=== PATIENT | male | born 1935 | race Caucasian/White ===

== ENCOUNTER 2020-05-13 12:36 | Emergency (ER) | payer MEDICARE ==
[~2020-05-13] VITALS: Ht 167.6 cm; Wt 90.7 kg
--- OUTSIDE RECORDS SUMMARY | ~2020-05-13 | XMS | Encounter Summary ---
Demographics + + + | Address | [address] | | | [place] [address] | + + + | Home Phone | | + + + | Preferred Language | Unknown | + + + | Marital Status | | + + + | Adventist Affiliation | Unknown | + + + | Race | White | + + + | Ethnic Group | Not or | + + + Author + + + | Author | [facility] | | | and [place] | + + + | Organization | [facility] | | | and [place] | + + + | Address | Unknown | + + + | Phone | Unavailable | + + + Support + + + + + | Name | Relationship | Address | Phone | + + + + + | Betsy Salcedo | ECON | [address] | | | | | [place], [place] | | | | | [address] | | + + + + + | Angelita Godoy | ECON | Unknown | | + + + + + Care Team Providers + +------+ + | Care Customer Data Technician Name | Role | Phone | + +------+ + | Catracho Puente | PCP | | | MD | | | + +------+ + Encounter Details +--------+---------+ + + + | Date | Type | Department | Care Team | Description | +--------+---------+ + + + | 10/19/ | Office | [facility] | Nicolas Roblero, | Coarctation of the | | 2020 | Visit | [facility] | MD [address] | aorta, complex; | | | | [address] | [place], | Persistent atrial | | | | [place], [place] | [place] [address] | fibrillation (HCC); | | | | [address] | [phone] | Biventricular | | | | [phone] | | implantable | | | | | | cardioverter-defibri | | | | | | llator in situ; | | | | | | Essential | | | | | | hypertension with | | | | | | goal blood pressure | | | | | | less than 130/80 | +--------+---------+ + + + Social History + +-------+ +--------+------+ | Tobacco Use | Types | Packs/Day | Years | Date | | | | | Used | | + +-------+ +--------+------+ | Former Smoker | | 1.5 | | | + +-------+ +--------+------+ + +---+---+---+ | Smokeless Tobacco: | | | | | Current User | | | | + +---+---+---+ + + +---------+ + | Alcohol Use | Drinks/Week | oz/Week | Comments | + + +---------+ + | Not Currently | | | | + + +---------+ + + + + | Sex Assigned at | Date Recorded | | | | + + + | Not on file | | + + + documented as of this encounter Last Filed Vital Signs + + + + + | Vital Sign | Reading | Time Taken | Comments | + + + + + | Blood Pressure | 136/78 | 10/19/2019 8:52 AM | | | | | PST | | + + + + + | Pulse | 74 | 10/19/2019 8:52 AM | | | | | PST | | + + + + + | Temperature | - | - | | + + + + + | Respiratory Rate | - | - | | + + + + + | Oxygen Saturation | 97% | 10/19/2019 8:52 AM | | | | | PST | | + + + + + | Inhaled Oxygen | - | - | | | Concentration | | | | + + + + + | Weight | 93 kg (205 lb) | 10/19/2019 8:52 AM | | | | | PST | | + + + + + | Height | 167.6 cm (5' 6") | 10/19/2019 8:52 AM | | | | | PST | | + + + + + | Body Mass Index | 33.09 | 10/19/2019 8:52 AM | | | | | PST | | + + + + + documented in this encounter Patient Instructions Patient Instructions Chip Leahy FNP - 10/19/2019 9:00 AM PSTStop the sweets Lose 1-2lbs per week for a total of 50lbs Get out and walk Stop alcohol Stop caffeine P ST documented in this encounter Progress Notes Nicolas Roblero MD - 10/19/2019 9:00 AM PSTFormatting of this note might be different fr om the original. ELECTROPHYSIOLOGY OUTPATIENT FOLLOW UP PATIENT NAME: Roberto Salcedo : 1935: AGE: 84 y.o. (home) : PRIMARY CARE: Catracho Puente MD Requesting Physician: Vero DOWD PROBLEMS ADDRESSED AT TODAY'S VISIT Problem List Biventricular implantable cardioverter-defibrillator in situ Overview A [employer] defibrillator was placed by Dr. Damon on July 27, 2011 for uncertain reasons, presumably cardiomyopathy. His LV systolic function has normalized. 02/28/2019: Normal device function was seen today. The underlying rhythm was atrial fibrill ation which is new since December 2018. The burden has increased to 30% since last evaluation the pacing threshold in the RV was 0.8 V at 0.5 ms and R waves were 22 mV. In the LV the threshold wa s 0.5 V at 0.5 ms and R waves were 1.5 mV. P waves were 2.5 mV. There have been episodes o f nonsustained VT lasting for up to 14 beats with a ventricular response of up to 180 bpm. H e has never received a defibrillator shocks since implant. Pacing has occurred 99% of the t hortensia in the LV and 97% of the time in the RV and 35% of the time in the RA. 10/19/2019: Normal device function was seen today. He has been in atrial fibrillation for the last 4 m [facility] so the mode was changed from DDDR to VVIR with a lower rate of 60 bpm. Pacing has occ urred in the left ventricle 99% of the time and in the right ventricle 76% of the time. The pacing threshold was 0.7 V at 0.5 ms in the right ventricle and 0.6 V at 0.5 ms in the left ventricle. There have been no arrhythmias other than A. fib. The rates have been controll ed. Outputs were adjusted appropriately, based upon pacing thresholds. The output in the r ight ventricle and left ventricle was changed to 1.5 V at 0.6 ms. Coarctation of the aorta, complex Overview Coarct repair in 1976. Had significant hypertension before then and has been much better since. Had a aortic valve replacement 8 years ago, presumably because of bicuspid aortic v alve Essential hypertension with goal blood pressure less than 130/80 Overview History of coarct repair. Chronic hypertension, controlled on medicines. Weight loss wa s strongly encouraged. Persistent atrial fibrillation Overview He has had frequent episodes of atrial fibrillation (41 days out of the past year) and he is anticoagulated with warfarin. Asymptomatic with the A. fib. The rate is controlled wit h carvedilol 25 mg twice daily and digoxin 0.125 mg/day. I recommended decreasing digoxin to 4 days a w [place] because of his renal dysfunction and age. Continue other therapy. A rate control strat egy is reasonable, given lack of symptoms. Chads 2 vascular score is 4. 10/19/2019: Continue current therapy. Pacing mode changed to VVIR. COMPREHENSIVE PROBLEM LIST Patient Active Problem List Diagnosis Date Noted Biventricular implantable cardioverter-defibrillator in situ 05/17/2014 Priority: High Note Last Updated: 10/19/2019 A [employer] defibrillator was placed by Dr. Damon on July 27, 2011 for uncertain reasons, presumably cardiomyopathy. His LV systolic function has normalized. 02/28/2019: Normal device function was seen today. The underlying rhythm was atrial fibrill ation which is new since December 2018. The burden has increased to 30% since last evaluation the pacing threshold in the RV was 0.8 V at 0.5 ms and R waves were 22 mV. In the LV the threshold wa s 0.5 V at 0.5 ms and R waves were 1.5 mV. P waves were 2.5 mV. There have been episodes o f nonsustained VT lasting for up to 14 beats with a ventricular response of up to 180 bpm. H e has never received a defibrillator shocks since implant. Pacing has occurred 99% of the t hortensia in the LV and 97% of the time in the RV and 35% of the time in the RA. 10/19/2019: Normal device function was seen today. He has been in atrial fibrillation for the last 4 m [facility] so the mode was changed from DDDR to VVIR with a lower rate of 60 bpm. Pacing has occ urred in the left ventricle 99% of the time and in the right ventricle 76% of the time. The pacing threshold was 0.7 V at 0.5 ms in the right ventricle and 0.6 V at 0.5 ms in the left ventricle. There have been no arrhythmias other than A. fib. The rates have been controll ed. Outputs were adjusted appropriately, based upon pacing thresholds. The output in the r ight ventricle and left ventricle was changed to 1.5 V at 0.6 ms. Stage 3 chronic kidney disease ([facility]) 09/19/2012 Priority: High Note Last Updated: 04/27/[address] Tatum . Bilateral carotid artery disease ([facility]) 06/17/2015 Priority: Medium Essential hypertension with goal blood pressure less than 130/80 09/19/2012 Priority: Medium Note Last Updated: 10/19/2019 History of coarct repair. Chronic hypertension, controlled on medicines. Weight loss wa s strongly encouraged. Persistent atrial fibrillation 09/19/2012 Priority: Medium Note Last Updated: 10/19/2019 He has had frequent episodes of atrial fibrillation (41 days out of the past year) and he is anticoagulated with warfarin. Asymptomatic with the A. fib. The rate is controlled wit h carvedilol 25 mg twice daily and digoxin 0.125 mg/day. I recommended decreasing digoxin to 4 days a w [place] because of his renal dysfunction and age. Continue other therapy. A rate control strat egy is reasonable, given lack of symptoms. Chads 2 vascular score is 4. 10/19/2019: Continue current therapy. Pacing mode changed to VVIR. Mixed dyslipidemia 09/19/2012 Priority: Medium Chronic combined systolic and diastolic heart failure ([facility]) 06/13/2019 Type 2 diabetes mellitus with diabetic nephropathy, without long-term current use of in sulin ([facility]) 03/05/2019 Note Last Updated: 10/02/2019 Mild pulmonary hypertension ([facility]) 03/05/2019 Note Last Updated: 04/27/2019 The estimated RV systolic pressure was 45 mmHg on a recent echo. There was normal LV sys tolic function and mild TR. Coarctation of the aorta, complex 02/28/2019 Note Last Updated: 10/19/2019 Coarct repair in 1976. Had significant hypertension before then and has been much better since. Had a aortic valve replacement 8 years ago, presumably because of bicuspid aortic v alve High serum parathyroid hormone (PTH) 02/09/2018 Urinary hesitancy 10/12/2016 Presence of automatic implantable cardioverter-defibrillator 01/22/2016 Note Last Updated: 04/27/2019 Bubbly - ICD. Model-S/N: N119 COGNIS [id number] Stroke 06/14/2015 Vitamin D deficiency 03/27/2013 S/P aortic valve replacement 09/19/2012 Note Last Updated: 04/27/2019 For severe aortic stenosis had an aortic valve replacement with a porcine prosthesis in 2010 (#25 magna ease). Idiopathic chronic gout of multiple sites without tophus 09/19/2012 Impotence 09/19/2012 Recommendations: Stop the sweets Lose 1-2lbs per week for a total of 50lbs Get out and walk Stop alcohol Stop caffeine HISTORY OF PRESENT ILLNESS This patient presents 10/19/2019, feeling well from a cardiac perspective. He has had no sym ptoms of angina, CHF, tachycardias, dizziness, or syncope. He has gained weight over the ho lidays. He remains inactive. Lasix was stopped and he takes that only if needed, for edema . Allergies Allergen Reactions Furosemide Photosensitivity Hydrochlorothiazide Photosensitivity Current Medications Current Outpatient Medications: allopurinol (ZYLOPRIM) 300 mg tablet, Take 300 mg by mouth daily. , Disp: , Rfl: aspirin 81 MG EC tablet, Take 81 mg by mouth daily with breakfast., Disp: , Rfl: atorvaSTATin (LIPITOR) 80 MG tablet, Take 80 mg by mouth nightly., Disp: , Rfl: calcitriol (ROCALTROL) 0.25 mcg capsule, TAKE 1 CAPSULE BY MOUTH DAILY, Disp: 90 caps ule, Rfl: 3 CARVEDILOL PO, Take 25 mg by mouth 2 (two) times daily. , Disp: , Rfl: digoxin (DIGOX) 125 mcg tablet, Take 125 mcg by mouth daily. , Disp: , Rfl: doxazosin (CARDURA) 1 mg tablet, Take 4 mg by mouth nightly., Disp: , Rfl: fenofibrate (TRICOR) 145 mg tablet, Take 1 tablet by mouth Daily., Disp: 90 tablet, Rf l: 2 finasteride (PROSCAR) 5 mg tablet, Take 5 mg by mouth daily. (Patient taking different ly: Take 2.5 mg by mouth Daily.), Disp: , Rfl: glipiZIDE (GLUCOTROL XL) 2.5 mg 24 hr tablet, Take 2.5 mg by mouth daily. (Patient mary ing differently: Take 5 mg by mouth Daily.), Disp: , Rfl: lisinopril (PRINIVIL,ZESTRIL) 40 MG tablet, Take 1 tablet by mouth every evening., Dis p: , Rfl: tamsulosin (FLOMAX) 0.4 mg CAPS, Take 2 capsules by mouth After dinner., Disp: 180 ca psule, Rfl: 3 warfarin (COUMADIN) 5 mg tablet, Take 3 mg by mouth daily. 4mg Wednesday, Wednesday, and Wednesday. 3 mg Wednesday, Wednesday and wednesday, Disp: , Rfl: The past history, social history, family history and problem list were reviewed and update d with changes of any significance. DATA Laboratory values which I reviewed 10/19/2019 are as follows: Lab Results Component Value Date WBC 7.4 01/13/2019 RBC 5.04 10/02/2019 RBC 4.42 01/13/2019 HGB 15.4 10/02/2019 HGB 13.2 (A) 01/13/2019 Lab Results Component Value Date NA 137 10/02/2019 K 4.2 10/02/2019 CL 102 10/02/2019 CO2 23 10/02/2019 ANIONGAP 16 10/02/2019 GLUF 164 (A) 01/13/2019 BUN 39 (A) 10/02/2019 EGFR 43.0 (A) 10/02/2019 Lab Results Component Value Date CHOL 118 06/15/2015 TRIG 84 06/15/2015 LDL 57 06/15/2015 GLUF 164 (A) 01/13/2019 Lab Results Component Value Date TSH 1.41 05/06/2017 TSH 1.40 07/04/2015 ROS I have personally reviewed and agree with ROS listed by ISHA attached. All other systems are reviewed and negative. PHYSICAL EXAM BP 136/78 | Pulse 74 | Ht 1.676 m (5' 6") | Wt 93 kg (205 lb) | SpO2 97% | BMI 33.09 k g/m Physical Exam Constitutional: He is oriented to person, place, and time. He appears well-developed and we ll-nourished. No distress. Pleasant overweight gentleman in no distress. Irregular rhythm controlled heart rate. HENT: Head: Normocephalic and atraumatic. Eyes: Pupils are equal, round, and reactive to light. Neck: No JVD present. No thyromegaly present. Cardiovascular: Normal rate, regular rhythm, normal heart sounds and intact distal pulses. Exam reveals no gallop and no friction rub. No murmur heard. Pulmonary/Chest: Effort normal and breath sounds normal. No respiratory distress. He has no wheezes. He has no rales. Abdominal: Soft. Bowel sounds are normal. There is no abdominal tenderness. There is no gua rding. Musculoskeletal: General: No tenderness or edema. Neurological: He is alert and oriented to person, place, and time. Skin: Skin is warm and dry. He is not diaphoretic. Psychiatric: He has a normal mood and affect. His behavior is normal. Judgment and thought content normal. Vitals reviewed. Nicolas Roblero MD 10/19/2019 9:38 AM *This report has been prepared using a voice recognition system. The report was reviewed f or accuracy, however, sound-alike word errors, addition and/or deletions may occur. If there is any question about this report please contact me. Patient Instructions Stop the sweets Lose 1-2lbs per week for a total of 50lbs Get out and walk Stop alcohol Stop caffeine Virginia Saucedo [facility] [employer] Billing Associate - 10/19/2019 9:00 AM Maddison VIEIRA Note- Electrophysiology Patient ID: Roberto Salcedo is a 84 y.o. male. Review of Systems Constitutional: Negative for chills, fever, malaise/fatigue and weight loss. HENT: Negative for congestion and sore throat. Respiratory: Negative for cough and shortness of breath. Cardiovascular: Negative for chest pain, palpitations and leg swelling. Gastrointestinal: Negative for abdominal pain and blood in stool. Genitourinary: Negative for hematuria. Musculoskeletal: Negative for myalgias. Neurological: Positive for dizziness. Negative for sensory change and loss of consciousness . Have you ever had a sleep study? NO Do you use oxygen? NO Do you use CPAP? NO Do you snore? YES Do you fall asleep for no reason during the day? NO Do you stop breathing at night? NO Do you feel excessively tired during the day? NO Lisa london in this encounter Plan of Treatment +--------+ + + + + | Date | Type | Specialty | Care Team | Description | +--------+ + + + + | 05/29/ | Office | Cardiology | Pavan Pham, | | 2019 | Visit | | MD [address] | | | | | | [place], [place] | | | | | | [address] | | | | | | | | +--------+ + + + + | 08/05/ | Procedure | Cardiology | | | 2019 | visit | | | | +--------+ + + + + | 11/07/ | Office | Cardiology | Nicolas Roblero, | | | 2020 | Visit | | [address] | | | | | | [place], | | | | | | [place] [address] | | | | | | [phone] | | | | | | | | +--------+ + + + + documented as of this encounter Visit Diagnoses + + | Diagnosis | + + | Coarctation of the aorta, complex Coarctation of aorta (preductal) (postductal) | + + | Persistent atrial fibrillation (HCC) Atrial fibrillation | + + | Biventricular implantable cardioverter-defibrillator in situ | + + | Essential hypertension with goal blood pressure less than 130/80 | + + documented in this encounter
--- OUTSIDE RECORDS SUMMARY | ~2020-05-13 | XMS | Encounter Summary ---
Demographics + + + | Address | [address] | | | [place] [address] | + + + | Home Phone | | + + + | Preferred Language | Unknown | + + + | Marital Status | | + + + | Lutheran Affiliation | Unknown | + + + | Race | White | + + + | Ethnic Group | Not or | + + + Author + + + | Author | [facility] | | | and [place] | + + + | Organization | [facility] | | | and [...] [place], [place] | | | | | [address] | | + + + + + | Angelita Godoy | ECON | Unknown | | + + + + + Care Team Providers + +------+ + | Care Rn Lactation Consultant Name | Role | Phone | + +------+ + | Catracho Puente | PCP | | | MD | | | + +------+ + Encounter Details +--------+ + + + + | Date | Type | Department | Care Team | Description | +--------+ + + + + | 03/20/ | Orders Only | [facility] | Conversion | | | 2012 | | [address] | Transaction, | | | | | [place] | Provider Unknown | | | | | [address] | [phone] | | | | | [phone] | | | +--------+ + + + + Social History + +-------+ +--------+------+ | Tobacco Use | Types | Packs/Day | Years | Date | | | | | Used | | + +-------+ +--------+------+ | Never Assessed | | | | | + +-------+ +--------+------+ + + + | Sex Assigned at | Date Recorded | | | | + + + | Not on file | | + + + documented as of this encounter Plan of Treatment +--------+ + + + + | Date | Type | Specialty | Care Team | Description | +--------+ + + + + | 05/29/ | Office | Cardiology | Pavan Pham, | | | 2019 | Visit | | MD [address] | | | | | | [place] | | | | | | [address] | | | | | | | | +--------+ + + + + | 08/05/ | Procedure | Cardiology | | | | 2019 | visit | | | | +--------+ + + + + | 11/07/ | Office | Cardiology | Nicolas Roblero, | | | 2020 | Visit | | MD [address] | | | | | | [place], | | | | | | [place] [address] | | | | | | [phone] | | | | | | | | +--------+ + + + + documented as of this encounter Procedures + +--------+ + + + | Procedure Name | Priori | Date/Time | Associated Diagnosis | Comments | | | ty | | | | + +--------+ + + + | CULTURE, URINE | Routin | 03/20/2013 | | Results for this | | | e | 9:00 AM | | procedure are in the | | | | PDT | | results section. | + +--------+ + + + documented in this encounter Results Culture, Urine (03/20/2013 9:00 AM PDT) + + | Specimen | + + | | + + + + + | Narrative | Performed At | + + + | Specimen Description URINE, COLLECTION NOT | EXTERNAL LAB | | GIVEN Testing | | | performed at [facility] [address] [facility];[place] [address] CULTURE | | | NO GROWTH | | | Testing performed at [facility];[address] | | | [facility];[place] [address] REPORT STATUS | | | 03/21/2013 FINAL | | | | | + + + + +---------+ + + | Performing | Address | City/State/Zipcode | Phone Number | | Organization | | | | + +---------+ + + | EXTERNAL LAB | | | | + +---------+ + + documented in this encounter Visit Diagnoses Not on filedocumented in this encounter"
--- OUTSIDE RECORDS SUMMARY | ~2020-05-13 | XMS | Encounter Summary ---
Demographics + + + | Address | [address] | | | [place] [address] | + + + | Home Phone | | + + + | Preferred Language | Unknown | + + + | Marital Status | | + + + | Jehovah'S Witness Affiliation | Unknown | + + + | Race | White | + + + | Ethnic Group | Not or | + + + Author + + + | Author | [facility] | | | and [place] | + + + | Organization | [facility] | | | and [...] [place], [place] | | | | | [address] | | + + + + + | Angelita Godoy | ECON | Unknown | | + + + + + Care Team Providers + +------+ + | Care Catering Administrative Assistant Name | Role | Phone | + +------+ + | Catracho Puente | PCP | | | MD | | | + +------+ + Reason for Visit + + + | Reason | Comments | + + + | Medication Refill | Fenofibrate | + + + Encounter Details +--------+--------+ + + + | Date | Type | Department | Care Team | Description | +--------+--------+ + + + | 02/21/ | Refill | [facility] | Pavan Pham, | Medication Refill | | 2020 | | CARDIOLOGY [place] | MD [address] | (Fenofibrate) | | | | [address] [facility] | [place], [place] | | | | | [place] [address] | [id number] | | | | | [place] | | | | | | [address] | | | | | | [phone] | | | +--------+--------+ + + + Social History + +-------+ [...] [address] | | | | | | [place] | | | | | | [address] | | | | | | | [...] [place], | | | | | | [place] [address] | | | | | | [phone] | | | | | | | | +--------+ + + + + documented as of this encounter Visit Diagnoses Not on filedocumented in this encounter"
--- OUTSIDE RECORDS SUMMARY | ~2020-05-13 | XMS | Encounter Summary ---
Demographics + + + | Address | [address] | | | [place] [address] | + + + | Home Phone | | + + + | Preferred Language | Unknown | + + + | Marital Status | | + + + | Latter Day Affiliation | Unknown | + + + | Race | White | + + + | Ethnic Group | Not or | + + + Author + + + | Author | [facility] | | | and [place] | + + + | Organization | [facility] | | | and [...] [place], [place] | | | | | [address] | | + + + + + | Angelita Godoy | ECON | Unknown | | + + + + + Care Team Providers + +------+ + | Care Doughnut Maker Name | Role | Phone | + +------+ + | Catracho Puente | PCP | | | MD | | | + +------+ + Encounter Details +--------+ + + + + | Date | Type | Department | Care Team | Description | +--------+ + + + + | 06/18/ | Orders Only | [facility] | Wing Roxane Vargas MD | | | 2014 | | CONVERSION [address] | [address] | | | | | [address] | [place], [place] | | | | | [place], [place] | [address] | | | | | [address] | [phone] | | | | | [phone] | | | +--------+ + + + [...] [place] | | | | | | [address] | | | | | | | [...] | | | | | | [place] [address] | | | | | | [phone] | | | | | | | | +--------+ + + + + documented as of this encounter Visit Diagnoses Not on filedocumented in this encounter"
--- OUTSIDE RECORDS SUMMARY | ~2020-05-13 | XMS | Encounter Summary ---
Demographics + + + | Address | [address] | | | [place] [address] | + + + | Home Phone | | + + + | Preferred Language | Unknown | + + + | Marital Status | | + + + | Sabianism Affiliation | Unknown | + + + | Race | White | + + + | Ethnic Group | Not or | + + + Author + + + | Author | [facility] | | | and [place] | + + + | Organization | [facility] | | | [...] [place], [place] | | | | | [address] | | + + + + + | Angelita Godoy | ECON | Unknown | | + + + + + Care Team Providers + +------+ + | Care Chemistry Quality Control Analyst Name | Role | Phone | + +------+ + | Catracho Puente | PCP | | | MD | | | + +------+ + Encounter Details +--------+ + + + + | Date | Type | Department | Care Team | Description | +--------+ + + + + | 09/19/ | Orders Only | [facility] | Conversion | | | 2012 | | CONVERSION DEP [address] | Transaction, | | | | | [address] | Provider Unknown | | | | | [place] | [phone] | | | | | [address] | | | | | | [phone] | | | +--------+ + + + [...] | | | | | [address] [address] [place] | | | | | | [address] | | | | | | | [...] | | | | | | [place] [address] | | | | | | [phone] | | | | | | | | +--------+ + + + + documented as of this encounter Visit Diagnoses Not on filedocumented in this encounter"
--- OUTSIDE RECORDS SUMMARY | ~2020-05-13 | XMS | Encounter Summary ---
Demographics + + + | Address | [address] | | | [place] [address] | + + + | Home Phone | | + + + | Preferred Language | Unknown | + + + | Marital Status | | + + + | Zoroastrianism Affiliation | Unknown | + + + | Race | White | + + + | Ethnic Group | Not or | + + + Author + + + | Author | [facility] | | | and [place] | + + + | Organization | [facility] | | [...] [place], [place] | | | | | [address] | | + + + + + | Angelita Godoy | ECON | Unknown | | + + + + + Care Team Providers + +------+ + | Care Cribber Name | Role | Phone | + +------+ + | Catracho Puente | PCP | | | MD | | | + +------+ + Encounter Details +--------+ + + + + | Date | Type | Department | Care Team | Description | +--------+ + + + + | 01/20/ | Orders Only | [facility] | Conversion | | | 2019 | | CONVERSION DEP [address] | Transaction, | | | | | [address] | Provider Unknown | | | | | [place] | [phone] | | | | | [address] | | | | | | [phone] | | | +--------+ + + + [...] | | | | | [address] [address] [place] | | | | | | [address] | | | | | | | [...] | | | | | | [place] [address] | | | | | | [phone] | | | | | | | | +--------+ + + + + documented as of this encounter Visit Diagnoses Not on filedocumented in this encounter"
--- OUTSIDE RECORDS SUMMARY | ~2020-05-13 | XMS | Encounter Summary ---
Demographics + + + | Address | [address] | | | [place] [address] | + + + | Home Phone | | + + + | Preferred Language | Unknown | + + + | Marital Status | | + + + | Jain Affiliation | Unknown | + + + | Race | White | + + + | Ethnic Group | Not or | + + + Author + + + | Author | [facility] | | | and [place] | + + + | Organization | [facility] | | | and [...] [place], [place] | | | | | [address] | | + + + + + | Angelita Godoy | ECON | Unknown | | + + + + + Care Team Providers + +------+ + | Care Cloth Wire Weaver Name | Role | Phone | + +------+ + | Catracho Puente | PCP | | | MD | | | + +------+ + Encounter Details +--------+ + + + + | Date | Type | Department | Care Team | Description | +--------+ + + + + | 02/28/ | Orders Only | [facility] | Nicolas Roblero, | | | 2018 | | [place] | MD [address] | | | | | [address] | [facility] [place] [place] | | | | | [place], [place] | [place] [address] | | | | | [address] | [phone] | | | | | [phone] | | | +--------+ + + + [...] | | | | | [address] [address] [place] | | | | | | [address] | | | | | | | [...] | | | | | | [place] [address] | | | | | | [phone] | | | | | | | | +--------+ + + + + documented as of this encounter Visit Diagnoses Not on filedocumented in this encounter"
--- OUTSIDE RECORDS SUMMARY | ~2020-05-13 | XMS | Encounter Summary ---
Demographics + + + | Address | [address] | | | [place] [address] | + + + | Home Phone | | + + + | Preferred Language | Unknown | + + + | Marital Status | | + + + | Muslim Affiliation | Unknown | + + + | Race | White | + + + | Ethnic Group | Not or | + + + Author + + + | Author | [facility] | | | and [place] | + + + | Organization | [facility] | | | and [place] | + + + | Address | Unknown | + + + | Phone | Unavailable | + + + Support + + + + + | Name | Relationship | Address | Phone | + + + + + | Betsy Muniz | ECON | [address] | | | | | [place], [place] | | | | | [address] | | + + + + + | Angelita Godoy | ECON | Unknown | | + + + + + Care Team Providers + +------+ + | Care Tool Profiling Machine Set Up Operator Name | Role | Phone | + +------+ + PCP | Unavailable | + +------+ + Encounter Details +--------+ + + + + | Date | Type | Department | Care Team | Description | +--------+ + + + + | 07/27/ | Hospital | [facility] | Ayanna Damon, | | | 2010 - | Encounter | [facility] | [address] | | | | | CARDIAC TELEMETRY | [address] | | | 07/28/ | | [address] | [place] [address] | | | 2010 | | [place] | [phone] | | | | | [address] | | | | | | [phone] | | | +--------+ + + + [...] + + documented as of this encounter Procedure Notes Ayanna Damon MD - 07/18/2013 10:51 PM PST PATIENT NAME: AYANNA MUNIZ Sex/Age: M / 75Y : 1935 FLAMER SEALER: Aaynna Damon MD DATE: 07/27/2011 PROCEDURE: 1. CRTD placement. 2. Coronary sinus venography. 3. Atrial lead placement. 4. VF induction by programmed electrical stimulation. 5. Defibrillatory threshold testing. INDICATION FOR PROCEDURE: The patient presents to undergo CRTD. He has a left bundle branch block and ejection fract ion of 25% and congestive heart failure. DESCRIPTION OF PROCEDURE: The left subclavian area was prepped and draped in usual sterile fashion. Local anesthesia was accomplished with 1% lidocaine with continuous heart rate, blood pressure and saturati on monitoring performed throughout the procedure. Brief general anesthesia administered dur ing ICD testing. An infraclavicular incision was made with careful dissection down to the pectoralis fascia where a pocket was formed. Using a needle and guidewire technique, the rodriguez bclavian vein was introduced under two separate sticks. The RV lead is a Guidant Model No. 0185, Serial No. [id number]. This was positioned in the right ventricular apex and screwed in p lace. The R wave was 25 mV, pacing threshold 1 V at 0.5 ms with an impedance of 575 ohms. There was no diaphragmatic stimulation at 10 V. The lead was sutured to the pectoralis fasc ia using 0 silk x2. Using the Rapido delivery system the coronary sinus was cannulated. Cor onary sinus venography was performed in multiple views including the use of an occlusion ba lloon. The first left ventricular target vessel was a superior vessel and it was successful ly cannulated. The lead was placed but could not be advanced to a distal enough position. We then picked a mid left ventricular branch and again this was successfully cannulated and the wire was advanced but the lead could not be advanced including the use of a 4-Eritrean u nipolar lead. At the junction of the CS os there are two vessels, the most inferior vessel does not accommodate the lead and the middle of these two vessels is slightly cannulated w ith difficulty. The lead first attempted as an Easytrak II and if and the lead was then pos itioned with excellent numbers and sheaths removed, but under fluoroscopic observation we w atched the lead slowly migrate out. We then recannulated this same vessel and placed a Guid ant Easytrak III, Model No. 4549, Serial No. [id number]. This lead was advanced well out and w edged. The R wave was 25 mV, pacing threshold 2 V at 0.5 ms with an impedance of 1159 ohms . The delivery system was carefully removed, and the lead observed over a long period of ti me and remained in satisfactory position but it is with some apprehension that this lead ma y Roxana MUNIZ ADM:07/27/11 [id number] 07/28/11 DIS Rubén CARDIAC PROCEDURE REPORT [id number] [facility] Ayanna Damon MD E-Sign: [facility] THIS REPORT IS CONFIDENTIAL AND NOT TO BE RELEASED WITHOUT PROPER AUTHORIZATION. [facility] not be in a stable position. The atrial lead was then placed and is a Guidant Model No. 40 87, Serial No. [id number]. A-wave after conversion to a sinus rhythm is 4.6 mV, pacing threshol d 0.9 V at 0.5 ms with an impedance of 611 ohms. The leads were then connected to a [employer] Model No. N119, Serial No. [id number]. The device was seen to sense and pace ap propriately. Programmed electrical stimulation was used to induce ventricular fibrillation. The device sensed the arrhythmia, shocking at 21 joules, converting him back to his atrial flutter. We then gave a synchronized shock at 40 joules, converting him to a sinus rhythm. The wound was irrigated with Ancef and closed using 2-0 Vicryl in a running layer, follow ed by a second 2-0 Vicryl layer and a 4-0 subcuticular layer. The patient tolerated the pro cedure well and left the seed laboratory technician in a stable hemodynamic state to obtain a chest x-ray. Ayanna Damon MD P P DAC/dlb #[id number] cc: Ayanna Damon MD Electronically Signed 08/17/11 0944 Ayanna Damon MD CRISTY,ERNIE NELSON Jessie ADM:07/27/11 [id number] 07/28/11 DIS Rubén CARDIAC PROCEDURE REPORT [id number] [facility] Ayanna Damon MD E-Sign: [facility] THIS REPORT IS CONFIDENTIAL AND NOT TO BE RELEASED WITHOUT PROPER AUTHORIZATION.Electronica lly signed by Ayanna Damon MD at 07/19/2013 7:17 AM PSTdocumented in this encounter Plan of Treatment +--------+ + + + + | Date | Type | Specialty | Care Team | Description | +--------+ + + + + | 05/29/ | Office | Cardiology | Brittney Phamcristina, | | | 2019 | Visit | | MD [address] | | | | | | [place] | | | | | | [address] | | | | | | | | +--------+ + + + + | 08/05/ | Procedure | Cardiology | | | | 2019 | visit | | | | +--------+ + + + + | 11/07/ | Office | Cardiology | Nicolas Roblero, | | | 2020 | Visit | | MD [address] | | | | | | [place] | | | | | | [place] [address] | | | | | | [phone] | | | | | | | | +--------+ + + + + documented as of this encounter Procedures + +--------+ + + + | Procedure Name | Priori | Date/Time | Associated Diagnosis | Comments | | | ty | | | | + +--------+ + + + | XR CHEST 2 VIEWS | | 07/27/2011 | | Results for this | | | | 3:29 PM | | procedure are in the | | | | PST | | results section. | + +--------+ + + + documented in this encounter Results XR Chest 2 VW (07/27/2011 3:29 PM PST) + + | Specimen | + + | | + + + + + | Narrative | Performed At | + + + | Exam Performed Location: [facility] [place] CHEST | MISC[facility] | | TWO VIEWS CLINICAL INFORMATION: Post biv icd @ 1330. | LAB | | COMPARISON: None. FINDINGS: Three lead ICD placement. Leads | | | are contiguous in project over the right and left ventricle as well | | | as the right atrium. Moderate cardiomegaly. Normal pulmonary | | | vasculature. Lungs are clear. No pleural effusion or | | | pneumothorax. Mild atherosclerotic disease noted. Bones are | | | normal for age. IMPRESSION: Biventricular ICD. Moderate | | | cardiomegaly. No acute findings. S: SQ ([id number]) Signed by: | | | CALIXTO BACK MD | | + + + + + | Procedure Note | + + | Cesar, Gus Conversion - 07/06/2013 3:24 PM PDT Exam Performed Location: [facility] | | at [facility] TWO VIEWSCLINICAL INFORMATION:Post biv icd @ | | 1330.COMPARISON:None.FINDINGS:Three lead ICD placement. Leads are contiguous in project | | over theright and left ventricle as well as the right atrium. Moderatecardiomegaly. | | Normal pulmonary vasculature. Lungs are clear. Nopleural effusion or pneumothorax. | | Mild atherosclerotic diseasenoted. Bones are normal for age.IMPRESSION:Biventricular | | ICD. Moderate cardiomegaly. No acute findings.S: SQ ([id number]) Signed by: CALIXTO Almaraz | | MD WONG | |None. | | | |FINDINGS: | |Three lead ICD placement. Leads are contiguous in project over the | |right and left ventricle as well as the right atrium. Moderate | |cardiomegaly. Normal pulmonary vasculature. Lungs are clear. No | |pleural effusion or pneumothorax. Mild atherosclerotic disease | |noted. Bones are normal for age. | | | |IMPRESSION: | |Biventricular ICD. Moderate cardiomegaly. No acute findings. | | | | | |S: SQ [id number]) Signed by: CALIXTO BACK MD | + + + +---------+ + + | Performing | Address | City/State/Zipcode | Phone Number | | Organization | | | | + +---------+ + + | [facility] | | | [phone] | + +---------+ + + | [facility] | | | [phone] | + +---------+ + + documented in this encounter Visit Diagnoses Not on filedocumented in this encounter"
--- OUTSIDE RECORDS SUMMARY | ~2020-05-13 | XMS | Encounter Summary ---
Demographics + + + | Address | [address] | | | [place] [address] | + + + | Home Phone | | + + + | Preferred Language | Unknown | + + + | Marital Status | | + + + | Congregation Affiliation | Unknown | + + + | Race | White | + + + | Ethnic Group | Not or | + + + Author + + + | Author | [facility] | | | and [place] | + + + | Organization | [facility] | | | [...] [place], [place] | | | | | [address] | | + + + + + | Angelita Godoy | ECON | Unknown | | + + + + + Care Team Providers + +------+ + | Care Snowboard Instructor Name | Role | Phone | + +------+ + | Catracho Puente | PCP | | | MD | | | + +------+ + Encounter Details +--------+ + + + + | Date | Type | Department | Care Team | Description | +--------+ + + + + | 10/31/ | Orders Only | [facility] | Mane Meza, | | | 2010 | | MEDICAL CENTER | MD [facility] | | | | | CLINICAL LABORATORY | [facility] [address] | | | | | [address] | [place] [address] | | | | | [place], [place] | [phone] | | | | | [address] | | | | | | [phone] | | | +--------+ + + + [...] [place] | | | | | | [address] | | | | | | | | +--------+ + + + + | 08/05/ | Procedure | Cardiology | | | | 2019 | visit | | | | +--------+ + + + + | 11/07/ Office | Cardiology | RobleroNicolas jackson Carlo, | | | 2020 | Visit | | [address] | | | | | | [place], | | | | | | [place] [address] | | | | | | [phone] | | | | | | | | +--------+ + + + + documented as of this encounter Procedures + +--------+ + + + | Procedure Name | Priori | Date/Time | Associated Diagnosis | Comments | | | ty | | | | + +--------+ + + + | CULTURE, MRSA | Routin | 10/31/2010 | | Results for this | | | e | 9:45 AM | | procedure are in the | | | | PST | | results section. | + +--------+ + + + documented in this encounter Results Culture, MRSA (10/31/2010 9:45 AM PST) + + | Specimen | + + | | + + + + + | Narrative | Performed At | + + + | Specimen Description NARES(NOSE) | EXTERNAL LAB | | Testing performed at [facility];[address] | | [facility];[place] [address] CULTURE | | | NO METHICILLIN RESISTANT STAPH AUREUS ISOLATED. | | | Testing performed at [facility], [address] | | [place] [address] REPORT STATUS | | | 11/01/2010 FINAL | | + + + + +---------+ + + | Performing | Address | City/State/Zipcode | Phone Number | | Organization | | | | + +---------+ + + | EXTERNAL LAB | | | | + +---------+ + + documented in this encounter Visit Diagnoses Not on filedocumented in this encounter"
--- OUTSIDE RECORDS SUMMARY | ~2020-05-13 | XMS | Encounter Summary ---
Demographics + + + | Address | [address] | | | [place] [address] | + + + | Home Phone | | + + + | Preferred Language | Unknown | + + + | Marital Status | | + + + | Pentecostal Affiliation | Unknown | + + + | Race | White | + + + | Ethnic Group | Not or | + + + Author + + + | Author | [facility] | | | and [place] | + + + | Organization | [facility] | | | [...] [place], [place] | | | | | [address] | | + + + + + | Angelita Godoy | ECON | Unknown | | + + + + + Care Team Providers + +------+ + | Care Federal Judge Name | Role | Phone | + +------+ + PCP | Unavailable | + +------+ + Encounter Details +--------+ + + + + | Date | Type | Department | Care Team | Description | +--------+ + + + + | 06/14/ | Hospital | [facility] | Rufina Cifuentes MD 101 | | | 2015 - | Encounter | [facility] | [address] | | | | | CARE FLO[address] | [place] [address] | | | 06/17/ | | [address] | [phone] | | | 2014 | | [place], [place] | | | | | | [address] | | | | | | [phone] | | | +--------+ + + + [...] + + documented as of this encounter Discharge Summaries Cornelio Boyer MD - 06/17/2015 8:42 AM PDTFormatting of this note might be different f rom the original. Discharge Summaries by Cornelio Boyer MD at 06/17/15841 Author: Cornelio Boyer MD Service: (none) Author Type: Physician Filed: 06/17/15 1126 Date of Service: 06/17/15841 Status: Signed [employer]: Cornelio Boyer MD (Physician) [facility] Service: Hospitalist Discharge Summary Date of Admission: 06/14/2015 Date of Discharge: 06/17/2015 Discharge Provider: CORNELIO BOYER MD Consulting Provider: Dr Vidal - Neurology , Dr Cr - Rehab Medicine Discharge Diagnoses: Principal Problem: Stroke (HCC) R cerebellar acute Active Problems: CKD (chronic kidney disease), stage III Essential hypertension, benign Chronic heart failure (HCC) S/P aortic valve replacement Atrial fibrillation (HCC) Dyslipidemia Biventricular implantable cardioverter-defibrillator in situ BRIEF HISTORY OF PRESENTATION: Ayanna Salcedo is a 79 y.o. male with significant past medical history of recent righ t carotid endarterectomy, aortic stenosis status post replacement, coronary artery disease s tatus post CABG, chronic kidney disease, status post AICD, atrial fibrillation on anticoagul ation, who was a transfer from [facility] for stroke. He was recently discharged from [facility] in [place] after the carotid endarterectomy. CT scan showed a large acute cer ebellar stroke. Dr Vidal saw him from Neurology. He had a repeat CT head yesterday to follow u p and this showed unchanged large R cerebellar infarction with mild mass effect on fourth ve ntricle with no evidence of hemorrhagic transformation. Discussed with Dr Vidal, ok to restar t warfarin at 10 days of symptom onset , and per family discussion with Dr harris yesterday, warfarin to start tomorrow, ASA to bridge until warfarin therapeutic. His vascular surgeon did advise him he needs ot be on low dose ASA even while on warfarin so after the bridging w ith 325 mg he can then shift to 81 mg barring any contraindications. Family at bedside. Judy galicia has been having R sided headache behind the R eye which is unchanged. No nausea, vomit ing, chest pain, syncope. K is low, replete and f/u at [facility]. He had been accepted there today . Blood glucose has been controlled, his oral med has been stopped as below. No evidence of heart failure. All quesitons answered. Medically stable to transfer to ICU DISCHARGE EXAM Vital Signs: BP 151/71 mmHg | Pulse 62 | Temp(Src) 98.1 F (36.7 C) (Oral) | Resp 16 | Ht 1.626 m (5' 4") | Wt 92.6 kg (204 lb 2.3 oz) | BMI 35.02 kg/m2 | SpO2 93% Constitutional: Alert and oriented to person, place, and time. Appears well-developed and w ell-nourished. HEENT: Neck supple, no JVD, non icteric sclera. Cardiovascular: Normal rate , + murmur Pulmonary/Chest: Effort normal and breath sounds normal. No stridor. No respiratory distres s. no wheezes. no rales Abdominal: Soft. Bowel sounds are normal. exhibits no distension and no mass. There is no t enderness. There is no rebound and no guarding. Extremeties/Musculoskeletal: Normal range of motion.exhibits no tenderness. exhibits no steffen ma. Neurological: Alert and oriented to person, place, and time. Has normal reflexes. No crania l nerve deficit. Exhibits normal muscle tone. Coordination normal. Skin: Skin is warm and dry. Psychiatric: Has a normal mood and affect. Behavior is normal. Judgment normal. Disposition: [facility] Condition: stable and improved Code Status: DNR/DNI Follow up: Dontae Chance MD [address] [facility] [id number] Art Vidal MD [address] [facility] [id number] Medication List START taking these medications aspirin 325 MG tablet QTY: 30 tablet Refills: 0 Doctor's comments: Stop 325 mg dose when INR is 2-3 and resume at 81 mg per Vascular surge on Take 1 tablet by mouth daily with breakfast. CHANGE how you take these medications atorvastatin 80 MG tablet Refills: 0 Commonly known as: LIPITOR Take 1 tablet by mouth nightly. What changed: - medication strength - how much to take CONTINUE taking these medications allopurinol 300 MG tablet Refills: 0 Commonly known as: ZYLOPRIM amiodarone 200 MG tablet Refills: 0 Commonly known as: PACERONE CARVEDILOL PO Refills: 0 digoxin 0.125 MG tablet Refills: 0 Commonly known as: LANOXIN tamsulosin 0.4 MG capsule QTY: 180 capsule Refills: 3 Commonly known as: FLOMAX Take 2 capsules by mouth After dinner. VITAMIN D (ERGOCALCIFEROL) PO Refills: 0 STOP taking these medications amLODIPine 5 MG tablet Commonly known as: NORVASC enoxaparin 120 MG/0.8ML Soln Commonly known as: LOVENOX glipiZIDE 2.5 MG 24 hr tablet Commonly known as: GLUCOTROL hydrochlorothiazide 12.5 MG tablet Commonly known as: HYDRODIURIL lisinopril 40 MG tablet Commonly known as: ZESTRIL warfarin 4 MG tablet Commonly known as: COUMADIN Where to Get Your Medications You need to roll picker these prescriptions. We sent them to a specific pharmacy, so go there to get them. [id number] - [place], [place] - [address] - aspirin 325 MG tablet [address] [place] [address] Information on where to get these meds is not yet available. Ask your nurse or doctor. - atorvastatin 80 MG tablet Discharge took >30 minutes, to include final examination, discussion of admission, and prep aration of prescriptions, instructions for on-going care, follow-up and documentation of dis charge summary. CORNELIO BOYER MD 06/17/2015 documented in this encounter Medications at Time of Discharge + + + +---------+ + + | Medication | Sig | Dispensed | Refills | Start | End Date | | | | | | Date | | + + + +---------+ + + | allopurinol | Take 300 mg by mouth | | 0 | 09/19/19 | | | (ZYLOPRIM) 300 mg | daily. | | | 13 | | | tablet | | | | | | + + + +---------+ + + | CARVEDILOL PO | Take 25 mg by mouth | | 0 | 09/19/19 | | | | 2 (two) times daily. | | | 13 | 0 | | | | | | | | + + + +---------+ + + | digoxin (DIGOX) | Take 125 mcg by | | 0 | 09/19/19 | | | 125 mcg tablet | mouth daily. | | | 13 | 0 | + + + +---------+ + + documented as of this encounter Progress Notes Conversion Transaction, Provider Unknown - 06/17/2015 10:56 AM PDTFormatting of this note m ight be different from the original. Nurse Progress Note by Mariya Lieberman RN at 06/17/151055 Author: Mariya Lieberman RN Service: (none) Author Type: Registered Nurse Filed: 06/17/15 1118 Date of Service: 06/17/151055 Status: Signed [employer]: Mariya Lieberman RN (Registered Nurse) Report called and given to Deysi on IPR. onver paulina Transaction, Provider Unknown - 06/17/2015 5:27 AM PDT Nurse Progress Note by Nakita Weeks RN at 06/17/15526 Author: Nakita Weeks RN Service: (none) Author Type: Registered Nurse Filed: 06/17/15605 Date of Service: 06/17/15526 Status: Signed [employer]: Nakita Weeks RN (Registered Nurse) Patient resting quietly this shift. Patient c/o headache, See mar for details. No further complaints. VSS. Wing Roxane Kirkland MD - 06/16/2015 4:34 PM PDTFormatting of this note might be different from the origi nal. Progress Notes by Wing Roxane Cr MD at 06/16/151633 Author: Wing Roxane Cr MD Service: Physical Medicine and Rehab Author Type: Physician Filed: 06/16/15 2961 Date of Service: 06/16/151633 Status: Signed [employer]: Wing Roxane Cr MD (Physician) Patient seen face-face for followup He still has some dizziness and ataxia Patient is for repeat head CT scan today. He is speaking adequately BP 149/70 mmHg | Pulse 60 | Temp(Src) 98 F (36.7 C) (Oral) | Resp 18 | Ht 1.626 m (5' 4 ") | Wt 92.2 kg (203 lb 4.2 oz) | BMI 34.87 kg/m2 | SpO2 94% Lung: Clear Cardiac: Regular Abdo: Soft Ext: Moving all limbs A/P cerebellar CVA Cont tx plan WING Roxane CR MD 06/16/2015 4:34 PM Admission on 06/14/2015 Component Date Value Ref Range Status GLUCOSE,POC SCREEN 06/14/2015 124* 65 - 99 mg/dL Final GLUCOSE,POC SCREEN 06/14/2015 100* 65 - 99 mg/dL Final WBC 06/15/2015 10.13 3.80 - 11.00 K/uL Final RBC 06/15/2015 4.16* 4.20 - 5.70 M/uL Final HGB 06/15/2015 13.5 13.2 - 17.0 g/dL Final HCT 06/15/2015 40.3 39.0 - 50.0 % Final MCV 06/15/2015 96.9 80.0 - 100.0 fl Final MCH 06/15/2015 32.4 27.0 - 34.0 pg Final MCHC 06/15/2015 33.4 32.0 - 35.5 g/dL Final RDW SD 06/15/2015 46.8 37 - 53 fl Final PLT 06/15/2015 230 150 - 400 K/uL Final MPV 06/15/2015 9.6 Final DIFF TYPE 06/15/2015 AUTOMATED Final NEUTROPHILS 06/15/2015 67.93 Final LYMPHOCYTES 06/15/2015 19.32 Final MONOCYTES 06/15/2015 10.19 Final EOSINOPHILS 06/15/2015 2.23 Final BASOPHILS 06/15/2015 0.33 Final NEUTROPHILS ABS 06/15/2015 6.88 1.90 - 7.40 K/uL Final LYMPHOCYTES ABS 06/15/2015 1.96 1.00 - 3.90 K/uL Final MONOCYTES ABS 06/15/2015 1.03* 0.00 - 0.80 K/uL Final EOSINOPHILS ABS 06/15/2015 0.23 0.00 - 0.50 K/uL Final BASOPHILS ABS 06/15/2015 0.03 0.00 - 0.10 K/uL Final SODIUM 06/15/2015 136 135 - 143 mmol/L Final POTASSIUM 06/15/2015 3.5 3.5 - 4.9 mmol/L Final CHLORIDE 06/15/2015 99 99 - 109 mmol/L Final CO2 06/15/2015 29 23 - 32 mmol/L Final ANION GAP AGAP 06/15/2015 12 5 - 20 mmol/L Final GLUCOSE 06/15/2015 105* 65 - 99 mg/dL Final BUN 06/15/2015 13 8 - 25 mg/dL Final CREATININE 06/15/2015 1.10 0.70 - 1.30 mg/dL Final BUN/CREAT 06/15/2015 12 Final CALCIUM 06/15/2015 9.6 8.5 - 10.5 mg/dL Final TOTAL PROTEIN 06/15/2015 6.5 6.3 - 8.2 g/dL Final Albumin 06/15/2015 3.6 3.3 - 4.8 g/dL Final GLOBULIN 06/15/2015 2.9 1.3 - 4.9 g/dL Final A/G 06/15/2015 1.2 1.0 - 2.4 Final TBIL 06/15/2015 1.1 0.1 - 1.5 mg/dL Final ALK PHOS 06/15/2015 89 35 - 115 U/L Final AST 06/15/2015 32 10 - 45 U/L Final ALT 06/15/2015 40 10 - 65 U/L Final EGFR 06/15/2015 >60 >60 mL/min/1.73m2 Final HEMOGLOBIN A1C 06/15/2015 5.2 4.0 - 6.0 % Final ESTIMATED AVG GLUCOSE 06/15/2015 103 Final CHOLESTEROL 06/15/2015 118 <200 mg/dL Final Triglycerides 06/15/2015 84 <150 mg/dL Final HDL CHOL 06/15/2015 44 >40 mg/dL Final LDL CALC 06/15/2015 57 <100 mg/dL Final INR 06/15/2015 1.1 Final GLUCOSE,POC SCREEN 06/15/2015 100* 65 - 99 mg/dL Final GLUCOSE,POC SCREEN 06/15/2015 108* 65 - 99 mg/dL Final GLUCOSE,POC SCREEN 06/15/2015 84 65 - 99 mg/dL Final INR 06/16/2015 1.1 Final WBC 06/16/2015 9.13 3.80 - 11.00 K/uL Final RBC 06/16/2015 4.37 4.20 - 5.70 M/uL Final HGB 06/16/2015 13.8 13.2 - 17.0 g/dL Final HCT 06/16/2015 42.0 39.0 - 50.0 % Final MCV 06/16/2015 96.2 80.0 - 100.0 fl Final MCH 06/16/2015 31.5 27.0 - 34.0 pg Final MCHC 06/16/2015 32.8 32.0 - 35.5 g/dL Final RDW SD 06/16/2015 43.8 37 - 53 fl Final PLT 06/16/2015 271 150 - 400 K/uL Final MPV 06/16/2015 9.5 Final DIFF TYPE 06/16/2015 AUTOMATED Final NEUTROPHILS 06/16/2015 65.03 Final LYMPHOCYTES 06/16/2015 21.01 Final MONOCYTES 06/16/2015 11.82 Final EOSINOPHILS 06/16/2015 1.76 Final BASOPHILS 06/16/2015 0.38 Final NEUTROPHILS ABS 06/16/2015 5.93 1.90 - 7.40 K/uL Final LYMPHOCYTES ABS 06/16/2015 1.92 1.00 - 3.90 K/uL Final MONOCYTES ABS 06/16/2015 1.08* 0.00 - 0.80 K/uL Final EOSINOPHILS ABS 06/16/2015 0.16 0.00 - 0.50 K/uL Final BASOPHILS ABS 06/16/2015 0.03 0.00 - 0.10 K/uL Final SODIUM 06/16/2015 134* 135 - 143 mmol/L Final POTASSIUM 06/16/2015 3.3* 3.5 - 4.9 mmol/L Final CHLORIDE 06/16/2015 98* 99 - 109 mmol/L Final CO2 06/16/2015 31 23 - 32 mmol/L Final ANION GAP AGAP 06/16/2015 8 5 - 20 mmol/L Final GLUCOSE 06/16/2015 102* 65 - 99 mg/dL Final BUN 06/16/2015 14 8 - 25 mg/dL Final CREATININE 06/16/2015 1.16 0.70 - 1.30 mg/dL Final BUN/CREAT 06/16/2015 12 Final CALCIUM 06/16/2015 9.6 8.5 - 10.5 mg/dL Final TOTAL PROTEIN 06/16/2015 6.6 6.3 - 8.2 g/dL Final Albumin 06/16/2015 3.6 3.3 - 4.8 g/dL Final GLOBULIN 06/16/2015 3.0 1.3 - 4.9 g/dL Final A/G 06/16/2015 1.2 1.0 - 2.4 Final TBIL 06/16/2015 1.2 0.1 - 1.5 mg/dL Final ALK PHOS 06/16/2015 91 35 - 115 U/L Final AST 06/16/2015 30 10 - 45 U/L Final ALT 06/16/2015 39 10 - 65 U/L Final EGFR 06/16/2015 >60 >60 mL/min/1.73m2 Final MAGNESIUM 06/16/2015 1.8 1.7 - 2.4 mg/dL Final GLUCOSE,POC SCREEN 06/15/2015 99 65 - 99 mg/dL Final GLUCOSE,POC SCREEN 06/16/2015 83 65 - 99 mg/dL Final GLUCOSE,POC SCREEN 06/16/2015 116* 65 - 99 mg/dL Final anArt MD - 5 2:42 PM PDT Progress Notes by Art Vidal MD at 06/16/15 7814 Author: Art Vidal MD Service: Neurology Author Type: Physician Filed: 06/16/15 7840 Date of Service: 06/16/15 144 Status: Addendum [employer]: Art Vidal MD (Physician) Related Notes: Original Note by Art Vidal MD (Physician) filed at 06/16/15 2028 [facility] Service: Neurology Progress Note Hospital Day: LOS: 2 days SUBJECTIVE Events Overnight: 79 year old male with history of Afib, HTN, aortic stenosis s/p AV replacement, CAD s/p CABG, AICD, right CEA this week who is seen for right cerebellar infarc t. Patient remains to be stable. Occasional right sided headache behind the eye. CT head yes terday showed stable evolving right cerebellar infarct, stable mild mass effect, no hydrocep halus. Scheduled Medications allopurinol 300 mg Oral Daily amiodarone 200 mg Oral Daily aspirin 325 mg Oral Daily with breakfast atorvastatin 80 mg Oral Nightly carvedilol 12.5 mg Oral BID cholecalciferol 5,000 Units Oral Daily digoxin 125 mcg Oral Daily enoxaparin 40 mg Subcutaneous Q24H sodium chloride 10 mL Intravenous Q8H tamsulosin 0.8 mg Oral after dinner Continuous Infusions dextrose PRN Medications acetaminophen OR acetaminophen, dextrose, dextrose, glucagon, ondansetron OR ondans etron, polyethylene glycol OBJECTIVE Vital Signs: BP 149/70 mmHg | Pulse 60 | Temp(Src) 98 F (36.7 C) (Oral) | Resp 18 | Ht 1.626 m (5' 4 ") | Wt 92.2 kg (203 lb 4.2 oz) | BMI 34.87 kg/m2 | SpO2 94% Temp (24hrs), Av.2 F (36.8 C), Min:98 F (36.7 C), Max:98.3 F (36.8 C) Systolic (24hrs), Av mmHg, Min:138 mmHg, Max:160 mmHg Diastolic (24hrs), Av mmHg, Min:64 mmHg, Max:75 mmHg AAOx3, speeche is clear PERRLA, EOMI, face is symmetric Muscle strength is full FNF no apparent dysmetria DATA Results for orders placed or performed during the hospital encounter of 06/14/15 (from the past 24 hour(s)) POCT glucose Collection Time: 06/15/15 5:12 PM Result Value Ref Range GLUCOSE,POC SCREEN 84 65 - 99 mg/dL POCT glucose Collection Time: 06/15/15 10:34 PM Result Value Ref Range GLUCOSE,POC SCREEN 99 65 - 99 mg/dL Protime-INR Collection Time: 06/16/15 4:55 AM Result Value Ref Range INR 1.1 CBC W/Auto Diff (Reflex to Manual) Collection Time: 06/16/15 4:55 AM Result Value Ref Range WBC 9.13 3.80 - 11.00 K/uL RBC 4.37 4.20 - 5.70 M/uL HGB 13.8 13.2 - 17.0 g/dL HCT 42.0 39.0 - 50.0 % MCV 96.2 80.0 - 100.0 fl MCH 31.5 27.0 - 34.0 pg MCHC 32.8 32.0 - 35.5 g/dL RDW SD 43.8 37 - 53 fl PLT 271 150 - 400 K/uL MPV 9.5 fl DIFF TYPE AUTOMATED NEUTROPHILS 65.03 % LYMPHOCYTES 21.01 % MONOCYTES 11.82 % EOSINOPHILS 1.76 % BASOPHILS 0.38 % NEUTROPHILS ABS 5.93 1.90 - 7.40 K/uL LYMPHOCYTES ABS 1.92 1.00 - 3.90 K/uL MONOCYTES ABS 1.08 (H) 0.00 - 0.80 K/uL EOSINOPHILS ABS 0.16 0.00 - 0.50 K/uL BASOPHILS ABS 0.03 0.00 - 0.10 K/uL Comprehensive metabolic panel Collection Time: 06/16/15 4:55 AM Result Value Ref Range SODIUM 134 (L) 135 - 143 mmol/L POTASSIUM 3.3 (L) 3.5 - 4.9 mmol/L CHLORIDE 98 (L) 99 - 109 mmol/L CO2 31 23 - 32 mmol/L ANION GAP AGAP 8 5 - 20 mmol/L GLUCOSE 102 (H) 65 - 99 mg/dL BUN 14 8 - 25 mg/dL CREATININE 1.16 0.70 - 1.30 mg/dL BUN/CREAT 12 CALCIUM 9.6 8.5 - 10.5 mg/dL TOTAL PROTEIN 6.6 6.3 - 8.2 g/dL Albumin 3.6 3.3 - 4.8 g/dL GLOBULIN 3.0 1.3 - 4.9 g/dL A/G 1.2 1.0 - 2.4 TBIL 1.2 0.1 - 1.5 mg/dL ALK PHOS 91 35 - 115 U/L AST 30 10 - 45 U/L ALT 39 10 - 65 U/L EGFR >60 >60 mL/min/1.73m2 Magnesium Collection Time: 06/16/15 4:55 AM Result Value Ref Range MAGNESIUM 1.8 1.7 - 2.4 mg/dL POCT glucose Collection Time: 06/16/15 5:15 AM Result Value Ref Range GLUCOSE,POC SCREEN 83 65 - 99 mg/dL PROBLEM LIST Principal Problem: Stroke (HCC) Active Problems: CKD (chronic kidney disease), stage III Essential hypertension, benign Chronic heart failure (HCC) S/P aortic valve replacement Atrial fibrillation (HCC) Dyslipidemia Biventricular implantable cardioverter-defibrillator in situ PLAN - Continue aspirin and statin - Plan to start warfarin on day 6. Patient likely will be discharged to [facility] at that time. O K to start warfarin with aspirin bridge and discontinue aspirin when INR therapeutic. - Will repeat a head CT today to make sure there is no increasing mass effect - If stable clinically and on CT head, may consider discharge to [facility] tomorrow. - Other recommendations as before. Art Vidal MD 06/16/2015 2:[address] head, appear stable. onversion Transaction, Pro vider Unknown - 06/16/2015 1:08 PM PDTFormatting of this note might be different from the o riginal. Therapy Progress Note by TIFF Carrillo/Josh at 06/16/15 1308 Author: ZULMA Carrillo Service: (none) Author Type: Occupational Therapist Filed: 06/16/15 3650 Date of Service: 06/16/15 1308 Status: Signed [employer]: ZULMA Carrillo (Occupational Therapist) 06/16/15 1148 OT Last Visit OT Received On 06/16/15 Reason for Treatment Stroke Requires OT Follow Up Awaiting tx order OT Eval/Reassessment Date 06/16/15 Assistance Required 1 person Stencil Cutter Needed No Family/Caregiver Present Yes Precautions Other Precautions falls; c/o frequent dizziness Other Comments Comments pt supine in bed, visiting with family, agreeable to OT eval. Pt presents close to baseline, still has balance deficts and c/o dizziness/ lightheadedness when up. OT discuss ed with pt sitting at EOB for a few minutes before coming into stand, pt in agreement. pt s tated he has been taking himself to/from the restroom, OT encouraged pt to have someone with him for SBA when going to the bathroom due to the frequent dizziness. Family stated that the plan is for pt to go to [facility] tomorrow and asked what all that entails. OT explained the therapy he would recieve while on IPR, pt and family had no further questions. Functional Standing Tolerance Time ~3-5 minutes Activity dynamic standing activity Comments (c/o dizziness/ light headedness) Activity Tolerance Activity Tolerance Patient tolerated treatment well Safety Devices Safety Devices in Place Yes Type of Devices Call lite in place Plan Treatment Interventions ADL retraining;IADL retraining;Functional transfer training;Functio nal dynamic activities;UE strengthening;PROM;Therapeutic exercises;Endurance training;Patien t/Family training;Equipment eval/education Progress Improving as expected OT Frequency QD;5x/wk Requires OT Follow Up Awaiting tx order Precautions Other Precautions falls; c/o frequent dizziness Home Environment Type of Home Home one story Home Exterior Layout 1-3 steps Home Interior Layout Lives on main level with bedroom/bathroom Bathroom Shower/Tub Walk-in shower;Tub/shower unit Bathroom Toilet Standard Bathroom Equipment Grab bars in shower/bath Home Equipment None Prior Function Level of [place] Independent with ADLs;Independent with IADLs;Independent with functi onal mobility;Driving in community Lives With Spouse Receives Help From Family ADL Assistance Independent Home ADL's Independent Employment Retired for age Cognition Overall Cognitive Status WFL Orientation Level Oriented Sensation Light Touch No apparent deficits Proprioception Proprioception No apparent deficit Perception Inattention/Neglect Appears intact RUE Assessment RUE Assessment WFL LUE Assessment LUE Assessment WFL Hand Function Gross Grasp Functional Assessment Assessment Decreased high-level ADLs;Decreased self-care trans;Decreased endurance;Decrease d Safe judgement during ADL;Decreased ADL status Prognosis Good Goal Formulation Patient;Family ADL Goals Pt Will Perform Grooming Standing at sink;With safety/supervision Pt Will Perform Toileting Mod independently;With safety/supervision Functional Transfer Goals Pt Will Perform All Functional Transfers Mod independently;With good judgment/safety Arm Goals Pt Will Complete Theraband Exer B UE;3 sets;10 reps;Level 2 Theraband;With activity toleran ce Plan Treatment Interventions ADL retraining;IADL retraining;Functional transfer training;Functio nal dynamic activities;UE strengthening;PROM;Therapeutic exercises;Endurance training;Patien t/Family training;Equipment eval/education Progress Improving as expected OT Frequency QD;5x/wk Requires OT Follow Up Awaiting tx order Transfers: Bed, Chair, Wheelchair 5 - Patient completes 100% of task and requires helper FOR? supervision Bed/chair/wheelchair transfers impacted by Endurance (decreased balance) Where transfers completed Standing at bedside;Supine/sitting up in bed Transfers: Bed, Chair, Wheelchair Final Score 5 Education Completed: Education Topic: OT role/evaluation Completed with: Patient, Spouse / Significant Other, Family Completed by: Verbal Education Response to Education: Stated Understanding Occupational Therapy Plan: Continue OT treatment per POC Barriers to d/c at this time include: Physical deficits impacting functional independence Self-care deficits impacting functional independence Kleber Kate MD - 06/16/2015 11:28 AM PDT Progress Notes by Kleber Harris MD at 06/16/15 1128 Author: Kleber Harris MD Service: Hospitalist Author Type: Physician Filed: 06/16/15 1139 Date of Service: 06/16/151127 Status: Signed [employer]: Kleber Harris MD (Physician) [facility] Service: Hospitalist Progress Note Pt: Ayanna Salcedo AGE/SEX: 79 y.o. male ROOM: Critical access hospital[address] : 1935 PCP: DONTAE CHANCE ADMIT DATE: 06/14/2015 TODAY'S DATE: 06/16/2015 Hospital Day/Hospital Course: LOS: 2 days 79 years old female with significant past medical history of recent right carotid endartere ctomy, aortic stenosis status post replacement, coronary artery disease status post CABG, ch ronic kidney disease, status post AICD, atrial fibrillation on anticoagulation, transfer fro [facility] for stroke. He was recently discharged from [facility] in [place] af ter the carotid endarterectomy. CT scan showed a large acute cerebellar stroke He felt dizziness before coming to the hospital. SUBJECTIVE: Patient seen and examine. Mild headache no blurring of vision. No chest pain, SOB. No co ugh on recumbency. Had no orthopnea or PND. No Abdominal pain, N/V or fever. Still feeling t ired and fatigued. Scheduled Medications: allopurinol 300 mg Oral Daily amiodarone 200 mg Oral Daily aspirin 325 mg Oral Daily with breakfast atorvastatin 80 mg Oral Nightly carvedilol 12.5 mg Oral BID cholecalciferol 5,000 Units Oral Daily digoxin 125 mcg Oral Daily enoxaparin 40 mg Subcutaneous Q24H glipiZIDE 2.5 mg Oral Daily insulin aspart 0-3 Units Subcutaneous Nightly insulin aspart 0-6 Units Subcutaneous TID AC sodium chloride 10 mL Intravenous Q8H tamsulosin 0.8 mg Oral after dinner Continuous Infusions dextrose PRN Medications acetaminophen OR acetaminophen, dextrose, dextrose, glucagon, ondansetron OR ondans etron, polyethylene glycol Allergy: No Known Allergies OBJECTIVE: Vitals: Patient Vitals for the past 24 hrs: BP Temp Temp src Pulse Resp SpO2 Weight 06/16/15 0759 147/69 mmHg 98.1 F (36.7 C) Oral 60 18 92 % - 06/16/15 0352 160/75 mmHg 98.2 F (36.8 C) Oral 61 18 92 % 92.2 kg (203 lb 4.2 oz) 06/15/15 2325 143/67 mmHg 98.1 F (36.7 C) Oral 60 18 91 % - 06/15/152004 148/66 mmHg 98.2 F (36.8 C) Oral 60 18 92 % - 06/15/15 1619 138/64 mmHg 98.3 F (36.8 C) Oral 62 18 93 % - I&O Detailed Table: Intake/Output Summary (Last 24 hours) at 06/16/15 1128 Last data filed at 06/16/15 0351 Gross per 24 hour Intake 1400 ml Output 0 ml Net 1400 ml Patient Vitals for the past 96 hrs: Weight 06/16/15 0352 92.2 kg (203 lb 4.2 oz) 06/15/15 0424 92.6 kg (204 lb 2.3 oz) 06/14/15 1402 93.4 kg (205 lb 14.6 oz) Hemodynamics Last 24hrs: Physical Examination: Physical exam remain unchanged from yesterday as I did examine him today on 06/16/2015 Constitutional: Alert and oriented to person, place, and time. Appears well-developed and w ell-nourished. HEENT: Neck supple, no JVD, non icteric sclera. Bruising in the right neck area Cardiovascular: Normal rate, regular rhythm, normal heart sounds with S1 and S2, and intact distal pulses. Exam reveals no gallop and no friction rub. 3/6HSM Pulmonary/Chest: Effort normal and breath sounds normal. No stridor. No respiratory distres s. no wheezes. no rales. exhibits no tenderness. Abdominal: Soft. Bowel sounds are normal. exhibits no distension and no mass. There is no t enderness. There is no rebound and no guarding. Extremeties/Musculoskeletal: Normal range of motion.exhibits no tenderness. exhibits no ed prakash. Neurological: Alert and oriented to person, place, and time. Has normal reflexes. No cran ial nerve deficit. Exhibits normal muscle tone. Coordination normal. Skin: Skin is warm and dry. No rash noted. No erythema. No pallor. Psychiatric: Has a normal mood and affect. Behavior is normal. Judgment normal. LABS: Recent Labs Lab 06/16/1545406/15/15456 WBC 9.13 10.13 HGB 13.8 13.5 HCT 42.0 40.3 PLT 271 230 NEUTOPHILPCT 65.03 67.93 MONOPCT 11.82 10.19 Recent Labs Lab 06/16/1545406/15/15456 NA 134* 136 K 3.3* 3.5 CL 98* 99 CO2 31 29 BUN 14 13 CREATININE 1.16 1.10 PROT 6.6 6.5 BILITOT 1.2 1.1 ALT 39 40 AST 30 32 Phosphorus: Lab Results Component Value Date PHOS 2.6 10/29/2014 Recent Labs Lab 06/16/1545406/15/15456 INR 1.1 1.1 PROBLEM LIST Principal Problem: Stroke (HCC) Active Problems: CKD (chronic kidney disease), stage III Essential hypertension, benign Chronic heart failure (HCC) S/P aortic valve replacement Atrial fibrillation (HCC) Dyslipidemia Biventricular implantable cardioverter-defibrillator in situ ASSESSMENT & PLAN 79 years old female with significant past medical history of recent right carotid endartere ctomy, aortic stenosis status post replacement, coronary artery disease status post CABG, ch ron kidney disease, status post AICD, atrial fibrillation on anticoagulation, transfer [facility] for stroke. Principal Problem: Acute cerebellar Stroke (HCC): Mild headache behind the right eye. No blurring. I will do the repeat CT scan today as I discussed with Dr. Vidal . We cannot do the MRI of the brain due to his defibrillator. Darline mooree to hold warfarin at this time. He is status post surgery for right endarterectomy. Con tinue aspirin and Lipitor at this time. We will restart warfarin at day #[address] Vidal would like to monitor 1 more day in the hospital Active Problems: CKD (chronic kidney disease), stage III: Kidney functions improved. Essential hypertension, benign: Blood pressure is appropriately control and I will continue amiodarone and Coreg Chronic systolic heart failure (HCC) with AICD: He is well compensated. Currently he is on amiodarone and Lipitor. Continue with digoxin as well. S/P aortic valve replacement: At baseline Atrial fibrillation (HCC): Rate control. We will hold warfarin at this time. We will start warfarin day #6 Dyslipidemia: On Lipitor I discussed with the patient and the family. I told him Rehab has accepted him and he is m ore inclined towards inpatient rehabilitation. KLEBER HARRIS MD, FACP 06/16/2015 11:28 AM Dictation software, Baeta, used which may contain error for similar sounding words even af ter review. Personal communication requested for any clarification. onversion Transac tion, Provider Unknown - 06/15/2015 2:14 PM PDTFormatting of this note might be different f rom the original. Therapy Progress Note by TIFF Carrillo/Josh at 06/15/15 1414 Author: TIFF Carrillo/Josh Service: (none) Author Type: Occupational Therapist Filed: 06/15/15 1414 Date of Service: 06/15/15 141 Status: Signed Channel Partners: ZULMA Carrillo (Occupational Therapist) 06/15/15 1413 OT Last Visit OT Received On 06/15/15 Requires OT Follow Up Unavailable Other Comments Comments pt currently leaving unit to go to CAT scan, will continue to follow up for OT maricel luation as census permits. . Plan Requires OT Follow Up Unavailable onver paulina Transaction, Provider Unknown - 06/15/2015 12:50 PM PDT Therapy Progress Note by Yvonne Eubanks PT at 06/15/15 1250 Author: Yvonne Eubanks PT Service: Physical Medicine and Rehab Author Type: Physical Therapist Filed: 06/15/15 1323 Date of Service: 06/15/15 1250 Status: Signed Channel Partners: Yvonne Eubanks PT (Physical Therapist) 06/15/15 1200 PT Last Visit PT Received On 06/15/15 Reason for Treatment Stroke Requires PT Follow Up Yes Follow up PT Only? No PT Eval/Reassessment Date 06/15/15 Assistance Required 1 person Home Environment Type of Home Home one story Home Exterior Layout 1-3 steps;Rail none Bathroom Shower/Tub Walk-in shower;Tub/shower unit Bathroom Toilet Standard Bathroom Equipment Grab bars in shower/bath;Grab bars outside of shower/bath Home Equipment None Prior Function Level of [place] Independent with IADLs;Independent with ADLs;Independent with functi onal mobility Lives With Spouse Employment Retired for age RUE Assessment RUE Assessment WFL LUE Assessment LUE Assessment WFL RLE Assessment RLE Assessment WFL LLE Assessment LLE Assessment WFL Cognition Overall Cognitive Status WFL Orientation Level Oriented Sensation Light Touch No apparent deficits Safety Devices Safety Devices in Place Yes Type of Devices (pt in bed with call light in reach at end of session) Precautions Other Precautions High fall risk due to dizziness Activity Tolerance Endurance Fair Plan Treatment/Interventions Gait training;Stair training;Therapeutic exercise;Transfer training ;Balance training PT Frequency 5-7x/wk Care Duration (# of days) 7 # of days Recommendation Recommendations SNF;IRF;Prior Setting Equipment Recommended Walker front wheeled Barriers to Discharge Physical Deficits Impacting Functional [place];Home Design (see comment) (1 step to enter with no handrail) PT Ready for Discharge Not Applicable Recommendation Comments Limited to d/c home by dizziness/high fall risk 06/15/15 1200 PT Last Visit PT Received On 06/15/15 Reason for Treatment Stroke Requires PT Follow Up Yes Follow up PT Only? No PT Eval/Reassessment Date 06/15/15 Assistance Required 1 person Precautions Other Precautions High fall risk due to dizziness Cognition Overall Cognitive Status WFL Orientation Level Oriented Bed Mobility Supine to Sit Min assist (1 LE OOB) Sit to Supine Min assist (1 LE into bed) Transfers Sit to/from Stand Minimal assist (steadying/contact guard) Stand Pivot Transfers Minimal assist (steadying/contact guard) Mobility Ambulation Assistance Moderate assist;Minimal assist Maximal Ambulation Distance (feet) 100 Total Ambulation Distance (feet) 150 Distance limited by? Therapist/staff discretion Pattern Ataxic Assistive Device Walker front wheeled (Hand hold assist by PT x 50 feet) Supine Supine-Exercise Type Quad sets;Glut sets;Ankle pumps;Short arc quads;ABD/ADD Modalities Modalities Other therapy Other Therapy pt educated on the importance of moblity and ther ex to prevent further decli ne of strength. Also educated on the importance of making sure someone is with him during m obility as he is a high fall risk due to dizziness Activity Tolerance Activity Tolerance Patient limited by fatigue Safety Devices Safety Devices in Place Yes Type of Devices (pt in bed with call light in reach at end of session) Plan Treatment/Interventions Gait training;Stair training;Therapeutic exercise;Transfer training ;Balance training PT Frequency 5-7x/wk Care Duration (# of days) 7 # of days Recommendation Recommendations SNF;IRF;Prior Setting Equipment Recommended Walker front wheeled Barriers to Discharge Physical Deficits Impacting Functional [place];Home Design (see comment) (1 step to enter with no handrail) PT Ready for Discharge Not Applicable Recommendation Comments Limited to d/c home by dizziness/high fall risk Kleber Kate MD - 06/15/2015 11:29 AM PDT Progress Notes by Kleber Harris MD at 06/15/151128 Author: Kleber Harris MD Service: Hospitalist Author Type: Physician Filed: 06/15/15 1142 Date of Service: 06/15/151128 Status: Signed Channel Partners: Kleber Harris MD (Physician) [facility] Service: Hospitalist Progress Note Pt: Ayanna Salcedo AGE/SEX: 79 y.o. male ROOM: 6624/6624-1 : 1935 PCP: DONTAE CHANCE ADMIT DATE: 06/14/2015 TODAY'S DATE: 06/15/2015 Hospital Day/Hospital Course: LOS: 1 day 79 years old female with significant past medical history of recent right carotid endartere ctomy, aortic stenosis status post replacement, coronary artery disease status post CABG, ch ronic kidney disease, status post AICD, atrial fibrillation on anticoagulation, transfer [facility] for stroke. He was recently discharged from [facility] in [place] af ter the carotid endarterectomy. CT scan showed a large acute cerebellar stroke He felt dizziness before coming to the hospital. SUBJECTIVE: Patient seen and examine. Complaint of dizziness has improved but still there. No chest pa in, SOB, WYNN. No cough on recumbency. Had no orthopnea or PND. No Abdominal pain, N/V or feve r. Still feeling tired and fatigued. Scheduled Medications: allopurinol 300 mg Oral Daily amiodarone 200 mg Oral Daily aspirin 325 mg Oral Daily with breakfast atorvastatin 80 mg Oral Nightly carvedilol 12.5 mg Oral BID cholecalciferol 5,000 Units Oral Daily digoxin 125 mcg Oral Daily enoxaparin 40 mg Subcutaneous Q24H glipiZIDE 2.5 mg Oral Daily insulin aspart 0-3 Units Subcutaneous Nightly insulin aspart 0-6 Units Subcutaneous TID AC sodium chloride 10 mL Intravenous Q8H tamsulosin 0.8 mg Oral after dinner Continuous Infusions dextrose PRN Medications acetaminophen OR acetaminophen, dextrose, dextrose, glucagon, ondansetron OR ondans etron, polyethylene glycol Allergy: No Known Allergies OBJECTIVE: Vitals: Patient Vitals for the past 24 hrs: BP Temp Temp src Pulse Resp SpO2 Height Weight 06/15/15 1118 150/73 mmHg 98 F (36.7 C) Oral 61 18 93 % - - 06/15/15 0800 149/70 mmHg 98.4 F (36.9 C) Oral 60 18 91 % - - 06/15/15 0424 148/72 mmHg 98.1 F (36.7 C) Oral 60 18 95 % - 92.6 kg (204 lb 2.3 oz) 06/14/15 2338 150/68 mmHg 98.2 F (36.8 C) Oral 61 18 92 % - - 06/14/15 1953 148/63 mmHg 98.3 F (36.8 C) Oral 62 18 92 % - - 06/14/15 1402 162/74 mmHg 98.5 F (36.9 C) Oral 60 18 96 % 1.626 m (5' 4") 93.4 kg (205 lb 14.6 oz) I&O Detailed Table: Intake/Output Summary (Last 24 hours) at 10/03/15 1129 Last data filed at 06/15/15 0428 Gross per 24 hour Intake 500 ml Output 500 ml Net 0 ml Patient Vitals for the past 96 hrs: Weight 06/15/15 0424 92.6 kg (204 lb 2.3 oz) 06/14/15 1402 93.4 kg (205 lb 14.6 oz) Hemodynamics Last 24hrs: Physical Examination: Constitutional: Alert and oriented to person, place, and time. Appears well-developed and w ell-nourished. HEENT: Neck supple, no JVD, non icteric sclera. Bruising in the right neck area Cardiovascular: Normal rate, regular rhythm, normal heart sounds with S1 and S2, and intact distal pulses. Exam reveals no gallop and no friction rub. 3/6HSM Pulmonary/Chest: Effort normal and breath sounds normal. No stridor. No respiratory distres s. no wheezes. no rales. exhibits no tenderness. Abdominal: Soft. Bowel sounds are normal. exhibits no distension and no mass. There is no t enderness. There is no rebound and no guarding. Extremeties/Musculoskeletal: Normal range of motion.exhibits no tenderness. exhibits no ed prakash. Neurological: Alert and oriented to person, place, and time. Has normal reflexes. No cran ial nerve deficit. Exhibits normal muscle tone. Coordination normal. Skin: Skin is warm and dry. No rash noted. No erythema. No pallor. Psychiatric: Has a normal mood and affect. Behavior is normal. Judgment normal. LABS: Recent Labs Lab 06/15/15456 WBC 10.13 HGB 13.5 HCT 40.3 PLT 230 NEUTOPHILPCT 67.93 MONOPCT 10.19 Recent Labs Lab 06/15/15456 NA 136 K 3.5 CL 99 CO2 29 BUN 13 CREATININE 1.10 PROT 6.5 BILITOT 1.1 ALT 40 AST 32 Phosphorus: Lab Results Component Value Date PHOS 2.6 10/29/2014 Recent Labs Lab 06/15/15456 INR 1.1 PROBLEM LIST Principal Problem: Stroke (HCC) Active Problems: CKD (chronic kidney disease), stage III Essential hypertension, benign Chronic heart failure (HCC) S/P aortic valve replacement Atrial fibrillation (HCC) Dyslipidemia Biventricular implantable cardioverter-defibrillator in situ ASSESSMENT & PLAN 79 years old female with significant past medical history of recent right carotid endartere ctomy, aortic stenosis status post replacement, coronary artery disease status post CABG, ch ronic kidney disease, status post AICD, atrial fibrillation on anticoagulation, transfer [facility] for stroke. Principal Problem: Acute cerebellar Stroke (HCC): We cannot do the MRI of the brain due to his defibrillator. Continue to monitor. Continu e to hold warfarin at this time. He is status post surgery for right endarterectomy. Darline nue aspirin and Lipitor at this time. We will restart warfarin at day #6 Active Problems: CKD (chronic kidney disease), stage III: Kidney functions improved. Essential hypertension, benign: Blood pressure is appropriately control and I will continue amiodarone and Coreg Chronic systolic heart failure (HCC) with AICD: He is well compensated. Currently he is on amiodarone and Lipitor. Continue with digoxin as well. S/P aortic valve replacement: At baseline Atrial fibrillation (HCC): Rate control. We will hold warfarin at this time. We will start warfarin day #6 Dyslipidemia: On Lipitor KLEBER HARRIS MD, FACP 06/15/2015 11:29 AM Dictation software, Baeta, used which may contain error for similar sounding words even af ter review. Personal communication requested for any clarification. onversion Transac tion, Provider Unknown - 06/15/2015 6:17 AM PDTFormatting of this note might be different f rom the original. Nurse Progress Note by Nakita Weeks RN at 06/15/15616 Author: Nakita Weeks RN Service: (none) Author Type: Registered Nurse Filed: 06/15/15617 Date of Service: 06/15/15616 Status: Signed Channel [employer]: Nakita Weeks RN (Registered Nurse) Patient resting quietly this shift. Patient c/o WYNN, relieved by tylenol. VSS. onver paulina Transaction, Provider Unknown - 06/14/2015 5:23 PM PDT Progress Notes by Ariadna Chavarria [facility] at 06/14/151722 Author: Ariadna Chavarria RPH Service: (none) Author Type: Pharmacist Filed: 06/14/151722 Date of Service: 06/14/151722 Status: Signed Channel Partners: Ariadna Chavarria RPH (Pharmacist) Clinical Pharmacy Note: Renal Monitoring Ayanna Salcedo 79 y.o. male Ht Readings from Last 1 Encounters: 06/14/15 1.626 m (5' 4") Wt Readings from Last 1 Encounters: 06/14/15 93.4 kg (205 lb 14.6 oz) Creatinine clearance cannot be calculated (Patient's most recent sCr result is older than t he maximum 3 days allowed.) Pharmacy dosing for renal function per Dr. Cifuentes. Currently, there are no labs. Pharmacy will adjust medications, if necessary, in AM when la bs are reported. Ariadna Chavarria RPh 06/14/2015 5:22 PM onver paulina Transaction, Provider Unknown - 06/14/2015 3:10 PM PDT Therapy Progress Note by Sally Harley MS CCC-FIRE FIGHTERS DISPATCHER at 06/14/151509 Author: Sally Harley MS CCC-FIRE FIGHTERS DISPATCHER Service: (none) Author Type: Speech and Language Patho logist Filed: 06/14/151509 Date of Service: 06/14/151509 Status: Signed Channel Partners: Sally Harley MS CCC-FIRE FIGHTERS DISPATCHER (Speech and Language Pathologist) 06/14/15 1500 Swallowing Assessment Eval Swallowing Evaluation Yes Initial Swallow Assessment History of Intubation Yes Length of Intubations (days) (during sx two days ago ) Dentition Dentures upper;Dentures lower (in mouth) Vision Functional for self-feeding ( has them in her purse) Patient Positioning Upright in bed Baseline Vocal Quality Normal Oral Motor Exam Labial ROM WFL Labial Symmetry WFL Labial Strength WFL Lingual ROM WFL Lingual Symmetry WFL Lingual Strength WFL Facial Symmetry WFL Vocal Quality WFL Consistencies Consistencies Assessed Yes Ice Chips Presentation Self Fed Oral Phase WFL Pharyngeal Phase No overt signs or symptoms of aspirations Thin Presentation Straw Oral Phase Thin WFL Pharyngeal Phase No overt signs or symptoms of aspiration Puree Presentation Self Fed Oral Phase WFL Pharyngeal No overt signs or symptoms of aspiration Dysphagia Mechanically Altered Presentation Self Fed Oral Phase WFL Pharyngeal Phase No overt signs or symptoms of aspiration Regular Presentation Self Fed Oral Phase WFL Pharyngeal Phase No overt signs or symptoms of aspiration Recommendations Liquids Consistency Recommendations Thin Diet Consistency Recommendation Regular Risk for Aspiration None Compensatory Swallowing Strategies Upright as possible for all oral intake Recommended Form of Meds Meds with recommended liquid Summary No s/s of aspiration or c/o difficulty with meal Staff Notified RN Plan of Care Treatment Plan Eval consult only AVS Documentation Yes Diet Regular: no restrictions Liquids Thin liquids: regular consistency FIRE FIGHTERS DISPATCHER Ready for Discharge Yes Dysphagia Goals Shelter Goals Safe/efficient oral intake Pt will have safe/efficient oral intake Thin liquids;Regular diet;Goal met;New/revised goa l Short Term Goals Follow swallow precautions Pt will follow swallow precautions Goal met;New/revised goal docume nted in this encounter H&P Notes Rufina Cifuentes MD - 06/14/2015 4:44 PM PDT H&P by Rufina Cifuentes MD at 06/14/151643 Author: Rufina Cifuentes MD Service: (none) Author Type: Physician Filed: 06/14/151815 Date of Service: 06/14/151643 Status: Addendum Channel Partners: Rufina Cifuentes MD (Physician) Related Notes: Original Note by Rufina Cifuentes MD (Physician) filed at 06/14/151812 [facility] Service: Hospitalist Admission History & Physical Pt: Ayanna Salcedo AGE/SEX: 79 y.o. male ROOM: 6624/6624-1 PCP: DONTAE CHANCE : 1935 TODAY'S DATE: 06/14/2015 Date of Admission: 06/14/2015 Chief Complaint: stroke History of Present Illness: The patient is a 79 y.o. male with PMH significant for recent R carotid endarterectomy, s/p AV replacement, CAD s/p CABG, CKD, sp AICD, afib on anticoagulation transferred from [facility] for stroke. Patient was just discharged from [facility] in [place] yesterday after the carotid endarterectomy which was done the day prior. He had initially presented to the OSH for recurrent symptoms of TIA including dizziness, a fall, weakness, numbness of left u pper extremity for 3 days. During the work up, he was found to have a 60% right internal ca rotid stenosis with dense calcified irregular atherosclerosis with a stenosis, thought to be a complex lesion. It was felt to be symptomatic right carotid stenosis and he underwent se mi-urgent carotid endarterectomy as mentioned above. His symptoms resolved so he was discha rged home. During that hospital course, his coumadin level was reversed and his INR at [facility] was 1.5. He was discharged with lovenox bridge which he only took once but because he was not feeling well, he did not take the lovenox shot this morning and did not take coumad in last night. This morning he felt similar dizziness as before although not as bad and he couldn't stand, so he was taken to [facility]. Family reports that his legs were just shaking. Otherwis e no fever, no n/v. Head CT was repeated and he was found to have a subacute infarct per ve rbal report - I do not have the formal report so the details of his stroke not certain at th is time. Brain MRI could not be done due to AICD. Dr. Vidal at [facility] and patient was transfer red for further evaluation and management. He currently denies any weakness, numbness, spee ch or swallowing problems. PMHx: Past Medical History Diagnosis Date Hypertension Gout CHF (congestive heart failure) ([facility]) Hyperlipidemia Cardiomyopathy (HCC) Atrial fibrillation (HCC) hx. of S/P AVR (aortic valve replacement) Aortic stenosis hx. of Chronic kidney disease Diabetes mellitus, type 2 (HCC) Stroke ([facility]) PSHx: Past Surgical History Procedure Laterality Date Cardiac valve replacement 2010 Cardiac defibrillator placement 2010 Coronary artery bypass graft Cataract extraction bilateral Pacemaker insertion [employer] Prior To admission Meds: Prior to Admission medications Medication Sig Start Date End Date Taking? Authorizing Provider enoxaparin (LOVENOX) 120 MG/0.8ML SOLN Inject 120 mg into the skin daily. Indications: Rece nt carotid endardectomy on 06/11/15. To receive x 7 days 06/13/15 06/19/15 Yes Historical Prov ider allopurinol (ZYLOPRIM) 300 MG tablet Take 300 mg by mouth daily. Historical Provider amiodarone (PACERONE) 200 MG tablet Take 200 mg by mouth daily. Historical Provider amLODIPine (NORVASC) 5 MG tablet Take 5 mg by mouth daily. Historical Provider atorvastatin (LIPITOR) 40 MG tablet Take 40 mg by mouth nightly. 09/18/14 Historical Provid er CARVEDILOL PO Take 25 mg by mouth 2 (two) times daily. Historical Provider digoxin (LANOXIN) 0.125 MG tablet Take 125 mcg by mouth daily. Historical Provider glipiZIDE (GLUCOTROL) 2.5 MG 24 hr tablet Take 2.5 mg by mouth daily. Historical Provide r hydrochlorothiazide (HYDRODIURIL) 12.5 MG tablet Take 12.5 mg by mouth daily. Historic al Provider lisinopril (ZESTRIL) 40 MG tablet Take 2 tablets by mouth daily. Patient taking differently: Take 40 mg by mouth daily. 05/04/14 DIEUDONNE Iverson tamsulosin (FLOMAX) 0.4 MG capsule Take 2 capsules by mouth After dinner. 05/18/14 DIEUDONNE Iverson VITAMIN D, ERGOCALCIFEROL, PO Take 5,000 Int'l Units by mouth daily. Historical Provider warfarin (COUMADIN) 4 MG tablet Take 4 mg by mouth daily. [facility] regulates PT 's Historical Provider Medications scheduled: allopurinol 300 mg Oral Daily amiodarone 200 mg Oral Daily amLODIPine 5 mg Oral Daily [START ON 06/15/2015] aspirin 81 mg Oral Daily with breakfast Or [START ON 06/15/2015] aspirin 300 mg Rectal Daily with breakfast atorvastatin 40 mg Oral Nightly carvedilol 25 mg Oral BID cholecalciferol 5,000 Units Oral Daily digoxin 125 mcg Oral Daily enoxaparin 40 mg Subcutaneous Q24H glipiZIDE 2.5 mg Oral Daily hydrochlorothiazide 12.5 mg Oral Daily insulin aspart 0-3 Units Subcutaneous Nightly insulin aspart 0-6 Units Subcutaneous TID AC sodium chloride 10 mL Intravenous Q8H tamsulosin 0.8 mg Oral after dinner warfarin 4 mg Oral Daily Allergies: No Known Allergies Family Hx: Family History Problem Relation Age of Onset Cancer Mother Heart disease Father Social Hx: History Social History Marital Status: Spouse Name: N/A Number of Children: N/A Years of Education: N/A Occupational History Not on file. Social History Main Topics Smoking status: Former Smoker -- 1.50 packs/day for 30 years Types: Cigarettes Smokeless tobacco: Former User Alcohol Use: 3.0 oz/week 5 Cans of beer per week Drug Use: Not on file Sexual Activity: Not Currently Other Topics Concern Not on file Social History Narrative Review of Symptoms: Complete 10 point ROS were conducted and are negative except for recurrent dizziness, fall and leg instability, otherwise all negative. 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 Objective: Vital Signs: BP 162/74 mmHg | Pulse 60 | Temp(Src) 98.5 F (36.9 C) (Oral) | Resp 18 | Ht 1.626 m (5' 4") | Wt 93.4 kg (205 lb 14.6 oz) | BMI 35.33 kg/m2 | SpO2 96% Physical Exam: Constitutional: Oriented to person, place, and time. appears well-developed and well-nouris hed. HEENT: Head: Normocephalic and atraumatic. Nose: Nose normal. Mouth/Throat: Oropharynx is clear and moist. Eyes: Conjunctivae and EOM are normal. Pupils are equal, round, and reactive to light. Righ t eye exhibits no discharge. Left eye exhibits no discharge. No scleral icterus. Neck: Normal range of motion. Neck supple. Surgical scar on the right neck, bruise noted bu t no obvious hematoma and no drainge, incision is d/c/i Cardiovascular: Normal rate, regular rhythm, normal heart sounds with S1 and S2, and intact distal pulses. Exam reveals no gallop and no friction rub. Positive soft murmur heard. Pulmonary/Chest: Effort normal and breath sounds normal. No stridor. No respiratory distres s. no wheezes. no rales. exhibits no tenderness. Abdominal: Soft. Bowel sounds are normal. exhibits no distension and no mass. There is no t enderness. There is no rebound and no guarding. Extremities/Musculoskeletal: Normal range of motion.exhibits no tenderness. exhibits no ed prakash. Neurological: Alert and oriented to person, place, and time. Displays normal reflexes. No cranial nerve deficit. Exhibits normal muscle tone. Coordination normal. Chronic slight ri ght facial droop. Skin: Skin is warm and dry. No rash noted. No erythema. No pallor. Psychiatric: Has a normal mood and affect. Behavior is normal. Judgment normal. Data: Outside labs from today WBC 10.7, hg 13.3, plt 229, UA negative, Na 138, K 3.4, Cl 104, Bicarb 27, Cr 1.31, glucose 123, LFT within normal limits INR/PT 1 Trop <0.01 Dig 0.74 Imaging and report of Head CT from [facility] today pending at this time Recent diagnostic studies at Outside hospital US carotid 06/12/15 75-99% stenosis in R ICA 3cm distal to the carotid bifurcation, low end 50-74% stenosis in left mid ICA CT head without contrast 06/11/15 No acute intracranial abnormality CT c-spine without contrast 06/11/15 DJD without fractures or dislocations, no evidence of central canal stenosis, relatively se laura left C5-6 neuroforaminal narrowing 2/2 uncovertebral and facet joint hypertrophy CTA head and neck 06/08/15 Approximately 60% stenosis of the proximal right ICA and proximal right vertebral artery Heavy plaque burden involving bilateral intercranial segments of the vertebral arteries, po ssibly hemodynamically significant No significant stenosis involving left ICA. 1.7cm old left parieto-occipital lacunar infarct, smaller lacunar infarct involving bilater al subinsular white matter 2D echo 06/11/15 Normal LV size and function EF 60-65% Cardiac PCM, grossly normal bioprosthetic aortic valve function, mild mitral regurgitation, mild aortic root dilation. Problem List: Principal Problem: Stroke (HCC) Active Problems: CKD (chronic kidney disease), stage III Essential hypertension, benign Chronic heart failure (HCC) S/P aortic valve replacement Atrial fibrillation (HCC) Dyslipidemia Biventricular implantable cardioverter-defibrillator in situ Assessment and Plan: 1. Subacute/acute infarct: details of the infarct not clear at this time, will await for th e final records from [facility]. Dr. Vidal already aware of the consult, neuro checks. PT /OT/ST. Patient s/p recent Right carotid endarterectomy. Lipid panel, HgA1c. Okay for sub optimal BP for now until the details of his infarct better known. Addendum: discussed with Dr. Vidal, and reviewed the head CT image that has now pushed throug h the system. He does have a quite large size of cerebellar stroke. Hard to exactly say whe ther it is acute or subacute. The initial head CT at the OSH on initial evaluation was nega tive but no MRI was done at the time due to AICD. Given the size of the stroke, Dr. Vidal rec ommends treating this as an acute stroke, okay for permissible hypertension, hold lovenox br idge and coumadin until day 6, and until then do full 325mg dose ASA. Also recommends to re peat head CT tomorrow afternoon to progression. Continue statin. Will also decrease dose o f coreg, hold hctz and amlodipine for now to prevent hypotension. 2. S/p recent right carotid endarterectomy at outside hospital POD #2. 3. CKD III: monitor 4. DM: continue oral home meds, HgA1c in AM. 5. A. Fib: continue coumadin, INR 1 today, will await further evaluation and recommendation by Dr. Vidal regarding bridging therapy. 6. CAD s/p CABG, AVR: continue home meds 7. Nonischemic CMP/CHF: s/p AICD, euvolemic at this time, EF normal on most recent echo. 8. DVT prophylaxis: lovenox prophylaxis dose, no lovenox bridge and coumadin until day 6 fo r concern of hemorrhagic conversion given the size of the stroke. Patient's old records and labs were reviewed in detail and summarized. Code Status: DNR/DNI Primary Care Physician: DONTAE CHANCE Patient expected to stay more than 2 midnights due to his comorbidities and complexity of h is problem lists. Rufina Cifuentes MD, FACP 06/14/2015 5:00 PM documented in this encount er Consult Notes Wing Roxane Cr MD - 06/15/2015 11:51 AM PDTFormatting of this note might be different from th e original. Consult* by Wing Roxane Cr MD at 06/15/15 4682 Author: Wing Roxane Cr MD Service: Physical Medicine and Rehab Author Type: Physician Filed: 06/15/15 4245 Date of Service: 06/15/15 5289 Status: Signed [employer]: Wing Roxane Cr MD (Physician) [facility] Service: Physical Medicine & Rehab Initial Consult Note Date of Admission: 06/14/2015 Reason for Consultation: Consideration for IPR Requesting Physician: Hospitalist History Obtained From: patient, chart review CHIEF COMPLAINT: CVA HISTORY OF PRESENT ILLNESS The patient is a 79 y.o. male with PMH significant for recent R carotid endarterectomy, s/p AV replacement, CAD s/p CABG, CKD, sp AICD, afib on anticoagulation transferred from [facility] for stroke. Patient was just discharged from [facility] in [place] yesterday after the carotid endarterectomy which was done the day prior. He had initially presented to the [facility] for recurrent symptoms of TIA including dizziness, a fall, weakness, numbness of left upp er extremity for 3 days. During the work up, he was found to have a 60% right internal carot id stenosis with dense calcified irregular atherosclerosis with a stenosis, thought to be a complex lesion. It was felt to be symptomatic right carotid stenosis and he underwent semi-u rgent carotid endarterectomy as mentioned above. His symptoms resolved so he was discharged home. During that hospital course, his coumadin level was reversed and his INR at discharge was 1.5. He was discharged with lovenox bridge which he only took once but because he was no t feeling well, he did not take the lovenox shot this morning and did not take coumadin last night. This morning he felt similar dizziness as before although not as bad and he couldn't stand, so he was taken to [facility]. Family reports that his legs were just shaking. Otherwise no fever, no n/v. Head CT was repeated and he was found to have a subacute infarct per verb al report - I do not have the formal report so the details of his stroke not certain at this time. Brain MRI could not be done due to AICD. Dr. Vidal at [facility] and patient was transferred for further evaluation and management. He currently denies any weakness, numbness, speech or swallowing problems. The patient has been evaluated by Dr. Vidal, neurologist and her impression is for cerebellar CVA. He is to have ASA X5 days, then switch over to Coumadin. Consultation is being requested to determine his IPR needs and potential. REVIEW OF SYSTEMS Review of Systems He denied pain Patient denied SOB He is continent of bowel and bladder Past Medical History Diagnosis Date Hypertension Gout CHF (congestive heart failure) (HCC) Hyperlipidemia Cardiomyopathy (HCC) Atrial fibrillation (HCC) hx. of S/P AVR (aortic valve replacement) Aortic stenosis hx. of Chronic kidney disease Diabetes mellitus, type 2 (HCC) Stroke (HCC) Past Surgical History Procedure Laterality Date Cardiac valve replacement 2010 Cardiac defibrillator placement 2010 Coronary artery bypass graft Cataract extraction bilateral Pacemaker insertion [employer] No Known Allergies Prescriptions prior to admission Medication Sig Dispense Refill Last Dose enoxaparin (LOVENOX) 120 MG/0.8ML SOLN Inject 120 mg into the skin daily. Indications: Recent carotid endardectomy on 06/11/15. To receive x 7 days allopurinol (ZYLOPRIM) 300 MG tablet Take 300 mg by mouth daily. Taking amiodarone (PACERONE) 200 MG tablet Take 200 mg by mouth daily. Taking amLODIPine (NORVASC) 5 MG tablet Take 5 mg by mouth daily. Taking atorvastatin (LIPITOR) 40 MG tablet Take 40 mg by mouth nightly. Taking CARVEDILOL PO Take 25 mg by mouth 2 (two) times daily. Taking digoxin (LANOXIN) 0.125 MG tablet Take 125 mcg by mouth daily. Taking glipiZIDE (GLUCOTROL) 2.5 MG 24 hr tablet Take 2.5 mg by mouth daily. Taking hydrochlorothiazide (HYDRODIURIL) 12.5 MG tablet Take 12.5 mg by mouth daily. Takin g lisinopril (ZESTRIL) 40 MG tablet Take 2 tablets by mouth daily. (Patient taking differ ently: Take 40 mg by mouth daily.) 180 tablet 3 Taking tamsulosin (FLOMAX) 0.4 MG capsule Take 2 capsules by mouth After dinner. 180 capsule 3 Taking VITAMIN D, ERGOCALCIFEROL, PO Take 5,000 Int'l Units by mouth daily. Taking warfarin (COUMADIN) 4 MG tablet Take 4 mg by mouth daily. [facility] regulate s PT's Taking Scheduled Medications allopurinol 300 mg Oral Daily amiodarone 200 mg Oral Daily aspirin 325 mg Oral Daily with breakfast atorvastatin 80 mg Oral Nightly carvedilol 12.5 mg Oral BID cholecalciferol 5,000 Units Oral Daily digoxin 125 mcg Oral Daily enoxaparin 40 mg Subcutaneous Q24H glipiZIDE 2.5 mg Oral Daily insulin aspart 0-3 Units Subcutaneous Nightly insulin aspart 0-6 Units Subcutaneous TID AC sodium chloride 10 mL Intravenous Q8H tamsulosin 0.8 mg Oral after dinner Continuous Infusions dextrose PRN Medications acetaminophen OR acetaminophen, dextrose, dextrose, glucagon, ondansetron OR ondans etron, polyethylene glycol Family History Problem Relation Age of Onset Cancer Mother Heart disease Father SOCIAL HISTORY He lives at home with spouse, and has 2 steps in. PHYSICAL EXAM Vital Signs: BP 150/73 mmHg | Pulse 61 | Temp(Src) 98 F (36.7 C) (Oral) | Resp 18 | Ht 1.626 m (5' 4 ") | Wt 92.6 kg (204 lb 2.3 oz) | BMI 35.02 kg/m2 | SpO2 93% Physical Exam HEENT: NC/AT; EOMI: face is symmetrical Neck: right CEA incision healing, he is with some ecchymosis Lung: clear Cardiac; irregular irregular Abdo: soft : male Rectal: deferred MS; Moving all extremities Neuro: alert and oriented. Speaking well. CN II-XII grossly intact. Strength is at least 4 /5 throughout. He was without dysmetria. DATA PROBLEM LIST Principal Problem: Stroke (HCC) Active Problems: CKD (chronic kidney disease), stage III Essential hypertension, benign Chronic heart failure (HCC) S/P aortic valve replacement Atrial fibrillation (HCC) Dyslipidemia Biventricular implantable cardioverter-defibrillator in situ ASSESSMENT & PLAN the patient is a 79 year-old left-handed white male with several recent episodes of possibl e TIA symptoms. He has carotid artery disease, and was recently s/p right CEA. He is again with another episode. Dr. Vidal feels that he is with cerebellar CVA. The patient will sta rt acute therapy with PT and OT. We'll reassess him tomorrow and Wednesday if needed. Code Status: DNR/DNI Primary Care Physician: DONTAE CHANCE Thank you for allowing me to participate in the care of this patient. WING Roxane CR MD 06/15/2015 Art Coronel MD - 6:09 PM PDT Consults by Art Vidal MD at 06/14/15 4333 Author: Art Vidal MD Service: Neurology Author Type: Physician Filed: 06/14/15 8187 Date of Service: 06/14/151808 Status: Signed [employer]: Art Vidal MD (Physician) Consult Orders: 1. Consult to Neurology [[id number]] ordered by Rufina Cifuentes MD at 06/14/15 1605 [facility] Service: Neurology Initial Consult Note Date of Admission: 06/14/2015 Reason for Consultation: stroke Requesting Physician: Rufina Cifuentes MD, Hospitalist History Obtained From: patient, daughter, chart review CHIEF COMPLAINT: stroke HISTORY OF PRESENT ILLNESS The patient is a 79 y.o. male with significant past medical history of HTN, aortic stenosis s/p AV replacement, CAD s/p CABG, Afib, AICD, CKD who presents with stroke. The patient was on a road trip back home on Wednesday when he suddenly felt weak and had troub le walking, he fell. He reports being able to stand up and walk again, appears to be back to baseline. Then Wednesday morning, he had a similar episode and he presented to local ED at [facility]. He had evaluation with CTA (showed 60% right ICA stenosis, 60% right vertebral stenosis) and then discharged as symptoms resolved. He then had another epi sode Wednesday morning, a more severe one with leg weakness and difficulty walking. He was adm itted at [facility] [place] ID. CT head 06/11 did not show acute changes. Carot id doppler showed 75-99% stenosis of the right ICA, 50-74% of the left ICA. TTE showed no ca rdiac source of stroke, EF 60-65%. The patient had left CEA procedure on 06/12. He had vitami n K to reverse INR prior to the surgery and has not restart anticoagulation yet. He was disc harged yesterday and drove back to [place]. He appears to be asymptomatic during the hospi radha stay. This morning when patient got up at 5:30 am, he had weakness and fell again. Sympt oms are milder than Wednesday. He presented to [facility] ED and CT showed subacute right cer ebellar infarct with slight mass effect, no hydrocephalus. He is transferred here for community health care. Again he noted near resolution of symptoms at this time. He denies focal weakness, n umbness, dysarthria, dizziness, or headache. Today's INR was 1.0. PAST MEDICAL HISTORY Past Medical History Diagnosis Date Hypertension Gout CHF (congestive heart failure) (HCC) Hyperlipidemia Cardiomyopathy (HCC) Atrial fibrillation (HCC) hx. of S/P AVR (aortic valve replacement) Aortic stenosis hx. of Chronic kidney disease Diabetes mellitus, type 2 (HCC) Stroke (HCC) PAST SURGICAL HISTORY Past Surgical History Procedure Laterality Date Cardiac valve replacement 2010 Cardiac defibrillator placement 2010 Coronary artery bypass graft Cataract extraction bilateral Pacemaker insertion [employer] ALLERGIES No Known Allergies HOME MEDICATIONS Prescriptions prior to admission Medication Sig Dispense Refill Last Dose enoxaparin (LOVENOX) 120 MG/0.8ML SOLN Inject 120 mg into the skin daily. Indications: Recent carotid endardectomy on 06/11/15. To receive x 7 days allopurinol (ZYLOPRIM) 300 MG tablet Take 300 mg by mouth daily. Taking amiodarone (PACERONE) 200 MG tablet Take 200 mg by mouth daily. Taking amLODIPine (NORVASC) 5 MG tablet Take 5 mg by mouth daily. Taking atorvastatin (LIPITOR) 40 MG tablet Take 40 mg by mouth nightly. Taking CARVEDILOL PO Take 25 mg by mouth 2 (two) times daily. Taking digoxin (LANOXIN) 0.125 MG tablet Take 125 mcg by mouth daily. Taking glipiZIDE (GLUCOTROL) 2.5 MG 24 hr tablet Take 2.5 mg by mouth daily. Taking hydrochlorothiazide (HYDRODIURIL) 12.5 MG tablet Take 12.5 mg by mouth daily. Takin g lisinopril (ZESTRIL) 40 MG tablet Take 2 tablets by mouth daily. (Patient taking differ ently: Take 40 mg by mouth daily.) 180 tablet 3 Taking tamsulosin (FLOMAX) 0.4 MG capsule Take 2 capsules by mouth After dinner. 180 capsule 3 Taking VITAMIN D, ERGOCALCIFEROL, PO Take 5,000 Int'l Units by mouth daily. Taking warfarin (COUMADIN) 4 MG tablet Take 4 mg by mouth daily. [facility] regulate s PT's Taking Scheduled Medications allopurinol 300 mg Oral Daily amiodarone 200 mg Oral Daily amLODIPine 5 mg Oral Daily [START ON 06/15/2015] aspirin 81 mg Oral Daily with breakfast Or [START ON 06/15/2015] aspirin 300 mg Rectal Daily with breakfast atorvastatin 40 mg Oral Nightly carvedilol 25 mg Oral BID cholecalciferol 5,000 Units Oral Daily digoxin 125 mcg Oral Daily enoxaparin 40 mg Subcutaneous Q24H glipiZIDE 2.5 mg Oral Daily hydrochlorothiazide 12.5 mg Oral Daily insulin aspart 0-3 Units Subcutaneous Nightly insulin aspart 0-6 Units Subcutaneous TID AC sodium chloride 10 mL Intravenous Q8H tamsulosin 0.8 mg Oral after dinner warfarin 4 mg Oral Daily Continuous Infusions dextrose PRN Medications acetaminophen OR acetaminophen, dextrose, dextrose, glucagon, ondansetron OR ondans etron, polyethylene glycol FAMILY HISTORY Family History Problem Relation Age of Onset Cancer Mother Heart disease Father SOCIAL HISTORY History Smoking status Former Smoker -- 1.50 packs/day for 30 years Types: Cigarettes Smokeless tobacco Former User History Alcohol Use 3.0 oz/week 5 Cans of beer per week History Drug Use Not on file History Sexual Activity Sexual Activity: Not Currently REVIEW OF SYSTEMS Negative except noted in HPI PHYSICAL EXAM Vital Signs: BP 162/74 mmHg | Pulse 60 | Temp(Src) 98.5 F (36.9 C) (Oral) | Resp 18 | Ht 1.626 m (5' 4") | Wt 93.4 kg (205 lb 14.6 oz) | BMI 35.33 kg/m2 | SpO2 96% Temp (24hrs), Av.5 F (36.9 C), Min:98.5 F (36.9 C), Max:98.5 F (36.9 C) Systolic (24hrs), Av mmHg, Min:162 mmHg, Max:162 mmHg Diastolic (24hrs), Av mmHg, Min:74 mmHg, Max:74 mmHg General: WDWN, NAD. Head is ataumatic, normocephalic. Conjunctiva without injection. Neck is supple. Lungs are clear to auscultation bilaterally. Heart is regular. No pedal edema. Abdomen is s oft and non-tender. Skin no rash. MS: Awake, alert, oriented x3. Cooperative and appropirate during the encounter. Speech is mayelin r, fluent and coherent. CN: VFF to confrontation. EOMI. PERRLA. Facial sensation is intact. Face is symmtric. Palate el evation is symmetric. Tongue protrusion is midline. Motor: Bulk: normal Tone: normal Muscle strength: full in all extremities DTR 1+ in the upper and lower extremities. Plantar reflexes: flexor Sensory: Grossly intact to light touch. Coordination: FNF intact Gait: Cautious DATA Results for orders placed or performed during the hospital encounter of 06/14/15 (from the past 24 hour(s)) POCT glucose Collection Time: 06/14/15 6:04 PM Result Value Ref Range GLUCOSE,POC SCREEN 124 (H) 65 - 99 mg/dL PROBLEM LIST Principal Problem: Stroke (HCC) Active Problems: CKD (chronic kidney disease), stage III Essential hypertension, benign Chronic heart failure (HCC) S/P aortic valve replacement Atrial fibrillation (HCC) Dyslipidemia Biventricular implantable cardioverter-defibrillator in situ ASSESSMENT & PLAN 79 year old male who presents with episodes of weakness in the legs, falls and difficulty w alking, acute onset since Wednesday. CT head on 06/11 after his third episode did not show acute intracranial pathology. His CTA 06/10 showed right ICA and vert stenosis about 60%, carotid doppler 06/11 showed 75-99% right ICA stenosis, 50-74% stenosis of the left ICA. TTE did not show cardiac source of stroke. He had right CEA. This morning he had another episode. CT hea d at [facility] ED showed subacute right cerebellar infarct. - Time of onset is not completely clear. Per serial CT findings, stroke should have occured anytime between Wed and today, given subacute appearance, most likely more than 1-2 days ol d. - Good size stroke about 2/3 of right cerebellum, there is mild mass effect without hydrcep halus. Recommend to repeat CT head tomorrow make sure there is no increasing mass effect. - Due to acute stroke, recommend to hold anticoagulation until later. Start aspirin 325 mg for 5 days, then restart coumadin on day 6 with lovenox bridge, discontinue aspirin on day 6 . 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 - Allow permissive HTN during acute phase of stroke. Gradually lower BP and target normal p ressure once anticoagulation is started. - Monitor neurological condition closely, may repeat CT if patient has significant clinical change. - Need periodic monitoring of the left ICA stenosis with carotid doppler every 6 months to one year - PT/ST/OT evaluation. - DVT prophylaxis. Code Status: DNR/DNI Primary Care Physician: DONTAE CHANCE Thank you for allowing me to participate in the care of this patient. Please call if there are any questions. Art Vidal MD 06/14/2015 6:09 PM documented in this encounte r Miscellaneous Notes Initial Assessments - Wing Roxane Cr MD - 06/17/2015 9:18 AM PDTFormatting of this note migh t be different from the original. IPR Pre-Admission Screening by Wing Roxane Cr MD at 06/17/15917 Author: Wing Roxane Cr MD Service: Physical Medicine and Rehab Author Type: Physician Filed: 06/17/15919 Date of Service: 06/17/15917 Status: Signed [employer]: Wing Roxane Cr MD (Physician) IPR Pre-admission Screening Etiology of Impairment: Stroke: 01.4 No paresis Date of onset: 06/14/2015 Type/Date of surgery: ; * No surgery found * Prior level of function Level of [place]: Independent with ADLs, Independent with IADLs, Independent with fun ctional mobility, Driving in community Prior living situation Type of Home: Home one story Lives With: Spouse Home Equipment: None Bathroom Equipment: Grab bars in shower/bath Current conditions requiring inpatient rehabilitation History leading to admission: S/p cerebellar CVA, ataxia, carotid artery disease Problem List: Patient Active Problem List Diagnosis CKD (chronic kidney disease), stage III Essential hypertension, benign Chronic heart failure (HCC) ICD (implantable cardiac defibrillator) in place S/P aortic valve replacement Atrial fibrillation (HCC) Dyslipidemia Gout Impotence Vitamin d deficiency Biventricular implantable cardioverter-defibrillator in situ Stroke (HCC) Risk for medical/clinical complications: Neurologic decline, Extension of CVA and Seizures Additional reasoning and justification for inpatient rehab admission: Medication management of chronic conditions, Incision care, Pain management, Bowel/bladder management and Anticoa gulation management Required interventions: Physical therapy: Frequency/Duration: 1-2 hours per day, 5-7 days per week for 7-10 days, with abbreviated s essions or rest breaks on other days PRN Intervention gait training, neuromuscular reeducation, therapeutic exercise, transfer tan lauren, patient education, family training and stair training Occupational therapy: Frequency/Duration: 1-2 hours per day, 5-7 days per week for 7-10 days, with abbreviated s essions or rest breaks on other days PRN Intervention ADL training, patient education, family training, AE instruction, IADL retrai lauren, therapeutic exercise and neuromuscular re-education Rehab nursing: Frequency/Duration: 24 hours per day, 7 days per week for duration of stay Intervention bowel/bladder management, medication management, patient education and family training Case management Interventions: assist with discharge planning, patient education, family ed ucation and stroke counseling Prosthetics/Orthotics: As needed Recreation Therapy: PRN Estimated length of stay: 7-10 days Expected level of improvement: supervised Anticipated discharge destination: Home with spouse/significant other Post discharge services: Outpatient services: PT and OT MD indicates that information has been reviewed, concurs with information, and approv es the admission to [facility]'s Inpatient Rehabilition Unit. WING Roxane CR MD 06/17/2015 9:20 AM documented in this encou nter Plan of Treatment +--------+ + + + + | Date | Type | Specialty | Care Team | Description | +--------+ + + + + | 05/29/ | Office | Cardiology | Pavan Pham, | | | 2019 | Visit | | MD Taylor PAREDES | | | | | | [place], [place] | | | | | | [address] | | | | | | | [...] | | | | | | [place] [address] | | | | | | [phone] | | | | | | | | +--------+ + + + + documented as of this encounter Procedures + +--------+ + + + | Procedure Name | Priori | Date/Time | Associated Diagnosis | Comments | | | ty | | | | + +--------+ + + + | POTASSIUM | Routin | 06/17/2015 | | Results for this | | | e | 9:16 AM | | procedure are in the | | | | PDT | | results section. | + +--------+ + + + | MAGNESIUM | Routin | 06/17/2015 | | Results for this | | | e | 9:16 AM | | procedure are in the | | | | PDT | | results section. | + +--------+ + + + | PROTIME INR | Routin | 06/17/2015 | | Results for this | | | e | 4:42 AM | | procedure are in the | | | | PDT | | results section. | + +--------+ + + + | CT HEAD WO CONTRAST | Routin | 06/16/2015 | | Results for this | | | e | 3:15 PM | | procedure are in the | | | | PDT | | results section. | + +--------+ + + + | POC GLUCOSE | Routin | 06/16/2015 | | Results for this | | | e | 11:15 AM | | procedure are in the | | | | PDT | | results section. | + +--------+ + + + | POC GLUCOSE | Routin | 06/16/2015 | | Results for this | | | e | 5:15 AM | | procedure are in the | | | | PDT | | results section. | + +--------+ + + + | EXTERNAL LAB: CBC | Routin | 06/16/2015 | | Results for this | | | e | 4:55 AM | | procedure are in the | | | | PDT | | results section. | + +--------+ + + + | PROTIME INR | Routin | 06/16/2015 | | Results for this | | | e | 4:55 AM | | procedure are in the | | | | PDT | | results section. | + +--------+ + + + | MAGNESIUM | Routin | 06/16/2015 | | Results for this | | | e | 4:55 AM | | procedure are in the | | | | PDT | | results section. | + +--------+ + + + | COMPREHENSIVE | Routin | 06/16/2015 | | Results for this | | METABOLIC PANEL | e | 4:55 AM | | procedure are in the | | | | PDT | | results section. | + +--------+ + + + | POC GLUCOSE | Routin | 06/15/2015 | | Results for this | | | e | 10:34 PM | | procedure are in the | | | | PDT | | results section. | + +--------+ + + + | POC GLUCOSE | Routin | 06/15/2015 | | Results for this | | | e | 5:12 PM | | procedure are in the | | | | PDT | | results section. | + +--------+ + + + | CT HEAD WO CONTRAST | Routin | 06/15/2015 | | Results for this | | | e | 2:18 PM | | procedure are in the | | | | PDT | | results section. | + +--------+ + + + | POC GLUCOSE | Routin | 06/15/2015 | | Results for this | | | e | 11:17 AM | | procedure are in the | | | | PDT | | results section. | + +--------+ + + + | POC GLUCOSE | Routin | 06/15/2015 | | Results for this | | | e | 5:17 AM | | procedure are in the | | | | PDT | | results section. | + +--------+ + + + | EXTERNAL LAB: CBC | Routin | 06/15/2015 | | Results for this | | | e | 4:57 AM | | procedure are in the | | | | PDT | | results section. | + +--------+ + + + | LIPID PANEL | Routin | 06/15/2015 | | Results for this | | | e | 4:57 AM | | procedure are in the | | | | PDT | | results section. | + +--------+ + + + | PROTIME INR | Routin | 06/15/2015 | | Results for this | | | e | 4:57 AM | | procedure are in the | | | | PDT | | results section. | + +--------+ + + + | HEMOGLOBIN A1C | Routin | 06/15/2015 | | Results for this | | | e | 4:57 AM | | procedure are in the | | | | PDT | | results section. | + +--------+ + + + | COMPREHENSIVE | Routin | 06/15/2015 | | Results for this | | METABOLIC PANEL | e | 4:57 AM | | procedure are in the | | | | PDT | | results section. | + +--------+ + + + | POC GLUCOSE | Routin | 06/14/2015 | | Results for this | | | e | 10:03 PM | | procedure are in the | | | | PDT | | results section. | + +--------+ + + + | POC GLUCOSE | Routin | 06/14/2015 | | Results for this | | | e | 6:04 PM | | procedure are in the | | | | PDT | | results section. | + +--------+ + + + | XR CHEST 1 VIEW | Routin | 06/14/2015 | | Results for this | | | e | 5:22 PM | | procedure are in the | | | | PDT | | results section. | + +--------+ + + + | CT HEAD WO CONTRAST | Routin | 06/14/2015 | | Results for this | | | e | 5:22 PM | | procedure are in the | | | | PDT | | results section. | + +--------+ + + + documented in this encounter Results Potassium (06/17/2015 9:16 AM PDT) + + + + + + | Component | Value | Ref Range | Performed | Pathologist | | | | | At | Signature | + + + + + + | K | 3.5Comment: Testing | 3.5 - 4.9 | EXTERNAL | | | | performed at [facility], [address] | mmol/L | LAB | | | | [address], | | | | | | [place] [address] | | | | + + + + + + + + | Specimen | + + | Blood specimen | | (specimen) | + + + +---------+ + + | Performing | Address | City/State/Zipcode | Phone Number | | Organization | | | | + +---------+ + + | EXTERNAL LAB | | | | + +---------+ + + Magnesium (06/17/2015 9:16 AM PDT) + + + + + + | Component | Value | Ref Range | Performed | Pathologist | | | | | At | Signature | + + + + + + | Magnesium | 2.1Comment: Testing | 1.7 - 2.4 mg/dL | EXTERNAL | | | | performed at [facility], [address] | | LAB | | | | [address], | | | | | | [place] [address] | | | | + + + + + + + + | Specimen | + + | Blood specimen | | (specimen) | + + + +---------+ + + | Performing | Address | City/State/Zipcode | Phone Number | | Organization | | | | + +---------+ + + | EXTERNAL LAB | | | | + +---------+ + + Protime INR (06/17/2015 4:42 AM PDT) + + + + + + | Component | Value | Ref Range | Performed | Pathologist | | | | | At | Signature | + + + + + + | INR | 1.0Comment: REFERENCE | | EXTERNAL | | | | RANGE:0.9 - 1.2 | | LAB | | | | NON-ANTICOAGULATED2.0 | | | | | | - 3.0 ALL OTHER | | | | | | THERAPEUTIC | | | | | | INDICATIONS2.5 - 3.5 | | | | | | MECHANICAL HEART VALVES, | | | | | | RECURRENT OR SYSTEMIC | | | | | | EMBOLISMTesting | | | | | | performed at [facility];[address] | | | | | | [address];[place], [place] | | | | | | [address] | | | | + + + + + + + + | Specimen | + + | Blood specimen | | (specimen) | + + + +---------+ + + | Performing | Address | City/State/Zipcode | Phone Number | | Organization | | | | + +---------+ + + | EXTERNAL LAB | | | | + +---------+ + + CT Head wo Contrast (06/16/2015 3:15 PM PDT) + + | Specimen | + + | | + + + + + | Impressions | Performed At | + + + | 1. Unchanged large right cerebellar infarction with mild mass | | | effect on the fourth ventricle. No evidence of hemorrhagic | | | transformation. 2. Unchanged mild diffuse atrophy and chronic | | | microvascular disease. | | + + + + + + | Narrative | Performed At | + + + | AYANNA Roman CRISTY CT HEAD WO CONTRAST 06/16/2015 3:15 PM HISTORY: | | | Stroke. TECHNIQUE: 5 mm axial sections were obtained through | | | the head without IV contrast. FINDINGS: Compared with 06/15/2015. | | | Ventricular sizes are unchanged with mild compression of the | | | fourth ventricle. Again demonstrated is a large acute or subacute | | | infarction in the right inferior cerebellar hemisphere that measures | | | approximately 3.9 x 5.1 cm, unchanged in size and mass effect. There | | | is no evidence of hemorrhagic transformation. Again noted are a few | | | foci of decreased density suggesting mild chronic microvascular | | | disease most prominent in the left parietal lobe and mild diffuse | | | atrophy. | | + + + + + | Procedure Note | + + | Cesar, Rad Conversion - 04/28/2019 1:45 PM PDT AYANNA Roman PETTITCT HEAD WO | | RIMDNHPH62/4/2015 3:15 PM HISTORY:Stroke. TECHNIQUE:5 mm axial sections were obtained | | through the head without IV contrast. FINDINGS:Compared with 06/15/2015. Ventricular | | sizes are unchanged with mild compression of the fourth ventricle. Again demonstrated is | | a large acute or subacute infarction in the right inferior cerebellar hemisphere that | | measures approximately 3.9 x 5.1 cm, unchanged in size and mass effect. There is no | | evidence of hemorrhagic transformation. Again noted are a few foci of decreased density | | suggesting mild chronic microvascular disease most prominent in the left parietal lobe | | and mild diffuse atrophy. IMPRESSION: 1. Unchanged large right cerebellar infarction | | with mild mass effect on the fourth ventricle. No evidence of hemorrhagic | | transformation.2. Unchanged mild diffuse atrophy and chronic microvascular disease. | | | | | |Ventricular sizes are unchanged with mild compression of the fourth ventricle. Again demons trated is a large acute or subacute infarction in the right inferior cerebellar hemisphere t hat measures approximately 3.9 x 5.1 cm, unchanged in size and mass | |effect. There is no evidence of hemorrhagic transformation. Again noted are a few foci of d ecreased density suggesting mild chronic microvascular disease most prominent in the left pa rietal lobe and mild diffuse atrophy. | | | |IMPRESSION: | |1. Unchanged large right cerebellar infarction with mild mass effect on the fourth ventric le. No evidence of hemorrhagic transformation. | |2. Unchanged mild diffuse atrophy and chronic microvascular disease. | | | | | + + POC Glucose (06/16/2015 11:15 AM PDT) + + + + + + | Component | Value | Ref Range | Performed | Pathologist | | | | | At | Signature | + + + + + + | Glucose, | 116 (H)Comment: Testing | 65 - 99 mg/dL | EXTERNAL | | | Fingerstick | performed at [facility];[address] | | LAB | | | | [address];[place], [place] | | | | | | [address] | | | | + + + + + + + + | Specimen | + + | | + + + +---------+ + + | Performing | Address | City/State/Zipcode | Phone Number | | Organization | | | | + +---------+ + + | EXTERNAL LAB | | | | + +---------+ + + POC Glucose (06/16/2015 5:15 AM PDT) + + + + + + | Component | Value | Ref Range | Performed | Pathologist | | | | | At | Signature | + + + + + + | Glucose, | 83Comment: Testing | 65 - 99 mg/dL | EXTERNAL | | | Fingerstick | performed at [facility];[address] | | LAB | | | | [address];[place], [place] | | | | | | [address] | | | | + + + + + + + + | Specimen | + + | | + + + +---------+ + + | Performing | Address | City/State/Zipcode | Phone Number | | Organization | | | | + +---------+ + + | EXTERNAL LAB | | | | + +---------+ + + Jovanna GUTIÉRREZ (06/16/2015 4:55 AM PDT) + + + + + + | Component | Value | Ref Range | Performed | Pathologist | | | | | At | Signature | + + + + + + | INR | 1.1Comment: REFERENCE | | EXTERNAL | | | | RANGE:0.9 - 1.2 | | LAB | | | | NON-ANTICOAGULATED2.0 | | | | | | - 3.0 ALL OTHER | | | | | | THERAPEUTIC | | | | | | INDICATIONS2.5 - 3.5 | | | | | | MECHANICAL HEART VALVES, | | | | | | RECURRENT OR SYSTEMIC | | | | | | EMBOLISMTesting | | | | | | performed at [facility] | | | | | | [address];[place], [place] | | | | | | [address] | | | | + + + + + + + + | Specimen | + + | Blood specimen | | (specimen) | + + + +---------+ + + | Performing | Address | City/State/Zipcode | Phone Number | | Organization | | | | + +---------+ + + | EXTERNAL LAB | | | | + +---------+ + + External Lab: CBC (06/16/2015 4:55 AM PDT) + + + + + + | Component | Value | Ref Range | Performed | Pathologist | | | | | At | Signature | + + + + + + | WBC | 9.13Comment: Testing | 3.80 - 11.00 | EXTERNAL | | | | performed at [facility], [address] | K/uL | LAB | | | | [address], | | | | | | [place] [address] | | | | + + + + + + | Non- | 4.37Comment: Testing | 4.20 - 5.70 | EXTERNAL | | | Red Blood | performed at [facility], [address] | M/uL | LAB | | | Cells | [address], | | | | | Counted | [place] [address] | | | | + + + + + + | Hemoglobin | 13.8Comment: Testing | 13.2 - 17.0 | EXTERNAL | | | | performed at [facility], [address] | g/dL | LAB | | | | [address], | | | | | | [place] [address] | | | | + + + + + + | Hematocrit, | 42.0Comment: Testing | 39.0 - 50.0 % | EXTERNAL | | | POC | performed at [facility], [address] | | LAB | | | | [address], | | | | | | [place] [address] | | | | + + + + + + | MCV | 96.2Comment: Testing | 80.0 - 100.0 fl | EXTERNAL | | | | performed at [facility], [address] | | LAB | | | | [address], | | | | | | [place] [address] | | | | + + + + + + | MCH | 31.5Comment: Testing | 27.0 - 34.0 pg | EXTERNAL | | | | performed at [facility], [address] | | LAB | | | | [address], | | | | | | [place] [address] | | | | + + + + + + | MCHC | 32.8Comment: Testing | 32.0 - 35.5 | EXTERNAL | | | | performed at [facility], [address] | g/dL | LAB | | | | [address], | | | | | | [place] [address] | | | | + + + + + + | RDW-CV | 43.8Comment: Testing | 37 - 53 fl | EXTERNAL | | | | performed at [facility], [address] | | LAB | | | | [address], | | | | | | [place] [address] | | | | + + + + + + | Platelet | 271Comment: Testing | 150 - 400 K/uL | EXTERNAL | | | Count | performed at [facility], [address] | | LAB | | | Plasma | [address], | | | | | | [place] [address] | | | | + + + + + + | MPV | 9.5Comment: Testing | fl | EXTERNAL | | | | performed at [facility], [address] | | LAB | | | | [address], | | | | | | [place] [address] | | | | + + + + + + | Differentia | AUTOMATEDComment: | | EXTERNAL | | | l Type | Testing performed at | | LAB | | | | [facility], [address] | | | | | | [place] | | | | | | [address] | | | | + + + + + + | % Segmented | 65.03Comment: Testing | % | EXTERNAL | | | | performed at [facility], [address] | | LAB | | | Neutrophils | [address], | | | | | | [place] [address] | | | | + + + + + + | % | 21.01Comment: Testing | % | EXTERNAL | | | Lymphocytes | performed at [facility], [address] | | LAB | | | | [address], | | | | | | [place] [address] | | | | + + + + + + | % Monocytes | 11.82Comment: Testing | % | EXTERNAL | | | | performed at [facility], [address] | | LAB | | | | [address], | | | | | | [place] [address] | | | | + + + + + + | % | 1.76Comment: Testing | % | EXTERNAL | | | Eosinophils | performed at [facility], [address] | | LAB | | | | [address], | | | | | | [place] [address] | | | | + + + + + + | % Basophils | 0.38Comment: Testing | % | EXTERNAL | | | | performed at [facility], [address] | | LAB | | | | [address], | | | | | | [place] [address] | | | | + + + + + + | Absolute | 5.93Comment: Testing | 1.90 - 7.40 | EXTERNAL | | | Segmented | performed at [facility], [address] | K/uL | LAB | | | Neutrophils | [address], | | | | | | [place] [address] | | | | + + + + + + | Absolute | 1.92Comment: Testing | 1.00 - 3.90 | EXTERNAL | | | Lymphocytes | performed at [facility], [address] | K/uL | LAB | | | | [address], | | | | | | [place] [address] | | | | + + + + + + | Absolute | 1.08 (H)Comment: Testing | 0.00 - 0.80 | EXTERNAL | | | Monocytes | performed at [facility], [address] | K/uL | LAB | | | | [address], | | | | | | [place] [address] | | | | + + + + + + | Absolute | 0.16Comment: Testing | 0.00 - 0.50 | EXTERNAL | | | Eosinophils | performed at [facility], [address] | K/uL | LAB | | | | [address], | | | | | | [place] [address] | | | | + + + + + + | Absolute | 0.03Comment: Testing | 0.00 - 0.10 | EXTERNAL | | | Basophils | performed at [facility], [address] | K/uL | LAB | | | | [address], | | | | | | [place] [address] | | | | + + + + + + + + | Specimen | + + | Blood specimen | | (specimen) | + + + +---------+ + + | Performing | Address | City/State/Zipcode | Phone Number | | Organization | | | | + +---------+ + + | EXTERNAL LAB | | | | + +---------+ + + Magnesium (06/16/2015 4:55 AM PDT) + + + + + + | Component | Value | Ref Range | Performed | Pathologist | | | | | At | Signature | + + + + + + | Magnesium | 1.8Comment: Testing | 1.7 - 2.4 mg/dL | EXTERNAL | | | | performed at [facility], [address] | | LAB | | | | [address], | | | | | | [place] [address] | | | | + + + + + + + + | Specimen | + + | Blood specimen | | (specimen) | + + + +---------+ + + | Performing | Address | City/State/Zipcode | Phone Number | | Organization | | | | + +---------+ + + | EXTERNAL LAB | | | | + +---------+ + + Comprehensive Metabolic Panel (06/16/2015 4:55 AM PDT) + + + + + + | Component | Value | Ref Range | Performed | Pathologist | | | | | At | Signature | + + + + + + | Na | 134 (L)Comment: Testing | 135 - 143 | EXTERNAL | | | | performed at [facility], [address] | mmol/L | LAB | | | | [address], | | | | | | [place] [address] | | | | + + + + + + | K | 3.3 (L)Comment: Testing | 3.5 - 4.9 | EXTERNAL | | | | performed at [facility], [address] | mmol/L | LAB | | | | [address], | | | | | | [place] [address] | | | | + + + + + + | Cl | 98 (L)Comment: Testing | 99 - 109 mmol/L | EXTERNAL | | | | performed at [facility], [address] | | LAB | | | | [address], | | | | | | [place] [address] | | | | + + + + + + | CO2 | 31Comment: Testing | 23 - 32 mmol/L | EXTERNAL | | | | performed at [facility], [address] | | LAB | | | [address], | | | | | | [place] [address] | | | | + + + + + + | Anion Gap | 8Comment: Testing | 5 - 20 mmol/L | EXTERNAL | | | | performed at [facility], [address] | | LAB | | | | [address], | | | | | | [place] [address] | | | | + + + + + + | Glucose, | 102 (H)Comment: Testing | 65 - 99 mg/dL | EXTERNAL | | | Fasting | performed at [facility], [address] | | LAB | | | | [address], | | | | | | [place] [address] | | | | + + + + + + | BUN | 14Comment: Testing | 8 - 25 mg/dL | EXTERNAL | | | | performed at [facility], [address] | | LAB | | | | [address], | | | | | | [place] [address] | | | | + + + + + + | Creatinine | 1.16Comment: Testing | 0.70 - 1.30 | EXTERNAL | | | | performed at [facility], [address] | mg/dL | LAB | | | | [address], | | | | | | [place] [address] | | | | + + + + + + | BUN/Creatin | 12Comment: Testing | | EXTERNAL | | | ine Ratio | performed at [facility], [address] | | LAB | | | | [address], | | | | | | [place] [address] | | | | + + + + + + | Calcium | 9.6Comment: Testing | 8.5 - 10.5 | EXTERNAL | | | | performed at [facility], [address] | mg/dL | LAB | | | | [address], | | | | | | [place] [address] | | | | + + + + + + | Protein, | 6.6Comment: Testing | 6.3 - 8.2 g/dL | EXTERNAL | | | Total | performed at [facility], [address] | | LAB | | | | [address], | | | | | | [place] [address] | | | | + + + + + + | Albumin | 3.6Comment: Testing | 3.3 - 4.8 g/dL | EXTERNAL | | | | performed at [facility], [address] | | LAB | | | | [address], | | | | | | [place] [address] | | | | + + + + + + | Globulin | 3.0Comment: Testing | 1.3 - 4.9 g/dL | EXTERNAL | | | | performed at [facility], [address] | | LAB | | | | [address], | | | | | | [place] [address] | | | | + + + + + + | A/G Ratio | 1.2Comment: Testing | 1.0 - 2.4 | EXTERNAL | | | | performed at [facility], [address] | | LAB | | | | [address], | | | | | | [place] [address] | | | | + + + + + + | Bilirubin | 1.2Comment: Testing | 0.1 - 1.5 mg/dL | EXTERNAL | | | Total | performed at [facility], [address] | | LAB | | | | [address], | | | | | | [place] [address] | | | | + + + + + + | ALP, | 91Comment: Testing | 35 - 115 U/L | EXTERNAL | | | External | performed at [facility], [address] | | LAB | | | | [address], | | | | | | [place] [address] | | | | + + + + + + | AST | 30Comment: Testing | 10 - 45 U/L | EXTERNAL | | | | performed at [facility], [address] | | LAB | | | | [address], | | | | | | [place] [address] | | | | + + + + + + | ALT | 39Comment: Testing | 10 - 65 U/L | EXTERNAL | | | | performed at [facility], [address] | | LAB | | | | [address], | | | | | | [place] [address] | | | | + + + + + + | Estimated | >60Comment: GFR <60: | mL/min/1.73m2 | EXTERNAL | | | GFR | CHRONIC KIDNEY DISEASE, | | LAB | | | | IF FOUND OVER A 3 MONTH | | | | | | PERIOD.GFR <15: KIDNEY | | | | | | FAILURE.FOR | | | | | | AMERICANS, MULTIPLY THE | | | | | | CALCULATED GFR BY | | | | | | 1.210.Testing performed | | | | | | at [facility], [address] | | | | | | [facility], | | | | | | [place] [address] | | | | + + + + + + + + | Specimen | + + | Blood specimen | | (specimen) | + + + +---------+ + + | Performing | Address | City/State/Zipcode | Phone Number | | Organization | | | | + +---------+ + + | EXTERNAL LAB | | | | + +---------+ + + POC Glucose (06/15/2015 10:34 PM PDT) + + + + + + | Component | Value | Ref Range | Performed | Pathologist | | | | | At | Signature | + + + + + + | Glucose, | 99Comment: Testing | 65 - 99 mg/dL | EXTERNAL | | | Fingerstick | performed at [facility];[address] | | LAB | | | | [address];[place] | | | | | | [address] | | | | + + + + + + + + | Specimen | + + | | + + + +---------+ + + | Performing | Address | City/State/Zipcode | Phone Number | | Organization | | | | + +---------+ + + | EXTERNAL LAB | | | | + +---------+ + + POC Glucose (06/15/2015 5:12 PM PDT) + + + + + + | Component | Value | Ref Range | Performed | Pathologist | | | | | At | Signature | + + + + + + | Glucose, | 84Comment: Testing | 65 - 99 mg/dL | EXTERNAL | | | Fingerstick | performed at [facility];[address] | | LAB | | | | [address];[place] | | | | | | [address] | | | | + + + + + + + + | Specimen | + + | | + + + +---------+ + + | Performing | Address | City/State/Zipcode | Phone Number | | Organization | | | | + +---------+ + + | EXTERNAL LAB | | | | + +---------+ + + CT Head wo Contrast (06/15/2015 2:18 PM PDT) + + | Specimen | + + | | + + + + + | Impressions | Performed At | + + + | 1. Large but stable involving infarct throughout much of the | | | right cerebellar hemisphere, without hemorrhagic transformation. | | | There is some modest stable local mass effect upon the fourth | | | ventricle and cerebellar tonsils, but no rukhsana herniation 2. | | | Elsewhere there is extensive calcified vasculopathy and some | | | supratentorial white matter disease, but no new lesion | | | | | + + + + + + | Narrative | Performed At | + + + | HISTORY: 79 year-old male, stroke. TECHNIQUE: Axial noncontrast | | | head CT. Prior examination: 14 June, 17:23. Outside study | | | without report. FINDINGS: Marketing Officer notable for absence of the | | | dentition The falx is midline. There is dense calcification about | | | the vertebral basilar system and both vertebral arteries. This is | | | likely associated with the large infarct in the right cerebellar | | | hemisphere, occupying much of that structure. No positive mass | | | effect or intrinsic hemorrhage. There is white matter disease and | | | some volume loss about the tentorium, but no evident supratentorial | | | stroke although there certainly vasculopathy the carotid siphons. | | | Atrophy of the lenses of both eyes. Some white matter disease, typical | | | distributions above the tentorium for age. Probable artifact, fairly | | | symmetric and in typical basilar/peripheral distributions. | | + + + + + | Procedure Note | + + | Gus Guerrero Conversion - 04/28/2019 1:45 PM PDT HISTORY: 79 year-old male, stroke. | | TECHNIQUE: Axial noncontrast head CT. Prior examination: 14 June, 17:23. Outside study | | without report. FINDINGS: Marketing Officer notable for absence of the dentition The falx is | | midline. There is dense calcification about the vertebral basilar system and both | | vertebral arteries. This is likely associated with the large infarct in the right | | cerebellar hemisphere, occupying much of that structure. No positive mass effect or | | intrinsic hemorrhage. There is white matter disease and some volume loss about the | | tentorium, but no evident supratentorial stroke although there certainly vasculopathy | | the carotid siphons. Atrophy of the lenses of both eyes. Some white matter disease, | | typical distributions above the tentorium for age. Probable artifact, fairly symmetric | | and in typical basilar/peripheral distributions. IMPRESSION: 1. Large but stable | | involving infarct throughout much of the right cerebellar hemisphere, without | | hemorrhagic transformation. There is some modest stable local mass effect upon the | | fourth ventricle and cerebellar tonsils, but no rukhsana herniation 2. Elsewhere there is | | extensive calcified vasculopathy and some supratentorial white matter disease, but no | | new lesion | |Atrophy of the lenses of both eyes. Some white matter disease, typical distributions above the tentorium for age. Probable artifact, fairly symmetric and in typical basilar/peripheral distributions. | | | |IMPRESSION: | | | |1. Large but stable involving infarct throughout much of the right cerebellar hemisphere, w ithout hemorrhagic transformation. | | | |There is some modest stable local mass effect upon the fourth ventricle and cerebellar tons ils, but no rukhsana herniation | | | |2. Elsewhere there is extensive calcified vasculopathy and some supratentorial white matter disease, but no new lesion | | | | | | | | | + + POC Glucose (06/15/2015 11:17 AM PDT) + + + + + + | Component | Value | Ref Range | Performed | Pathologist | | | | | At | Signature | + + + + + + | Glucose, | 108 (H)Comment: Testing | 65 - 99 mg/dL | EXTERNAL | | | Fingerstick | performed at [facility];[address] | | LAB | | | | [address];[place] | | | | | | [address] | | | | + + + + + + + + | Specimen | + + | | + + + +---------+ + + | Performing | Address | City/State/Zipcode | Phone Number | | Organization | | | | + +---------+ + + | EXTERNAL LAB | | | | + +---------+ + + POC Glucose (06/15/2015 5:17 AM PDT) + + + + + + | Component | Value | Ref Range | Performed | Pathologist | | | | | At | Signature | + + + + + + | Glucose, | 100 (H)Comment: Testing | 65 - 99 mg/dL | EXTERNAL | | | Fingerstick | performed at [facility];[address] | | LAB | | | | [address];[place] | | | | | | [address] | | | | + + + + + + + + | Specimen | + + | | + + + +---------+ + + | Performing | Address | City/State/Zipcode | Phone Number | | Organization | | | | + +---------+ + + | EXTERNAL LAB | | | | + +---------+ + + Protime INR (06/15/2015 4:57 AM PDT) + + + + + + | Component | Value | Ref Range | Performed | Pathologist | | | | | At | Signature | + + + + + + | INR | 1.1Comment: REFERENCE | | EXTERNAL | | | | RANGE:0.9 - 1.2 | | LAB | | | | NON-ANTICOAGULATED2.0 | | | | | | - 3.0 ALL OTHER | | | | | | THERAPEUTIC | | | | | | INDICATIONS2.5 - 3.5 | | | | | | MECHANICAL HEART VALVES, | | | | | | RECURRENT OR SYSTEMIC | | | | | | EMBOLISMTesting | | | | | | performed at [facility];[address] | | | | | | [address];[place] | | | | | | [address] | | | | + + + + + + + + | Specimen | + + | Blood specimen | | (specimen) | + + + +---------+ + + | Performing | Address | City/State/Zipcode | Phone Number | | Organization | | | | + +---------+ + + | EXTERNAL LAB | | | | + +---------+ + + External Lab: CBC (06/15/2015 4:57 AM PDT) + + + + + + | Component | Value | Ref Range | Performed | Pathologist | | | | | At | Signature | + + + + + + | WBC | 10.13Comment: Testing | 3.80 - 11.00 | EXTERNAL | | | | performed at [facility], [address] | K/uL | LAB | | | | [address], | | | | | | [place] [address] | | | | + + + + + + | Non- | 4.16 (L)Comment: Testing | 4.20 - 5.70 | EXTERNAL | | | Red Blood | performed at [facility], [address] | M/uL | LAB | | | Cells | [address], | | | | | Counted | [place] [address] | | | | + + + + + + | Hemoglobin | 13.5Comment: Testing | 13.2 - 17.0 | EXTERNAL | | | | performed at [facility], [address] | g/dL | LAB | | | | [address], | | | | | | [place] [address] | | | | + + + + + + | Hematocrit, | 40.3Comment: Testing | 39.0 - 50.0 % | EXTERNAL | | | POC | performed at [facility], [address] | | LAB | | | | [facility] [address], | | | | | | [place] [address] | | | | + + + + + + | MCV | 96.9Comment: Testing | 80.0 - 100.0 fl | EXTERNAL | | | | performed at [facility], [address] | | LAB | | | | [address], | | | | | | [place] [address] | | | | + + + + + + | MCH | 32.4Comment: Testing | 27.0 - 34.0 pg | EXTERNAL | | | | performed at [facility], [address] | | LAB | | | | [address], | | | | | | [place] [address] | | | | + + + + + + | MCHC | 33.4Comment: Testing | 32.0 - 35.5 | EXTERNAL | | | | performed at [facility], [address] | g/dL | LAB | | | | [address], | | | | | | [place] [address] | | | | + + + + + + | RDW-CV | 46.8Comment: Testing | 37 - 53 fl | EXTERNAL | | | | performed at [facility], [address] | | LAB | | | | [address], | | | | | | [place] [address] | | | | + + + + + + | Platelet | 230Comment: Testing | 150 - 400 K/uL | EXTERNAL | | | Count | performed at [facility], [address] | | LAB | | | Plasma | [address], | | | | | | [place] [address] | | | | + + + + + + | MPV | 9.6Comment: Testing | fl | EXTERNAL | | | | performed at [facility], [address] | | LAB | | | | [address], | | | | | | [place] [address] | | | | + + + + + + | Differentia | AUTOMATEDComment: | | EXTERNAL | | | l Type | Testing performed at | | LAB | | | | [facility], [address] | | | | | | [place] | | | | | | [address] | | | | + + + + + + | % Segmented | 67.93Comment: Testing | % | EXTERNAL | | | | performed at [facility], [address] | | LAB | | | Neutrophils | [address], | | | | | | [place] [address] | | | | + + + + + + | % | 19.32Comment: Testing | % | EXTERNAL | | | Lymphocytes | performed at [facility], [address] | | LAB | | | | [address], | | | | | | [place] [address] | | | | + + + + + + | % Monocytes | 10.19Comment: Testing | % | EXTERNAL | | | | performed at [facility], [address] | | LAB | | | | [address], | | | | | | [place] [address] | | | | + + + + + + | % | 2.23Comment: Testing | % | EXTERNAL | | | Eosinophils | performed at [facility], [address] | | LAB | | | | [address], | | | | | | [place] [address] | | | | + + + + + + | % Basophils | 0.33Comment: Testing | % | EXTERNAL | | | | performed at [facility], [address] | | LAB | | | | [address], | | | | | | [place] [address] | | | | + + + + + + | Absolute | 6.88Comment: Testing | 1.90 - 7.40 | EXTERNAL | | | Segmented | performed at [facility], [address] | K/uL | LAB | | | Neutrophils | [address], | | | | | | [place] [address] | | | | + + + + + + | Absolute | 1.96Comment: Testing | 1.00 - 3.90 | EXTERNAL | | | Lymphocytes | performed at [facility], [address] | K/uL | LAB | | | | [address], | | | | | | [place] [address] | | | | + + + + + + | Absolute | 1.03 (H)Comment: Testing | 0.00 - 0.80 | EXTERNAL | | | Monocytes | performed at [facility], [address] | K/uL | LAB | | | | [address], | | | | | | [place] [address] | | | | + + + + + + | Absolute | 0.23Comment: Testing | 0.00 - 0.50 | EXTERNAL | | | Eosinophils | performed at [facility], [address] | K/uL | LAB | | | | [address], | | | | | | [place] [address] | | | | + + + + + + | Absolute | 0.03Comment: Testing | 0.00 - 0.10 | EXTERNAL | | | Basophils | performed at [facility], [address] | K/uL | LAB | | | | [address], | | | | | | [place] [address] | | | | + + + + + + + + | Specimen | + + | Blood specimen | | (specimen) | + + + +---------+ + + | Performing | Address | City/State/Zipcode | Phone Number | | Organization | | | | + +---------+ + + | EXTERNAL LAB | | | | + +---------+ + + Hemoglobin A1C (06/15/2015 4:57 AM PDT) + + + + + + | Component | Value | Ref Range | Performed | Pathologist | | | | | At | Signature | + + + + + + | Hemoglobin | 5.2Comment: [place] | 4.0 - 6.0 % | EXTERNAL | | | A1c | Diabetes Association | | LAB | | | | considers a hemoglobin | | | | | | A1c result of <7.0% to | | | | | | be the goal of diabetic | | | | | | therapy. When results | | | | | | are consistently >8.0%, | | | | | | the ADA suggests | | | | | | reevaluation of the | | | | | | treatment regimen. The | | | | | | testing method used is | | | | | | certified traceable to | | | | | | the Diabetes Control and | | | | | | Complications Trial | | | | | | reference method.Testing | | | | | | performed at [facility], [address] | | | | | [address], | | | | | | [place] [address] | | | | + + + + + + | Glycohemogl | 103Comment: The ADA | mg/dL | EXTERNAL | | | obin | considers an eAG result | | LAB | | | (GHb),Total | of LT 154 mg/dL to be | | | | | | the goal of diabetic | | | | | | therapy. Estimated | | | | | | Average Glucose | | | | | | calculated from | | | | | | hemoglobin A1c by use of | | | | | | the ADA recommended | | | | | | formula.Testing | | | | | | performed at [facility], [address] | | | | | | [address], | | | | | | [place] [address] | | | | + + + + + + + + | Specimen | + + | Blood specimen | | (specimen) | + + + +---------+ + + | Performing | Address | City/State/Zipcode | Phone Number | | Organization | | | | + +---------+ + + | EXTERNAL LAB | | | | + +---------+ + + Lipid Panel (06/15/2015 4:57 AM PDT) + + + + + + | Component | Value | Ref Range | Performed | Pathologist | | | | | At | Signature | + + + + + + | Cholesterol | 118Comment: Testing | mg/dL | EXTERNAL | | | | performed at [facility], [address] | | LAB | | | | [address], | | | | | | [place] [address] | | | | + + + + + + | Triglycerid | 84Comment: Testing | mg/dL | EXTERNAL | | | es | performed at [facility], [address] | | LAB | | | | [address], | | | | | | [place] [address] | | | | + + + + + + | HDL | 44Comment: Testing | mg/dL | EXTERNAL | | | | performed at [facility], [address] | | LAB | | | | [address], | | | | | | [place] [address] | | | | + + + + + + | LDL, | 57Comment: Testing | mg/dL | EXTERNAL | | | Calculated | performed at [facility], [address] | | LAB | | | | [address], | | | | | | [place] [address] | | | | + + + + + + + + | Specimen | + + | Blood specimen | | (specimen) | + + + +---------+ + + | Performing | Address | City/State/Zipcode | Phone Number | | Organization | | | | + +---------+ + + | EXTERNAL LAB | | | | + +---------+ + + Comprehensive Metabolic Panel (06/15/2015 4:57 AM PDT) + + + + + + | Component | Value | Ref Range | Performed | Pathologist | | | | | At | Signature | + + + + + + | Na | 136Comment: Testing | 135 - 143 | EXTERNAL | | | | performed at [facility], [address] | mmol/L | LAB | | | | [address], | | | | | | [place] [address] | | | | + + + + + + | K | 3.5Comment: Testing | 3.5 - 4.9 | EXTERNAL | | | | performed at [facility], [address] | mmol/L | LAB | | | | [address], | | | | | | [place] [address] | | | | + + + + + + | Cl | 99Comment: Testing | 99 - 109 mmol/L | EXTERNAL | | | | performed at [facility], [address] | | LAB | | | | [address], | | | | | | [place] [address] | | | | + + + + + + | CO2 | 29Comment: Testing | 23 - 32 mmol/L | EXTERNAL | | | | performed at [facility], [address] | | LAB | | | | [address], | | | | | | [place] [address] | | | | + + + + + + | Anion Gap | 12Comment: Testing | 5 - 20 mmol/L | EXTERNAL | | | | performed at [facility], [address] | | LAB | | | | [address], | | | | | | [place] [address] | | | | + + + + + + | Glucose, | 105 (H)Comment: Testing | 65 - 99 mg/dL | EXTERNAL | | | Fasting | performed at [facility], [address] | | LAB | | | | [address], | | | | | | [place] [address] | | | | + + + + + + | BUN | 13Comment: Testing | 8 - 25 mg/dL | EXTERNAL | | | | performed at [facility], [address] | | LAB | | | | [address], | | | | | | [place] [address] | | | | + + + + + + | Creatinine | 1.10Comment: Testing | 0.70 - 1.30 | EXTERNAL | | | | performed at [facility], [address] | mg/dL | LAB | | | | [address], | | | | | | [place] [address] | | | | + + + + + + | BUN/Creatin | 12Comment: Testing | | EXTERNAL | | | ine Ratio | performed at [facility], [address] | | LAB | | | | [address], | | | | | | [place] [address] | | | | + + + + + + | Calcium | 9.6Comment: Testing | 8.5 - 10.5 | EXTERNAL | | | | performed at [facility], [address] | mg/dL | LAB | | | | [address], | | | | | | [place] [address] | | | | + + + + + + | Protein, | 6.5Comment: Testing | 6.3 - 8.2 g/dL | EXTERNAL | | | Total | performed at [facility], [address] | | LAB | | | | [address], | | | | | | [place] [address] | | | | + + + + + + | Albumin | 3.6Comment: Testing | 3.3 - 4.8 g/dL | EXTERNAL | | | | performed at [facility], [address] | | LAB | | | | [address], | | | | | | [place] [address] | | | | + + + + + + | Globulin | 2.9Comment: Testing | 1.3 - 4.9 g/dL | EXTERNAL | | | | performed at [facility], [address] | | LAB | | | | [address], | | | | | | [place] [address] | | | | + + + + + + | A/G Ratio | 1.2Comment: Testing | 1.0 - 2.4 | EXTERNAL | | | | performed at [facility], [address] | | LAB | | | | [address], | | | | | | [place] [address] | | | | + + + + + + | Bilirubin | 1.1Comment: Testing | 0.1 - 1.5 mg/dL | EXTERNAL | | | Total | performed at [facility], [address] | | LAB | | | | [address], | | | | | | [place] [address] | | | | + + + + + + | ALP, | 89Comment: Testing | 35 - 115 U/L | EXTERNAL | | | External | performed at [facility], [address] | | LAB | | | | [address], | | | | | | [place] [address] | | | | + + + + + + | AST | 32Comment: Testing | 10 - 45 U/L | EXTERNAL | | | | performed at [facility], [address] | | LAB | | | | [address], | | | | | | [place] [address] | | | | + + + + + + | ALT | 40Comment: Testing | 10 - 65 U/L | EXTERNAL | | | | performed at [facility], [address] | | LAB | | | | [address], | | | | | | [place] [address] | | | | + + + + + + | Estimated | >60Comment: GFR <60: | mL/min/1.73m2 | EXTERNAL | | | GFR | CHRONIC KIDNEY DISEASE, | | LAB | | | | IF FOUND OVER A 3 MONTH | | | | | | PERIOD.GFR <15: KIDNEY | | | | | | FAILURE.FOR | | | | | | AMERICANS, MULTIPLY THE | | | | | | CALCULATED GFR BY | | | | | | 1.210.Testing performed | | | | | | at [facility], [address] | | | | | | [address], | | | | | | [place] [address] | | | | + + + + + + + + | Specimen | + + | Blood specimen | | (specimen) | + + + +---------+ + + | Performing | Address | City/State/Zipcode | Phone Number | | Organization | | | | + +---------+ + + | EXTERNAL LAB | | | | + +---------+ + + POC Glucose (06/14/2015 10:03 PM PDT) + + + + + + | Component | Value | Ref Range | Performed | Pathologist | | | | | At | Signature | + + + + + + | Glucose, | 100 (H)Comment: Testing | 65 - 99 mg/dL | EXTERNAL | | | Fingerstick | performed at [facility] | | LAB | | | | [address];[place] | | | | | | [address] | | | | + + + + + + + + | Specimen | + + | | + + + +---------+ + + | Performing | Address | City/State/Zipcode | Phone Number | | Organization | | | | + +---------+ + + | EXTERNAL LAB | | | | + +---------+ + + POC Glucose (06/14/2015 6:04 PM PDT) + + + + + + | Component | Value | Ref Range | Performed | Pathologist | | | | | At | Signature | + + + + + + | Glucose, | 124 (H)Comment: Testing | 65 - 99 mg/dL | EXTERNAL | | | Fingerstick | performed at [facility];[address] | | LAB | | | | [address];[place], [place] | | | | | | [address] | | | | + + + + + + + + | Specimen | + + | | + + + +---------+ + + | Performing | Address | City/State/Zipcode | Phone Number | | Organization | | | | + +---------+ + + | EXTERNAL LAB | | | | + +---------+ + + XR Chest 1 Vw (06/14/2015 5:22 PM PDT) + + | Specimen | + + | | + + + + + | Narrative | Performed At | + + + | This is a non-reportable procedure without a radiologist report and | | | is used for image storage only | | + + + + + | Procedure Note | + + | Gus Guerrero Conversion - 04/28/2019 1:45 PM PDT This is a non-reportable procedure | | without a radiologist report and isused for image storage only | + + CT Head wo Contrast (06/14/2015 5:22 PM PDT) + + | Specimen | + + | | + + + + + | Narrative | Performed At | + + + | This is a non-reportable procedure without a radiologist report and | | | is used for image storage only | | + + + + + | Procedure Note | + + | Gus Guerrero - 04/28/2019 1:45 PM PDT This is a non-reportable procedure | | without a radiologist report and isused for image storage only | + + documented in this encounter Visit Diagnoses Not on filedocumented in this encounter
--- OUTSIDE RECORDS SUMMARY | ~2020-05-13 | XMS | Encounter Summary ---
Demographics + + + | Address | [address] | | | [place] [address] | + + + | Home Phone | | + + + | Preferred Language | Unknown | + + + | Marital Status | | + + + | Sikhism Affiliation | Unknown | + + + | Race | White | + + + | Ethnic Group | Not or | + + + Author + + + | Author | [facility] | | | and [place] | + + + | Organization | [facility] | | | and [...] [place], [place] | | | | | [address] | | + + + + + | Angelita Godoy | ECON | Unknown | | + + + + + Care Team Providers + +------+ + | Care Bereavement Coordinator Name | Role | Phone | + +------+ + | Catracho Puente | PCP | | | MD | | | + +------+ + Encounter Details +--------+ + + + + | Date | Type | Department | Care Team | Description | +--------+ + + + + | 03/15/ | Orders Only | [facility] | Conversion | | | 2017 | | NEPHROLOGY RINA | Transaction, | | | | | [address] | Provider Unknown | | | | | [address] [facility] | | | | | | [address] | (Fax) | | | | | [phone] | | | +--------+ + + + [...] | | | | | [address] [place] | | | | | | [address] | | | | | | | [...] [place], | | | | | | [place] [address] | | | | | | [phone] | | | | | | | | +--------+ + + + + documented as of this encounter Procedures + +--------+ + + + | Procedure Name | Priori | Date/Time | Associated Diagnosis | Comments | | | ty | | | | + +--------+ + + + | EXTERNAL LAB: CBC | Routin | 03/15/2017 | | Results for this | | | e | 12:00 PM | | procedure are in the | | | | PDT | | results section. | + +--------+ + + + | PARATHYROID HORMONE, | Routin | 03/15/2017 | | Results for this | | INTACT | e | 12:00 PM | | procedure are in the | | | | PDT | | results section. | + +--------+ + + + | COMPREHENSIVE | Routin | 03/15/2017 | | Results for this | | METABOLIC PANEL | e | 12:00 PM | | procedure are in the | | | | PDT | | results section. | + +--------+ + + + documented in this encounter Results External Lab: CBC (03/15/2017 12:00 PM PDT) + +-------+ + + + | Component | Value | Ref Range | Performed | Pathologist | | | | | At | Signature | + +-------+ + + + | WBC | 8.9 | 4.5 - 11.0 10 | EXTERNAL | | | | | | LAB | | + +-------+ + + + | Non- | 4.52 | 4.3 - 5.7 10 | EXTERNAL | | | Red Blood | | | LAB | | | Cells | | | | | | Counted | | | | | + +-------+ + + + | Hemoglobin | 14.3 | 13.5 - 18.0 | EXTERNAL | | | | | g/dL | LAB | | + +-------+ + + + | Hematocrit, | 42.8 | 41 - 50 % | EXTERNAL | | | POC | | | LAB | | + +-------+ + + + | MCV | 94.7 | 81 - 99 fL | EXTERNAL | | | | | | LAB | | + +-------+ + + + | MCH | 32 | 27 - 33 pg | EXTERNAL | | | | | | LAB | | + +-------+ + + + | MCHC | 33 | 30 - 36 g/dL | EXTERNAL | | | | | | LAB | | + +-------+ + + + | Platelet | 236 | 140 - 440 K/ L | EXTERNAL | | | Count | | | LAB | | | Plasma | | | | | + +-------+ + + + | RDW-CV | 14.2 | 10.5 - 15.0 % | EXTERNAL | | | | | | LAB | | + +-------+ + + + | MPV | | fL | EXTERNAL | | | | | | LAB | | + +-------+ + + + | Differentia | | | EXTERNAL | | | l Type | | | LAB | | + +-------+ + + + | % Segmented | | % | EXTERNAL | | | | | | LAB | | | Neutrophils | | | | | + +-------+ + + + | % | | % | EXTERNAL | | | Lymphocytes | | | LAB | | + +-------+ + + + | % Monocytes | | % | EXTERNAL | | | | | | LAB | | + +-------+ + + + | % | | % | EXTERNAL | | | Eosinophils | | | LAB | | + +-------+ + + + | % Basophils | | % | EXTERNAL | | | | | | LAB | | + +-------+ + + + | Absolute | | / L | EXTERNAL | | | Segmented | | | LAB | | | Neutrophils | | | | | + +-------+ + + + | Absolute | | / L | EXTERNAL | | | Lymphocytes | | | LAB | | + +-------+ + + + | Absolute | | / L | EXTERNAL | | | Monocytes | | | LAB | | + +-------+ + + + | Absolute | | / L | EXTERNAL | | | Eosinophils | | | LAB | | + +-------+ + + + | Absolute | | / L | EXTERNAL | | | Basophils | | | LAB | | + +-------+ + + + + + | Specimen | + + | Blood specimen | | (specimen) | + + + +---------+ + + | Performing | Address | City/State/Zipcode | Phone Number | | Organization | | | | + +---------+ + + | EXTERNAL LAB | | | | + +---------+ + + Parathyroid Hormone, Intact (03/15/2017 12:00 PM PDT) + + + + + + | Component | Value | Ref Range | Performed | Pathologist | | | | | At | Signature | + + + + + + | PTH INTACT | 86.21 (A) | 15 - 65 pg/mL | EXTERNAL | | | | | | LAB | | + + + + + + + + | Specimen | + + | Blood specimen | | (specimen) | + + + +---------+ + + | Performing | Address | City/State/Zipcode | Phone Number | | Organization | | | | + +---------+ + + | EXTERNAL LAB | | | | + +---------+ + + Comprehensive Metabolic Panel (03/15/2017 12:00 PM PDT) + +--------+ + + + | Component | Value | Ref Range | Performed | Pathologist | | | | | At | Signature | + +--------+ + + + | Glucose, | 99 | 70 - 100 mg/dL | EXTERNAL | | | Fasting | | | LAB | | + +--------+ + + + | BUN | 18 | 6 - 23 mg/dL | EXTERNAL | | | | | | LAB | | + +--------+ + + + | Creatinine | 1.11 | 0.70 - 1.18 | EXTERNAL | | | | | mg/dL | LAB | | + +--------+ + + + | BUN/Creatin | 16.2 | 6.0 - 28.6 | EXTERNAL | | | ine Ratio | | | LAB | | + +--------+ + + + | Calcium | 9.5 | 8.4 - 10.2 | EXTERNAL | | | | | mg/dL | LAB | | + +--------+ + + + | Protein, | 6.8 | 6.0 - 8.0 g/dL | EXTERNAL | | | Total | | | LAB | | + +--------+ + + + | Albumin | 3.9 | 3.5 - 5.0 | EXTERNAL | | | | | | LAB | | + +--------+ + + + | Globulin | 2.9 | 1.8 - 3.5 | EXTERNAL | | | | | | LAB | | + +--------+ + + + | A/G Ratio | 1.3 | 1.1 - 2.4 | EXTERNAL | | | | | | LAB | | + +--------+ + + + | Bilirubin | 1.1 | 0.0 - 1.2 mg/dL | EXTERNAL | | | Total | | | LAB | | + +--------+ + + + | ALP, | 92 | 31 - 120 | EXTERNAL | | | External | | | LAB | | + +--------+ + + + | ALT | 58 (A) | 7 - 52 U/L | EXTERNAL | | | | | | LAB | | + +--------+ + + + | AST | 41 (A) | 13 - 39 U/L | EXTERNAL | | | | | | LAB | | + +--------+ + + + | Na | 139 | 132 - 143 | EXTERNAL | | | | | mmol/L | LAB | | + +--------+ + + + | K | 4.0 | 3.6 - 5.1 | EXTERNAL | | | | | mmol/L | LAB | | + +--------+ + + + | Cl | 104 | 95 - 112 mmol/L | EXTERNAL | | | | | | LAB | | + +--------+ + + + | CO2 | 24 | 19 - 31 mmol/L | EXTERNAL | | | | | | LAB | | + +--------+ + + + | Anion Gap | 15.0 | 7 - 21 mmol/L | EXTERNAL | | | | | | LAB | | + +--------+ + + + | Estimated | 64 | mg/dL | EXTERNAL | | | GFR | | | LAB | | + +--------+ + + + + + | Specimen [...]
--- OUTSIDE RECORDS SUMMARY | ~2020-05-13 | XMS | Encounter Summary ---
Demographics + + + | Address | [address] | | | [place] [address] | + + + | Home Phone | | + + + | Preferred Language | Unknown | + + + | Marital Status | | + + + | Mormon Affiliation | Unknown | + + + | Race | White | + + + | Ethnic Group | Not or | + + + Author + + + | Author | [facility] | | | and [place] | + + + | Organization | [facility] | | | and [...] [place], [place] | | | | | [address] | | + + + + + | Angelita Godoy | ECON | Unknown | | + + + + + Care Team Providers + +------+ + | Care Senior Wind Turbine Technician Name | Role | Phone | + +------+ + | Catracho Puente | PCP | | | MD | | | + +------+ + Reason for Visit +---------+ + | Reason | Comments | +---------+ + | Results | 10/02/19 | +---------+ + Encounter Details +--------+ + + + + | Date | Type | Department | Care Team | Description | +--------+ + + + + | 10/02/ | Documentati | [facility] | [place], | Results (10/02/19) | | 2020 | on | NEPHROLOGY [place] | [facility] | | | | | [address] | [place] | | | | | [address] [facility] [place] | | | | | | [address] | | | | | | [phone] | | | +--------+ + + + + Social History + +-------+ +--------+------+ | Tobacco Use | Types | Packs/Day | Years | Date | | | | | Used | | + +-------+ +--------+------+ | Former Smoker | | 1.5 | | | + +-------+ +--------+------+ + +---+---+---+ | Smokeless Tobacco: | | | | | Never Used | | | | + +---+---+---+ + [...] [place] | | | | | | [address] | | | | | | | [...] | | | | | | [place] [address] | | | | | | [phone] | | | | | | | | +--------+ + + + + documented as of this encounter Procedures + +--------+ + + + | Procedure Name | Priori | Date/Time | Associated Diagnosis | Comments | | | ty | | | | + +--------+ + + + | CBC NO DIFFERENTIAL | Routin | 10/02/2019 | | Results for this | | | e | | | procedure are in the | | | | | | results section. | + +--------+ + + + | PROTEIN/CREATININE | Routin | 10/02/2019 | | Results for this | | RATIO, URINE | e | | | procedure are in the | | | | | | results section. | + +--------+ + + + | URIC ACID | Routin | 10/02/2019 | | Results for this | | | e | | | procedure are in the | | | | | | results section. | + +--------+ + + + | MAGNESIUM | Routin | 10/02/2019 | | Results for this | | | e | | | procedure are in the | | | | | | results section. | + +--------+ + + + | RENAL FUNCTION PANEL | Routin | 10/02/2019 | | Results for this | | | e | | | procedure are in the | | | | | | results section. | + +--------+ + + + documented in this encounter Results CBC with Manual Differential (10/02/2019) + + + + + + | Component | Value | Ref Range | Performed | Pathologist | | | | | At | Signature | + + + + + + | WBC | 8.9 | 4.5 - 11.0 | | | + + + + + + | Red Blood | 5.04 | 4.30 - 5.70 | | | | Cells | | M/uL | | | + + + + + + | Hemoglobin | 15.4 | 13.5 - 18.0 | | | + + + + + + | Hematocrit, | 46.7 | 41.0 - 50.0 % | | | | POC | | | | | + + + + + + | MCV | 92.5 | 81.0 - 99.0 fL | | | + + + + + + | MCH | 31.0 | 27.0 - 33.0 pg | | | + + + + + + | MCHC | 33.0 | 30.0 - 36.0 | | | | | | g/dL | | | + + + + + + | Platelet | 277 | 140 - 440 | | | | Count | | | | | | Plasma | | | | | + + + + + + | RDW | 14.3 | 10.5 - 15.0 | | | + + + + + + | Neutrophils | 69.9 | 39 - 80 | | | | , Absolute | | | | | + + + + + + | Absolute | 21.0 (A) | 24 - 44 | | | | Lymphocytes | | | | | + + + + + + | Absolute | 4.5 | 0 - 12 | | | | Monocytes | | | | | + + + + + + | Eosinophils | 3.0 | 0 - 6 | | | | , Absolute | | | | | + + + + + + | Basophils, | 1.6 | 0 - 2 | | | | Absolute | | | | | + + + + + + + + | Specimen | + + | Blood | + + Magnesium (10/02/2019) + +-------+ + + + | Component | Value | Ref Range | Performed | Pathologist | | | | | At | Signature | + +-------+ + + + | Magnesium | 2.0 | 1.7 - 2.5 mg/dL | | | + +-------+ + + + + + | Specimen | + + | Blood | + + Renal Function Panel (10/02/2019) + + + + + + | Component | Value | Ref Range | Performed | Pathologist | | | | | At | Signature | + + + + + + | Na | 137 | 132 - 143 | | | | | | mmol/L | | | + + + + + + | K | 4.2 | 3.6 - 5.1 | | | | | | mmol/L | | | + + + + + + | Cl | 102 | 95 - 112 mmol/L | | | + + + + + + | CO2 | 23 | 19 - 31 mmol/L | | | + + + + + + | Anion Gap | 16 | 7 - 21 mmol/L | | | + + + + + + | Glucose | 163 (A) | 70 - 100 mg/dL | | | + + + + + + | BUN | 39 (A) | 6 - 23 mg/dL | | | + + + + + + | Creatinine | 1.54 (A) | 0.70 - 1.11 | | | | | | mg/dL | | | + + + + + + | Estimated | 43.0 (A) | 60.0 - 140.0 | | | | GFR | | mL/min/1.73m2 | | | + + + + + + | BUN/Creatin | 25.3 | 6.0 - 28.6 | | | | ine Ratio | | | | | + + + + + + | Albumin | 4.3 | 3.5 - 5.0 g/dL | | | + + + + + + | Calcium | 9.9 | 8.5 - 10.3 | | | + + + + + + | PHOSPHORUS | 3.1 | 2.5 - 5.0 | | | + + + + + + + + | Specimen | + + | Blood | + + Protein/Creatinine Ratio, Urine (10/02/2019) + +-------+ + + + | Component | Value | Ref Range | Performed | Pathologist | | | | | At | Signature | + +-------+ + + + | Protein/Cre | 72.3 | 0 - 150 | | | | at Ratio | | | | | + +-------+ + + + + + | Specimen | + + | Urine | + + Uric Acid (10/02/2019) + +-------+ + + + | Component | Value | Ref Range | Performed | Pathologist | | | | | At | Signature | + +-------+ + + + | Uric Acid | 6.8 | 4.4 - 7.6 | | | + +-------+ + + + + + | Specimen | + + | Blood | + + documented in this encounter Visit Diagnoses Not on filedocumented in this encounter"
--- OUTSIDE RECORDS SUMMARY | ~2020-05-13 | XMS | Encounter Summary ---
Demographics + + + | Address | [address] | | | [place] [address] | + + + | Home Phone | | + + + | Preferred Language | Unknown | + + + | Marital Status | | + + + | Pentecostalism Affiliation | Unknown | + + + | Race | White | + + + | Ethnic Group | Not or | + + + Author + + + | Author | [facility] | | | and [place] | + + + | Organization | [facility] | | [...] [place], [place] | | | | | [address] | | + + + + + | Angelita Godoy | ECON | Unknown | | + + + + + Care Team Providers + +------+ + | Care Under Baster Name | Role | Phone | + +------+ + | Catracho Puente | PCP | | | MD | | | + +------+ + Reason for Visit + + + | Reason | Comments | + + + | Device Check | [employer] remote device check | | (Remote) | | + + + Encounter Details +--------+ + + + + | Date | Type | Department | Care Team | Description | +--------+ + + + + | 06/13/ | Procedure | [facility] | | Chronic combined | | 2019 | visit | [facility]ARDIOLOGY [place] | | systolic and | | | | [address] | | diastolic heart | | | | [place], [place] | | failure (HCC) | | | | [address] | | (Primary Dx); | | | | [phone] | | Paroxysmal atrial | | | | | | fibrillation (HCC); | | | | | | Presence of | | | | | | automatic | | | | | | implantable | | | | | | cardioverter-defibri | | | | | | llator | +--------+ + + + + Social [...] documented as of this encounter Procedure Notes Cherie Mace RN - 06/12/2019 8:00 AM PDTAssociated Order(s): DEVICE INTERROGATION- RICARDO TEProcedure(s): DEVICE INTERROGATION- REMOTEPre-Procedure Diagnose(s): 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 ICD REMOTE INTERROGATION REPORT Name: Roberto Salcedo PCP: Catracho Puente MD : 1935 Primary cardiology provider: Pavan [place] Primary electrophysiology provider: Nicolas Roblero Device informatica architect: [employer] Device type: Biventricular Battery Longevity: 1.5 years RA Pacin% RV Pacin% BiV Pacin% INTERROGATION RESULTS: Please see the full interrogation report attached Known history of atrial flutter or atrial fibrillation: Yes Current antithrombotic therapy including: warfarin Mode switches: 1 ATR on 06/10/19 - still in progress. Afib. Avg A rate 296; Avg V rate 120. VT/VF Detections: 1 NSVT event (labeled VT) on 06/10/19. 3 beats & 8 beats NSVT. Afib w/RVR , V rate 460-650ms. . Lead function: Lead impedance and threshold value trends have been reviewed and are accepta ble based on most recent evaluation. CHF: Congestive heart failure parameters and trends have been reviewed and STEWART - insufficie nt data Follow up: The next scheduled interrogation will be in 3 months in the cardiac device clini c. Additional comments: None. IMPRESSION: 1. Normal ICD function. 2. Atrial Arrhythmia Danforth of at least 24.0 hours in a 24 hour period. 3. No VT/VF therapies have been given since the last interrogation. Testing reviewed by: Cherie Mace RN Associated attestation - Nicolas Roblero MD - 07/10/2019 6:19 PM PDTI agree with the abo ve interpretation. Appropriate device function seen. Persistent atrial fibrillation with o ccasional rapid rate. Osbaldo MDdocumented in this encounter Plan of Treatment +--------+ + + + + | Date | Type | Specialty | Care Team | Description | +--------+ + + + + | 05/29/ | Office | Cardiology | Pavan Pham, | | | 2019 | Visit | | MD [address] | | | | | | [address] [place], [place] | | | | | | [address] | | | | | | | [...] [place], | | | | | | [place] [address] | | | | | | [phone] | | | | | | | | +--------+ + + + + documented as of this encounter Procedures + +--------+ + + + | Procedure Name | Priori | Date/Time | Associated Diagnosis | Comments | | | ty | | | | + +--------+ + + + | DEVICE | Routin | 06/12/2019 | Chronic combined | Results for this | | INTERROGATION- | e | 8:00 AM | systolic and | procedure are in the | | REMOTE | | PDT | diastolic heart | results section. | | | | | failure (HCC) | | | | | | Paroxysmal atrial | | | | | | fibrillation (HCC) | | | | | | Presence of | | | | | | automatic | | | | | | implantable | | | | | | cardioverter-defibri | | | | | | llator | | + +--------+ + + + documented in this encounter Results Device Interrogation - Remote (06/12/2019 8:00 AM PDT) + + + | Narrative | Performed At | + + + | Cherie Mace, | [facility] | | RN 06/21/2019 16:16ICD REMOTE INTERROGATION REPORT Name: Roberto | | | Jessie Salcedo PCP: Catracho Puente MD : 1935MRN: [id number] | | | [facility] | | electrophysiology provider: Nicolas Roblero Device informatica architect: | | | [employer] Device type: Biventricular Battery Longevity: 1.5 | | | years RA Pacin% RV Pacin%BiV Pacin% INTERROGATION | | | RESULTS:Please see the full interrogation report attached Known | | | history of atrial flutter or atrial fibrillation: YesCurrent | | | antithrombotic therapy including: warfarin Mode switches: 1 ATR on | | | 06/10/19 - still in progress. Afib. Avg A rate 296; Avg V rate 120. | | | VT/VF Detections: 1 NSVT event (labeled VT) on 06/10/19. 3 beats & 8 | | | beats NSVT. Afib w/RVR, V rate 460-650ms. . Lead function: Lead | | | impedance and threshold value trends have been reviewed and are | | | acceptable based on most recent evaluation. CHF: Congestive heart | | | failure parameters and trends have been reviewed and STEWART - | | | insufficient data Follow up: The next scheduled interrogation will be | | | in 3 months in the cardiac device clinic. Additional comments: None. | | | IMPRESSION:1. Normal ICD function.2. Atrial Arrhythmia Danforth of at | | | least 24.0 hours in a 24 hour period.3. No VT/VF therapies have been | | | given since the last interrogation. Testing reviewed by: Cherie Mace, | | | RN | | |attached | | | | | |Known history of atrial flutter or atrial fibrillation: Yes | | |Current antithrombotic therapy including: warfarin | | | | | |Mode switches: 1 ATR on 06/10/19 - still in progress. Afib. Avg A | | |rate 296; Avg V rate 120. | | | | | |VT/VF Detections: 1 NSVT event (labeled VT) on 06/10/19. 3 beats | | |& 8 beats NSVT. Afib w/RVR, V rate 460-650ms. . | | | | | |Lead function: Lead impedance and threshold value trends have | | |been reviewed and are acceptable based on most recent evaluation. | | | | | |CHF: Congestive heart failure parameters and trends have been | | |reviewed and STEWART - insufficient data | | | | | |Follow up: The next scheduled interrogation will be in 3 months | | |in the cardiac device clinic. | | | | | |Additional comments: None. | | | | | |IMPRESSION: | | |1. Normal ICD function. | | |2. Atrial Arrhythmia Danforth of at least 24.0 hours in a 24 hour | | |period. | | |3. No VT/VF therapies have been given since the last | | |interrogation. | | | | | |Testing reviewed by: Cherie Mace, RN | | | | | | | | | | | + + + + +---------+ + + | Performing | Address | City/State/Zipcode | Phone Number | | Organization | | | | + +---------+ + + | [facility] | | | | + +---------+ + + documented in this encounter Visit Diagnoses + + | Diagnosis | + + | Chronic combined systolic and diastolic heart failure (HCC) - Primary Chronic | | combined systolic and diastolic heart failure | + + | Paroxysmal atrial fibrillation (HCC) Atrial fibrillation | + + | Presence of automatic implantable cardioverter-defibrillator | + + documented in this encounter"
--- OUTSIDE RECORDS SUMMARY | ~2020-05-13 | XMS | Encounter Summary ---
Demographics + + + | Address | [address] | | | [place] [address] | + + + | Home Phone | | + + + | Preferred Language | Unknown | + + + | Marital Status | | + + + | Confucianism Affiliation | Unknown | + + + | Race | White | + + + | Ethnic Group | Not or | + + + Author + + + | Author | [facility] | | | and [place] | + + + | Organization | [facility] | | | [...] [place], [place] | | | | | [address] | | + + + + + | Angelita Godoy | ECON | Unknown | | + + + + + Care Team Providers + +------+ + | Care Shop Supervisor Name | Role | Phone | + +------+ + | Catracho Punete | PCP | | | MD | | | + +------+ + Reason for Visit + + + | Reason | Comments | + + + | Device Check | | | (In-office) | | + + + Encounter Details +--------+ + + + + | Date | Type | Department | Care Team | Description | +--------+ + + + + | 10/19/ | Procedure | [facility] | | Biventricular | | 2020 | visit | [facility]IOLOGY [place] | | implantable | | | | [address] | | cardioverter-defibri | | | | [place], [place] | | llator in situ | | | | [address] | | (Primary Dx) | | | | [phone] | | | +--------+ + + + [...] + documented as of this encounter Procedure Gamal Tang RN - 10/19/2019 9:00 AM PSTAssociated Order(s): DEVICE INTERROGATIONProce dure(s): DEVICE INTERROGATIONPre-Procedure Diagnose(s): Biventricular implantable cardiovert er-defibrillator in situDevice interrogation done by Nicolas Roblero Any events or changes listed in office note. See device data attached to scheduled encounter for additional details. supervisor soakers: Gamal Gonzalez RN Associated attestation - Nicolas Roblero MD - 11/26/2019 11:16 AM PDTNormal device functi on was seen today. He has been in atrial fibrillation for the last 4 months so the mode was changed from DDDR to VVIR with a lower rate of 60 bpm. Pacing has occurred in the left janet tricle 99% of the time and in the right ventricle 76% of the time. The pacing threshold was 0.7 V at 0.5 ms in the right ventricle and 0.6 V at 0.5 ms in the left ventricle. There evangelista ve been no arrhythmias other than A. fib. The rates have been controlled. Outputs were adj usted appropriately, based upon pacing thresholds. The output in the right ventricle and le ft ventricle was changed to 1.5 V at 0.6 ms. currydocumented in this encounter Plan of Treatment +--------+ + + + + | Date | Type | Specialty | Care Team | Description | +--------+ + + + + | 05/29/ | Office | Cardiology | Pavan Pham, | | 2019 | Visit | | MD [address] | | | | | | [place] | | | | | | [address] | | | | | | | [...] | | | | | | [place] [address] | | | | | | [phone] | | | | | | | | +--------+ + + + + documented as of this encounter Procedures + +--------+ + + + | Procedure Name | Priori | Date/Time | Associated Diagnosis | Comments | | | ty | | | | + +--------+ + + + | DEVICE INTERROGATION | Routin | 10/19/2019 | Biventricular | Results for this | | | e | 9:00 AM | implantable | procedure are in the | | | | PST | cardioverter-defibri | results section. | | | | | llator in situ | | + +--------+ + + + documented in this encounter Results Device Interrogation (10/19/2019 9:00 AM PST) + + + | Narrative | Performed At | + + + | Gamal Almaraz | [facility] | | VERONIKA Gonzalez 10/19/2019 9:24 AMDevice interrogation done by Nicolas | | | Osbaldo Any events or changes listed in office note. See device data | | | attached to scheduled encounter for additional details. supervisor soakers: Gamal | | | VERONIKA Gonzalez | | |See device data attached to scheduled encounter for additional | | |details. | | | | | |NOEMÍ Coleman: Gamal Gonzalez RN | | + + + + +---------+ + + | Performing | Address | City/State/Zipcode | Phone Number | | Organization | | | | + +---------+ + + | [facility] | | | | + +---------+ + + documented in this encounter Visit Diagnoses + + | Diagnosis | + + | Biventricular implantable cardioverter-defibrillator in situ - Primary | + + documented in this encounter"
--- OUTSIDE RECORDS SUMMARY | ~2020-05-13 | XMS | Encounter Summary ---
Demographics + + + | Address | [address] | | | [place] [address] | + + + | Home Phone [...] + + | Author | [facility] | | | and [place] | + + + | Organization | [facility] | | | and [...] [place], [place] | | | | | [address] | | + + + + + | Angelita Godoy | ECON | Unknown | | + + + + + Care Team Providers + +------+ + | Care Horse Show Judge Name | Role | Phone | + +------+ + PCP | Unavailable | + +------+ + Encounter Details +--------+ + + + + | Date | Type | Department | Care Team | Description | +--------+ + + + + | 10/21/ | Hospital | [facility] | Billy Lanier MD | Aortic valve | | 2010 | [facility] | | disorder | | | | CLINICAL DECISION | | | | | | [address] | | | | | | [place], [place] | | | | | | [address] | | | | | | [phone] | | | +--------+ + + + [...] [place] | | | | | | [address] | | | | | | | [...] | | | | | | [place] [address] | | | | | | [phone] | | | | | | | | +--------+ + + + + documented as of this encounter Procedures + +--------+ + + + | Procedure Name | Priori | Date/Time | Associated Diagnosis | Comments | | | ty | | | | + +--------+ + + + | VAS CAROTID DUPLEX | Routin | 10/21/2010 | | Results for this | | BILATERAL | e | 12:01 PM | | procedure are in the | | | | PST | | results section. | + +--------+ + + + | ECHO TRANSESOPHAGEAL | Routin | 10/21/2010 | | Results for this | | (LINDSEY) | e | 11:10 AM | | procedure are in the | | | | PST | | results section. | + +--------+ + + + documented in this encounter Results VAS Carotid Duplex Bilateral (10/21/2010 12:01 PM PST) + + | Specimen | + + | | + + + + + | Narrative | Performed At | + + + | [facility] [address] Ph: | | | Patient Name: AYANNA MUNIZ Date of : | | | 1935 Medical Record: [id number] Account: [id number] | | | Exam Date/Time: 10/21/2010 12:45 Ordering | | | Physician: WIN LAI Order Detail: [id number] Exam Description: | | | US CAROTID DOPPLER | | | | | | AYANNA Roman CRISTY US CAROTID DOPPLER 10/21/2010 12:45 PM HISTORY: | | | 75 years. Male. Preop evaluation prior to aortic valve replacement | | | surgery. TECHNIQUE: Imaging was performed with a linear array | | | transducer. Sheldon scale, color flow and power Doppler and duplex | | | sonography techniques are utilized. COMPARISON: None. | | | FINDINGS: Right side: Moderate atherosclerotic plaque within the | | | bifurcation and proximal and mid ICA there continues be antegrade | | | flow within the vertebral artery. CCA-PROX PSV: 80 (cm/s) | | | EDV: 23 (cm/s) Grade: 1 CCA-DIST PSV: 38 (cm/s) EDV: 10 | | | (cm/s) Grade: 1 ICA-PROX PSV: 36 (cm/s) EDV: 10 (cm/s) | | | Grade: 1 ICA-MID PSV: 189 (cm/s) EDV: 64 (cm/s) Grade: 3 | | | ICA-DIST PSV: 74 (cm/s) EDV: 19 (cm/s) Grade: 1 ECA-PROX | | | PSV: 85 (cm/s) EDV: 23 (cm/s) Grade: 1 VERTEBRAL PSV: 58 | | | (cm/s) EDV: 17 (cm/s) Grade: 1 Vertebral flow direction: | | | Antegrade Left side: Atherosclerotic plaque within the | | | bifurcation and left ICA with some increase flow velocity but appears | | | to be less than 50% diameter reduction. CCA-PROX PSV: 50 | | | (cm/s) EDV: 15 (cm/s) Grade: 1 CCA-DIST PSV: 46 (cm/s) EDV: | | | 13 (cm/s) Grade: 1 ICA-PROX PSV: 103 (cm/s) EDV: 46 (cm/s) | | | Grade: 2 ICA-MID PSV: 92 (cm/s) EDV: 44 (cm/s) Grade: 2 | | | ICA-DIST PSV: 114 (cm/s) EDV: 45 (cm/s) Grade: 2 ECA-PROX | | | PSV: 79 (cm/s) EDV: 16 (cm/s) Grade: 1 VERTEBRAL PSV: | | | 37 (cm/s) EDV: 12 (cm/s) Grade: 1 Vertebral flow direction: | | | Antegrade Grades: 1 = 01-50% PSV <125 cm/s EDV (cm/s)<40 | | | cm/s (mild plaque) 2 = 01-50% PSV <125 cm/s EDV (cm/s)<40 | | | cm/s (moderate plaque) 3 = 50-69% PSV >125 cm/s EDV | | | (cm/s)>40 cm/s 4 = 70-95% PSV >230 cm/s EDV (cm/s)>100 cm/s | | | 5 = 90-95% 6 = Occluded IMPRESSION: 1. 50 to 69% diameter | | | reduction in the midportion of the right ICA. 2. Atherosclerotic | | | plaque within the left internal carotid arteries appears be less than | | | 50% diameter reduction. | | + + + + + | Procedure Note | + + | Gus Guerrero Conversion - 05/06/2019 3:58 PM PDT | | [facility] | | [facility] [address] | | | | | | Patient Name: AYANNA MUNIZ | | Date of : 1935 | | Medical Record: [id number] | | Account: [id number] | | | | | | Exam Date/Time: 10/21/2010 12:45 | | Ordering Physician: WIN LAI | | Order Detail: [id number] | | Exam Description: US CAROTID DOPPLER | | | | AYANNA MUNIZ | | US CAROTID DOPPLER | | 10/21/2010 12:45 PM | | | | HISTORY: | | 75 years. Male. Preop evaluation prior to aortic valve replacement | | surgery. | | | | TECHNIQUE: | | Imaging was performed with a linear array transducer. Sheldon scale, color | | flow and power Doppler and duplex sonography techniques are utilized. | | | | COMPARISON: | | None. | | | | FINDINGS: | | Right side: | | Moderate atherosclerotic plaque within the bifurcation and proximal and mid | | ICA there continues be antegrade flow within the vertebral artery. | | | | CCA-PROX PSV: 80 (cm/s) EDV: 23 (cm/s) Grade: 1 | | CCA-DIST PSV: 38 (cm/s) EDV: 10 (cm/s) Grade: 1 | | ICA-PROX PSV: 36 (cm/s) EDV: 10 (cm/s) Grade: 1 | | ICA-MID PSV: 189 (cm/s) EDV: 64 (cm/s) Grade: 3 | | ICA-DIST PSV: 74 (cm/s) EDV: 19 (cm/s) Grade: 1 | | ECA-PROX PSV: 85 (cm/s) EDV: 23 (cm/s) Grade: 1 | | VERTEBRAL PSV: 58 (cm/s) EDV: 17 (cm/s) Grade: 1 | | Vertebral flow direction: Antegrade | | | | Left side: | | Atherosclerotic plaque within the bifurcation and left ICA with some | | increase flow velocity but appears to be less than 50% diameter reduction. | | | | CCA-PROX PSV: 50 (cm/s) EDV: 15 (cm/s) Grade: 1 | | CCA-DIST PSV: 46 (cm/s) EDV: 13 (cm/s) Grade: 1 | | ICA-PROX PSV: 103 (cm/s) EDV: 46 (cm/s) Grade: 2 | | ICA-MID PSV: 92 (cm/s) EDV: 44 (cm/s) Grade: 2 | | ICA-DIST PSV: 114 (cm/s) EDV: 45 (cm/s) Grade: 2 | | ECA-PROX PSV: 79 (cm/s) EDV: 16 (cm/s) Grade: 1 | | VERTEBRAL PSV: 37 (cm/s) EDV: 12 (cm/s) Grade: 1 | | Vertebral flow direction: Antegrade | | | | Grades: | | 1 = 01-50% PSV <125 cm/s EDV (cm/s)<40 cm/s (mild plaque) | | 2 = 01-50% PSV <125 cm/s EDV (cm/s)<40 cm/s (moderate plaque) | | 3 = 50-69% PSV >125 cm/s EDV (cm/s)>40 cm/s | | 4 = 70-95% PSV >230 cm/s EDV (cm/s)>100 cm/s | | 5 = 90-95% | | 6 = Occluded | | | | IMPRESSION: | | 1. 50 to 69% diameter reduction in the midportion of the right ICA. | | 2. Atherosclerotic plaque within the left internal carotid arteries | | appears be less than 50% diameter reduction. 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 CONCLUSIONS 1. Overall left | | | ventricular systolic function is moderate-severely impaired with, an | | | EF between 30 - 35 %. 2. Mild spontaneous echo contrast present in | | | the left atrium. 3. No shunt seen with color Doppler. 4. No shunt | | | seen with bubble study. 5. Aortic valve is trileaflet and is severely | | | thickened. 6. There is severe aortic stenosis present, valve area of | | | 0.78cm2 by planimetry. 7. The aortic root is dilated measuring 4.06 | | | cm FINDINGS -------- Procedure: The patient was brought to the | | | catheterization laboratory holding area in the fasting state. | | | Informed consent was obtained after benefits and risks of the | | | procedure were discussed with the patient including but not limited to | | | the potential for esophageal puncture and . The oropharynx | | | was anesthetized with 1% Hurricane spray. After conscious sedation, | | | the transesophageal probe was advanced and placed in the esophagus and | | | multiple projections of the cardiovascular structures were acquired | | | and recorded. This was followed by advancement of the probe into | | | the stomach for transgastric imaging. Finally, interrogation of the | | | descending aorta and arch was performed. The probe was removed. | | | The patient tolerated the procedure well. There were no | | | immediate complications. 2 D, pulsed and continuous wave form and | | | color images were interpreted in real time. Medications: 1mg of | | | Versed and Medications: 25 mcg of Fentanyl was given intraveonously | | | for conscious sedation. Study quality: This was a technically good | | | study. Left Ventricle: Systolic function is moderately decreased. | | | Left Ventricle: Overall left ventricular systolic function is | | | moderate-severely impaired with, an EF between 30 - 35 %. Left | | | Atrium: Mild spontaneous echo contrast present in the left atrium. | | | Right Ventricle: The right ventricle is normal in size and function. | | | Right Atrium: The right atrium is normal in size and function. | | | Interatrial Septum: No shunt seen with color Doppler. Interatrial | | | Septum: No shunt seen with bubble study. Aortic Valve: Aortic valve | | | is trileaflet and is severely thickened. Aortic Valve: Trace amount | | | of aortic regurgitation. Aortic Valve: There is severe aortic | | | stenosis present, valve area of 0.78cm2 by planimetry. Mitral Valve: | | | The mitral valve is normal. Mitral Valve: Mild mitral regurgitation | | | is present. Tricuspid Valve: The tricuspid valve appears structurally | | | normal. Trace/Mild (physiologic) regurgitation. Tricuspid Valve: | | | Trace tricuspid regurgitation present. Pulmonic Valve: The pulmonic | | | valve is normal. Pulmonic Valve: Trace/mild (physiologic) pulmonic | | | regurgitation. Aorta: The aortic root is dilated measuring 4.06 cm | | | Aorta: Non complex (< 4mm), atherosclerotic plaque(s) located in the | | | descending aorta. Mass: No mass visualized. Thrombus: No clot | | | visualized. MEASUREMENTS Regional Branch Manager: FELIX | | | Authenticated by: Billy Lanier Report Date/Time: 10-21-2010 19:07:59 | | + + + + + | Procedure Note | + + | Gus Guerrero Conversion - 05/06/2019 3:58 PM [facility] | | [place], [place] [address]Af: Patient Name: AYANNA MUNIZ of : | | 1935Medical Record: [id number]: [id number] | | Date/Time: 10/21/2010 09:31Performing Physician: Billy Ortega Detail: [id number] | | Description: ECHO TRANSESOPHAGEAL | | ECHOCARDIOGRAM INDICATIONS | | A-Fib; AV Stenosis ( Hx of aotric coarctation ). CONCLUSIONS 1. | | Overall left ventricular systolic function is moderate-severely impaired with, an EF | | between 30 - 35 %.2. Mild spontaneous echo contrast present in the left atrium.3. No | | shunt seen with color Doppler.4. No shunt seen with bubble study.5. Aortic valve is | | trileaflet and is severely thickened.6. There is severe aortic stenosis present, valve | | area of 0.78cm2 by planimetry.7. The aortic root is dilated measuring 4.06 cm | | FINDINGS--------Procedure: The patient was brought to the catheterization laboratory | | holding area in the fasting state. Informed consent was obtained after benefits and | | risks of the procedure were discussed with the patient including but not limited to the | | potentialfor esophageal puncture and . The oropharynx was anesthetized with 1% | | Hurricane spray. After conscious sedation, the transesophageal probe was advanced and | | placed in the esophagus and multiple projections of the cardiovascular structures | | wereacquired and recorded. This was followed by advancement of the probe into the | | stomach for transgastric imaging. Finally, interrogation of the descending aorta and | | arch was performed. The probe was removed. The patient tolerated the procedure well. | | There were no immediate complications. 2 D, pulsed and continuous wave form and color | | images were interpreted in real time.Medications: 1mg of Versed andMedications: 25 mcg | | of Fentanyl was given intraveonously for conscious sedation.Study quality: This was a | | technically good study.Left Ventricle: Systolic function is moderately decreased.Left | | Ventricle: Overall left ventricular systolic function is moderate-severely impaired | | with, an EF between 30 - 35 %.Left Atrium: Mild spontaneous echo contrast present in the | | left atrium.Right Ventricle: The right ventricle is normal in size and function.Right | | Atrium: The right atrium is normal in size and function.Interatrial Septum: No shunt | | seen with color Doppler.Interatrial Septum: No shunt seen with bubble study.Aortic | | Valve: Aortic valve is trileaflet and is severely thickened.Aortic Valve: Trace amount | | of aortic regurgitation.Aortic Valve: There is severe aortic stenosis present, valve | | area of 0.78cm2 by planimetry.Mitral Valve: The mitral valve is normal.Mitral Valve: | | Mild mitral regurgitation is present.Tricuspid Valve: The tricuspid valve appears | | structurally normal. Trace/Mild (physiologic) regurgitation.Tricuspid Valve: Trace | | tricuspid regurgitation present.Pulmonic Valve: The pulmonic valve is normal.Pulmonic | | Valve: Trace/mild (physiologic) pulmonic regurgitation.Aorta: The aortic root is | | dilated measuring 4.06 cmAorta: Non complex (< 4mm), atherosclerotic plaque(s) located | | in the descending aorta.Mass: No mass visualized.Thrombus: No clot visualized. | | MEASUREMENTS Regional Branch Manager: Derekticated by: Billy Marley | | Date/Time: 10-21-2010 19:07:59 | |Left Ventricle: Overall left ventricular systolic function is moderate-severely impaired wi th, an EF between 30 - 35 %. | |Left Atrium: Mild spontaneous echo contrast present in the left atrium. | |Right Ventricle: The right ventricle is normal in size and function. | |Right Atrium: The right atrium is normal in size and function. | |Interatrial Septum: No shunt seen with color Doppler. | |Interatrial Septum: No shunt seen with bubble study. | |Aortic Valve: Aortic valve is trileaflet and is severely thickened. | |Aortic Valve: Trace amount of aortic regurgitation. | |Aortic Valve: There is severe aortic stenosis present, valve area of 0.78cm2 by planimetry. | |Mitral Valve: The mitral valve is normal. | |Mitral Valve: Mild mitral regurgitation is present. | |Tricuspid Valve: The tricuspid valve appears structurally normal. Trace/Mild (physiologic) regurgitation. | |Tricuspid Valve: Trace tricuspid regurgitation present. | |Pulmonic Valve: The pulmonic valve is normal. | |Pulmonic Valve: Trace/mild (physiologic) pulmonic regurgitation. | |Aorta: The aortic root is dilated measuring 4.06 cm | |Aorta: Non complex (< 4mm), atherosclerotic plaque(s) located in the descending aorta. | |Mass: No mass visualized. | |Thrombus: No clot visualized. | | | |MEASUREMENTS | | | | | |Regional Branch Manager: FELIX | |Authenticated by: Billy Lanier | |Report Date/Time: 10-21-2010 19:07:59 | + + documented in this encounter Visit Diagnoses + + | Diagnosis | + + | Aortic valve disorder Aortic valve disorders | + + documented in this encounter"
--- OUTSIDE RECORDS SUMMARY | ~2020-05-13 | XMS | Encounter Summary ---
Demographics + + + | Address | [address] | | | [place] [address] | + + + | Home Phone | | + + + | Preferred Language | Unknown | + + + | Marital Status | | + + + | Rastafarian Affiliation | Unknown | + + + | Race | White | + + + | Ethnic Group | Not or | + + + Author + + + | Author | [facility] | | | and [place] | + + + | Organization | [facility] | | | and [...] [place], [place] | | | | | [address] | | + + + + + | Angelita Godoy | ECON | Unknown | | + + + + + Care Team Providers + +------+ + | Care Bullet Swaging Machine Adjuster Name | Role | Phone | + +------+ + | Catracho Puente | PCP | | | MD | | | + +------+ + Encounter Details +--------+ + + + + | Date | Type | Department | Care Team | Description | +--------+ + + + + | 10/02/ | Orders Only | [facility] | Ej Tatum MD | Essential | | 2020 | | NEPHROLOGY [place] | [address] [place] | hypertension with | | | | [address] [place] | [address] [place], [place] | goal blood pressure | | | | [address] [place], [place] | [address] | less than 130/80 | | | | [address] | | (Primary Dx); Stage | | | | [phone] | | 3 chronic kidney | | | | | | disease (HCC); High | | | | | | serum parathyroid | | | | | | hormone (PTH) | +--------+ + + + + Social [...] [place] | | | | | | [address] | | | | | | | | +--------+ + + + + | 08/05/ | Procedure | Cardiology | | | | 2019 | visit | | | | +--------+ + + + + | 11/07/ | Office | Cardiology | Nicolas Roblero, | | | 2020 | Visit | | MD [address] | | | | | | [place] | | | | | [place] [address] | | | | | | [phone] | | | | | | | | +--------+ + + + + + +------+--------+ + + | Name | Type | Priori | Associated Diagnoses | Order Schedule | | | | ty | | | + +------+--------+ + + | Renal Function Panel | Lab | Routin | Essential | Expected: | | | | e | hypertension with | 10/02/2020, Expires: | | | | | goal blood pressure | 10/02/2021 | | | | | less than 130/80 | | | | | | Stage 3 chronic | | | | | | kidney disease (HCC) | | + +------+--------+ + + | CBC with | Lab | Routin | Essential | Expected: | | Differential | | e | hypertension with | 10/02/2020, Expires: | | | | | goal blood pressure | 10/02/2021 | | | | | less than 130/80 | | | | | | Stage 3 chronic | | | | | | kidney disease (HCC) | | + +------+--------+ + + | Uric Acid | Lab | Routin | Essential | Expected: | | | | e | hypertension with | 10/02/2020, Expires: | | | | | goal blood pressure | 10/02/2021 | | | | | less than 130/80 | | | | | | Stage 3 chronic | | | | | | kidney disease (HCC) | | + +------+--------+ + + | Parathyroid Hormone, | Lab | Routin | Essential | Expected: | | Intact | | e | hypertension with | 10/02/2020, Expires: | | | | | goal blood pressure | 10/02/2021 | | | | | less than 130/80 | | | | | | Stage 3 chronic | | | | | | kidney disease ([facility]) | | | | | | High serum | | | | | | parathyroid hormone | | | | | | (PTH) | | + +------+--------+ + + | Protein/Creatinine | Lab | Routin | Essential | Expected: | | Ratio, Urine | | e | hypertension with | 10/02/2020, Expires: | | | | | goal blood pressure | 10/02/2021 | | | | | less than 130/80 | | | | | | Stage 3 chronic | | | | | | kidney disease (HCC) | | + +------+--------+ + + documented as of this encounter Visit Diagnoses + + | Diagnosis | + + | Essential hypertension with goal blood pressure less than 130/80 - Primary | + + | Stage 3 chronic kidney disease (HCC) | + + | High serum parathyroid hormone (PTH) | + + documented in this encounter"
--- OUTSIDE RECORDS SUMMARY | ~2020-05-13 | XMS | Encounter Summary ---
Demographics + + + | Address | [address] | | | [place] [address] | + + + | Home Phone | | + + + | Preferred Language | Unknown | + + + | Marital Status | | + + + | Scientologist Affiliation | Unknown | + + + | Race | White | + + + | Ethnic Group | Not or | + + + Author + + + | Author | [facility] | | | and [place] | + + + | Organization | [facility] | | | [...] [place], [place] | | | | | [address] | | + + + + + | Angelita Godoy | ECON | Unknown | | + + + + + Care Team Providers + +------+ + | Care Milker Machine Name | Role | Phone | + +------+ + | Catracho Puente | PCP | | | MD | | | + +------+ + Encounter Details +--------+ + + + + | Date | Type | Department | Care Team | Description | +--------+ + + + + | 09/29/ | Orders Only | [facility] | Conversion | | | 2017 | | NEPHROLOGY [place] | Transaction, | | | | | [address] | Provider Unknown | | | | | [address] [facility] | | | | | | [address] | (Fax) | | | | | [phone] | | | +--------+ + + + [...] | | | | | [address] [place] | | | | | | [address] | | | | | | | [...] [place], | | | | | | [place] [address] | | | | | | [phone] | | | | | | | | +--------+ + + + + documented as of this encounter Procedures + +--------+ + + + | Procedure Name | Priori | Date/Time | Associated Diagnosis | Comments | | | ty | | | | + +--------+ + + + | EXTERNAL LAB: CBC | Routin | 09/29/2016 | | Results for this | | | e | 11:58 AM | | procedure are in the | | | | PST | | results section. | + +--------+ + + + | VITAMIN D, | Routin | 09/29/2016 | | Results for this | | DEFICIENCY SCREEN | e | 11:58 AM | | procedure are in the | | (25-HYDROXY) | | PST | | results section. | + +--------+ + + + | URINALYSIS, | Routin | 09/29/2016 | | Results for this | | MICROSCOPIC ONLY | e | 11:58 AM | | procedure are in the | | | | PST | | results section. | + +--------+ + + + | PROTEIN/CREATININE | Routin | 09/29/2016 | | Results for this | | RATIO, URINE | e | 11:58 AM | | procedure are in the | | | | PST | | results section. | + +--------+ + + + | MICROALBUMIN/CREATIN | Routin | 09/29/2016 | | Results for this | | INE RATIO, URINE | e | 11:58 AM | | procedure are in the | | TEST | | PST | | results section. | + +--------+ + + + | URIC ACID | Routin | 09/29/2016 | | Results for this | | | e | 11:58 AM | | procedure are in the | | | | PST | | results section. | + +--------+ + + + | PARATHYROID HORMONE, | Routin | 09/29/2016 | | Results for this | | INTACT | e | 11:58 AM | | procedure are in the | | | | PST | | results section. | + +--------+ + + + | RENAL FUNCTION PANEL | Routin | 09/29/2016 | | Results for this | | | e | 11:58 AM | | procedure are in the | | | | PST | | results section. | + +--------+ + + + documented in this encounter Results Protein/Creatinine Ratio, Urine (09/29/2016 11:58 AM PST) + +-------+ + + + | Component | Value | Ref Range | Performed | Pathologist | | | | | At | Signature | + +-------+ + + + | Protein/Cre | 76.4 | 0 - 150 | EXTERNAL | | | at Ratio | | | LAB | | + +-------+ + + + + + | Specimen | + + | Urine specimen | | (specimen) | + + + +---------+ + + | Performing | Address | City/State/Zipcode | Phone Number | | Organization | | | | + +---------+ + + | EXTERNAL LAB | | | | + +---------+ + + Microalbumin/Creatinine Ratio, Urine (09/29/2016 11:58 AM PST) + +-------+ + + + | Component | Value | Ref Range | Performed | Pathologist | | | | | At | Signature | + +-------+ + + + | ALBUMIN/CRE | 9.0 | 0 - 30 | EXTERNAL | | | ATININE | | | LAB | | | RATIO.URINE | | | | | | .ORD.MG/G | | | | | | (YASMIN) | | | | | | | | | | | | | | | | | + +-------+ + + + + + | Specimen | + + | Urine specimen | | (specimen) | + + + +---------+ + + | Performing | Address | City/State/Zipcode | Phone Number | | Organization | | | | + +---------+ + + | EXTERNAL LAB | | | | + +---------+ + + Vitamin D, Deficiency Screen (25-Hydroxy) (09/29/2016 11:58 AM PST) + +-------+ + + + | Component | Value | Ref Range | Performed | Pathologist | | | | | At | Signature | + +-------+ + + + | Vit D, | 40 | 30 - 100 | EXTERNAL | | | 25-Hydroxy | | | LAB | | + +-------+ + + + + + | Specimen | + + | Blood specimen | | (specimen) | + + + +---------+ + + | Performing | Address | City/State/Zipcode | Phone Number | | Organization | | | | + +---------+ + + | EXTERNAL LAB | | | | + +---------+ + + Urinalysis, Microscopic Only (09/29/2016 11:58 AM PST) + + + + + + | Component | Value | Ref Range | Performed | Pathologist | | | | | At | Signature | + + + + + + | Color | Yellow | | EXTERNAL | | | | | | LAB | | + + + + + + | Clarity, | Clear | | EXTERNAL | | | Urine | | | LAB | | + + + + + + | Specific | 1.013 | 1.005 - 1.030 | EXTERNAL | | | [place], | | | LAB | | | Urine | | | | | + + + + + + | Leukocyte | Negative | | EXTERNAL | | | Esterase, | | | LAB | | | Urine | | | | | + + + + + + | Nitrite, | Negative | | EXTERNAL | | | Urine | | | LAB | | + + + + + + | Urobilinoge | Normal | | EXTERNAL | | | n, Urine | | | LAB | | + + + + + + | Protein, | Negative | | EXTERNAL | | | Urine | | | LAB | | + + + + + + | pH, Urine | 7 | 5 - 9 | EXTERNAL | | | | | | LAB | | + + + + + + | Blood, | Negative | | EXTERNAL | | | Urine | | | LAB | | + + + + + + | Ketones | Negative | | EXTERNAL | | | | | | LAB | | + + + + + + | Bilirubin, | Negative | | EXTERNAL | | | Urine | | | LAB | | + + + + + + | Glucose, | Negative | | EXTERNAL | | | Urine | | | LAB | | + + + + + + + + | Specimen | + + | Urine specimen | | (specimen) | + + + +---------+ + + | Performing | Address | City/State/Zipcode | Phone Number | | Organization | | | | + +---------+ + + | EXTERNAL LAB | | | | + +---------+ + + External Lab: CBC (09/29/2016 11:58 AM PST) + +-------+ + + + | Component | Value | Ref Range | Performed | Pathologist | | | | | At | Signature | + +-------+ + + + | WBC | 8.8 | 4.8 - 11.0 10 | EXTERNAL | | | | | | LAB | | + +-------+ + + + | Non- | 5.03 | 4.3 - 5.7 10 | EXTERNAL | | | Red Blood | | | LAB | | | Cells | | | | | | Counted | | | | | + +-------+ + + + | Hemoglobin | 15.8 | 13.5 - 18.0 | EXTERNAL | | | | | g/dL | LAB | | + +-------+ + + + | Hematocrit, | 46.7 | 41 - 50 % | EXTERNAL | | | POC | | | LAB | | + +-------+ + + + | MCV | 92.8 | 81 - 99 fL | EXTERNAL | | | | | | LAB | | + +-------+ + + + | MCH | 31 | 27 - 33 pg | EXTERNAL | | | | | | LAB | | + +-------+ + + + | MCHC | 34 | 30 - 36 g/dL | EXTERNAL | | | | | | LAB | | + +-------+ + + + | Platelet | 274 | 140 - 440 K/ L | EXTERNAL | | | Count | | | LAB | | | Plasma | | | | | + +-------+ + + + | RDW-CV | 14.1 | 10.5 - 15.0 % | EXTERNAL [...] | | | + +---------+ + + Uric Acid (09/29/2016 11:58 AM PST) + +-------+ + + + | Component | Value | Ref Range | Performed | Pathologist | | | | | At | Signature | + +-------+ + + + | Uric Acid | 4.6 | 4.4 - 7.6 | EXTERNAL | | | | | [...] + +---------+ + + Parathyroid Hormone, Intact (09/29/2016 11:58 AM PST) + + + + + + | Component | Value | Ref Range | Performed | Pathologist | | | | | At | Signature | + + + + + + | PTH INTACT | 72.95 (A) | 15 - 65 pg/mL | [...] | | | + +---------+ + + Renal Function Panel (09/29/2016 11:58 AM PST) + + + + + + | Component | Value | Ref Range | Performed | Pathologist | | | | | At | Signature | + + + + + + | Glucose, | 111 (A) | 70 - 100 mg/dL | EXTERNAL | | | Fasting | | | LAB | | + + + + + + | BUN | 22 | 6 - 23 mg/dL | EXTERNAL | | | | | | LAB | | + + + + + + | Creatinine | 1.33 (A) | 0.70 - 1.18 | EXTERNAL | | | | | mg/dL | LAB | | + + + + + + | PHOSPHORUS | | mg/dL | EXTERNAL | | | | | | LAB | | + + + + + + | Albumin | 4.2 | 3.5 - 5.0 | EXTERNAL | | | | | | LAB | | + + + + + + | Na | 139 | 132 - 143 | EXTERNAL | | | | | mmol/L | LAB | | + + + + + + | K | 4.4 | 3.6 - 5.1 | EXTERNAL | | | | | mmol/L | LAB | | + + + + + + | Cl | 101 | 95 - 112 mmol/L | EXTERNAL | | | | | | LAB | | + + + + + + | CO2 | 26 | 19 - 31 mmol/L | EXTERNAL | | | | | | LAB | | + + + + + + | Anion Gap | 16.4 | 7 - 21 mmol/L | EXTERNAL | | | | | | LAB | | + + + + + + | eGFR, | | | EXTERNAL | | | non- | | | LAB | | | [place] | | | | | + + + + + + | Phosphorus, | 2.6 | 2.5 - 5.0 | EXTERNAL | | | Inorganic | | | LAB | | + + + + + + | BUN/Creatin | 16.5 | 6.0 - 28.6 | EXTERNAL | | | ine Ratio | | | LAB | | + + + + + + | Calcium | 9.9 | 8.4 - 10.2 | EXTERNAL | | | | | mg/dL | LAB | | + + + + + + | Estimated | 52 | mg/dL | EXTERNAL | | | [...]
--- OUTSIDE RECORDS SUMMARY | ~2020-05-13 | XMS | Encounter Summary ---
Demographics + + + | Address | [address] | | | [place] [address] | + + + | Home Phone | | + + + | Preferred Language | Unknown | + + + | Marital Status | | + + + | Scientology Affiliation | Unknown | + + + | Race | White | + + + | Ethnic Group | Not or | + + + Author + + + | Author | [facility] | | | and [place] | + + + | Organization | [facility] | | | [...] [place], [place] | | | | | [address] | | + + + + + | Angelita Godoy | ECON | Unknown | | + + + + + Care Team Providers + +------+ + | Care Supervisor Beater Room Name | Role | Phone | + +------+ + PCP | Unavailable | + +------+ + Encounter Details +--------+ + + + + | Date | Type | Department | Care Team | Description | +--------+ + + + + | 06/05/ | Hospital | [facility] | Conversion | Diagnosis unknown | | 2018 | Encounter | CONVERSION [address] | Transaction, | | | | | [address] | Provider Unknown | | | | | [place], [place] | [phone] | | | | | [address] | | | | | | [phone] | | | +--------+ + + + [...] + + documented as of this encounter Medications at Time of Discharge [...] + + + +---------+ + + | aspirin 81 MG EC | Take 81 mg by mouth | | 0 | 07/04/20 | | | tablet | daily with | | | 15 | | | | breakfast. | | | | | + + + +---------+ + + | finasteride | Take 5 mg by mouth | | 0 | 06/14/20 | | | (PROSCAR) 5 mg | daily. | | | 17 | | | tablet | | | | | | + + + +---------+ + + | warfarin | Take 3 mg by mouth | | 0 | 07/04/20 | | | (COUMADIN) 5 mg | daily. 4mg Wednesday, | | | 15 | | | tablet | Wednesday, | | | | | | | and Wednesday. 3 mg | | | | | | | Wednesday, Wednesday | | | | | | | and wednesday | | | | | + + + +---------+ + + | atorvaSTATin | Take 1 tablet by | 30 | 0 | 06/18/20 | | | (LIPITOR) 80 MG | mouth nightly. | tablet | | 15 | 9 | | tablet | | | | [...] + + + +---------+ + + | torsemide | Take 1 tablet by | 30 | 3 | 02/10/20 | | | (DEMADEX) 20 mg | mouth daily as | tablet | | 18 | 9 | | tablet | needed (LE edema). | | | | | + + [...] [place] | | | | | | [address] | | | | | | | [...] | | | | | | [place] [address] | | | | | | [phone] | | | | | | | | +--------+ + + + + documented as of this encounter Procedures + +--------+ + + + | Procedure Name | Priori | Date/Time | Associated Diagnosis | Comments | | | ty | | | | + +--------+ + + + | XR SHOULDER LEFT 2 + | Routin | 12/18/2015 | | Results for this | | VW | e | 6:23 PM | | procedure are in the | | | | PDT | | results section. | + +--------+ + + + documented in this encounter Results XR Shoulder Left 2 + Vw (12/18/2015 6:23 PM PDT) + + | Specimen | + + | | + + + + + | Narrative | Performed At | + + + | This is a non-reportable procedure without a radiologist report and | | | is used for image storage only | | + + + + + | Procedure Note | + + | Gus Guerrero - 04/26/2019 3:09 PM PDT This is a non-reportable procedure | | without a radiologist report and isused for image storage only | + + documented in this encounter Visit Diagnoses + + | Diagnosis | + + | Diagnosis unknown Other unknown and unspecified cause of morbidity or mortality | + + documented in this encounter"
--- OUTSIDE RECORDS SUMMARY | ~2020-05-13 | XMS | Encounter Summary ---
Demographics + + + | Address | [address] | | | [place] [address] | + + + | Home Phone | | + + + | Preferred Language | Unknown | + + + | Marital Status | | + + + | Lutheran Affiliation | Unknown | + + + | Race | White | + + + | Ethnic Group | Not or | + + + Author + + + | Author | [facility] | | | and [place] | + + + | Organization | [facility] | | | [...] [place], [place] | | | | | [address] | | + + + + + | Angelita Godoy | ECON | Unknown | | + + + + + Care Team Providers + +------+ + | Care Tin Pot Operator Name | Role | Phone | + +------+ + PCP | Unavailable | + +------+ + Encounter Details +--------+ + + + + | Date | Type | Department | Care Team | Description | +--------+ + + + + | // | Orders Only | [facility] | Conversion | | | 2018 | | [facility] | Transaction, | | | | | [address] | Provider Unknown | | | | | [address] [place], [place] | | | | | | [address] | (Fax) | | | | | [phone] | | | +--------+ + + + [...] [place] | | | | | | [address] | | | | | | | [...] [place], | | | | | | [place] [address] | | | | | | [phone] | | | | | | | | +--------+ + + + + documented as of this encounter Procedures + +--------+ + + + | Procedure Name | Priori | Date/Time | Associated Diagnosis | Comments | | | ty | | | | + +--------+ + + + | EXTERNAL LAB: CBC | Routin | 01/13/2019 | | Results for this | | | e | 10:06 AM | | procedure are in the | | | | PDT | | results section. | + +--------+ + + + | PROTEIN/CREATININE | Routin | 01/13/2019 | | Results for this | | RATIO, URINE | e | 10:06 AM | | procedure are in the | | | | PDT | | results section. | + +--------+ + + + | URIC ACID | Routin | 01/13/2019 | | Results for this | | | e | 10:06 AM | | procedure are in the | | | | PDT | | results section. | + +--------+ + + + | MAGNESIUM | Routin | 01/13/2019 | | Results for this | | | e | 10:06 AM | | procedure are in the | | | | PDT | | results section. | + +--------+ + + + | RENAL FUNCTION PANEL | Routin | 01/13/2019 | | Results for this | | | e | 10:06 AM | | procedure are in the | | | | PDT | | results section. | + +--------+ + + + documented in this encounter Results Protein/Creatinine Ratio, Urine (01/13/2019 10:06 AM PDT) + +-------+ + + + | Component | Value | Ref Range | Performed | Pathologist | | | | | At | Signature | + +-------+ + + + | Protein/Cre | 74.9 | 0 - 150 | EXTERNAL | [...] + +---------+ + + External Lab: CBC (01/13/2019 10:06 AM PDT) + + + + + + | Component | Value | Ref Range | Performed | Pathologist | | | | | At | Signature | + + + + + + | WBC | 7.4 | 4.5 - 11.0 10 | EXTERNAL | | | | | | LAB | | + + + + + + | Non- | 4.42 | 4.3 - 5.7 10 | EXTERNAL | | | Red Blood | | | LAB | | | Cells | | | | | | Counted | | | | | + + + + + + | Hemoglobin | 13.2 (A) | 13.5 - 18.0 | EXTERNAL | | | | | g/dL | LAB | | + + + + + + | Hematocrit, | 39.8 (A) | 41 - 50 % | EXTERNAL | | | POC | | | LAB | | + + + + + + | MCV | 90.0 | 81 - 99 fL | EXTERNAL | | | | | | LAB | | + + + + + + | MCH | 14.2 | 10.5 - 15.0 pg | EXTERNAL | | | | | | LAB | | + + + + + + | MCHC | 33 | 30 - 36 g/dL | EXTERNAL | | | | | | LAB | | + + + + + + | Platelet | 351 | 140 - 440 K/ L | EXTERNAL | | | Count | | | LAB | | | Plasma | | | | | + + + + + + | RDW-CV | 14.2 | 10.5 - 15.0 % | EXTERNAL | | | | | | LAB | | + + + + + + | MPV | | fL | EXTERNAL | | | | | | LAB | | + + + + + + | Differentia | | | EXTERNAL | | | l Type | | | LAB | | + + + + + + | % Segmented | 62.0 | 39 - 80 % | EXTERNAL | | | | | | LAB | | | Neutrophils | | | | | + + + + + + | % | 26.2 | 24 - 44 % | EXTERNAL | | | Lymphocytes | | | LAB | | + + + + + + | % Monocytes | 8.5 | 0 - 12 % | EXTERNAL | | | | | | LAB | | + + + + + + | % | 3.1 | 0 - 6 % | EXTERNAL | | | Eosinophils | | | LAB | | + + + + + + | % Basophils | 0.2 | 0 - 2 % | EXTERNAL | | | | | | LAB | | + + + + + + | Absolute | | / L | EXTERNAL | | | Segmented | | | LAB | | | Neutrophils | | | | | + + + + + + | Absolute | | / L | EXTERNAL | | | Lymphocytes | | | LAB | | + + + + + + | Absolute | | / L | EXTERNAL | | | Monocytes | | | LAB | | + + + + + + | Absolute | | / L | EXTERNAL | | | Eosinophils | | | LAB | | + + + + + + | Absolute | | [...] | + +---------+ + + Uric Acid (01/13/2019 10:06 AM PDT) + +-------+ + + + | Component | Value | Ref Range | Performed | Pathologist | | | | | At | Signature | + +-------+ + + + | Uric Acid | 6.4 | 4.4 - 7.6 | EXTERNAL | [...] | | + +---------+ + + Magnesium (01/13/2019 10:06 AM PDT) + +---------+ + + + | Component | Value | Ref Range | Performed | Pathologist | | | | | At | Signature | + +---------+ + + + | Magnesium | 1.6 (A) | 1.7 - 2.5 mg/dL | EXTERNAL | | | | | | LAB | | + +---------+ + + + + + | Specimen | + + | Blood specimen | | (specimen) | + + + +---------+ + + | Performing | Address | City/State/Zipcode | Phone Number | | Organization | | | | + +---------+ + + | EXTERNAL LAB | | | | + +---------+ + + Renal Function Panel (01/13/2019 10:06 AM PDT) + + + + + + | Component | Value | Ref Range | Performed | Pathologist | | | | | At | Signature | + + + + + + | Glucose, | 164 (A) | 70 - 100 mg/dL | EXTERNAL | | | Fasting | | | LAB | | + + + + + + | BUN | 28 (A) | 6 - 23 mg/dL | EXTERNAL | | | | | | LAB | | + + + + + + | Creatinine | 1.60 (A) | 0.70 - 1.11 | EXTERNAL | | | | | mg/dL | LAB | | + + + + + + | PHOSPHORUS | 2.7 | 2.5 - 5.0 mg/dL | EXTERNAL | | | | | | LAB | | + + + + + + | Albumin | 4.0 | 3.5 - 5.0 | EXTERNAL | | | | | | LAB | | + + + + + + | Na | 140 | 132 - 143 | EXTERNAL | | | | | mmol/L | LAB | | + + + + + + | K | 3.6 | 3.6 - 5.1 | EXTERNAL | | | | | mmol/L | LAB | | + + + + + + | Cl | 101 | 95 - 112 mmol/L | EXTERNAL | | | | | | LAB | | + + + + + + | CO2 | 24 | 19 - 31 mmol/L | EXTERNAL | | | | | | LAB | | + + + + + + | Anion Gap | 18.6 | 7 - 21 mmol/L | EXTERNAL | | | | | | LAB | | + + + + + + | eGFR, | | | EXTERNAL | | | non- | | | LAB | | | [place] | | | | | + + + + + + | Phosphorus, | | | EXTERNAL | | | Inorganic | | | LAB | | + + + + + + | BUN/Creatin | 17.5 | 6.0 - 28.6 | EXTERNAL | | | ine Ratio | | | LAB | | + + + + + + | Calcium | 9.3 | 8.5 - 10.3 | EXTERNAL | | | | | mg/dL | LAB | | + + + + + + | Estimated | 42 (A) | 60 - 140 mg/dL | EXTERNAL | | | GFR [...]
--- OUTSIDE RECORDS SUMMARY | ~2020-05-13 | XMS | Encounter Summary ---
Demographics + + + | Address | [address] | | | [place] [address] | + + + | Home Phone | | + + + | Preferred Language | Unknown | + + + | Marital Status | | + + + | Anabaptism Affiliation | Unknown | + + + | Race | White | + + + | Ethnic Group | Not or | + + + Author + + + | Author | [facility] | | | and [place] | + + + | Organization | [facility] | | | [...] [place], [place] | | | | | [address] | | + + + + + | Angelita Godoy | ECON | Unknown | | + + + + + Care Team Providers + +------+ + | Care Philosophy Faculty Name | Role | Phone | + +------+ + | Catracho Puente | PCP | | | MD | | | + +------+ + Encounter Details +--------+ + + + + | Date | Type | Department | Care Team | Description | +--------+ + + + + | 02/09/ | Orders Only | [facility] | Johnnie Jones, | | | 2017 | | NEPHROLOGY [place] | [address] | | | | | [address] [facility] | [place] | | | | | [place] | [place] | | | | | [address] | [address] | | | | | [phone] | [phone] | | | | | | | [...] | | | | | [address] [place], [place] | | | | | | [address] | | | | | | | [...] | | | | | | [place] [address] | | | | | | [phone] | | | | | | | | +--------+ + + + + documented as of this encounter Visit Diagnoses Not on filedocumented in this encounter"
--- OUTSIDE RECORDS SUMMARY | ~2020-05-13 | XMS | Encounter Summary ---
Demographics + + + | Address | [address] | | | [place] [address] | + + + | Home Phone | | + + + | Preferred Language | Unknown | + + + | Marital Status | | + + + | Druze Affiliation | Unknown | + + + | Race | White | + + + | Ethnic Group | Not or | + + + Author + + + | Author | [facility] | | | and [place] | + + + | Organization | [facility] | | | [...] [place], [place] | | | | | [address] | | + + + + + | Angelita Godoy | ECON | Unknown | | + + + + + Care Team Providers + +------+ + | Care Inside Contractor Sales Name | Role | Phone | + +------+ + | Catracho Puente | PCP | | | MD | | | + +------+ + Reason for Visit + + + | Reason | Comments | + + + | Follow-up | | + + + Encounter Details +--------+---------+ + + + | Date | Type | Department | Care Team | Description | +--------+---------+ + + + | 04/29/ | Office | [facility] | Nicolas Roblero, | Biventricular | | 2020 | Visit | CARDIOLOGY GET | [address] | implantable | | | | [address] | [place], | cardioverter-defibri | | | | [place], [place] | [place] [address] | llator in situ; | | | | [address] | [phone] | Essential | | | | [phone] | | hypertension with | | | | | | goal blood pressure | | | | | | less than 130/80; | | | | | | Persistent atrial | | | | | | fibrillation | +--------+---------+ + + + Social History [...] | | | + +---+---+---+ + + | Tobacco Cessation: Ready to Quit: No; Counseling Given: No | + + + + +---------+ + | Alcohol Use [...] + + + | Blood Pressure | 142/68 | 04/29/2020 10:16 AM | | | | | PDT | | + + + + + | Pulse | 86 | 04/29/2020 10:16 AM | | | | | PDT | | + + + + + | Temperature | 36.6 C (97.9 F) | 04/29/2020 10:16 AM | | | | | PDT | | + + + + + | Respiratory Rate | - | - | | + + + + + | Oxygen Saturation | 96% | 04/29/2020 10:16 AM | | | | | PDT | | + + + + + | Inhaled Oxygen | - | - | | | Concentration | | | | + + + + + | Weight | 91.6 kg (202 lb) | 04/29/2020 10:16 AM | | | | | PDT | | + + + + + | Height | 167.6 cm (5' 6") | 04/29/2020 10:16 AM | | | | | PDT | | + + + + + | Body Mass Index | 32.6 | 04/29/2020 10:16 AM | | | | | PDT | | + + + + + documented in this encounter Patient Instructions Patient Instructions Nicolas Roblero MD - 04/29/2020 10:00 AM PDTContinued weight loss 1 to 2 pounds per week for at least another 20 pounds Increase carvedilol to 50 mg twice per day Stop Imdur If additional blood pressure control needed, consider adding hydralazine documented in this encounter Progress Notes Nicolas Roblero MD - 04/29/2020 10:00 AM PDTFormatting of this note might be different fr om the original. ELECTROPHYSIOLOGY OUTPATIENT FOLLOW UP PATIENT NAME: Roberto Salcedo : 1935: AGE: 84 y.o. (home) : PRIMARY CARE: Catracho Puente MD Requesting Physician: Dr Vero Puente Plan EP PROBLEMS ADDRESSED AT TODAY'S VISIT Problem List Biventricular implantable cardioverter-defibrillator in situ Overview A [employer] defibrillator was placed by Dr. Damon on [...] were 22 mV. In the LV the th reshold was 0.5 V at 0.5 ms and R waves were 1.5 mV. P waves were 2.5 mV. There have been episodes of nonsustained VT lasting for up to 14 beats with a ventricular response of up to 180 bpm. He has never received a defibrillator shocks since implant. Pacing has occurred 9 9% of the time in the LV and 97% of the time in the RV and 35% of the time in the RA. 10/19/2019: Normal device function was seen today. He has been in atrial fibrillation for the last 4 m [facility] so the mode was changed from [...] changed to 1.5 V at 0.6 ms. 04/29/2020: Normal device function was seen today. The underlying rhythm is atrial fibrillation and ve ntricular pacing is only occurred 46% of the time with a lower rate of 60 bpm. The lower ra te limit was increased to 70 bpm. The pacing threshold was 0.7 V at 0.6 ms in the ventricle and R waves are greater than 25 mV. The threshold for pacing in the left ventricle was 0.5 V at 0.6 ms and R waves were 13.6 mV. Appropriate device function was seen. There were 2 episodes of nonsustained VT which may have been rapid A. fib, lasting for only 5 beats. Essential hypertension with goal blood pressure less than 130/80 Overview History of coarct repair. Chronic hypertension, borderline controlled on medicines. Sung ght loss was strongly encouraged. Imdur was started recently by his primary care physician because of elevated blood pressure. I discussed the case with Dr. Pham. Will go ahead and stop Imdur and increase carvedilol to 50 mg twice daily for now. Continue to follow up the blood pressure closely. Consider hydralazine if additional treatment needed. Persistent atrial fibrillation Overview He has had frequent episodes of atrial fibrillation (41 days out of the past year) and he is anticoagulated with warfarin. Asymptomatic with the A. fib. The rate is controlled wit h carvedilol 25 mg twice daily and digoxin 0.125 mg/day. I recommended decreasing digoxin to 4 days a w sun'aq because of his renal dysfunction and age. Continue other therapy. A rate control strat egy is reasonable, given lack of symptoms. Chads 2 vascular score is 4. 10/19/2019: Continue current therapy. Pacing mode changed to VVIR. 04/29/2020: He remains in A. fib which is now longstanding persistent A. fib. The rate control is prob ably suboptimal. Carvedilol will be increased to 50 mg twice per day and digoxin will be co ntinued 0.125 mg 4 days/week. Consider and AV node ablation in the future needed. He is an ticoagulated with warfarin. Have recommended checking protimes at least every month. He is doing it every couple of months. COMPREHENSIVE PROBLEM LIST Patient Active Problem List Diagnosis Date Noted Biventricular implantable cardioverter-defibrillator in situ 05/17/2014 Priority: High Note Last Updated: 04/29/2020 A [employer] defibrillator was placed by Dr. Damon on [...] were 22 mV. In the LV the th reshold was 0.5 V at 0.5 ms and R waves were 1.5 mV. P waves were 2.5 mV. There have been episodes of nonsustained VT lasting for up to 14 beats with a ventricular response of up to 180 bpm. He has never received a defibrillator shocks since implant. Pacing has occurred 9 9% of the time in the LV and 97% of the time in the RV and 35% of the time in the RA. 10/19/2019: Normal device function was seen today. He has been in atrial fibrillation for the last 4 m [facility] so the mode was changed from [...] changed to 1.5 V at 0.6 ms. 04/29/2020: Normal device function was seen today. The underlying rhythm is atrial fibrillation and ve ntricular pacing is only occurred 46% of the time with a lower rate of 60 bpm. The lower ra te limit was increased to 70 bpm. The pacing threshold was 0.7 V at 0.6 ms in the ventricle and R waves are greater than 25 mV. The threshold for pacing in the left ventricle was 0.5 V at 0.6 ms and R waves were 13.6 mV. Appropriate device function was seen. There were 2 episodes of nonsustained VT which may have been rapid A. fib, lasting for only 5 beats. Stage 3 chronic kidney disease ([facility]) 09/19/2012 Priority: High Note Last Updated: 04/27/[address] Tatum . Bilateral carotid artery disease ([facility]) 06/17/2015 Priority: Medium Essential hypertension with goal blood pressure less than 130/80 09/19/2012 Priority: Medium Note Last Updated: 04/29/2020 History of coarct repair. Chronic hypertension, borderline controlled on medicines. Sung ght loss was strongly encouraged. Imdur was started recently by his primary care physician because of elevated blood pressure. I discussed the case with Dr. Pham. Will go ahead and stop Imdur and increase carvedilol to 50 mg twice daily for now. Continue to follow up the blood pressure closely. Consider hydralazine if additional treatment needed. Persistent atrial fibrillation 09/19/2012 Priority: Medium Note Last Updated: 04/29/2020 He has had frequent episodes of atrial fibrillation (41 days out of the past year) and he is anticoagulated with warfarin. Asymptomatic with the A. fib. The rate is controlled wit h carvedilol 25 mg twice daily and digoxin 0.125 mg/day. I recommended decreasing digoxin to 4 days a w sun'aq because of his renal dysfunction and age. Continue other therapy. A rate control strat egy is reasonable, given lack of symptoms. Chads 2 vascular score is 4. 10/19/2019: Continue current therapy. Pacing mode changed to VVIR. 04/29/2020: He remains in A. fib which is now longstanding persistent A. fib. The rate control is prob ably suboptimal. Carvedilol will be increased to 50 mg twice per day and digoxin will be co ntinued 0.125 mg 4 days/week. Consider and AV node ablation in the future needed. He is an ticoagulated with warfarin. Have recommended checking protimes at least every month. He is doing it every couple of months. Mixed dyslipidemia 09/19/2012 Priority: Medium Chronic combined systolic and diastolic heart failure (HCC) 06/13/2019 Type 2 diabetes mellitus with diabetic nephropathy, without long-term current use of in sulin (HCC) 03/05/2019 Note Last Updated: 10/02/2019 Mild pulmonary hypertension (HCC) 03/05/2019 Note Last Updated: 04/27/2019 The estimated RV systolic pressure was 45 mmHg on a recent echo. There was normal LV sys tolic function and mild TR. Coarctation of the aorta, complex 02/28/2019 Note Last Updated: 10/19/2019 Coarct repair in 1977. Had significant hypertension before then and has been much better since. Had a aortic valve replacement 8 years ago, presumably because of bicuspid aortic v alve High serum parathyroid hormone (PTH) 02/09/2018 Urinary hesitancy 10/12/2016 Presence of automatic implantable cardioverter-defibrillator 01/22/2016 Note Last Updated: 04/27/2019 [employer] - ICD. Model-S/N: N119 COGNIS 100-D/995375 Stroke 06/14/2015 Vitamin D deficiency 03/27/2013 S/P aortic valve replacement 09/19/2012 Note Last Updated: 04/27/2019 For severe aortic stenosis had an aortic valve replacement with a porcine prosthesis in 2010 (#25 magna ease). Idiopathic chronic gout of multiple sites without tophus 09/19/2012 Impotence 09/19/2012 Recommendations: Continued weight loss 1 to 2 pounds per week for at least another 20 pounds Increase carvedilol to 50 mg twice per day Stop Imdur If additional blood pressure control needed, consider adding hydralazine HISTORY OF PRESENT ILLNESS This patient presents 04/29/2020, feeling well from a cardiac perspective. He has had no ta chycardias dizzy spells or syncope. No symptoms of angina or CHF reported. He has lost 4 p ounds of weight since last visit, and is watching what he eats. Is trying to lose more. Guevara s been somewhat less active with the COVID virus situation. Allergies Allergen Reactions Furosemide Photosensitivity Hydrochlorothiazide Photosensitivity [...] DAILY, Disp: 90 caps ule, Rfl: 3 carvedilol (COREG) 25 mg tablet, Take 2 tablets by mouth 2 times daily., Disp: 360 tab let, Rfl: 3 [START ON 04/30/2020] digoxin (DIGOX) 125 mcg tablet, Take 1 tablet by mouth Four times a week., Disp: 75 tablet, Rfl: 11 doxazosin (CARDURA) 1 mg tablet, Take 4 mg by mouth nightly., Disp: , Rfl: fenofibrate (TRICOR) 145 mg tablet, Take 1 tablet by mouth Daily., Disp: 90 tablet, Rf l: 3 finasteride (PROSCAR) 5 mg tablet, Take 5 mg by mouth daily., Disp: , Rfl: glipiZIDE (GLUCOTROL XL) 2.5 mg 24 hr tablet, Take 2.5 mg by mouth daily. (Patient mary ing differently: Take 5 mg by mouth Daily.), Disp: , Rfl: ketoconazole (NIZORAL) 2% shampoo, , Disp: , Rfl: lisinopril (PRINIVIL,ZESTRIL) 40 MG [...] significance. DATA Laboratory values which I reviewed 04/29/2020 are as follows: Lab Results Component Value Date WBC 7.4 01/13/2019 RBC 5.04 10/02/2019 HGB 15.4 10/02/2019 HGB 13.2 (A) 01/13/2019 [...] Date TSH 1.41 05/06/2017 TSH 1.40 07/04/2015 No images are attached to the encounter or orders placed in the encounter. ROS I have personally reviewed and agree with ROS listed by ISHA carroll. All other systems are reviewed and negative. PHYSICAL EXAM BP 142/68 | Pulse 86 | Temp 36.6 C (97.9 F) | Ht 1.676 m (5' 6") | Wt 91.6 kg (202 lb) | SpO2 96% | BMI 32.60 kg/m Physical Exam Constitutional: He is oriented to person, place, and time. He appears well-developed and we ll-nourished. No distress. Pleasant mildly overweight gentleman in no distress. HENT: Head: Normocephalic and atraumatic. Eyes: Pupils [...] content normal. Vitals reviewed. Nicolas Roblero MD 04/29/2020 10:36 AM PDT *This report has been prepared using a voice recognition system. The report was reviewed f or accuracy, however, sound-alike word errors, addition and/or deletions may occur. If there is any question about this report please contact me. Patient Instructions No notes on file shley Carrillo, [facility] - 04/29/2020 10:00 AM PDTPetrona VIEIRA Note- Electrophysiology Patient ID: Roberto Salcedo [...] for hematuria. Musculoskeletal: Negative for myalgias. Neurological: Negative for dizziness, sensory change and loss of consciousness. Have you ever had a sleep study? no Do you use oxygen? (NO) Do you use CPAP? (NO) Do you snore? (YES) Do you fall asleep for no reason during the day? (NO) Do you stop breathing at night? (NO) Do you feel excessively tired during the day? (NO) documented in this en counter Plan of Treatment +--------+ + + + + | Date | Type | Specialty | Care Team | Description | +--------+ + + + + | 05/29/ | Office | Cardiology | Pavan Pham, | | | 2019 | Visit | | MD Taylor PAREDES | | | | | | [place] | | | | | | [id number] | | | | | | | [...] | | | | | | [place] [address] | | | | | | [phone] | | | | | | | | +--------+ + + + + documented as of this encounter Visit Diagnoses + + | Diagnosis | + + | Biventricular implantable cardioverter-defibrillator in situ | + + | Essential hypertension with goal blood pressure less than 130/80 | + + | Persistent atrial fibrillation Atrial fibrillation | + + documented in this encounter
--- OUTSIDE RECORDS SUMMARY | ~2020-05-13 | XMS | Encounter Summary ---
Demographics + + + | Address | [address] | | | [place] [address] | + + + | Home Phone | | + + + | Preferred Language | Unknown | + + + | Marital Status | | + + + | Shinto Affiliation | Unknown | + + + | Race | White | + + + | Ethnic Group | Not or | + + + Author + + + | Author | [facility] | | | and [place] | + + + | Organization | [facility] | | | [...] [place], [place] | | | | | [address] | | + + + + + | Angelita Godoy | ECON | Unknown | | + + + + + Care Team Providers + +------+ + | Care Packer Denture Name | Role | Phone | + +------+ + | Catracho Puenet | PCP | | | MD | | | + +------+ + Encounter Details +--------+ + + + + | Date | Type | Department | Care Team | Description | +--------+ + + + + | 10/17/ | Orders Only | [facility] | Ej Tatum MD | | | 2013 | | NEPHROLOGY [place] | [address] [place] | | | | | [address] [place] | [address] [facility], [place] | | | | | [address] [place], [place] | [id number] | | | | | [address] | | | | | | [phone] | | | +--------+ + + + [...] [place] | | | | | | [address] | | | | | | | | +--------+ + + + + | 08/05/ | Procedure | Cardiology | | | | 2019 | visit | | | | +--------+ + + + + | 11/07/ | Office | Cardiology | Nicolas Roblero Carlo, | | | 2020 | Visit | | [address] | | | | | | [place], | | | | | | [place] [address] | | | | | | [phone] | | | | | | | | +--------+ + + + + documented as of this encounter Procedures + +--------+ + + + | Procedure Name | Priori | Date/Time | Associated Diagnosis | Comments | | | ty | | | | + +--------+ + + + | EXTERNAL LAB: [facility] | Routin | 10/17/2013 | | Results for this | | | e | 12:00 AM | | procedure are in the | | | | PST | | results section. | + +--------+ + + + | URINALYSIS WITH | Routin | 10/17/2013 | | Results for this | | MICROSCOPIC WITH | e | 12:00 AM | | procedure are in the | | CULTURE IF INDICATED | | PST | | results section. | + +--------+ + + + | VITAMIN D, | Routin | 10/17/2013 | | Results for this | | DEFICIENCY SCREEN | e | 12:00 AM | | procedure are in the | | (25-HYDROXY) | | PST | | results section. | + +--------+ + + + | PARATHYROID HORMONE, | Routin | 10/17/2013 | | Results for this | | INTACT AND CALCIUM | e | 12:00 AM | | procedure are in the | | | | PST | | results section. | + +--------+ + + + | PROTEIN/CREATININE | Routin | 10/17/2013 | | Results for this | | RATIO, URINE | e | 12:00 AM | | procedure are in the | | | | PST | | results section. | + +--------+ + + + | PROTEIN, URINE, | Routin | 10/17/2013 | | Results for this | | RANDOM | e | 12:00 AM | | procedure are in the | | | | PST | | results section. | + +--------+ + + + | CREATININE, URINE, | Routin | 10/17/2013 | | Results for this | | RANDOM | e | 12:00 AM | | procedure are in the | | | | PST | | results section. | + +--------+ + + + | URIC ACID | Routin | 10/17/2013 | | Results for this | | | e | 12:00 AM | | procedure are in the | | | | PST | | results section. | + +--------+ + + + | MAGNESIUM | Routin | 10/17/2013 | | Results for this | | | e | 12:00 AM | | procedure are in the | | | | PST | | results section. | + +--------+ + + + | RENAL FUNCTION PANEL | Routin | 10/17/2013 | | Results for this | | | e | 12:00 AM | | procedure are in the | | | | PST | | results section. | + +--------+ + + + documented in this encounter Results Urinalysis with Microscopic with Culture if Indicated (10/17/2013 12:00 AM PST) + + + + + [...] + + + + + + | Spec Grav, | 1.020 | | EXTERNAL | | | Fluid | | | LAB | | + [...] + + + + + + | Total | Negative | | EXTERNAL | | | Protein | | | LAB | | + + + + + + | pH, Urine | 5 | | EXTERNAL | | | | [...] + + + + + + | WBC, UA | | | EXTERNAL | | | | | | LAB | | + + + + + + | RBC, UA | | | EXTERNAL | | | | | | LAB | | + + + + + + | Epithelial | | | EXTERNAL | | | Cells | | | LAB | | + + + + + + | Bacteria, | | | EXTERNAL | | | UA | | | LAB | | + + + + + + | HYALINE | | | EXTERNAL | | | CASTS UA | | | LAB | | + + + + + + + + | Specimen | + + | | + + + +---------+ + + | Performing | Address | City/State/Zipcode | Phone Number | | Organization | | | | + +---------+ + + | EXTERNAL LAB | | | | + +---------+ + + Parathyroid Hormone, Intact and Calcium (10/17/2013 12:00 AM PST) + +-------+ + + + | Component | Value | Ref Range | Performed | Pathologist | | | | | At | Signature | + +-------+ + + + | PTH Intact | 63.66 | | EXTERNAL | | | | | | LAB | | + +-------+ + + + | Calcium | 9.7 | | EXTERNAL | | | | [...] | | | + +---------+ + + Protein/Creatinine Ratio, Urine (10/17/2013 12:00 AM PST) + +-------+ + + + | Component | Value | Ref Range | Performed | Pathologist | | | | | At | Signature | + +-------+ + + + | Protein/Cre | 60.9 | | EXTERNAL | | | at Ratio [...] | | | + +---------+ + + Protein, Urine, Random (10/17/2013 12:00 AM PST) + +-------+ + + + | Component | Value | Ref Range | Performed | Pathologist | | | | | At | Signature | + +-------+ + + + | Protein, | 14 | | EXTERNAL | | | Urine [...] | | | + +---------+ + + Creatinine, Urine, Random (10/17/2013 12:00 AM PST) + +-------+ + + + | Component | Value | Ref Range | Performed | Pathologist | | | | | At | Signature | + +-------+ + + + | Creatinine, | 230 | | EXTERNAL | | | 24H Ur | | | LAB | | + [...] + + Vitamin D, Deficiency Screen (25-Hydroxy) (10/17/2013 12:00 AM PST) + +-------+ + + + | Component | Value | Ref Range | Performed | Pathologist | | | | | At | Signature | + +-------+ + + + | Vit D, | 29 | | EXTERNAL | | | 25-Hydroxy | [...] + +---------+ + + External Lab: CBC (10/17/2013 12:00 AM PST) + +-------+ + + + | Component | Value | Ref Range | Performed | Pathologist | | | | | At | Signature | + +-------+ + + + | WBC | 9.3 | 10 | EXTERNAL | | | | | | LAB | | + +-------+ + + + | Non- | 5.13 | 10 | EXTERNAL | | | Red Blood | | | LAB | | | Cells | | | | | | Counted | | | | | + +-------+ + + + | Hemoglobin | 16.4 | g/dL | EXTERNAL | | | | | | LAB | | + +-------+ + + + | Hematocrit, | 48.5 | % | EXTERNAL | | | POC | | | LAB | | + +-------+ + + + | MCV | 94.6 | fL | EXTERNAL | | | | | | LAB | | + +-------+ + + + | MCH | 32 | pg | EXTERNAL | | | | | | LAB | | + +-------+ + + + | MCHC | 34 | g/dL | EXTERNAL | | | | | | LAB | | + +-------+ + + + | Platelet | 251 | K/ L | EXTERNAL | | | Count | | | LAB | | | Plasma | | | | | + +-------+ + + + | RDW-CV | 13.9 | % | EXTERNAL | | | | | | LAB | | + +-------+ + + + | MPV | | fL | EXTERNAL | | | | | | LAB | | + +-------+ + + + | Differentia | Auto | | EXTERNAL | | | l Type | | | LAB | | + +-------+ + + + | % Segmented | 67.9 | % | EXTERNAL | | | | | | LAB | | | Neutrophils | | | | | + +-------+ + + + | % | 22.4 | % | EXTERNAL | | | Lymphocytes | | | LAB | | + +-------+ + + + | % Monocytes | 7.2 | % | EXTERNAL | | | | | | LAB | | + +-------+ + + + | % | 1.9 | % | EXTERNAL | | | Eosinophils | | | LAB | | + +-------+ + + + | % Basophils | 0.6 | % | EXTERNAL | | | [...] | + +---------+ + + Uric Acid (10/17/2013 12:00 AM PST) + +-------+ + + + | Component | Value | Ref Range | Performed | Pathologist | | | | | At | Signature | + +-------+ + + + | Uric Acid | 6.3 | | EXTERNAL | | | | [...] | | + +---------+ + + Magnesium (10/17/2013 12:00 AM PST) + +-------+ + + + | Component | Value | Ref Range | Performed | Pathologist | | | | | At | Signature | + +-------+ + + + | Magnesium | 2.0 | mg/dL | EXTERNAL | | | [...] + +---------+ + + Renal Function Panel (10/17/2013 12:00 AM PST) + +-------+ + + + | Component | Value | Ref Range | Performed | Pathologist | | | | | At | Signature | + +-------+ + + + | Glucose, | 108 | mg/dL | EXTERNAL | | | Fasting | | | LAB | | + +-------+ + + + | BUN | 26 | mg/dL | EXTERNAL | | | | | | LAB | | + +-------+ + + + | Creatinine | 1.61 | mg/dL | EXTERNAL | | | | | | LAB | | + +-------+ + + + | PHOSPHORUS | | mg/dL | EXTERNAL | | | | | | LAB | | + +-------+ + + + | Albumin | 4.5 | | EXTERNAL | | | | | | LAB | | + +-------+ + + + | Na | 140 | mmol/L | EXTERNAL | | | | | | LAB | | + +-------+ + + + | K | 4.1 | mmol/L | EXTERNAL | | | | | | LAB | | + +-------+ + + + | Cl | 101 | mmol/L | EXTERNAL | | | | | | LAB | | + +-------+ + + + | CO2 | 25 | mmol/L | EXTERNAL | | | | | | LAB | | + +-------+ + + + | Anion Gap | 18.1 | mmol/L | EXTERNAL | | | | | | LAB | | + +-------+ + + + | eGFR, | | | EXTERNAL | | | non- | | | LAB | | | [place] | | | | | + +-------+ + + + | Phosphorus, | 2.6 | | EXTERNAL | | | Inorganic | | | LAB | | + +-------+ + + + | BUN/Creatin | 16.1 | | EXTERNAL | | | ine Ratio | | | LAB | | + +-------+ + + + | Calcium | 9.7 | mg/dL | EXTERNAL | | | | | | LAB | | + +-------+ + + + | Estimated | 42 | mg/dL | EXTERNAL | | | [...]
--- OUTSIDE RECORDS SUMMARY | ~2020-05-13 | XMS | Encounter Summary ---
Demographics + + + | Address | [address] | | | [place] [address] | + + + | Home Phone | | + + + | Preferred Language | Unknown | + + + | Marital Status | | + + + | Adventist Affiliation | Unknown | + + + | Race | White | + + + | Ethnic Group | Not or | + + + Author + + + | Author | [facility] | | | and [place] | + + + | Organization | [facility] | | | [...] [place], [place] | | | | | [address] | | + + + + + | Angelita Godoy | ECON | Unknown | | + + + + + Care Team Providers + +------+ + | Care Film Sorter Name | Role | Phone | + +------+ + PCP | Unavailable | + +------+ + Encounter Details +--------+ + + + + | Date | Type | Department | Care Team | Description | +--------+ + + + + | 07/28/ | Hospital | [facility] | Elizabeth Lai | Coarctation of aorta | | 2009 | Encounter | CONVERSION [address]P [address] | [address] | | | | | [address] | [facility] [address] [place] | | | | | [place], [place] | [address], | | | | | [address] | [place] [address] | | | | | [phone] | [phone] | | | | | | | [...] [place] | | | | | | [address] | | | | | | | | +--------+ + + + + | 08/05/ | Procedure | Cardiology | | | | 2019 | visit | | | | +--------+ + + + + | 11/07/ | Office | Cardiology | RobleroNicolas jackson [place], | | | 2020 | Visit | | [address] | | | | | | [place], | | | | | | [place] [address] | | | | | | [phone] | | | | | | | | +--------+ + + + + documented as of this encounter Procedures + +--------+ + + + | Procedure Name | Priori | Date/Time | Associated Diagnosis | Comments | | | ty | | | | + +--------+ + + + | MRI ANGIOGRAM CHEST | Routin | 07/28/2010 | | Results for this | | W WO CONTRAST | e | 3:10 PM | | procedure are in the | | | | PST | | results section. | + +--------+ + + + documented in this encounter Results MRI Angiogram Chest w wo Contrast (07/28/2010 3:10 PM PST) + + | Specimen | + + | | + + + + + | Narrative | Performed At | + + + | Addendum Begins ADDENDUM #1 Additional | | | technique: The data set was reconstructed on a dedicated 3-D | | | workstation with MIP. Sequences for the magnetic resonance angiogram | | | portion of the study were obtained in time of flight mode | | | | | | Addendum Ends [facility] [id number] | | | Patient Name: AYANNA MUNIZ Date of : | | | 1935 Medical Record: [id number] Account: [id number] | | | Exam Date/Time: 07/28/2010 14:30 Ordering | | | Physician: ELIZABETH LAI Order Detail: [id number] Exam Description: | | | MRI ANGIO CHEST UN/EN | | | | | | HISTORY: Repair of coarctation 1977 TECHNIQUE: Imaging was | | | performed on a 3.0 Chantelle MRI system. Multiplanar T1 and T2 weighted | | | sequences were acquired. Contrast: None Dose: 19 mL. | | | COMPARISON: None. FINDINGS: While not directly related to the | | | purpose of the study, there is about 50% narrowing at the origin of | | | the right common carotid artery relative to the cervical portion | | | could this is best seen on image . It is at this point not | | | hemodynamically significant. The left common carotid artery has | | | normal origin at the arch. The left subclavian artery is large. | | | Regarding the descending thoracic aortic appearance, there is some | | | interference with the contrast-filled left pulmonary artery. There is | | | no large discrepancy in dimension between the descending thoracic | | | aorta below the origin of the left subclavian artery and the | | | descending thoracic aorta below the heart. It does not appear that | | | there is persistent coarctation. A slight concavity of or notch is | | | identified where the coarctation repair was performed. See image | | | . IMPRESSION: 1. Non-hemodynamically significant concavity | | | at the coarctation report, just below the left subclavian artery. It | | | no large bronchial vessels noted in the descending thoracic aorta. | | | 2. noted 50% narrowing origin right common carotid artery from | | | the subclavian vessel. No flow-limiting stenoses are observed at this | | | time. Other features of study are unremarkable Electronically | | | signed by Dwight Valencia MD on 07/28/2010 6:35 PM | | + + + + + | Procedure Note | + + | Gus Guerrero Conversion - 05/07/2019 8:41 PM PDT | | Addendum Begins | | | | ADDENDUM #1 | | Additional technique: The data set was reconstructed on a dedicated 3-D | | workstation with MIP. Sequences for the magnetic resonance angiogram | | portion of the study were obtained in time of flight mode | | | | | | | | Addendum Ends | | | | [facility] | | [facility] [address] | | | | | | Patient Name: AYANNA MUNIZ | | Date of : 1935 | | Medical Record: [id number] | | Account: [id number] | | | | | | Exam Date/Time: 07/28/2010 14:30 | | Ordering Physician: ELIZABETH LAI | | Order Detail: [id number] | | Exam Description: MRI ANGIO CHEST UN/EN | | | | HISTORY: | | Repair of coarctation 1977 | | | | TECHNIQUE: | | Imaging was performed on a 3.0 Chantelle MRI system. Multiplanar T1 and T2 | | weighted sequences were acquired. | | Contrast: None Dose: 19 mL. | | | | COMPARISON: | | None. | | | | FINDINGS: | | While not directly related to the purpose of the study, there is about 50% | | narrowing at the origin of the right common carotid artery relative to the | | cervical portion could this is best seen on image 2/102. It is at this | | point not hemodynamically significant. The left common carotid artery has | | normal origin at the arch. The left subclavian artery is large. Regarding | | the descending thoracic aortic appearance, there is some interference with | | the contrast-filled left pulmonary artery. There is no large discrepancy in | | dimension between the descending thoracic aorta below the origin of the | | left subclavian artery and the descending thoracic aorta below the heart. | | It does not appear that there is persistent coarctation. A slight concavity | | of or notch is identified where the coarctation repair was performed. See | | image 2/103. | | | | IMPRESSION: | | 1. Non-hemodynamically significant concavity at the coarctation report, | | just below the left subclavian artery. It no large bronchial vessels noted | | in the descending thoracic aorta. | | | | 2. noted 50% narrowing origin right common carotid artery from the | | subclavian vessel. No flow-limiting stenoses are observed at this time. | | Other features of study are unremarkable | | | | | + + documented in this encounter Visit Diagnoses + + | Diagnosis | + + | Coarctation of aorta Coarctation of aorta (preductal) (postductal) | + + documented in this encounter"
--- OUTSIDE RECORDS SUMMARY | ~2020-05-13 | XMS | Encounter Summary ---
Demographics + + + | Address | [address] | | | [place] [address] | + + + | Home Phone | | + + + | Preferred Language | Unknown | + + + | Marital Status | | + + + | Hindu Affiliation | Unknown | + + + | Race | White | + + + | Ethnic Group | Not or | + + + Author + + + | Author | [facility] | | | and [place] | + + + | Organization | [facility] | | [...] [place], [place] | | | | | [address] | | + + + + + | Angelita Godoy | ECON | Unknown | | + + + + + Care Team Providers + +------+ + | Care Painting And Coating Worker Name | Role | Phone | + +------+ + | Catracho Puente | PCP | | | MD | | | + +------+ + Encounter Details +--------+ + + + + | Date | Type | Department | Care Team | Description | +--------+ + + + + | 02/02/ | Orders Only | [facility] | Conversion | | | 2018 | | NEPHROLOGY RINA | Transaction, | | | | | [address] | Provider Unknown | | | | | [address] [facility] | | | | | | [address] | (Fax) | | | | | [phone] | | | +--------+ + + + [...] | | | | | [place] | | | | | | [address] | | | | | | | [...] [place], | | | | | | [place] [address] | | | | | | [phone] | | | | | | | | +--------+ + + + + documented as of this encounter Procedures + +--------+ + + + | Procedure Name | Priori | Date/Time | Associated Diagnosis | Comments | | | ty | | | | + +--------+ + + + | URIC ACID | Routin | 02/02/2018 | | Results for this | | | e | 1:25 PM | | procedure are in the | | | | PDT | | results section. | + +--------+ + + + documented in this encounter Results Uric Acid (02/02/2018 1:25 PM PDT) + +-------+ + + + [...]
--- OUTSIDE RECORDS SUMMARY | ~2020-05-13 | XMS | Encounter Summary ---
Demographics + + + | Address | [address] | | | [place] [address] | + + + | Home Phone [...] [place], [place] | | | | | [address] | | + + + + + | Angelita Godoy | ECON | Unknown | | + + + + + Care Team Providers + +------+ + | Care Pastor Name | Role | Phone | + +------+ + | Catracho Puente | PCP | | | MD | | | + +------+ + Encounter Details +--------+ + + + + | Date | Type | Department | Care Team | Description | +--------+ + + + + | 01/25/ | Orders Only | [facility] | Conversion | | | 2017 | | NEPRHOLOGY GET | Transaction, | | | | | [address] | Provider Unknown | | | | | [address] [place], [place] | [phone] | | | | | [address] | | | | | | [phone] | | | +--------+ + + + [...] | | | | | [place] | | | | | | [address] | | | | | | | [...] [place], | | | | | | [place] [address] | | | | | | [phone] | | | | | | | | +--------+ + + + + documented as of this encounter Procedures + +--------+ + + + | Procedure Name | Priori | Date/Time | Associated Diagnosis | Comments | | | ty | | | | + +--------+ + + + | EXTERNAL LAB: [facility] | Routin | 01/25/2017 | | Results for this | | | e | 12:00 AM | | procedure are in the | | | | PDT | | results section. | + +--------+ + + + | URINALYSIS WITH | Routin | 01/25/2017 | | Results for this | | MICROSCOPIC IF | e | 12:00 AM | | procedure are in the | | INDICATED | | PDT | | results section. | + +--------+ + + + | PARATHYROID HORMONE, | Routin | 01/25/2017 | | Results for this | | INTACT AND CALCIUM | e | 12:00 AM | | procedure are in the | | | | PDT | | results section. | + +--------+ + + + | PROTEIN/CREATININE | Routin | 01/25/2017 | | Results for this | | RATIO, URINE | e | 12:00 AM | | procedure are in the | | | | PDT | | results section. | + +--------+ + + + | URIC ACID | Routin | 01/25/2017 | | Results for this | | | e | 12:00 AM | | procedure are in the | | | | PDT | | results section. | + +--------+ + + + | RENAL FUNCTION PANEL | Routin | 01/25/2017 | | Results for this | | | e | 12:00 AM | | procedure are in the | | | | PDT | | results section. | + +--------+ + + + documented in this encounter Results Parathyroid Hormone, Intact and Calcium (01/25/2017 12:00 AM PDT) + + + + + + | Component | Value | Ref Range | Performed | Pathologist | | | | | At | Signature | + + + + + + | PTH Intact | 105.1 (A) | 15 - 65 | EXTERNAL | | | | | | LAB | | + + + + + + | Calcium | 9.6 | 8.4 - 10.2 | EXTERNAL | [...] + +---------+ + + Protein/Creatinine Ratio, Urine (01/25/2017 12:00 AM PDT) + +-------+ + + + | Component | Value | Ref Range | Performed | Pathologist | | | | | At | Signature | + +-------+ + + + | Protein/Cre | 75.5 | 0 - 150 | EXTERNAL | | | at Ratio | | | LAB | | + +-------+ + + + + + | Specimen | + + | Urine specimen | | (specimen) | + + + + + | Impressions | Performed At | + + + | PROTEIN, URINE 16 CREATININE, URINE 75.5 | EXTERNAL LAB | + + + + +---------+ + + | Performing | Address | City/State/Zipcode | Phone Number | | Organization | | | | + +---------+ + + | EXTERNAL LAB | | | | + +---------+ + + Urinalysis with Microscopic if Indicated (01/25/2017 12:00 AM PDT) + + + + + + | Component | Value | Ref Range | Performed | Pathologist | | | | | At | Signature | + + + + + + | Color | Light Yellow | | EXTERNAL | | | | | | LAB | | + + + + + + | Clarity, | Clear | | EXTERNAL | | | Urine | | | LAB | | + + + + + + | Spec Grav, | 1.021 | 1.005 - 1.030 | EXTERNAL | | | Fluid | [...] + | pH, Urine | 5 | 5 - 9 | EXTERNAL | | | | | | LAB | | + + + + + + | Blood, | Negative | | EXTERNAL | | | Urine | | | LAB | | + + + + + + | Ketones | Comment: 5 | | EXTERNAL | | | [...] + +---------+ + + External Lab: CBC (01/25/2017 12:00 AM PDT) + + + + + + | Component | Value | Ref Range | Performed | Pathologist | | | | | At | Signature | + + + + + + | WBC | 8.8 | 4.5 - 11.0 10 | EXTERNAL | | | | | | LAB | | + + + + + + | Non- | 4.85 | 4.3 - 5.7 10 | EXTERNAL | | | Red Blood | | | LAB | | | Cells | | | | | | Counted | | | | | + + + + + + | Hemoglobin | 15.2 | 13.5 - 18.0 | EXTERNAL | | | | | g/dL | LAB | | + + + + + + | Hematocrit, | 45.9 | 41 - 50 % | EXTERNAL | | | POC | | | LAB | | + + + + + + | MCV | 94.5 | 81 - 99 fL | EXTERNAL | | | | | | LAB | | + + + + + + | MCH | 31 | 27 - 33 pg | EXTERNAL | | | | | | LAB | | + + + + + + | MCHC | 33 | 30 - 36 g/dL | EXTERNAL | | | | | | LAB | | + + + + + + | Platelet | 259 | 140 - 440 K/ L | EXTERNAL | | | Count | | | LAB | | | Plasma | | | | | + + + + + + | RDW-CV | 14.6 | 10.5 - 15.0 % | EXTERNAL | | | | | | LAB | | + + + + + + | MPV | | fL | EXTERNAL | | | | | | LAB | | + + + + + + | Differentia | Auto | | EXTERNAL | | | l Type | | | LAB | | + + + + + + | % Segmented | 69.1 | 39 - 80 % | EXTERNAL | | | | | | LAB | | | Neutrophils | | | | | + + + + + + | % | 21.3 (A) | 24 - 44 % | EXTERNAL | | | Lymphocytes | | | LAB | | + + + + + + | % Monocytes | 7.3 | 0 - 12 % | EXTERNAL | | | | | | LAB | | + + + + + + | % | 1.8 | 0 - 6 % | EXTERNAL | | | Eosinophils | | | LAB | | + + + + + + | % Basophils | 0.5 | 0 - 2 % | EXTERNAL [...] | + +---------+ + + Uric Acid (01/25/2017 12:00 AM PDT) + +-------+ + + + | Component | Value | Ref Range | Performed | Pathologist | | | | | At | Signature | + +-------+ + + + | Uric Acid | 5.3 | 4.4 - 7.6 | EXTERNAL | [...] + +---------+ + + Renal Function Panel (01/25/2017 12:00 AM PDT) + + + + + + | Component | Value | Ref Range | Performed | Pathologist | | | | | At | Signature | + + + + + + | Glucose, | 134 (A) | 70 - 100 mg/dL | EXTERNAL | | | Fasting | | | LAB | | + + + + + + | BUN | 30 (A) | 6 - 23 mg/dL | EXTERNAL | | | | | | LAB | | + + + + + + | Creatinine | 1.37 (A) | 0.70 - 1.18 | EXTERNAL | | | | | mg/dL | LAB | | + + + + + + | PHOSPHORUS | | mg/dL | EXTERNAL | | | | | | LAB | | + + + + + + | Albumin | 3.9 | 3.5 - 5.0 | EXTERNAL | | | | | | LAB | | + + + + + + | Na | 139 | 132 - 143 | EXTERNAL | | | | | mmol/L | LAB | | + + + + + + | K | 4.3 | 3.6 - 5.1 | EXTERNAL | | | | | mmol/L | LAB | | + + + + + + | Cl | 103 | 95 - 112 mmol/L | EXTERNAL | | | | | | LAB | | + + + + + + | CO2 | 23 | 19 - 31 mmol/L | EXTERNAL | | | | | | LAB | | + + + + + + | Anion Gap | 17.3 | 7 - 21 mmol/L | EXTERNAL | | | | | | LAB | | + + + + + + | eGFR, | | | EXTERNAL | | | non- | | | LAB | | | [place] | | | | | + + + + + + | Phosphorus, | 2.6 | 2.5 - 5.0 | EXTERNAL | | | Inorganic | | | LAB | | + + + + + + | BUN/Creatin | 21.9 | 6.0 - 28.6 | EXTERNAL | | | ine Ratio | | | LAB | | + + + + + + | Calcium | 9.6 | 8.4 - 10.2 | EXTERNAL | | | | | mg/dL | LAB | | + + + + + + | Estimated | 50 (A) | 60 mg/dL | EXTERNAL | | | GFR [...]
--- OUTSIDE RECORDS SUMMARY | ~2020-05-13 | XMS | Encounter Summary ---
Demographics + + + | Address | [address] | | | [place] [address] | + + + | Home Phone | | + + + | Preferred Language | Unknown | + + + | Marital Status | | + + + | Congregational Affiliation | Unknown | + + + | Race | White | + + + | Ethnic Group | Not or | + + + Author + + + | Author | [facility] | | | and [place] | + + + | Organization | [facility] | | | [...] [place], [place] | | | | | [address] | | + + + + + | Angelita Godoy | ECON | Unknown | | + + + + + Care Team Providers + +------+ + | Care Digital Marketing Associate Name | Role | Phone | + +------+ + | Catracho Puente | PCP | | | MD | | | + +------+ + Reason for Visit + + + | Reason | Comments | + + + | Follow-up | 6 mo | + + + Encounter Details +--------+---------+ + + + | Date | Type | Department | Care Team | Description | +--------+---------+ + + + | 05/24/ | Office | [facility] | Pavan Prather, | Coarctation of the | | 2019 | Visit | CARDIOLOGY [facility] | [address] | aorta, complex | | | | [address] | [place] | (Primary Dx); | | | | [address] | [id number] | Bilateral carotid | | | | [place] | | artery stenosis; | | | | [id number] | | Essential | | | | [phone] | | hypertension with | | | | | | goal blood pressure | | | | | | less than 130/80; | | | | | | Persistent atrial | | | | | | fibrillation (HCC); | | | | | | S/P aortic valve | | | | | | replacement; Cardiac | | | | | | defibrillator in | | | | | | place | +--------+---------+ + + + Social History [...] + + + | Blood Pressure | 122/74 | 05/24/2019 1:44 PM | | | | | PDT | | + + + + + | Pulse | 71 | 05/24/2019 1:44 PM | | | | | PDT | | + + + + + | Temperature | - | - | | + + + + + | Respiratory Rate | - | - | | + + + + + | Oxygen Saturation | 97% | 05/24/2019 1:44 PM | | | | | PDT | | + + + + + | Inhaled Oxygen | - | - | | | Concentration | | | | + + + + + | Weight | 87.5 kg (193 lb) | 05/24/2019 1:44 PM | | | | | PDT | | + + + + + | Height | 167.6 cm (5' 6") | 05/24/2019 1:44 PM | | | | | PDT | | + + + + + | Body Mass Index | 31.15 | 05/24/2019 1:44 PM | | | | | PDT | | + + + + + documented in this encounter Progress Notes Pavan Prather MD - 05/24/2019 1:30 PM PDTFormatting of this note might be different f rom the original. Date of visit: 05/24/2019 Primary Care Physician: Catracho Puente MD CHIEF COMPLAINT: Chief Complaint Patient presents with Follow-up 6 mo HISTORY OF PRESENT ILLNESS: Roberto is 83 y.o. here for follow-up visit. Complex past medical history. Fair historian. Since prior evaluation dizziness improved, no recurrent falls. Has been off amlodipine. Has been losing weight since prior evaluation. No chest pain. Shortness of breath on modest exertion. Overall limited activity level. Using torsemide as needed. Been monitoring blood pressure at home has been controlled. Denies any palpitation, no dizziness and no syncopal episodes. No shocks from his ICD devic e. Patient has remote history of coarctation repair in 1976, aortic valve replacement in 2010, CROSS TIE CUTTER-D therapy implant in 2010. Previously was evaluated for weight gain after stopping furosemide caused photosensitivity. Past medical history, SH, FH, and medications were reviewed in the chart. Medications: Outpatient Encounter Medications as of 05/24/2019 Medication Sig Dispense Refill allopurinol (ZYLOPRIM) 300 mg tablet Take 300 mg by mouth daily. aspirin 81 MG EC tablet Take 81 mg by mouth daily with breakfast. atorvaSTATin (LIPITOR) 80 MG tablet Take 80 mg by mouth nightly. calcitriol (ROCALTROL) 0.25 mcg capsule TAKE 1 CAPSULE BY MOUTH DAILY 90 capsule 3 CARVEDILOL PO Take 25 mg by mouth 2 (two) times daily. digoxin (DIGOX) 125 mcg tablet Take 125 mcg by mouth daily. doxazosin (CARDURA) 1 mg tablet Take 1 mg by mouth nightly. fenofibrate (TRICOR) 145 mg tablet Take 1 tablet by mouth daily. 90 tablet 2 finasteride (PROSCAR) 5 mg tablet Take 5 mg by mouth daily. glipiZIDE (GLUCOTROL XL) 2.5 mg 24 hr tablet Take 2.5 mg by mouth daily. lisinopril (PRINIVIL,ZESTRIL) 40 MG tablet Take 1 tablet by mouth every evening. [DISCONTINUED] potassium chloride (KLOR-CON) 10 MEQ ER tablet Take 1 tablet by mouth carol dent. (Patient not taking: Reported on 05/24/2019) 90 tablet 3 tamsulosin (FLOMAX) 0.4 mg CAPS Take 2 capsules by mouth After dinner. 180 capsule 3 warfarin (COUMADIN) 5 mg tablet Take 3 mg by mouth daily. 4mg Wednesday, Wednesday, and Wednesday. 3 mg Wednesday, Wednesday and wednesday No facility-administered encounter medications on file as of 05/24/2019. Allergies Allergies Allergen Reactions Furosemide Photosensitivity Hydrochlorothiazide Photosensitivity REVIEW OF SYSTEMS: Constitutional: positive mild fatigue. No fever, chills, and rigors. No report of weight c hange. HEENT: Negative for nosebleeds, ear discharge, nasal congestion or soar throat. Eyes: Negative for visual disturbance, redness, or secretion. Respiratory: Negative for cough, sputum production, hemoptysis, wheezing. Cardiovascular: as HPI. Gastrointestinal: Negative for nausea, vomiting, diarrhea, abdominal pain and blood in stoo l. Genitourinary: Negative for dysuria or hematuria. Musculoskeletal: Chronic arthritic pain. Skin: Negative for rash. Neurological: Negative for dizziness. No numbness. No recent falls. No slurred speech. Hematological: No significant bruising. Psychiatric/Behavioral: No depression or anxiety. PHYSICAL EXAM Vital Signs: BP 122/74 | Pulse 71 | Ht 1.676 m (5' 6") | Wt 87.5 kg (193 lb) | SpO2 97% | BMI 31.15 kg/m GENERAL APPEARANCE: Alert, oriented, cooperative, no distress, appears stated age. HEENT: Extraocular movements were intact. No jaundice. Pupiles round and reactive. NECK: No JVD, lymphadenopathy. Carotid upstrokes normal. No carotid bruit heard. CARDIAC: Regular rhythm and rate. There is normal S1 and S2. No galop. No murmur. CHEST: Normal bilateral symmetrical chest excursion.ackles or wheezing. No evidence of dull ness. ABDOMEN: Soft.No tenderness or guarding. No palpable organs. Active bowel sounds. EXTREMITIES: No lower extremities edema, cyanosis or clubbing. NEURO: Alert and oriented times three with no focal deficit. Cranial nerves are grossly no rmal. SKIN: Warm and dry. No rash. Psych: Normal affect and mood. DATA 05/17/2019 BC 10.2, hemoglobin 15.0, platelets 248, sodium 138, potassium 4.3, chloride 105, bicarb 19 , BUN 27, creatinine 1.37, GFR 51. AST 22, ALT 20 alk phos 73, total cholesterol 104, triglycerides 72, HDL 49, LDL 40. Lab Results Component Value Date/Time NA 140 01/13/2019 10:06 NA 133 07/27/2018 00:00 NA 132 07/19/2018 00:00 K 3.6 01/13/2019 10:06 K 4.7 07/27/2018 00:00 K 5.5 (A) 07/19/2018 00:00 CO2 24 01/13/2019 10:06 CO2 21 07/27/2018 00:00 CO2 21 07/19/2018 00:00 BUN 28 (A) 01/13/2019 10:06 BUN 38 (A) 07/27/2018 00:00 BUN 37 (A) 07/19/2018 00:00 LABCREA 1.60 (A) 01/13/2019 10:06 LABCREA 1.49 (A) 07/27/2018 00:00 LABCREA 1.69 (A) 07/19/2018 00:00 CALCIUM 9.3 01/13/2019 10:06 CALCIUM 10.1 07/27/2018 00:00 CALCIUM 9.9 07/19/2018 00:00 MG 1.6 (A) 01/13/2019 10:06 MG 1.7 07/19/2018 00:00 MG 1.6 (A) 02/02/2018 13:25 Lab Results Component Value Date/Time WBC 7.4 01/13/2019 10:06 WBC 11.9 (A) 07/19/2018 00:00 WBC 8.9 02/02/2018 13:25 HGB 13.2 (A) 01/13/2019 10:06 HGB 13.8 07/19/2018 00:00 HGB 13.2 (A) 02/02/2018 13:25 MCV 90.0 01/13/2019 10:06 MCV 95.5 07/19/2018 00:00 MCV 94.3 02/02/2018 13:25 Lab Results Component Value Date CHOL 118 06/15/2015 TRIG 84 06/15/2015 HDL 44 06/15/2015 LDLEX 57 06/15/2015 GLUF 164 (A) 01/13/2019 GLUF 245 (A) 07/27/2018 TSH 1.40 07/04/2015 ECG: Last Echo 05/28/2018 Normal LV size and function EF 60-65%. Normal RV size and function. Normal functioning bioprosthetic aortic valve magna ease 25 mm. Mild TR with mild pulmonary hypertension. ([facility] [place]), 06/11/2015: Normal LV size and Function, Borderline LVH, EF 60-65%., mild LAE, bio-AVR stable, no AI, p eak/mean gradients 36/17 mmHg, mild MR, mild TR, mild PI, Aortic root 42 mm, (-) bubble stud y. Last Stress test: Last Cath, 09/17/2010: Coronaries NML. Carotid US, 01/03/2016: Mild disease bilaterally, antegrade flow in both vertebral arteries. (16-49%). Hx CABG: no, CABG, but AVR 11/05/2010. (#25 Magna-Ease) with LA isolation, Hx coarctation, repaired 1976 Hx Pacemaker/ICD: CROSS TIE CUTTER-D implanted 07/27/2011, BS N119, SN: [id number]. ASSESSMENT: Patient is 83 y.o. with: 1. Chronic diastolic HFpEF heart failure, patient is euvolemic at this time. No signs of co ngestive heart failure. 2. History of alcohol abuse. 3. Paroxysmal atrial fibrillation. On warfarin that is monitored through Coumadin clinic. 4. Hypertension blood pressure fairly controlled. 5. Valvular heart disease states post aortic valve replacement. 6. Obesity. Weight has been stable. 7. Chronic kidney disease stage III. 8. History of nonischemic cardiomyopathy states post CROSS TIE CUTTER therapy with improved EF. 9. CROSS TIE CUTTER therapy. 10. Hypertriglyceridemia. Improved with fenofibrate. Plan: Complex history. Weight has been stable. Controlled with torsemide 20 mg p.o. daily as needed. Amlodipine was stopped due to orthostatic hypotension. Continues to be on lisinopril 40 mg and carvedilol 25 mg twice daily. Continues to be on warfarin without complication.. We will continue to monitor patient weight. Discussed with the patient to continue refraining from salt, and hopefully adhere to alcoho l cessation. Continue to follow-up with electrophysiology. We will follow-up in 6 months sooner if any change in symptoms. *This report has been prepared using a voice recognition system. The report was reviewed fo r accuracy, however, sound-alike word errors, addition and/or deletions may occur. If there is any question about this report please contact me. Pavan Prather MD, MPH documented in this encounter Plan of Treatment +--------+ + + + + | Date | Type | Specialty | Care Team | Description | +--------+ + + + + | 05/29/ | Office | Cardiology | Pavan Prather, | | | 2019 | Visit | | MD Taylor PAREDES | | | | | | [place] | | | | | | [phone] | | | | | | | [...] | | | | | | [place] [id number] | | | | | | [phone] | | | | | | | | +--------+ + + + + documented as of this encounter Visit Diagnoses + + | Diagnosis | + + | Coarctation of the aorta, complex - Primary Coarctation of aorta (preductal) | | (postductal) | + + | Bilateral carotid artery stenosis Occlusion and stenosis of multiple and bilateral | | precerebral arteries without mention of cerebral infarction | + + | Essential hypertension with goal blood pressure less than 130/80 | + + | Persistent atrial fibrillation (HCC) Atrial fibrillation | + + | S/P aortic valve replacement Heart valve replaced by other means | + + | Cardiac defibrillator in place Automatic implantable cardiac defibrillator in situ | + + documented in this encounter
--- OUTSIDE RECORDS SUMMARY | ~2020-05-13 | XMS | Encounter Summary ---
Demographics + + + | Address | [address] | | | [place] [address] | + + + | Home Phone | | + + + | Preferred Language | Unknown | + + + | Marital Status | | + + + | Jainism Affiliation | Unknown | + + + [...] [place], [place] | | | | | [address] | | + + + + + | Angelita Godoy | ECON | Unknown | | + + + + + Care Team Providers + +------+ + | Care Deputy Chief Sheriff Name | Role | Phone | + +------+ + | Catracho Puente | PCP | | | MD | | | + +------+ + Encounter Details +--------+ + + + + | Date | Type | Department | Care Team | Description | +--------+ + + + + | 05/28/ | Orders Only | [facility] | Kaushal Barrera Alber | | | 2013 | | N[place]Y [place] | MD [address] | | | | | ECHO [address] | [address] | | | | | [address] [place], [place] | [place] [address] | | | | | [address] | [phone] | | | | | [phone] | | | +--------+ + + + [...] [place] | | | | | | [address] | | | | | | | [...] | | | | | | [place] [address] | | | | | | [phone] | | | | | | | | +--------+ + + + + documented as of this encounter Procedures + +--------+ + + + | Procedure Name | Priori | Date/Time | Associated Diagnosis | Comments | | | ty | | | | + +--------+ + + + | ECHO COMPLETE | Routin | 05/28/2014 | | Results for this | | | e | 1:59 PM | | procedure are in the | | | | PDT | | results section. | + +--------+ + + + documented in this encounter Results ECHO Complete (05/28/2014 1:59 PM PDT) + + | Specimen | + + | | + + + + + | Impressions | Performed At | + + + | 1. Overall left ventricular systolic function is normal with, an EF | | | between 60 - 65 %. 2. There is mild concentric left ventricular | | | hypertrophy. 3. The diastolic filling pattern indicates impaired | | | relaxation consistent with mild dysfunction (Grade I). 4. The left | | | atrium is mildly enlarged. 5. The right atrium is mildly enlarged. | | | 6. Normally functioning bioprosthetic aortic valve. 7. Mild tricuspid | | | regurgitation present. 8. There is mild pulmonary hypertension. 9. | | | Mild pulmonic regurgitation. 10. The ascending aorta is dilated | | | measuring up to 4.0cm. | | + + + + + + | Narrative | Performed At | + + + | Patient Name: AYANNA MUNIZ Date of : 1935 | | | Performing Physician: Efrain Ruth MD | | | | | | INDICATIONS Hx of aortic valve replacement, | | | Cardiomyopathy CONCLUSIONS 1. Overall left | | | ventricular systolic function is normal with, an EF between 60 - 65 %. | | | 2. There is mild concentric left ventricular hypertrophy. 3. The | | | diastolic filling pattern indicates impaired relaxation consistent | | | with mild dysfunction (Grade I). 4. The left atrium is mildly | | | enlarged. 5. The right atrium is mildly enlarged. 6. Normally | | | functioning bioprosthetic aortic valve. 7. Mild tricuspid | | | regurgitation present. 8. There is mild pulmonary hypertension. 9. | | | Mild pulmonic regurgitation. 10. The ascending aorta is dilated | | | measuring up to 4.0cm. FINDINGS -------- ECG rhythm: Paced | | | rhythm. Study: A 2-dimensional transthoracic echocardiogram with | | | m-mode, spectral and color flow Doppler was perfomed. Study: This was | | | a technically good study. Left Ventricle: Overall left ventricular | | | systolic function is normal with, an EF between 60 - 65 %. Left | | | Ventricle: The left ventricle cavity size is normal. Left Ventricle: | | | There is mild concentric left ventricular hypertrophy. Left | | | Ventricle: No regional wall motion abnormalities. Left Ventricle: The | | | diastolic filling pattern indicates impaired relaxation consistent | | | with mild dysfunction (Grade I). Right Ventricle: The right ventricle | | | is normal in size. Right Ventricle: Pacer/ICD wire seen. Left | | | Atrium: The left atrium is mildly enlarged. Right Atrium: The right | | | atrium is mildly enlarged. Right Atrium: Pacemaker wire seen in the | | | right atrial cavity. Aortic Valve: There is no evidence of aortic | | | regurgitation. Aortic Valve: There is no evidence of aortic stenosis. | | | Aortic Valve: Normally functioning bioprosthetic aortic valve. | | | Mitral Valve: Mitral valve is thickened with myxomatous degeneration. | | | Mitral Valve: There is trace mitral regurgitation. Mitral Valve: | | | Mild mitral annular calcification present. Tricuspid Valve: The | | | tricuspid valve was not well visualized. Tricuspid Valve: Mild | | | tricuspid regurgitation present. Tricuspid Valve: There is mild | | | pulmonary hypertension. Tricuspid Valve: The right ventricular | | | systolic pressure (pulmonary artery systolic pressure), as measured by | | | Doppler, is 41.37mmHg. Pulmonic Valve: The pulmonic valve is normal. | | | Pulmonic Valve: Mild pulmonic regurgitation. Pericardium: There is | | | no pericardial effusion. IVC/Hepatic Veins: The IVC is normal size | | | (1.5-2.5cm) and collapses >50% with sniff, consistent with central | | | venous pressures of 5-10mmHg. Aorta: The ascending aorta is dilated | | | measuring up to 4.0cm. Mass: No mass visualized Thrombus: No clot | | | visualized Thrombus: No vegetation visualized. Septum: No ASD | | | observed. Septum: No VSD observed. MEASUREMENTS | | | Ao asc: 3.99 cm IVC: 1.93 cm LA Major: 5.36 cm EDV(Teich): | | | 145.47 ml IVSd: 1.11 cm LVIDd: 5.46 cm LVPWd: 1.15 cm | | | LVOT Area: 3.84 cm2 LVOT Diam: 2.21 cm %FS: 38.52 % | | | EF(Teich): 68.26 % ESV(Teich): 46.16 ml LVIDs: 3.36 cm | | | SV(Teich): 99.31 ml RA Major: 5.13 cm RVIDd: 3.15 cm | | | LAESV(A-L): 65.96 ml LAESV Index (A-L): 32.49 ml/m2 LAAs A2C: | | | 20.87 cm2 LAESV A-L A2C: 70.76 ml LALs A2C: 5.22 cm LAAs | | | A4C: 19.43 cm2 LAESV A-L A4C: 61.42 ml LALs A4C: 5.21 cm | | | Ao Diam: 3.51 cm LA Diam: 4.90 cm LA/Ao: 1.39 AV maxPG: | | | 21.92 mmHg AV meanP.09 mmHg AV Vmax: 2.34 m/s AV Vmean: | | | 1.52 m/s AV VTI: 49.72 cm RON Vmax: 2.43 cm2 RON (VTI): | | | 2.48 cm2 LVOT maxP.75 mmHg LVOT meanP.75 mmHg LVSI | | | Dopp: 60.80 ml/m2 LVSV Dopp: 123.42 ml LVOT Vmax: 1.47 m/s | | | LVOT Vmean: 1.02 m/s LVOT VTI: 32.06 cm IVRT: 89.96 ms | | | MV A Sabino: 1.28 m/s MV Dec Irwin: 6.81 m/s2 MV DecT: 161.43 | | | ms MV E Sabino: 1.08 m/s MV E/A Ratio: 0.84 MV PHT: 46.81 ms | | | MVA By PHT: 4.69 cm2 Septal e': 0.06 m/s Septal E/e': | | | 16.64 Lateral e': 0.10 m/s Lateral E/e': 10.20 RAP: 5 mmHg | | | RVSP: 41.37 mmHg TR maxP.37 mmHg TR Vmax: 3.01 m/s | | | Global Marketing Specialist: RODRÍGUEZ Authenticated by: Efrain Ruth MD Report | | | Date/Time: -- [id number] | | + + + + + | Procedure Note | + + | Gus Guerrero Conversion - 05/04/2019 10:23 PM PDT Patient Name: AYANNA MUNIZ of | | : 1935 Performing Physician: Efrain Ruth | | INDICATIONS H | | x of aortic valve replacement, Cardiomyopathy CONCLUSIONS 1. Overall left | | ventricular systolic function is normal with, an EF between 60 - 65 %.2. There is mild | | concentric left ventricular hypertrophy.3. The diastolic filling pattern indicates | | impaired relaxation consistent with mild dysfunction (Grade I).4. The left atrium is | | mildly enlarged.5. The right atrium is mildly enlarged.6. Normally functioning | | bioprosthetic aortic valve.7. Mild tricuspid regurgitation present.8. There is mild | | pulmonary hypertension.9. Mild pulmonic regurgitation.10. The ascending aorta is dilated | | measuring up to 4.0cm. FINDINGS--------ECG rhythm: Paced rhythm.Study: A 2-dimensional | | transthoracic echocardiogram with m-mode, spectral and color flow Doppler was | | perfomed.Study: This was a technically good study.Left Ventricle: Overall left | | ventricular systolic function is normal with, an EF between 60 - 65 %.Left Ventricle: | | The left ventricle cavity size is normal.Left Ventricle: There is mild concentric left | | ventricular hypertrophy.Left Ventricle: No regional wall motion abnormalities.Left | | Ventricle: The diastolic filling pattern indicates impaired relaxation consistent with | | mild dysfunction (Grade I).Right Ventricle: The right ventricle is normal in size.Right | | Ventricle: Pacer/ICD wire seen.Left Atrium: The left atrium is mildly enlarged.Right | | Atrium: The right atrium is mildly enlarged.Right Atrium: Pacemaker wire seen in the | | right atrial cavity.Aortic Valve: There is no evidence of aortic regurgitation.Aortic | | Valve: There is no evidence of aortic stenosis.Aortic Valve: Normally functioning | | bioprosthetic aortic valve.Mitral Valve: Mitral valve is thickened with myxomatous | | degeneration.Mitral Valve: There is trace mitral regurgitation.Mitral Valve: Mild mitral | | annular calcification present.Tricuspid Valve: The tricuspid valve was not well | | visualized.Tricuspid Valve: Mild tricuspid regurgitation present.Tricuspid Valve: There | | is mild pulmonary hypertension.Tricuspid Valve: The right ventricular systolic pressure | | (pulmonary artery systolic pressure), as measured by Doppler, is 41.37mmHg.Pulmonic | | Valve: The pulmonic valve is normal.Pulmonic Valve: Mild pulmonic | | regurgitation.Pericardium: There is no pericardial effusion.IVC/Hepatic Veins: The IVC | | is normal size (1.5-2.5cm) and collapses >50% with sniff, consistent with central venous | | pressures of 5-10mmHg.Aorta: The ascending aorta is dilated measuring up to 4.0cm.Mass: | | No mass visualizedThrombus: No clot visualizedThrombus: No vegetation | | visualized.Septum: No ASD observed.Septum: No VSD observed. MEASUREMENTS Ao | | asc: 3.99 cmIVC: 1.93 cmLA Major: 5.36 cmEDV(Teich): 145.47 mlIVSd: 1.11 | | cmLVIDd: 5.46 cmLVPWd: 1.15 cmLVOT Area: 3.84 [id number] Diam: 2.21 cm%FS: 38.52 | | %EF(Teich): 68.26 %ESV(Teich): 46.16 mlLVIDs: 3.36 cmSV(Teich): 99.31 mlRA | | Major: 5.13 cmRVIDd: 3.15 cmLAESV(A-L): 65.96 mlLAESV Index (A-L): 32.49 | | ml/m2LAAs A2C: 20.87 [id number] A-L A2C: 70.76 mlLALs A2C: 5.22 cmLAAs A4C: 19.43 | | [id number] A-L A4C: 61.42 mlLALs A4C: 5.21 cmAo Diam: 3.51 cmLA Diam: 4.90 | | cmLA/Ao: 1.39AV maxP.92 mmHgAV meanP.09 mmHgAV Vmax: 2.34 m/Pauline Vmean: | | 1.52 m/Pauline VTI: 49.72 cmAVA Vmax: 2.43 cm2AVA (VTI): 2.48 [id number] maxP.75 | | mmHgLVOT meanP.75 mmHgLVSI Dopp: 60.80 ml/m2LVSV Dopp: 123.42 mlLVOT Vmax: | | 1.47 m/sLVOT Vmean: 1.02 m/sLVOT VTI: 32.06 cmIVRT: 89.96 msMV A Sabino: 1.28 m/sMV | | Dec Irwin: 6.81 m/s2MV DecT: 161.43 msMV E Sabino: 1.08 m/sMV E/A Ratio: 0.84MV | | PHT: 46.81 msMVA By PHT: 4.69 [id number] e': 0.06 m/sSeptal E/e': 16.64Lateral | | e': 0.10 m/sLateral E/e': 10.20RAP: 5 mmHgRVSP: 41.37 mmHgTR maxP.37 | | mmHgTR Vmax: 3.01 m/s Global Marketing Specialist: JACKSONuthenticated by: Efrain Ruth [facility] | | Date/Time: -- [id number] IMPRESSION: 1. Overall left ventricular systolic | | function is normal with, an EF between 60 - 65 %.2. There is mild concentric left | | ventricular hypertrophy.3. The diastolic filling pattern indicates impaired relaxation | | consistent with mild dysfunction (Grade I).4. The left atrium is mildly enlarged.5. The | | right atrium is mildly enlarged.6. Normally functioning bioprosthetic aortic valve.7. | | Mild tricuspid regurgitation present.8. There is mild pulmonary hypertension.9. Mild | | pulmonic regurgitation.10. The ascending aorta is dilated measuring up to 4.0cm. | |Mass: No mass visualized | |Thrombus: No clot visualized | |Thrombus: No vegetation visualized. | |Septum: No ASD observed. | |Septum: No VSD observed. | | | |MEASUREMENTS | | | |Ao asc: 3.99 cm | |IVC: 1.93 cm | |LA Major: 5.36 cm | |EDV(Teich): 145.47 ml | |IVSd: 1.11 cm | |LVIDd: 5.46 cm | |LVPWd: 1.15 cm | |LVOT Area: 3.84 cm2 | |LVOT Diam: 2.21 cm | |%FS: 38.52 % | |EF(Teich): 68.26 % | |ESV(Teich): 46.16 ml | |LVIDs: 3.36 cm | |SV(Teich): 99.31 ml | |RA Major: 5.13 cm | |RVIDd: 3.15 cm | |LAESV(A-L): 65.96 ml | |LAESV Index (A-L): 32.49 ml/m2 | |LAAs A2C: 20.87 cm2 | |LAESV A-L A2C: 70.76 ml | |LALs A2C: 5.22 cm | |LAAs A4C: 19.43 cm2 | |LAESV A-L A4C: 61.42 ml | |LALs A4C: 5.21 cm | |Ao Diam: 3.51 cm | |LA Diam: 4.90 cm | |LA/Ao: 1.39 | |AV maxP.92 mmHg | |AV meanP.09 mmHg | |AV Vmax: 2.34 m/s | |AV Vmean: 1.52 m/s | |AV VTI: 49.72 cm | |RON Vmax: 2.43 cm2 | |RON (VTI): 2.48 cm2 | |LVOT maxP.75 mmHg | |LVOT meanP.75 mmHg | |LVSI Dopp: 60.80 ml/m2 | |LVSV Dopp: 123.42 ml | |LVOT Vmax: 1.47 m/s | |LVOT Vmean: 1.02 m/s | |LVOT VTI: 32.06 cm | |IVRT: 89.96 ms | |MV A Sabino: 1.28 m/s | |MV Dec Irwin: 6.81 m/s2 | |MV DecT: 161.43 ms | |MV E Sabino: 1.08 m/s | |MV E/A Ratio: 0.84 | |MV PHT: 46.81 ms | |MVA By PHT: 4.69 cm2 | |Septal e': 0.06 m/s | |Septal E/e': 16.64 | |Lateral e': 0.10 m/s | |Lateral E/e': 10.20 | |RAP: 5 mmHg | |RVSP: 41.37 mmHg | |TR maxP.37 mmHg | |TR Vmax: 3.01 m/s | | | |Global Marketing Specialist: RODRÍGUEZ | |Authenticated by: Efrain Ruth MD | |Report Date/Time: -- [id number]:52 | | | |IMPRESSION: | |1. Overall left ventricular systolic function is normal with, an EF between 60 - 65 %. | |2. There is mild concentric left ventricular hypertrophy. | |3. The diastolic filling pattern indicates impaired relaxation consistent with mild dysfunc tion (Grade I). | |4. The left atrium is mildly enlarged. | |5. The right atrium is mildly enlarged. | |6. Normally functioning bioprosthetic aortic valve. | |7. Mild tricuspid regurgitation present. | |8. There is mild pulmonary hypertension. | |9. Mild pulmonic regurgitation. | |10. The ascending aorta is dilated measuring up to 4.0cm. | + + documented in this encounter Visit Diagnoses Not on filedocumented in this encounter"
--- OUTSIDE RECORDS SUMMARY | ~2020-05-13 | XMS | Encounter Summary ---
Demographics + + + | Address | [address] | | | [place] [address] | + + + | Home Phone | | + + + | Preferred Language | Unknown | + + + | Marital Status | | + + + | Gnosticist Affiliation | Unknown | + + + | Race | White | + + + | Ethnic Group | Not or | + + + Author + + + | Author | [facility] | | | and [place] | + + + | Organization | [facility] | | | [...] [place], [place] | | | | | [address] | | + + + + + | Angelita Godoy | ECON | Unknown | | + + + + + Care Team Providers + +------+ + | Care Crab Butcher Name | Role | Phone | + +------+ + | Catracho Puente | PCP | | | MD | | | + +------+ + Encounter Details +--------+ + + + + | Date | Type | Department | Care Team | Description | +--------+ + + + + | 07/04/ | Orders Only | [facility] | Conversion | | | 2015 | | CONVERSION DEP [address] | Transaction, | | | | | [address] | Provider Unknown | | | | | [place], [place] | [phone] | | | | | [address] | | | | | | [phone] | | | +--------+ + + + [...] | | | | | [place] | | | | | | [address] | | | | | | | [...] | | | | | | [place] [address] | | | | | | [phone] | | | | | | | | +--------+ + + + + documented as of this encounter Visit Diagnoses Not on filedocumented in this encounter"
--- OUTSIDE RECORDS SUMMARY | ~2020-05-13 | XMS | Encounter Summary ---
Demographics + + + | Address | [address] | | | [place] [address] | + + + | Home Phone | | + + + | Preferred Language | Unknown | + + + | Marital Status | | + + + | Jain Affiliation | Unknown | + + + | Race | White | + + + | Ethnic Group | Not or | + + + Author + + + | Author | [facility] | | | and [place] | + + + | Organization | [facility] | | [...] [place], [place] | | | | | [address] | | + + + + + | Angelita Godoy | ECON | Unknown | | + + + + + Care Team Providers + +------+ + | Care Bottle Cleaner Name | Role | Phone | + +------+ + | Catracho Puente | PCP | | | MD | | | + +------+ + Encounter Details +--------+ + + + + | Date | Type | Department | Care Team | Description | +--------+ + + + + | 08/29/ | Orders Only | [facility] | Johnnie Jones, | | | 2017 | | NEPHROLOGY [place] | [address] | | | | | [address] [facility] | [place] [place] | | | | | [place] | [place] | | | | | [address] | [address] | | | | | [phone] | [phone] | | | | | | | [...] | | | | | [place], [place] | | | | | | [address] | | | | | | | [...] | | | | | | [place] [address] | | | | | | [phone] | | | | | | | | +--------+ + + + + documented as of this encounter Visit Diagnoses Not on filedocumented in this encounter"
--- OUTSIDE RECORDS SUMMARY | ~2020-05-13 | XMS | Encounter Summary ---
Demographics + + + | Address | [address] | | | [place] [address] | + + + | Home Phone | | + + + | Preferred Language | Unknown | + + + | Marital Status | | + + + | Muslim Affiliation | Unknown | + + + | Race | White | + + + | Ethnic Group | Not or | + + + Author + + + | Author | [facility] | | | and [place] | + + + | Organization | [facility] | | | [...] [place], [place] | | | | | [address] | | + + + + + | Angelita Godoy | ECON | Unknown | | + + + + + Care Team Providers + +------+ + | Care Secretary Bookkeeper Name | Role | Phone | + +------+ + | Catracho Puente | PCP | | | MD | | | + +------+ + Reason for Visit + + + | Reason | Comments | + + + | Device Check | Routine | | (In-office) | | + + + Encounter Details +--------+ + + + + | Date | Type | Department | Care Team | Description | +--------+ + + + + | 04/29/ | Procedure | [facility] | | Biventricular | | 2020 | visit | [facility]ARDIOLOGY [place] | | implantable | | | | [address] | | cardioverter-defibri | | | | [place], [place] | | llator in situ; | | | | [address] | | Chronic combined | | | | [phone] | | systolic and | | | | | | diastolic heart | | | | | | failure (HCC); | | | | | | [...] documented as of this encounter Procedure Notes Jacob Wheeler, Technologist - 04/29/2020 10:00 AM PDTAssociated Order(s): DEVICE INTERRO GATIONProcedure(s): DEVICE INTERROGATIONPre-Procedure Diagnose(s): Biventricular implantable cardioverter-defibrillator in situ ICD Device interrogation done by Nicolas Modi MD, EP Any events or changes listed in office note. Device data attached to scheduled encounter. Tech: Stanton Wheeler [facility]. documented in this encounter Plan of Treatment +--------+ + + + + | Date | Type | Specialty | Care Team | Description | +--------+ + + + + | 05/29/ | Office | Cardiology | Pavan Pham, | | 2019 | Visit | | MD [address] | | | | | | [place] | | | | | | [address] | | | | | | | [...] | | | | | | [place] [address] | | | | | | [phone] | | | | | | | | +--------+ + + + + documented as of this encounter Procedures + +--------+ + + + | Procedure Name | Priori | Date/Time | Associated Diagnosis | Comments | | | ty | | | | + +--------+ + + + | DEVICE INTERROGATION | Routin | 04/29/2020 | Biventricular | Results for this | | | e | 12:00 AM | implantable | procedure are in the | | | | PDT | cardioverter-defibri | results section. | | | | | llator in situ | | + +--------+ + + + documented in this encounter Results Device Interrogation (04/29/2020 12:00 AM PDT) + + + | Narrative | Performed At | + + + | Jacob Moreno | ALBERTO | | Summer Technologist 04/29/2020 3:40 PM ICD Device | | | interrogation done by Nicolas Roblero. , EP Any events or changes listed | | | in office note. Device data attached to scheduled encounter. Tech: | | | Stanton Wheeler [facility]. | | | | | |Device data attached to scheduled encounter. | | | | | |Tech: Stanton Wheeler [facility]. | | + + + + + | Procedure Note | + + | Jacob Wheeler, Technologist - 04/29/2020 10:00 AM PDT | | ICD Device interrogation done by Nicolas Modi MD, EP | | | | Any events or changes listed in office note. | | | | Device data attached to scheduled encounter. | | | | Tech: [facility]. | + + + +---------+ + + | Performing | Address | City/State/Zipcode | Phone Number | | Organization | | | | + +---------+ + + | [facility] | | | | + +---------+ + + documented in this encounter Visit Diagnoses + + | Diagnosis | + + | Biventricular implantable cardioverter-defibrillator in situ | + + | Chronic combined systolic and diastolic heart failure (HCC) Chronic combined systolic | | and diastolic heart failure | + + | Presence of automatic implantable cardioverter-defibrillator | + + documented in this encounter"
--- OUTSIDE RECORDS SUMMARY | ~2020-05-13 | XMS | Encounter Summary ---
Demographics + + + | Address | [address] | | | [place] [address] | + + + | Home Phone | | + + + | Preferred Language | Unknown | + + + | Marital Status | | + + + | Uatsdin Affiliation | Unknown | + + + | Race | White | + + + | Ethnic Group | Not or | + + + Author + + + | Author | [facility] | | | and [place] | + + + | Organization | [facility] | | | [...] [place], [place] | | | | | [address] | | + + + + + | Angelita Godoy | ECON | Unknown | | + + + + + Care Team Providers + +------+ + | Care Gantry Rigger Name | Role | Phone | + +------+ + | Catracho Puente | PCP | | | MD | | | + +------+ + Encounter Details +--------+ + + + + | Date | Type | Department | Care Team | Description | +--------+ + + + + | 12/05/ | Orders Only | [facility] | Ej Tatum MD | | | 2012 | | [address] | [address] [facility] | | | | | [place], [place] | [address] [place], [place] | | | | | [address] | [id number] | | | | | [phone] | | | +--------+ + + + [...] [place] | | | | | | [address] | | | | | | | | +--------+ + + + + | 08/05/ | Procedure | Cardiology | | | | 2019 | visit | | | | +--------+ + + + + | 11/07/ Office | Cardiology | Nicolas Roblero, | | | 2020 | Visit | | [address] | | | | | | [place], | | | | | | [place] [address] | | | | | | [phone] | | | | | | | | +--------+ + + + + documented as of this encounter Procedures + +--------+ + + + | Procedure Name | Priori | Date/Time | Associated Diagnosis | Comments | | | ty | | | | + +--------+ + + + | CULTURE, URINE | Routin | 12/05/2012 | | Results for this | | | e | 3:19 PM | | procedure are in the | | | | PDT | | results section. | + +--------+ + + + documented in this encounter Results Culture, Urine (12/05/2012 3:19 PM PDT) + + | Specimen | + + | | + + + + + | Narrative | Performed At | + + + | Specimen Description URINE, COLLECTION NOT | EXTERNAL LAB | | GIVEN Testing | | | performed at [facility];[address] [facility];[place] [address] CULTURE | | | NO GROWTH | | | Testing performed at [facility];[address] | | | [facility];[place] [address] REPORT STATUS | | | 12/06/2012 FINAL | | + + + + +---------+ + + | Performing | Address | City/State/Zipcode | Phone Number | | Organization | | | | + +---------+ + + | EXTERNAL LAB | | | | + +---------+ + + documented in this encounter Visit Diagnoses Not on filedocumented in this encounter"
--- OUTSIDE RECORDS SUMMARY | ~2020-05-13 | XMS | Encounter Summary ---
Demographics + + + | Address | [address] | | | [place] [address] | + + + | Home Phone [...] [place], [place] | | | | | [address] | | + + + + + | Angelita Godoy | ECON | Unknown | | + + + + + Care Team Providers + +------+ + | Care Reinforcement Maker Name | Role | Phone | + +------+ + | Catracho Puente | PCP | | | MD | | | + +------+ + Encounter Details +--------+ + + + + | Date | Type | Department | Care Team | Description | +--------+ + + + + | 10/29/ | Orders Only | [facility] | Conversion | | | 2015 | | NEPRHOLOGY GET | Transaction, | | | | | [address] | Provider Unknown | | | | | [address] [place], [place] | [phone] | | | | | [address] | | | | | | [phone] | | | +--------+ + + + [...] | | | | | [address] [place] | | | | | | [address] | | | | | | | [...] [place], | | | | | | [place] [address] | | | | | | [phone] | | | | | | | | +--------+ + + + + documented as of this encounter Procedures + +--------+ + + + | Procedure Name | Priori | Date/Time | Associated Diagnosis | Comments | | | ty | | | | + +--------+ + + + | EXTERNAL LAB: CBC | Routin | 10/29/2014 | | Results for this | | | e | 12:00 AM | | procedure are in the | | | | PST | | results section. | + +--------+ + + + | URINALYSIS WITH | Routin | 10/29/2014 | | Results for this | | MICROSCOPIC WITH | e | 12:00 AM | | procedure are in the | | CULTURE IF INDICATED | | PST | | results section. | + +--------+ + + + | MICROALBUMIN/CREATIN | Routin | 10/29/2014 | | Results for this | | INE RATIO, URINE | e | 12:00 AM | | procedure are in the | | TEST | | PST | | results section. | + +--------+ + + + | CREATININE, URINE, | Routin | 10/29/2014 | | Results for this | | RANDOM | e | 12:00 AM | | procedure are in the | | | | PST | | results section. | + +--------+ + + + | URIC ACID | Routin | 10/29/2014 | | Results for this | | | e | 12:00 AM | | procedure are in the | | | | PST | | results section. | + +--------+ + + + | MAGNESIUM | Routin | 10/29/2014 | | Results for this | | | e | 12:00 AM | | procedure are in the | | | | PST | | results section. | + +--------+ + + + | RENAL FUNCTION PANEL | Routin | 10/29/2014 | | Results for this | | | e | 12:00 AM | | procedure are in the | | | | PST | | results section. | + +--------+ + + + documented in this encounter Results Urinalysis with Microscopic with Culture if Indicated (10/29/2014 12:00 AM PST) + + + + [...] + + + | Spec Grav, | 1.018 | | EXTERNAL | | | Fluid [...] + + + | pH, Urine | 6 | | EXTERNAL | | | | [...] + + + | WBC, UA | 0 | | EXTERNAL | | | | | | LAB | | + + + + + + | RBC, UA | 0 | | EXTERNAL | | | | | | LAB | | + + + + + + | Epithelial | Negative | | EXTERNAL | | | Cells | | | LAB | | + + + + + + | Bacteria, | None Seen | | EXTERNAL | | | UA | | | LAB | | + + + + + + | HYALINE | None Seen | | EXTERNAL | | | CASTS [...] + +---------+ + + Microalbumin/Creatinine Ratio, Urine (10/29/2014 12:00 AM PST) + +-------+ + + + | Component | Value | Ref Range | Performed | Pathologist | | | | | At | Signature | + +-------+ + + + | ALBUMIN/CRE | 4.3 | 0 - 30 | EXTERNAL | [...] + +---------+ + + Creatinine, Urine, Random (10/29/2014 12:00 AM PST) + +-------+ + + + | Component | Value | Ref Range | Performed | Pathologist | | | | | At | Signature | + +-------+ + + + | Creatinine, | 162 | | EXTERNAL | | | 24H [...] + +---------+ + + External Lab: CBC (10/29/2014 12:00 AM PST) + +-------+ + + + | Component | Value | Ref Range | Performed | Pathologist | | | | | At | Signature | + +-------+ + + + | WBC | 8.7 | 4.5 - 11.0 10 | EXTERNAL | | | | | | LAB | | + +-------+ + + + | Non- | 4.69 | 4.3 - 5.7 10 | EXTERNAL | | | Red Blood | | | LAB | | | Cells | | | | | | Counted | | | | | + +-------+ + + + | Hemoglobin | 15.1 | 13.5 - 18.0 | EXTERNAL | | | | | g/dL | LAB | | + +-------+ + + + | Hematocrit, | 45.1 | 41 - 50 % | EXTERNAL | | | POC | | | LAB | | + +-------+ + + + | MCV | 96.1 | 81 - 99 fL | EXTERNAL | | | | | | LAB | | + +-------+ + + + | MCH | 32 | 27 - 33 | EXTERNAL | | | | | | LAB | | + +-------+ + + + | MCHC | 33 | 30 - 36 g/dL | EXTERNAL | | | | | | LAB | | + +-------+ + + + | Platelet | 254 | 140 - 440 K/ L | EXTERNAL | | | Count | | | LAB | | | Plasma | | | | | + +-------+ + + + | RDW-CV | | % | EXTERNAL | | [...] | + +---------+ + + Uric Acid (10/29/2014 12:00 AM PST) + +-------+ + + + | Component | Value | Ref Range | Performed | Pathologist | | | | | At | Signature | + +-------+ + + + | Uric Acid | 5.1 | 4.4 - 7.6 | EXTERNAL | [...] | | + +---------+ + + Magnesium (10/29/2014 12:00 AM PST) + +-------+ + + + | Component | Value | Ref Range | Performed | Pathologist | | | | | At | Signature | + +-------+ + + + | Magnesium | 1.8 | 1.7 - 2.5 mg/dL | EXTERNAL [...] + +---------+ + + Renal Function Panel (10/29/2014 12:00 AM PST) + + + + + + | Component | Value | Ref Range | Performed | Pathologist | | | | | At | Signature | + + + + + + | Glucose, | 101 (A) | 70 - 100 mg/dL | EXTERNAL | | | Fasting | | | LAB | | + + + + + + | BUN | 18 | 6 - 23 mg/dL | EXTERNAL | | | | | | LAB | | + + + + + + | Creatinine | 1.42 (A) | 0.70 - 1.18 | EXTERNAL | | | | | mg/dL | LAB | | + + + + + + | PHOSPHORUS | 2.6 | 2.5 - 5.0 mg/dL | EXTERNAL | | | | | | LAB | | + + + + + + | Albumin | 4.2 | 3.5 - 5.0 | EXTERNAL | | | | | | LAB | | + + + + + + | Na | 137 | 132 - 143 | EXTERNAL | [...] + + + + | CO2 | 27 | 19 - 31 mmol/L | EXTERNAL | | | | | | LAB | | + + + + + + | Anion Gap | 13.4 | 7 - 21 mmol/L | EXTERNAL | | | | | | LAB | | + + + + + + | eGFR, | 48 | | EXTERNAL | | | non- | | | LAB | | | Gu[place]an | | | | | + + + + + + | Phosphorus, | 2.6 | 2.5 - 5.0 | EXTERNAL | | | Inorganic | | | LAB | | + + + + + + | BUN/Creatin | 12.7 | 6.0 - 28.6 | EXTERNAL | | | ine Ratio | | | LAB | | + + + + + + | Calcium | 9.4 | 8.4 - 10.2 | EXTERNAL | | | | | mg/dL | LAB | | + + + + + + | Estimated | 48 | mg/dL | EXTERNAL | | | [...]
--- OUTSIDE RECORDS SUMMARY | ~2020-05-13 | XMS | Encounter Summary ---
Demographics + + + | Address | [address] | | | [place] [address] | + + + | Home Phone | | + + + | Preferred Language | Unknown | + + + | Marital Status | | + + + | Gnosticism Affiliation | Unknown | + + + | Race | White | + + + | Ethnic Group | Not or | + + + Author + + + | Author | [facility] | | | and [place] | + + + | Organization | [facility] | | | and [...] [place], [place] | | | | | [address] | | + + + + + | Angelita Godoy | ECON | Unknown | | + + + + + Care Team Providers + +------+ + | Care Paper Mill Superintendent Name | Role | Phone | + +------+ + | Catracho Puente | PCP | | | MD | | | + +------+ + Encounter Details +--------+ + + + + | Date | Type | Department | Care Team | Description | +--------+ + + + + | 06/03/ | Orders Only | [facility] | Pavan Pham, | | | 2018 | | CONVERSION [address] | MD [address] | | | | | [address] | [place], [place] | | | | | [place], [place] | [address] | | | | | [address] | | | | | | [phone] | | | +--------+ + + + [...] [address] | | | | | | [address] | | | | | | | [...] [place], | | | | | | [place] [address] | | | | | | [phone] | | | | | | | | +--------+ + + + + documented as of this encounter Procedures + +--------+ + + + | Procedure Name | Priori | Date/Time | Associated Diagnosis | Comments | | | ty | | | | + +--------+ + + + | ECHO INTERPRETATION | Routin | 06/03/2018 | | Results for this | | OF OUTSIDE FILMS | e | 3:13 PM | | procedure are in the | | | | PDT | | results section. | + +--------+ + + + documented in this encounter Results ECHO Interpretation of Outside Films (06/03/2018 3:13 PM PDT) + + | Specimen | + + | | + + + + + | Impressions | Performed At | + + + | 1. The left ventricle is normal in size, wall thickness and systolic | | | function EF 60-65%. 2. The right ventricle is normal in size and | | | function. 3. 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 | | | 4. Mild tricuspid regurgitation and mild pulmonary hypertension RVSP | | | 47 mmHg. 5. There is no pericardial effusion. | | + + + + + + | Narrative | Performed At | + + + | Patient Name: AYANNA MUNIZ Date of : 1935 | | | Performing Physician: Pavan Pham | | | | | | INDICATIONS Hx of AVR, pacemaker CONCLUSIONS | | | 1. The left ventricle is normal in size, wall thickness | | | and systolic function EF 60-65%. 2. The right ventricle is normal in | | | size and function. 3. Normally functioning #25 Magna-Ease | | | bioprosthetic valve. 4. Mild tricuspid regurgitation and mild | | | pulmonary hypertension RVSP 47 mmHg. 5. There is no pericardial | | | effusion. FINDINGS -------- ECG rhythm: Sinus rhythm. ECG | | | rhythm: Paced rhythm. Study: A 2-dimensional transthoracic | | | echocardiogram with m-mode, spectral and color flow Doppler was | | | perfomed. Study: This was a technically adequate study. Left | | | Ventricle: Overall left ventricular systolic function is normal with, | | | an EF between 60 - 65 %. Left Ventricle: The left ventricle cavity | | | size is normal. Left Ventricle: Left ventricular wall thickness is | | | normal. Left Ventricle: No regional wall motion abnormalities. Left | | | Ventricle: There is paradoxical/dysynergic septal motion consistent | | | with pacing and or post Op. Right Ventricle: The right ventricle is | | | normal in size and function. Right Ventricle: Pacer/ICD wire seen. | | | Left Atrium: The left atrial size is normal. Right Atrium: The right | | | atrium is normal in size. Right Atrium: Pacemaker wire seen in the | | | right atrial cavity. Aortic Valve: There is no evidence of aortic | | | regurgitation. Aortic Valve: Peak/mean gradient across the valve is | | | 24.83mmHg/12.85mmHg. Aortic Valve: Normally functioning #25 | | | Magna-Ease bioprosthetic valve. Mitral Valve: There is trace mitral | | | regurgitation. Mitral Valve: Mild mitral annular calcification | | | present. Tricuspid Valve: The tricuspid valve appears structurally | | | normal. Tricuspid Valve: Mild tricuspid regurgitation present. | | | Tricuspid Valve: There is mild pulmonary hypertension. Tricuspid | | | Valve: The right ventricular systolic pressure (pulmonary artery | | | systolic pressure), as measured by Doppler, is 47.33mmHg. Pulmonic | | | Valve: The pulmonic valve was not well visualized. Pulmonic Valve: | | | Mild to moderate pulmonic regurgitation. Pericardium: There is no | | | pericardial effusion. Pericardium: No pleural effusion seen. | | | IVC/Hepatic Veins: The IVC is normal size (1.5-2.5cm) and collapses | | | >50% with sniff, consistent with central venous pressures of 5-10mmHg. | | | Aorta: Hx of coarctation repair in 1976. 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 MEASUREMENTS | | | Ao asc: 4.35 cm Ao Diam: 4.[address] junct: | | | 4.19 cm IVC: 1.75 cm LA Diam: 3.62 cm LA Major: 4.62 cm | | | EDV(Teich): 122.11 ml IVSd: 0.98 cm LVIDd: 5.06 cm | | | LVPWd: 0.99 cm LVOT Area: 4.96 cm2 LVOT Diam: 2.51 cm %FS: | | | 36.27 % EF(Teich): 65.66 % ESV(Teich): 41.92 ml LVIDs: | | | 3.23 cm SV(Teich): 80.18 ml RA Major: 4.94 cm RV Major: | | | 7.76 cm RVIDd: 3.47 cm TV Donna Diam: 3.87 cm Ao Root: 4.19 | | | cm Ao Diam SVals: 4.36 cm LVEF MOD A2C: 62.07 % SV MOD A2C: | | | 69.36 ml LVEF MOD A4C: 61.40 % SV MOD A4C: 68.03 ml EF | | | Biplane: 62.20 % LVEDV MOD BP: 113.80 ml LVESV MOD BP: | | | 43.00 ml LVEDV MOD A2C: 111.75 ml LVLd A2C: 7.55 cm LVEDV MOD | | | A4C: 110.79 ml LVLd A4C: 7.92 cm LVESV MOD A2C: 42.38 ml | | | LVLs A2C: 6.75 cm LVESV MOD A4C: 42.75 ml LVLs A4C: 6.58 cm | | | LAESV(A-L): 70.81 ml LAESV Index (A-L): 34.88 ml/m2 LAAs | | | A2C: 22.53 cm2 LAESV A-L A2C: 75.47 ml LALs A2C: 5.71 cm | | | LAAs A4C: 18.17 cm2 LAESV A-L A4C: 57.12 ml LALs A4C: 4.91 | | | cm RAAs: 15.94 cm2 RAESV A-L: 43.88 ml RAESV MOD: 44.06 ml | | | RALs: 4.91 cm TAPSE: 1.80 cm AV maxP.83 mmHg AV | | | meanP.84 mmHg AV Vmax: 2.49 m/s AV Vmean: 1.68 m/s AV | | | VTI: 53.41 cm RON Vmax: 3.49 cm2 RON (VTI): 3.54 cm2 LVOT | | | maxP.32 mmHg LVOT meanP.31 mmHg LVSI Dopp: 93.24 | | | ml/m2 LVSV Dopp: 189.28 ml LVOT Vmax: 1.75 m/s LVOT Vmean: | | | 1.13 m/s LVOT VTI: 38.10 cm MV A Sabino: 1.24 m/s MV Dec [place]: | | | 4.99 m/s2 MV DecT: 248.31 ms MV E Sabino: 1.23 m/s MV E/A | | | Ratio: 0.99 MV PHT: 72.01 ms MVA By PHT: 3.05 cm2 Septal | | | e': 0.05 m/s Septal E/e': 21.98 Lateral e': 0.08 m/s | | | Lateral E/e': 15.31 RAP: 5 mmHg RVSP: 47.32 mmHg TR maxPG: | | | 42.32 mmHg TR Vmax: 3.25 m/s S': 0.09 m/s Diesel Dinkey Engineer: | | | DH Authenticated by: [facility] Report Date/Time: 06-03-2018 | | | 21:45:24 | | + + + + + | Procedure Note | + + | Gus Guerrero Conversion - 05/04/2019 5:20 PM PDT Patient Name: AYANNA MUNIZ of | | : 1935 Performing Physician: Pavan | | [facility] INDICATIONS------ | | -----Hx of AVR, pacemaker CONCLUSIONS 1. The left ventricle is normal in size, | | wall thickness and systolic function EF 60-65%.2. The right ventricle is normal in size | | and function.3. 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 Mild | | tricuspid regurgitation and mild pulmonary hypertension RVSP 47 mmHg.5. There is no | | pericardial effusion. FINDINGS--------ECG rhythm: Sinus rhythm.ECG rhythm: Paced | | rhythm.Study: A 2-dimensional transthoracic echocardiogram with m-mode, spectral and | | color flow Doppler was perfomed.Study: This was a technically adequate study.Left | | Ventricle: Overall left ventricular systolic function is normal with, an EF between 60 - | | 65 %.Left Ventricle: The left ventricle cavity size is normal.Left Ventricle: Left | | ventricular wall thickness is normal.Left Ventricle: No regional wall motion | | abnormalities.Left Ventricle: There is paradoxical/dysynergic septal motion consistent | | with pacing and or post Op.Right Ventricle: The right ventricle is normal in size and | | function.Right Ventricle: Pacer/ICD wire seen.Left Atrium: The left atrial size is | | normal.Right Atrium: The right atrium is normal in size.Right Atrium: Pacemaker wire | | seen in the right atrial cavity.Aortic Valve: There is no evidence of aortic | | regurgitation.Aortic Valve: Peak/mean gradient across the valve is | | 24.83mmHg/12.85mmHg.Aortic Valve: Normally functioning #25 Magna-Ease bioprosthetic | | valve.Mitral Valve: There is trace mitral regurgitation.Mitral Valve: Mild mitral | | annular calcification present.Tricuspid Valve: The tricuspid valve appears structurally | | normal.Tricuspid Valve: Mild tricuspid regurgitation present.Tricuspid Valve: There is | | mild pulmonary hypertension.Tricuspid Valve: The right ventricular systolic pressure | | (pulmonary artery systolic pressure), as measured by Doppler, is 47.33mmHg.Pulmonic | | Valve: The pulmonic valve was not well visualized.Pulmonic Valve: Mild to moderate | | pulmonic regurgitation.Pericardium: There is no pericardial effusion.Pericardium: No | | pleural effusion seen.IVC/Hepatic Veins: The IVC is normal size (1.5-2.5cm) and | | collapses >50% with sniff, consistent with central venous pressures of 5-10mmHg.Aorta: | | Hx of coarctation repair in 1976. Sinus of Valsalva to ascending aorta dilatation | | measuring up to 44 mm. MEASUREMENTS Ao asc: 4.35 cmAo Diam: 4.[address] | | junct: 4.19 cmIVC: 1.75 cmLA Diam: 3.62 cmLA Major: 4.62 cmEDV(Teich): 122.11 | | mlIVSd: 0.98 cmLVIDd: 5.06 cmLVPWd: 0.99 cmLVOT Area: 4.96 [id number] Diam: 2.51 | | cm%FS: 36.27 %EF(Teich): 65.66 %ESV(Teich): 41.92 mlLVIDs: 3.23 cmSV(Teich): | | 80.18 mlRA Major: 4.94 cmRV Major: 7.76 cmRVIDd: 3.47 cmTV Donna Diam: 3.87 cmAo | | Root: 4.19 cmAo Diam SVals: 4.36 cmLVEF MOD A2C: 62.07 %SV MOD A2C: 69.36 mlLVEF | | MOD A4C: 61.40 %SV MOD A4C: 68.03 mlEF Biplane: 62.20 %LVEDV MOD BP: 113.80 | | mlLVESV MOD BP: 43.00 mlLVEDV MOD A2C: 111.75 mlLVLd A2C: 7.55 cmLVEDV MOD A4C: | | 110.79 mlLVLd A4C: 7.92 cmLVESV MOD A2C: 42.38 mlLVLs A2C: 6.75 cmLVESV MOD A4C: | | 42.75 mlLVLs A4C: 6.58 cmLAESV(A-L): 70.81 mlLAESV Index (A-L): 34.88 ml/m2LAAs | | A2C: 22.53 [id number] A-L A2C: 75.47 mlLALs A2C: 5.71 cmLAAs A4C: 18.17 [id number] | | A-L A4C: 57.12 mlLALs A4C: 4.91 cmRAAs: 15.94 [id number] A-L: 43.88 mlRAESV MOD: | | 44.06 mlRALs: 4.91 cmTAPSE: 1.80 cmAV maxP.83 mmHgAV meanP.84 mmHgAV | | Vmax: 2.49 m/Pauline Vmean: 1.68 m/Pauline VTI: 53.41 cmAVA Vmax: 3.49 cm2AVA (VTI): | | 3.54 [id number] maxP.32 mmHgLVOT meanP.31 mmHgLVSI Dopp: 93.24 ml/m2LVSV | | Dopp: 189.28 mlLVOT Vmax: 1.75 m/sLVOT Vmean: 1.13 m/sLVOT VTI: 38.10 cmMV A | | Sabino: 1.24 m/sMV Dec [place]: 4.99 m/s2MV DecT: 248.31 msMV E Sabino: 1.23 m/sMV E/A | | Ratio: 0.99MV PHT: 72.01 msMVA By PHT: 3.05 [id number] e': 0.05 m/sSeptal E/e': | | 21.98Lateral e': 0.08 m/sLateral E/e': 15.31RAP: 5 mmHgRVSP: 47.32 mmHgTR | | maxP.32 mmHgTR Vmax: 3.25 m/sS': 0.09 m/s Diesel Dinkey Engineer: DHAuthenticated by: | | [facility]Report Date/Time: 06-03-2018 21:45:24 IMPRESSION: 1. The left ventricle | | is normal in size, wall thickness and systolic function EF 60-65%.2. The right ventricle | | is normal in size and function.3. Normally functioning #25 Magna-Ease bioprosthetic | | valve.4. Mild tricuspid regurgitation and mild pulmonary hypertension RVSP 47 mmHg.5. | | There is no pericardial effusion. | |Ao Diam: 4.23 cm | |Ao st junct: 4.19 cm | |IVC: 1.75 cm | |LA Diam: 3.62 cm | |LA Major: 4.62 cm | |EDV(Teich): 122.11 ml | |IVSd: 0.98 cm | |LVIDd: 5.06 cm | |LVPWd: 0.99 cm | |LVOT Area: 4.96 cm2 | |LVOT Diam: 2.51 cm | |%FS: 36.27 % | |EF(Teich): 65.66 % | |ESV(Teich): 41.92 ml | |LVIDs: 3.23 cm | |SV(Teich): 80.18 ml | |RA Major: 4.94 cm | |RV Major: 7.76 cm | |RVIDd: 3.47 cm | |TV Donna Diam: 3.87 cm | |Ao Root: 4.19 cm | |Ao Diam SVals: 4.36 cm | |LVEF MOD A2C: 62.07 % | |SV MOD A2C: 69.36 ml | |LVEF MOD A4C: 61.40 % | |SV MOD A4C: 68.03 ml | |EF Biplane: 62.20 % | |LVEDV MOD BP: 113.80 ml | |LVESV MOD BP: 43.00 ml | |LVEDV MOD A2C: 111.75 ml | |LVLd A2C: 7.55 cm | |LVEDV MOD A4C: 110.79 ml | |LVLd A4C: 7.92 cm | |LVESV MOD A2C: 42.38 ml | |LVLs A2C: 6.75 cm | |LVESV MOD A4C: 42.75 ml | |LVLs A4C: 6.58 cm | |LAESV(A-L): 70.81 ml | |LAESV Index (A-L): 34.88 ml/m2 | |LAAs A2C: 22.53 cm2 | |LAESV A-L A2C: 75.47 ml | |LALs A2C: 5.71 cm | |LAAs A4C: 18.17 cm2 | |LAESV A-L A4C: 57.12 ml | |LALs A4C: 4.91 cm | |RAAs: 15.94 cm2 | |RAESV A-L: 43.88 ml | |RAESV MOD: 44.06 ml | |RALs: 4.91 cm | |TAPSE: 1.80 cm | |AV maxP.83 mmHg | |AV meanP.84 mmHg | |AV Vmax: 2.49 m/s | |AV Vmean: 1.68 m/s | |AV VTI: 53.41 cm | |RON Vmax: 3.49 cm2 | |RON (VTI): 3.54 cm2 | |LVOT maxP.32 mmHg | |LVOT meanP.31 mmHg | |LVSI Dopp: 93.24 ml/m2 | |LVSV Dopp: 189.28 ml | |LVOT Vmax: 1.75 m/s | |LVOT Vmean: 1.13 m/s | |LVOT VTI: 38.10 cm | |MV A Sabino: 1.24 m/s | |MV Dec [place]: 4.99 m/s2 | |MV DecT: 248.31 ms | |MV E Sabino: 1.23 m/s | |MV E/A Ratio: 0.99 | |MV PHT: 72.01 ms | |MVA By PHT: 3.05 cm2 | |Septal e': 0.05 m/s | |Septal E/e': 21.98 | |Lateral e': 0.08 m/s | |Lateral E/e': 15.31 | |RAP: 5 mmHg | |RVSP: 47.32 mmHg | |TR maxP.32 mmHg | |TR Vmax: 3.25 m/s | |S': 0.09 m/s | | | |Diesel Dinkey Engineer: RODRÍGUEZ | |Authenticated by: Pavan Pham | |Report Date/Time: 06-03-2018 21:45:24 | | | |IMPRESSION: | |1. The left ventricle is normal in size, wall thickness and systolic function EF 60-65%. | |2. The right ventricle is normal in size and function. | |3. 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 | |4. Mild tricuspid regurgitation and mild pulmonary hypertension RVSP 47 mmHg. | |5. There is no pericardial effusion. | + + documented in this encounter Visit Diagnoses Not on filedocumented in this encounter"
--- OUTSIDE RECORDS SUMMARY | ~2020-05-13 | XMS | Encounter Summary ---
Demographics + + + | Address | [address] | | | [place] [address] | + + + | Home Phone | | + + + | Preferred Language | Unknown | + + + | Marital Status | | + + + | Spiritism Affiliation | Unknown | + + + | Race | White | + + + | Ethnic Group | Not or | + + + Author + + + | Author | [facility] | | | and [place] | + + + | Organization | [facility] | | | [...] [place], [place] | | | | | [address] | | + + + + + | Angelita Godoy | ECON | Unknown | | + + + + + Care Team Providers + +------+ + | Care Computer Language Coder Name | Role | Phone | + +------+ + | Catracho Puente | PCP | | | MD | | | + +------+ + Encounter Details +--------+ + + + + | Date | Type | Department | Care Team | Description | +--------+ + + + + | 04/23/ | Orders Only | [facility] | Justino Hedrick, | | | 2013 | | NEPRHOLOGY [place] | [employer]GER [address] | | | | | [address] [place] | [address] [place], | | | | | [address] [place], [place] | [place] [address] | | | | | [address] | [phone] | | | | | [phone] | | | +--------+ + + + [...] [place] | | | | | | [address] | | | | | | | | +--------+ + + + + | 08/05/ | Procedure | Cardiology | | | | 2019 | visit | | | | +--------+ + + + + | 11/07/ | Office | Cardiology | [facility], | | | 2020 | Visit | | [address] | | | | | | [place], | | | | | | [place] [address] | | | | | | [phone] | | | | | | | | +--------+ + + + + documented as of this encounter Procedures + +--------+ + + + | Procedure Name | Priori | Date/Time | Associated Diagnosis | Comments | | | ty | | | | + +--------+ + + + | EXTERNAL LAB: [facility] | Routin | 04/23/2014 | | Results for this | | | e | 12:00 AM | | procedure are in the | | | | PDT | | results section. | + +--------+ + + + | URINALYSIS WITH | Routin | 04/23/2014 | | Results for this | | MICROSCOPIC WITH | e | 12:00 AM | | procedure are in the | | CULTURE IF INDICATED | | PDT | | results section. | + +--------+ + + + | VITAMIN D, | Routin | 04/23/2014 | | Results for this | | DEFICIENCY SCREEN | e | 12:00 AM | | procedure are in the | | (25-HYDROXY) | | PDT | | results section. | + +--------+ + + + | URIC ACID | Routin | 04/23/2014 | | Results for this | | | e | 12:00 AM | | procedure are in the | | | | PDT | | results section. | + +--------+ + + + | MAGNESIUM | Routin | 04/23/2014 | | Results for this | | | e | 12:00 AM | | procedure are in the | | | | PDT | | results section. | + +--------+ + + + | RENAL FUNCTION PANEL | Routin | 04/23/2014 | | Results for this | | | e | 12:00 AM | | procedure are in the | | | | PDT | | results section. | + +--------+ + + + documented in this encounter Results Urinalysis with Microscopic with Culture if Indicated (04/23/2014 12:00 AM PDT) + + + + [...] + + + | Spec Grav, | 1.009 | 1.005 - 1.030 | EXTERNAL | [...] + + | Total | Negative | Negative | EXTERNAL | | | Protein | [...] + + | Ketones | Negative | Negative | EXTERNAL | | | | | [...] + + Vitamin D, Deficiency Screen (25-Hydroxy) (04/23/2014 12:00 AM PDT) + +-------+ + + + | Component | Value | Ref Range | Performed | Pathologist | | | | | At | Signature | + +-------+ + + + | Vit D, | 41 | 30 - 100 | EXTERNAL | [...] + +---------+ + + External Lab: CBC (04/23/2014 12:00 AM PDT) + +-------+ + + + | Component | Value | Ref Range | Performed | Pathologist | | | | | At | Signature | + +-------+ + + + | WBC | 8.2 | 4.5 - 11.0 10 | EXTERNAL | | | | | | LAB | | + +-------+ + + + | Non- | 4.56 | 4.3 - 5.7 10 | EXTERNAL | | | Red Blood | | | LAB | | | Cells | | | | | | Counted | | | | | + +-------+ + + + | Hemoglobin | 14.7 | 13.5 - 18.0 | EXTERNAL | | | | | g/dL | LAB | | + +-------+ + + + | Hematocrit, | 43.2 | 41 - 50 % | EXTERNAL [...] +-------+ + + + | Platelet | 237 | 140 - 440 K/ L | [...] + + + | % Segmented | 64.6 | 39 - 80 % | EXTERNAL | | | | | | LAB | | | Neutrophils | | | | | + +-------+ + + + | % | 24.8 | 24 - 44 % | EXTERNAL | | | Lymphocytes | | | LAB | | + +-------+ + + + | % Monocytes | 7.9 | 0 - 12 % | EXTERNAL | | | | | | LAB | | + +-------+ + + + | % | 2.1 | 0 - 6 % | EXTERNAL | | | Eosinophils | | | LAB | | + +-------+ + + + | % Basophils | 0.6 | 0 - 2 % | EXTERNAL [...] | + +---------+ + + Uric Acid (04/23/2014 12:00 AM PDT) + +-------+ + + + | Component | Value | Ref Range | Performed | Pathologist | | | | | At | Signature | + +-------+ + + + | Uric Acid | 6.9 | 4.4 - 7.6 | EXTERNAL | [...] | | + +---------+ + + Magnesium (04/23/2014 12:00 AM PDT) + +-------+ + + [...] + +---------+ + + Renal Function Panel (04/23/2014 12:00 AM PDT) + + + + + + | Component | Value | Ref Range | Performed | Pathologist | | | | | At | Signature | + + + + + + | Glucose, | 122 (A) | 70 - 100 mg/dL | EXTERNAL | | | Fasting | | | LAB | | + + + + + + | BUN | 26 (A) | 6 - 23 mg/dL | EXTERNAL | | | | | | LAB | | + + + + + + | Creatinine | 1.71 (A) | 0.70 - 1.18 | EXTERNAL [...] + + + + | Na | 138 | 132 - 143 | EXTERNAL | | | | | mmol/L | LAB | | + + + + + + | K | 4.4 | 3.6 - 5.1 | EXTERNAL | | | | | mmol/L | LAB | | + + + + + + | Cl | 100 | 95 - 112 mmol/L | EXTERNAL [...] | | | LAB | | | Jordanian | | | | | + + + + + + | Phosphorus, | 3.0 | 2.5 - 5.0 | EXTERNAL | | | Inorganic | | | LAB | | + + + + + + | BUN/Creatin | 15.2 | 6.0 - 28.6 | EXTERNAL | | | ine Ratio | | | LAB | | + + + + + + | Calcium | 9.5 | 8.4 - 10.2 | EXTERNAL | | | | | mg/dL | LAB | | + + + + + + | Estimated | 39 | mg/dL | EXTERNAL | | | [...]
--- OUTSIDE RECORDS SUMMARY | ~2020-05-13 | XMS | Encounter Summary ---
Demographics + + + | Address | [address] | | | [place] [address] | + + + | Home Phone | | + + + | Preferred Language | Unknown | + + + | Marital Status | | + + + | Religion Affiliation | Unknown | + + + | Race | White | + + + | Ethnic Group | Not or | + + + Author + + + | Author | [facility] | | | and [place] | + + + | Organization | [facility] | | [...] [place], [place] | | | | | [address] | | + + + + + | Angelita Godoy | ECON | Unknown | | + + + + + Care Team Providers + +------+ + | Care Drug And Alcohol Counsellor Name | Role | Phone | + +------+ + | Catracho Puente | PCP | | | MD | | | + +------+ + Reason for Referral Diagnostic/Screening (Routine) + +--------+ + + + + | Status | Reason | Specialty | Diagnoses / | Referred By | Referred To | | | | | Procedures | Contact | Contact | + +--------+ + + + + | Authorizatio | | Radiology | Diagnoses | Pop Prather [facility] Echo | | n not | | | Status post | MD Pavan | [address] | | Required | | | aortic | [address] | | | | | valve | [place] | [place], [place] | | | | | replacement | [place] | [address] | | | | | | [place], [place] | Phone: | | | | | Biventricula | [address] | [phone] | | | | | r | Phone: | Fax: | | | | | implantable | [phone] | [phone] | | | | | cardioverter | Fax: | | | | | | -defibrillat | [phone] | | | | | | or in situ | | | | | | | Essential | | | | | | | hypertension | | | | | | | with goal | | | | | | | blood | | | | | | | pressure | | | | | | | less than | | | | | | | 130/80 | | | | | | | Coarctation | | | | | | | of the | | | | | | | aorta, | | | | | | | complex | | | | | | | Procedures | | | | | | | ECHO | | | | | | | Complete | | | + +--------+ + + + + Reason for Visit + + + | Reason | Comments | + + + | Follow-up | | + + + Encounter Details +--------+---------+ + + + | Date | Type | Department | Care Team | Description | +--------+---------+ + + + | 11/21/ | Office | [facility] | Pavan Prather, | Persistent atrial | | 2020 | Visit | CARDIOLOGY [place] | [address] | fibrillation (HCC) | | | | [address] | [place], [place] | (Primary Dx); | | | | [address] | [address] | Chronic combined | | | | [place] | | systolic and | | | | [address] | | diastolic heart | | | | [phone] | | failure (HCC); S/P | | | | | | aortic valve | | | | | | replacement; | | | | | | Biventricular | | | | | | implantable | | | | | | cardioverter-defibri | | | | | | llator in situ; | | | | | | Essential | | | | | | hypertension with | | | | | | goal blood pressure | | | | | | less than 130/80; | | | | | | Coarctation of the | | | | | | aorta, complex | +--------+---------+ + + + Social History [...] + + + | Blood Pressure | 160/90 | 11/22/2019 9:10 AM | | | | | PDT | | + + + + + | Pulse | 75 | 11/22/2019 9:10 AM | | | | | PDT | | + + + + + | Temperature | - | - | | + + + + + | Respiratory Rate | - | - | | + + + + + | Oxygen Saturation | 95% | 11/22/2019 9:10 AM | | | | | PDT | | + + + + + | Inhaled Oxygen | - | - | | | Concentration | | | | + + + + + | Weight | 93.4 kg (206 lb) | 11/22/2019 9:10 AM | | | | | PDT | | + + + + + | Height | 167.6 cm (5' 6") | 11/22/2019 9:10 AM | | | | | PDT | | + + + + + | Body Mass Index | 33.25 | 11/22/2019 9:10 AM | | | | | PDT | | + + + + + documented in this encounter Progress Notes Pavan Prather MD - 11/22/2019 9:00 AM PDTFormatting of this note might be different f rom the original. Date of visit: 11/22/2019 Primary Care Physician: Catracho Puente MD CHIEF COMPLAINT: Chief Complaint Patient presents with Follow-up HISTORY OF PRESENT ILLNESS: Roberto is 84 y.o. here for follow-up visit. Complex past medical history. Fair historian. History of bioprosthetic aortic valve replacement, history of cardiomyopathy with recovered systolic function and ICD implantation. Blood pressure has been elevated. Since prior evaluation has been in persistent atrial fib rillation. Continues to be on warfarin. Shortness of breath on modest exertion. Overall limited activity level. Using torsemide as needed. Been monitoring blood pressure at home has been controlled. Denies any palpitation, no dizziness and no syncopal episodes. No shocks from his ICD devic e. Patient has remote history of coarctation repair in 1976, aortic valve replacement in 2010, WALLPAPER PRINTER HELPER-D therapy implant in 2010. Previously was evaluated for weight gain after stopping furosemide caused photosensitivity. Past medical history, SH, FH, and medications were reviewed in the chart. Medications: Outpatient Encounter Medications as of 11/22/2019 Medication Sig Dispense Refill allopurinol (ZYLOPRIM) 300 mg tablet Take 300 mg by mouth daily. aspirin 81 MG EC tablet Take 81 mg by mouth daily with breakfast. atorvaSTATin (LIPITOR) 80 MG tablet Take 80 mg by mouth nightly. calcitriol (ROCALTROL) 0.25 mcg capsule TAKE 1 CAPSULE BY MOUTH DAILY 90 capsule 3 carvedilol (COREG) 25 mg tablet Take 1.5 tablets by mouth 2 times daily. 120 tablet 3 [DISCONTINUED] CARVEDILOL PO Take 25 mg by mouth 2 (two) times daily. digoxin (DIGOX) 125 mcg tablet Take 125 mcg by mouth daily. doxazosin (CARDURA) 1 mg tablet Take 4 mg by mouth nightly. fenofibrate (TRICOR) 145 mg tablet Take 1 tablet by mouth Daily. 90 tablet 2 finasteride (PROSCAR) 5 mg tablet Take 5 mg by mouth daily. glipiZIDE (GLUCOTROL XL) 2.5 mg 24 hr tablet Take 2.5 mg by mouth daily. (Patient rajiv north differently: Take 5 mg by mouth Daily.) ketoconazole (NIZORAL) 2% shampoo lisinopril (PRINIVIL,ZESTRIL) 40 MG tablet Take 1 tablet by mouth every evening. tamsulosin (FLOMAX) 0.4 mg CAPS Take 2 capsules by mouth After dinner. 180 capsule 3 warfarin (COUMADIN) 5 mg tablet Take 3 mg by mouth daily. 4mg Wednesday, Wednesday, and Wednesday. 3 mg Wednesday, Wednesday and wednesday No facility-administered encounter medications on file as of 11/22/2019. Allergies Allergies Allergen Reactions Furosemide Photosensitivity Hydrochlorothiazide Photosensitivity REVIEW OF SYSTEMS: Constitutional: positive mild fatigue. No fever, chills, and rigors. No report of weight c hange. HEENT: Negative for nosebleeds, ear discharge, nasal congestion or soar throat. Eyes: Wears glasses, redness, or secretion. Respiratory: Negative for cough, [...] or anxiety. PHYSICAL EXAM Vital Signs: BP 160/90 | Pulse 75 | Ht 1.676 m (5' 6") | Wt 93.4 kg (206 lb) | SpO2 95% | BMI 33.25 kg/m GENERAL APPEARANCE: Alert, oriented, cooperative, no [...] rash. Psych: Normal affect and mood. DATA 10/02/19 Uric acid 6.8, sodium 137, potassium 4.2, chloride 102, bicarb 23, BUN 39, creatinine 1.4, GFR 43. WBC 8.9, hemoglobin 15.4, platelets 277. 08/23/2019 WBC 8.1, hemoglobin 15.9, platelets 269, sodium 139, potassium 4.2, chloride 104, bicarb 25 , BUN 26, creatinine 1.21, GFR 58. AST 19, ALT 17, alk phos 111, hemoglobin A1c 5.1. 05/17/2019 BC 10.2, hemoglobin 15.0, platelets 248, sodium 138, potassium 4.3, chloride 105, bicarb 19 , BUN 27, creatinine 1.37, GFR 51. AST 22, ALT 20 alk phos 73, total cholesterol 104, triglycerides 72, HDL 49, LDL 40. Lab Results Component Value Date/Time NA 137 10/02/2019 NA 140 01/13/2019 10:06 AM NA 133 07/27/2018 12:00 AM K 4.2 10/02/2019 K 3.6 01/13/2019 10:06 AM K 4.7 07/27/2018 12:00 AM CO2 23 10/02/2019 CO2 24 01/13/2019 10:06 AM CO2 21 07/27/2018 12:00 AM BUN 39 (A) 10/02/2019 BUN 28 (A) 01/13/2019 10:06 AM BUN 38 (A) 07/27/2018 12:00 AM LABCREA 1.60 (A) 01/13/2019 10:06 AM LABCREA 1.49 (A) 07/27/2018 12:00 AM LABCREA 1.69 (A) 07/19/2018 12:00 AM CALCIUM 9.9 10/02/2019 CALCIUM 9.3 01/13/2019 10:06 AM CALCIUM 10.1 07/27/2018 12:00 AM MG 2.0 10/02/2019 MG 1.6 (A) 01/13/2019 10:06 AM MG 1.7 07/19/2018 12:00 AM Lab Results Component Value Date/Time WBC 7.4 01/13/2019 10:06 AM WBC 11.9 (A) 07/19/2018 12:00 AM WBC 8.9 02/02/2018 01:25 PM HGB 15.4 10/02/2019 HGB 13.2 (A) 01/13/2019 10:06 AM HGB 13.8 07/19/2018 12:00 AM HGB 13.2 (A) 02/02/2018 01:25 PM MCV 92.5 10/02/2019 MCV 90.0 01/13/2019 10:06 AM MCV 95.5 07/19/2018 12:00 AM Lab Results Component Value Date CHOL 118 06/15/2015 TRIG 84 06/15/2015 HDL 44 06/15/2015 GLUF 164 (A) 01/13/2019 GLUF 245 (A) 07/27/2018 TSH 1.41 05/06/2017 TSH 1.40 07/04/2015 EC11/22/2019 Ordered and reviewed by myself showed atrial fibrillation with intermittent ventricular pac ed rhythm. Baseline left bundle branch block. Last Echo 05/28/2018 Normal LV size and function EF 60-65%. Normal RV size and function. Normal functioning bioprosthetic aortic valve magna ease 25 mm. Mild TR with mild pulmonary hypertension. ([facility]), 06/11/2015: Normal LV size and Function, Borderline LVH, EF 60-65%., mild LAE, bio-AVR stable, no AI, p eak/mean gradients 36/17 mmHg, mild MR, mild TR, mild PI, Aortic root 42 mm, (-) bubble stud y. Last Stress test: Last Cath, 09/17/2010: Coronaries NML. Carotid US, 01/03/2016: Mild disease bilaterally, antegrade flow in both vertebral arteries. (16-49%). Hx CABG: no CABG, but AVR 11/05/2010. (#25 Magna-Ease) with LA isolation, Hx coarctation, repaired 1976 Hx Pacemaker/ICD: WALLPAPER PRINTER HELPER-D implanted 07/27/2011, BS N119, SN: [id number]. ASSESSMENT: Patient is 84 y.o. with: 1. Chronic diastolic HFpEF heart failure, patient is euvolemic at this time. No signs of co ngestive heart failure. 2. History of alcohol abuse. 3. Persistent atrial fibrillation. On warfarin that is monitored through Coumadin clinic. 4. Hypertension. 5. Valvular heart disease states post aortic valve replacement. 6. Obesity. Weight has been stable. 7. Chronic kidney disease stage III. 8. History of nonischemic cardiomyopathy states post WALLPAPER PRINTER HELPER therapy with improved EF. 9. WALLPAPER PRINTER HELPER therapy. 10. Hypertriglyceridemia. Improved with fenofibrate. Plan: Patient with complex past medical history. Blood pressure has been elevated. We will increase carvedilol to 37.5 mg twice daily. Continue with lisinopril 40 mg p.o. daily. We will consider bringing back amlodipine to his medical regimen. Continue to monitor edema and weight and patient can use torsemide 20 mg p.o. daily as need ed. Continues to be on lisinopril 40 mg and carvedilol 25 mg twice daily. Continues to be on warfarin without complication.. We will continue to monitor patient weight. Discussed with the patient to continue refraining from salt, and hopefully continue to adhe re to alcohol cessation. Continue to follow-up with electrophysiology. We [...] [place] | | | | | | [phone] | | | | | | | [...] [place] | | | | | [place] [id number] | | | | | | [phone] | | | | | | | | +--------+ + + + + + + +--------+ + + | Name | Type | Priori | Associated Diagnoses | Order Schedule | | | | ty | | | + + +--------+ + + | ECHO Complete | Echocardiog | Routin | S/P aortic valve | Expected: | | | kam | e | replacement | 11/22/2019, Expires: | | | | | Biventricular | 11/21/2020 | | | | | implantable | | | | | | cardioverter-defibri | | | | | | llator in situ | | | | | | Essential | | | | | | hypertension with | | | | | | goal blood pressure | | | | | | less than 130/80 | | | | | | Coarctation of the | | | | | | aorta, complex | | + + +--------+ + + documented as of this encounter Procedures + +--------+ + + + | Procedure Name | Priori | Date/Time | Associated Diagnosis | Comments | | | ty | | | | + +--------+ + + + | ECG 12 LEAD | Routin | 11/22/2019 | Persistent atrial | Results for this | | | e | 9:28 AM | fibrillation (HCC) | procedure are in the | | | | PDT | | results section. | + +--------+ + + + documented in this encounter Results ECG 12 lead (11/22/2019 9:28 AM PDT) + + + + + + | Component | Value | Ref Range | Performed | Pathologist | | | | | At | Signature | + + + + + + | VENTRICULAR | 64 | BPM | [facility] | | | RATE EKG | | | | | + + + + + + | ATRIAL RATE | 58 | BPM | [facility] | | + + + + + + | QRS | 148 | ms | [facility] | | | DURATION | | | | | + + + + + + | Q-T | 426 | ms | [facility] | | | INTERVAL | | | | | + + + + + + | Q-T | 439 | ms | [facility] | | | INTERVAL | | | | | | (CORRECTED) | | | | | + + + + + + | QRS AXIS | -47 | degrees | [facility] | | + + + + + + | T AXIS | 167 | degrees | [facility] | | + + + + + + | INTERPRETAT | Atrial fibrillation with | | [facility] | | | ION TEXT | frequent | | | | | | ventricular-paced | | | | | | complexesLeft axis | | | | | | deviationNon-specific | | | | | | intra-ventricular | | | | | | conduction blockAbnormal | | | | | | ECG Confirmed by | | | | | | Pavan Prather MD | | | | | | [id number]) on 11/22/2019 | | | | | | 4:05:55 PM | | | | + + + + + + + + | Specimen | + + | | + + + + + | Narrative | Performed At | + + + | | | + + + + +---------+ + + | Performing | Address | City/State/Zipcode | Phone Number | | Organization | | | | + +---------+ + + | [facility] | | | | + +---------+ + + documented in this encounter Visit Diagnoses + + | Diagnosis | + + | Persistent atrial fibrillation (HCC) - Primary Atrial fibrillation | + + | Chronic combined systolic and diastolic heart failure (HCC) Chronic combined systolic | | and diastolic heart failure | + + | S/P aortic valve replacement Heart valve replaced by other means | + + | Biventricular implantable cardioverter-defibrillator in situ | + + | Essential hypertension with goal blood pressure less than 130/80 | + + | Coarctation of the aorta, complex Coarctation of aorta (preductal) (postductal) | + + documented in this encounter
--- OUTSIDE RECORDS SUMMARY | ~2020-05-13 | XMS | Encounter Summary ---
Demographics + + + | Address | [address] | | | [place] [address] | + + + | Home Phone | | + + + | Preferred Language | Unknown | + + + | Marital Status | | + + + | Holiness Affiliation | Unknown | + + + | Race | White | + + + | Ethnic Group | Not or | + + + Author + + + | Author | [facility] | | | and [place] | + + + | Organization | [facility] | | [...] [place], [place] | | | | | [address] | | + + + + + | Angelita Godoy | ECON | Unknown | | + + + + + Care Team Providers + +------+ + | Care Underground Distribution Engineer Name | Role | Phone | + +------+ + | Catracho Puente | PCP | | | MD | | | + +------+ + Encounter Details +--------+ + + + + | Date | Type | Department | Care Team | Description | +--------+ + + + + | 05/06/ | Orders Only | [facility] | Vicky Farah | | | 2017 | | CARDIOLOGY GET | [address] | | | | | [address] | [address] | | | | | [place], [place] | [place] [address] | | | | | [address] | [phone] | | | | | [phone] | | | +--------+ + + + [...] [address] | | | | | | [address] | | | | | | | [...] | | | | | | [place] [address] | | | | | | [phone] | | | | | | | | +--------+ + + + + documented as of this encounter Procedures + +--------+ + + + | Procedure Name | Priori | Date/Time | Associated Diagnosis | Comments | | | ty | | | | + +--------+ + + + | T3, TOTAL | Routin | 05/06/2017 | | Results for this | | | e | 1:20 PM | | procedure are in the | | | | PDT | | results section. | + +--------+ + + + | TSH | Routin | 05/06/2017 | | Results for this | | | e | 1:20 PM | | procedure are in the | | | | PDT | | results section. | + +--------+ + + + | T4, FREE | Routin | 05/06/2017 | | Results for this | | | e | 1:20 PM | | procedure are in the | | | | PDT | | results section. | + +--------+ + + + | DIGOXIN LEVEL | Routin | 05/06/2017 | | Results for this | | | e | 1:20 PM | | procedure are in the | | | | PDT | | results section. | + +--------+ + + + | COMPREHENSIVE | Routin | 05/06/2017 | | Results for this | | METABOLIC PANEL | e | 1:20 PM | | procedure are in the | | | | PDT | | results section. | + +--------+ + + + documented in this encounter Results T3 (05/06/2017 1:20 PM PDT) + +-------+ + + + | Component | Value | Ref Range | Performed | Pathologist | | | | | At | Signature | + +-------+ + + + | T3, Total | 96.43 | 80 - 200 | EXTERNAL | | | | | [...] | | | + +---------+ + + TSH (05/06/2017 1:20 PM PDT) + +-------+ + + + | Component | Value | Ref Range | Performed | Pathologist | | | | | At | Signature | + +-------+ + + + | TSH | 1.41 | 0.270 - 4.20 | EXTERNAL | | | | | uIU/mL | LAB | | + +-------+ + + + + + | Specimen | + + | Blood specimen | | (specimen) | + + + +---------+ + + | Performing | Address | City/State/Zipcode | Phone Number | | Organization | | | | + +---------+ + + | EXTERNAL LAB | | | | + +---------+ + + T4, Free (05/06/2017 1:20 PM PDT) + +-------+ + + + | Component | Value | Ref Range | Performed | Pathologist | | | | | At | Signature | + +-------+ + + + | FREE T4 | 1.42 | 0.71 - 1.7 | EXTERNAL | | | (REF) | | | LAB | | + +-------+ + + + + + | Specimen | + + | Blood specimen | | (specimen) | + + + +---------+ + + | Performing | Address | City/State/Zipcode | Phone Number | | Organization | | | | + +---------+ + + | EXTERNAL LAB | | | | + +---------+ + + Digoxin Level (05/06/2017 1:20 PM PDT) + + + + + + | Component | Value | Ref Range | Performed | Pathologist | | | | | At | Signature | + + + + + + | Digoxin | 1.09Comment: 7 hrs since | 0.8 - 2.0 | EXTERNAL | | | level | last dose | | LAB | | + + [...] + +---------+ + + Comprehensive Metabolic Panel (05/06/2017 1:20 PM PDT) + + + + + + | Component | Value | Ref Range | Performed | Pathologist | | | | | At | Signature | + + + + + + | Glucose, | 106 (A) | 70 - 100 mg/dL | EXTERNAL | | | Fasting | | | LAB | | + + + + + + | BUN | 29 (A) | 6 - 23 mg/dL | EXTERNAL | | | | | | LAB | | + + + + + + | Creatinine | 1.76 (A) | 0.70 - 1.18 | EXTERNAL | | | | | mg/dL | LAB | | + + + + + + | BUN/Creatin | 16.5 | 6.0 - 28.6 | EXTERNAL | | | ine Ratio | | | LAB | | + + + + + + | Calcium | 9.8 | 8.4 - 10.2 | EXTERNAL | | | | | mg/dL | LAB | | + + + + + + | Protein, | 7.2 | 6.0 - 8.0 g/dL | EXTERNAL | | | Total | | | LAB | | + + + + + + | Albumin | 4.1 | 3.5 - 5.0 | EXTERNAL | | | | | | LAB | | + + + + + + | Globulin | 3.1 | 1.8 - 3.5 | EXTERNAL | | | | | | LAB | | + + + + + + | A/G Ratio | 1.3 | 1.1 - 2.4 | EXTERNAL | | | | | | LAB | | + + + + + + | Bilirubin | 0.6 | 0.0 - 1.2 mg/dL | EXTERNAL | | | Total | | | LAB | | + + + + + + | ALP, | 124 (A) | 31 - 120 | EXTERNAL | | | External | | | LAB | | + + + + + + | ALT | 69 (A) | 7 - 52 U/L | EXTERNAL | | | | | | LAB | | + + + + + + | AST | 56 (A) | 13 - 39 U/L | EXTERNAL | | | | | | LAB | | + + + + + + | Na | 138 | 132 - 143 | EXTERNAL | | | | | mmol/L | LAB | | + + + + + + | K | 4.8 | 3.6 - 5.1 | EXTERNAL | | | | | mmol/L | LAB | | + + + + + + | Cl | 103 | 95 - 112 mmol/L | EXTERNAL | | | | | | LAB | | + + + + + + | CO2 | 22 | 19 - 31 mmol/L | EXTERNAL | | | | | | LAB | | + + + + + + | Anion Gap | 17.8 | 7 - 21 mmol/L | EXTERNAL | | | | | | LAB | | + + + + + + | Estimated | 38 (A) | 60 mg/dL | EXTERNAL | [...]
--- OUTSIDE RECORDS SUMMARY | ~2020-05-13 | XMS | Encounter Summary ---
Demographics + + + | Address | [address] | | | [place] [address] | + + + | Home Phone | | + + + | Preferred Language | Unknown | + + + | Marital Status | | + + + | Christianity Affiliation | Unknown | + + + | Race | White | + + + | Ethnic Group | Not or | + + + Author + + + | Author | [facility] | | | and [place] | + + + | Organization | [facility] | | [...] [place], [place] | | | | | [address] | | + + + + + | Angelita Godoy | ECON | Unknown | | + + + + + Care Team Providers + +------+ + | Care Outside Maintenance Worker Name | Role | Phone | + +------+ + | Catracho Puente | PCP | | | MD | | | + +------+ + Encounter Details +--------+ + + + + | Date | Type | Department | Care Team | Description | +--------+ + + + + | 07/19/ | Orders Only | [facility] | Johnnie Jones, | | | 2017 | | NEPRHOLOGY [place] | DIRECTOR [address] | | | | | [address] | [address] [place] | | | | | [address] [place], [place] | [place] | | | | | [address] | [address] | | | | | [phone] | | | | | | | [...] | | | | | [address] [place] | | | | | | [address] | | | | | | | [...] | | | | | | [place] [address] | | | | | | [phone] | | | | | | | | +--------+ + + + + documented as of this encounter Procedures + +--------+ + + + | Procedure Name | Priori | Date/Time | Associated Diagnosis | Comments | | | ty | | | | + +--------+ + + + | EXTERNAL LAB: [facility] | Routin | 07/19/2018 | | Results for this | | | e | 12:00 AM | | procedure are in the | | | | PST | | results section. | + +--------+ + + + | URINALYSIS WITH | Routin | 07/19/2018 | | Results for this | | MICROSCOPIC IF | e | 12:00 AM | | procedure are in the | | INDICATED | | PST | | results section. | + +--------+ + + + | VITAMIN D, | Routin | 07/19/2018 | | Results for this | | DEFICIENCY SCREEN | e | 12:00 AM | | procedure are in the | | (25-HYDROXY) | | PST | | results section. | + +--------+ + + + | PROTEIN/CREATININE | Routin | 07/19/2018 | | Results for this | | RATIO, URINE | e | 12:00 AM | | procedure are in the | | | | PST | | results section. | + +--------+ + + + | URIC ACID | Routin | 07/19/2018 | | Results for this | | | e | 12:00 AM | | procedure are in the | | | | PST | | results section. | + +--------+ + + + | PARATHYROID HORMONE, | Routin | 07/19/2018 | | Results for this | | INTACT | e | 12:00 AM | | procedure are in the | | | | PST | | results section. | + +--------+ + + + | MAGNESIUM | Routin | 07/19/2018 | | Results for this | | | e | 12:00 AM | | procedure are in the | | | | PST | | results section. | + +--------+ + + + | RENAL FUNCTION PANEL | Routin | 07/19/2018 | | Results for this | | | e | 12:00 AM | | procedure are in the | | | | PST | | results section. | + +--------+ + + + documented in this encounter Results Protein/Creatinine Ratio, Urine (07/19/2018 12:00 AM PST) + +-------+ + + + | Component | Value | Ref Range | Performed | Pathologist | | | | | At | Signature | + +-------+ + + + | Protein/Cre | | | EXTERNAL | | | at Ratio | | | LAB | | + +-------+ + + + + + | Specimen | + + | Urine specimen | | (specimen) | + + + + + | Narrative | Performed At | + + + | NOT PERFORMED | EXTERNAL LAB | + + + + +---------+ + + | Performing | Address | City/State/Zipcode | Phone Number | | Organization | | | | + +---------+ + + | EXTERNAL LAB | | | | + +---------+ + + Vitamin D, Deficiency Screen (25-Hydroxy) (07/19/2018 12:00 AM PST) + +--------+ + + + | Component | Value | Ref Range | Performed | Pathologist | | | | | At | Signature | + +--------+ + + + | Vit D, | 24 (A) | 30 - 100 | EXTERNAL | [...] + + Urinalysis with Microscopic if Indicated (07/19/2018 12:00 AM PST) + + + + + + | Component | Value | Ref Range | Performed | Pathologist | | | | | At | Signature | + + + + + + | Color | Comment: STRAW | | EXTERNAL | | | | | | LAB | | + + + + + + | Clarity, | Clear | | EXTERNAL | | | Urine | | | LAB | | + + + + + + | Spec Grav, | 1.008 | 1.005 - 1.030 | EXTERNAL | [...] + + + + | Total | negative | | EXTERNAL | | | Protein | | | LAB | | + + + + + + | pH, Urine | 5 | 5 - 9 | EXTERNAL | | | | | | LAB | | + + + + + + | Blood, | Comment: moderate | | EXTERNAL | | | Urine | | | LAB | | + + + + + + | Ketones | negative | | EXTERNAL | | | | [...] + +---------+ + + External Lab: CBC (07/19/2018 12:00 AM PST) + + + + + + | Component | Value | Ref Range | Performed | Pathologist | | | | | At | Signature | + + + + + + | WBC | 11.9 (A) | 4.5 - 11 10 | EXTERNAL | | | | | | LAB | | + + + + + + | Non- | 4.36 | 4.3 - 5.7 10 | EXTERNAL | | | Red Blood | | | LAB | | | Cells | | | | | | Counted | | | | | + + + + + + | Hemoglobin | 13.8 | 13.5 - 18 g/dL | EXTERNAL | | | | | | LAB | | + + + + + + | Hematocrit, | 41.6 | 41 - 50 % | EXTERNAL | | | POC | | | LAB | | + + + + + + | MCV | 95.5 | 81 - 99 fL | EXTERNAL | | | | | | LAB | | + + + + + + | MCH | 32 | 27 - 33 pg | EXTERNAL | | | | | | LAB | | + + + + + + | MCHC | 33 | 30 - 36 g/dL | EXTERNAL | | | | | | LAB | | + + + + + + | Platelet | 286 | 140 - 440 K/ L | EXTERNAL | | | Count | | | LAB | | | Plasma | | | | | + + + + + + | RDW-CV | 13.8 | 10.5 - 15 % | EXTERNAL | | | | [...] + + + + | % | | % | EXTERNAL | | | Lymphocytes | | | LAB | | + + + + + + | % Monocytes | | % | EXTERNAL | | | | | | LAB | | + + + + + + | % | | [...] | + +---------+ + + Uric Acid (07/19/2018 12:00 AM PST) + +-------+ + + [...] + +---------+ + + Parathyroid Hormone, Intact (07/19/2018 12:00 AM PST) + + + + + + | Component | Value | Ref Range | Performed | Pathologist | | | | | At | Signature | + + + + + + | PTH INTACT | 76.66 (A) | 15 - 65 pg/mL | [...] | | + +---------+ + + Magnesium (07/19/2018 12:00 AM PST) + +-------+ + + + | Component | Value | Ref Range | Performed | Pathologist | | | | | At | Signature | + +-------+ + + + | Magnesium | 1.7 | 1.7 - 2.5 mg/dL | EXTERNAL [...] + +---------+ + + Renal Function Panel (07/19/2018 12:00 AM PST) + + + + + + | Component | Value | Ref Range | Performed | Pathologist | | | | | At | Signature | + + + + + + | Glucose, | 292 (A) | 70 - 100 mg/dL | EXTERNAL | | | Fasting | | | LAB | | + + + + + + | BUN | 37 (A) | 6 - 23 mg/dL | EXTERNAL | | | | | | LAB | | + + + + + + | Creatinine | 1.69 (A) | 0.70 - 1.11 | EXTERNAL | | | | | mg/dL | LAB | | + + + + + + | PHOSPHORUS | 2.4 (A) | 2.5 - 5.0 mg/dL | EXTERNAL | | | | | | LAB | | + + + + + + | Albumin | 4.0 | 3.5 - 5.0 | EXTERNAL | | | | | | LAB | | + + + + + + | Na | 132 | 132 - 143 | EXTERNAL | | | | | mmol/L | LAB | | + + + + + + | K | 5.5 (A) | 3.6 - 5.1 | EXTERNAL | | | | | mmol/L | LAB | | + + + + + + | Cl | 98 | 95 - 112 mmol/L | EXTERNAL | | | | | | LAB | | + + + + + + | CO2 | 21 | 19 - 31 mmol/L | EXTERNAL | | | | | | LAB | | + + + + + + | Anion Gap | 18.5 | 7 - 21 mmol/L | EXTERNAL | | | | | | LAB | | + + + + + + | eGFR, | | | EXTERNAL | | | non- | | | LAB | | | [place] | | | | | + + + + + + | Phosphorus, | | | EXTERNAL | | | Inorganic | | | LAB | | + + + + + + | BUN/Creatin | 21.9 | 6 - 28.6 | EXTERNAL | | | ine Ratio | | | LAB | | + + + + + + | Calcium | 9.9 | 8.5 - 10.3 | EXTERNAL | [...]
--- OUTSIDE RECORDS SUMMARY | ~2020-05-13 | XMS | Clinical Summary ---
Demographics + + + | Address | [address] | | | [place] [address] | + + + | Home Phone | | + + + | Preferred Language | Unknown | + + + | Marital Status | | + + + | Druze Affiliation | Unknown | + + + | Race | White | + + + | Ethnic Group | Not or | + + + Author + + + | Author | [facility] | | | and [place] | + + + | Organization | [facility] | | | [...] [place], [place] | | | | | [address] | | + + + + + | Angelita Godoy | ECON | Unknown | | + + + + + Care Team Providers + +------+ + | Care Embedder Name | Role | Phone | + +------+ + | Catracho Puente | PCP | | | MD | | | + +------+ + Allergies + + + + + + | Active Allergy | Reactions | Severity | Noted | Comments | | | | | Date | | + + + + + + | Furosemide | Photosensitivity | Medium | 11/25/19 | | | | | | 18 | | + + + + + + | Hydrochlorothiazide | Photosensitivity | Medium | 04/12/20 | | | | | | 17 | | + + + + + + Medications + + + +---------+------+------+-------+ | Medication | Sig | Dispensed | Refills | Star | End | Statu | | | | | | t | Date | s | | | | | | Date | | | + + + +---------+------+------+-------+ | allopurinol | Take 300 mg by mouth | | 0 | 01/0 | | Activ | | (ZYLOPRIM) 300 mg | daily. | | | 04/01 | | e | | tablet | | | | 13 | | | + + + +---------+------+------+-------+ | aspirin 81 MG EC | Take 81 mg by mouth | | 0 | 10/2 | | Activ | | tablet | daily with | | | 20 | | e | | | breakfast. | | | 15 | | | + + + +---------+------+------+-------+ | warfarin | Take 3 mg by mouth | | 0 | 10/2 | | Activ | | (COUMADIN) 5 mg | daily. 4mg Wednesday, | | | 20 | | e | | tablet | Wednesday, | | | 15 | | | | | and Wednesday. 3 mg | | | | | | | | Wednesday, Wednesday | | | | | | | | and wednesday | | | | | | + + + +---------+------+------+-------+ | finasteride | Take 5 mg by mouth | | 0 | 10/0 | | Activ | | (PROSCAR) 5 mg | daily. | | | 2/20 | | e | | tablet | | | | 17 | | | + + + +---------+------+------+-------+ | glipiZIDE | Take 2.5 mg by mouth | | 0 | 05/1 | | Activ | | (GLUCOTROL XL) 2.5 | daily. | | | 0/20 | | e | | mg 24 hr tablet | | | | 19 | | | + + + +---------+------+------+-------+ | tamsulosin | Take 2 capsules by | 180 | 3 | 05/1 | | Activ | | (FLOMAX) 0.4 mg CAPS | mouth After dinner. | capsule | | 0/20 | | e | | | | | | 19 | | | + + + +---------+------+------+-------+ | lisinopril | Take 1 tablet by | | 0 | 06/1 | | Activ | | (PRINIVIL,ZESTRIL) | mouth every evening. | | | 8/20 | | e | | 40 MG tablet | | | | 19 | | | + + + +---------+------+------+-------+ | atorvaSTATin | Take 80 mg by mouth | | 0 | | | Activ | | (LIPITOR) 80 MG | nightly. | | | | | e | | tablet | | | | | | | + + + +---------+------+------+-------+ | doxazosin | Take 4 mg by mouth | | 0 | | | Activ | | (CARDURA) 1 mg | nightly. | | | | | e | | tablet | | | | | | | + + + +---------+------+------+-------+ | calcitriol | TAKE 1 CAPSULE BY | 90 | 3 | 02/0 | | Activ | | (ROCALTROL) 0.25 mcg | MOUTH DAILY | capsule | | 3/20 | | e | | capsule | | | | 20 | | | + + + +---------+------+------+-------+ | ketoconazole | | | 0 | 03/0 | | Activ | | (NIZORAL) 2% shampoo | | | | 4/20 | | e | | | | | | 20 | | | + + + +---------+------+------+-------+ | fenofibrate | Take 1 tablet by | 90 | 3 | 02/11 | 02/11 | Activ | | (TRICOR) 145 mg | mouth Daily. | tablet | | 10/02 | 10/02 | e | | tablet | | | | 20 | 21 | | + + + +---------+------+------+-------+ | carvedilol (COREG) | Take 2 tablets by | 360 | 3 | / | | Activ | | 25 mg tablet | mouth 2 times daily. | tablet | | 7/20 | | e | | | | | | 20 | | | + + + +---------+------+------+-------+ | digoxin (DIGOX) | Take 1 tablet by | 75 | 11 | 08 | | Activ | | 125 mcg tablet | mouth Four times a | tablet | | 8/20 | | e | | | week. | | | 20 | | | + + + +---------+------+------+-------+ | digoxin (DIGOX) | Take 125 mcg by | | 0 | 01/0 | 04/13 | Disco | | 125 mcg tablet | mouth daily. | | | 04/01 | 04/01 | ntinu | | | | | | 13 | 20 | ed | | | | | | | | (Reor | | | | | | | | raven | | | | | | | | (no | | | | | | | | Cance | | | | | | | | l Rx | | | | | | | | msg)) | + + + +---------+------+------+-------+ | carvedilol (COREG) | Take 1.5 tablets by | 120 | 3 | 11/11 | 04/13 | Disco | | 25 mg tablet | mouth 2 times daily. | tablet | | 10/02 | 04/01 | ntinu | | | | | | 20 | 20 | ed | | | | | | | | (Reor | | | | | | | | raven | | | | | | | | (no | | | | | | | | Cance | | | | | | | | l Rx | | | | | | | | msg)) | + + + +---------+------+------+-------+ | isosorbide | | | 0 | 04/13 | 04/13 | Disco | | mononitrate (IMDUR) | | | | 11/30 | 04/01 | ntinu | | 30 mg ER tablet | | | | 20 | 20 | ed | | | | | | | | (Alte | | | | | | | | rnate | | | | | | | | | | | | | | | | thera | | | | | | | | py) | + + + +---------+------+------+-------+ Active Problems + + + | Problem | Noted Date | + + + | Chronic combined systolic and diastolic heart failure | 06/13/2019 | + + + | Type 2 diabetes mellitus with diabetic nephropathy, without | 03/05/2019 | | long-term current use of insulin | | + + + + + | Overview: | + + + + + | Mild pulmonary hypertension | 03/05/2019 | + + + + + | Overview: The estimated RV systolic pressure was 45 mmHg on a | | recent echo. There was normal LV systolic function and mild TR. | + + + + + | Coarctation of the aorta, complex | 02/28/2019 | + + + + + | Overview: Coarct repair in 1976. Had significant | | hypertension before then and has been much better since. Had a | | aortic valve replacement 8 years ago, presumably because of | | bicuspid aortic valve | + + + + + | High serum parathyroid hormone (PTH) | 02/09/2018 | + + + | Urinary hesitancy | 10/12/2016 | + + + | Presence of automatic implantable cardioverter-defibrillator | 01/22/2016 | + + + + + | Overview: [employer] - ICD. | | Model-S/N: N119 TRICIA [id number] | + + + + + | Bilateral carotid artery disease | 06/17/2015 | + + + | Stroke | 06/14/2015 | + + + | Biventricular implantable cardioverter-defibrillator in situ | 05/17/2014 | + + + + + | Overview: A [employer] defibrillator was placed by | | Dr. Damon on July 27, 2011 for uncertain reasons, | | presumably cardiomyopathy. His LV systolic function has | | normalized. 02/28/2019: Normal device function was seen today. | | The underlying rhythm was atrial fibrillation which is new since | | December 2018. The burden has increased to 30% since last | | evaluation the pacing threshold in the RV was 0.8 V at 0.5 ms and | | R waves were 22 mV. In the LV the threshold was 0.5 V at 0.5 ms | | and R waves were 1.5 mV. P waves were 2.5 mV. There have been | | episodes of nonsustained VT lasting for up to 14 beats with a | | ventricular response of up to 180 bpm. He has never received a | | defibrillator shocks since implant. Pacing has occurred 99% of | | the time in the LV and 97% of the time in the RV and 35% of the | | time in the RA. 10/19/2019:Normal device function was seen today. | | He has been in atrial fibrillation for the last 4 months so the | | mode was changed from DDDR to VVIR with a lower rate of 60 bpm. | | Pacing has occurred in the left ventricle 99% of the time and in | | the right ventricle 76% of the time. The pacing threshold was | | 0.7 V at 0.5 ms in the right ventricle and 0.6 V at 0.5 ms in the | | left ventricle. There have been no arrhythmias other than A. | | fib. The rates have been controlled. Outputs were adjusted | | appropriately, based upon pacing thresholds. The output in the | | right ventricle and left ventricle was changed to 1.5 V at 0.6 | | ms.04/29/2020:Normal device function was seen today. The | | underlying rhythm is atrial fibrillation and ventricular pacing | | is only occurred 46% of the time with a lower rate of 60 bpm. | | The lower rate limit was increased to 70 bpm. The pacing | | threshold was 0.7 V at 0.6 ms in the ventricle and R waves are | | greater than 25 mV. The threshold for pacing in the left | | ventricle was 0.5 V at 0.6 ms and R waves were 13.6 mV. | | Appropriate device function was seen. There were 2 episodes of | | nonsustained VT which may have been rapid A. fib, lasting for | | only 5 beats. | + + + + + | Vitamin D deficiency | 03/27/2013 | + + + | Stage 3 chronic kidney disease | 09/19/2012 | + + + + + | Overview: He has seen Dr. Tatum . | + + + + + | Essential hypertension with goal blood pressure less than 130/80 | 09/19/2012 | + + + + + | Overview: History of coarct repair. Chronic hypertension, | | borderline controlled on medicines. Weight loss was strongly | | encouraged. Imdur was started recently by his primary care | | physician because of elevated blood pressure. I discussed the | | case with Dr. Pham. Will go ahead and stop Imdur and | | increase carvedilol to 50 mg twice daily for now. Continue to | | follow up the blood pressure closely. Consider hydralazine if | | additional treatment needed. | + + + + + | S/P aortic valve replacement | 09/19/2012 | + + + + + | Overview: For severe aortic stenosis | | | | had an aortic valve replacement with a porcine prosthesis in 2010 | | (#25 tommie montgomery). | + + + + + | Persistent atrial fibrillation | 09/19/2012 | + + + + + | Overview: He has had frequent episodes of atrial fibrillation | | (41 days out of the past year) and he is anticoagulated with | | warfarin. Asymptomatic with the A. fib. The rate is controlled | | with carvedilol 25 mg twice daily and digoxin 0.125 mg/day. I | | recommended decreasing digoxin to 4 days a week because of his | | renal dysfunction and age. Continue other therapy. A rate | | control strategy is reasonable, given lack of symptoms. Chads 2 | | vascular score is 4.10/19/2019:Continue current therapy. Pacing | | mode changed to VVIR.04/29/2020:He remains in A. fib which is now | | longstanding persistent A. fib. The rate control is probably | | suboptimal. Carvedilol will be increased to 50 mg twice per day | | and digoxin will be continued 0.125 mg 4 days/week. Consider and | | AV node ablation in the future needed. He is anticoagulated | | with warfarin. Have recommended checking protimes at least every | | month. He is doing it every couple of months. | + + + + + | Mixed dyslipidemia | 09/19/2012 | + + + | Idiopathic chronic gout of multiple sites without tophus | 09/19/2012 | + + + | Impotence | 09/19/2012 | + + + Encounters +--------+ + + + + | Date | Type | Specialty | Care Team | Description | +--------+ + + + + | 04/29/ | Procedure | Cardiology | | Biventricular | | 2019 | visit | | | implantable | | | | | | cardioverter-defibri | | | | | | llator in situ; | | | | | | Chronic combined | | | | | | systolic and | | | | | | diastolic heart | | | | | | failure (HCC); | | | | | | Presence of | | | | | | automatic | | | | | | implantable | | | | | | cardioverter-defibri | | | | | | llator | +--------+ + + + + | 04/29/ | Office | Cardiology | Nicolas Roblero, | Biventricular | | 2019 | Visit | | MD | implantable | | | | | [...] | | | | | fibrillation | +--------+ + + + + | 02/21/ | Refill | Cardiology | Pavan Pham, | Medication Refill | | 2020 | | | MD | (Fenofibrate) | +--------+ + + + + from Last 3 Months Family History + + +------+ + | Medical History | Relation | Name | Comments | + + +------+ + | Heart disease | Father | | | + + +------+ + | Cancer | Mother | | | + + +------+ + + +------+ + + | Relation | Name | Status | Comments | + +------+ + + | Father | | | COPD (smoker), heart disease | | | | (Age | | | | | 74) | | + +------+ + + | Father | | | | + +------+ + + | Mother | | | lung cancer (smoker) | | | | (Age | | | | | 59) | | + +------+ + + | Mother | | | | + +------+ + + Social History + +-------+ +--------+------+ [...] on file | | + + + Last Filed Vital Signs + + + [...] + + + | Respiratory Rate | 18 | 11/30/2018 9:15 AM | | | | | PDT [...] | | + + + + + Plan of Treatment +--------+ + + + + | Date | Type | Specialty | Care Team | Description | +--------+ + + + + | 05/29/ | Office | Cardiology | Pavan Pham, | | | 2019 | Visit | | MD Taylor [facility] | | | | | | [place], [place] | | | | | | [address] | | | | | | | [...] | | | | | | [place] [address] | | | | | | [phone] | | | | | | | | +--------+ + + + + + + + + + | Health Maintenance | Due Date | Last | Comments | | | | Done | | + + + + + | Medication | | | | | Management | 7 | | | + + + + + | Diabetic Eye Exam | | | | | | 5 | | | + + + + + | Diabetic Foot Exam | | | | | | 5 | | | + + + + + | Vaccine: | | | | | Dtap/Tdap/Td (1 - | 6 | | | | Tdap) | | | | + + + + + | Vaccine: Zoster (1 | | | | | of 2) | 7 | | | + + + + + | Vaccine: | | | | | Pneumococcal 65+ (1 | 2 | | | | of 1 - PPSV23) | | | | + + + + + | Med Mgmt: INR | | 06/17/20 | | | | 5 | 15, | | | | | 06/16/20 | | | | | 15, | | | | | 06/15/20 | | | | | 15 | | + + + + + | Hemoglobin A1c | | 06/15/20 | | | Screening | 6 | 15 | | + + + + + | Med Mgmt: HBA1C | | 06/15/20 | | | | 6 | 15 | | + + + + + | Adult Annual | | | | | Wellness Visit | 9 | | | + + + + + | Med Mgmt: Ca | | 07/27/20 | | | | 9 | 18, | | | | | 05/06/20 | | | | | 17, | | | | | 03/15/20 | | | | | 17, | | | | | Addition | | | | | al | | | | | history | | | | | exists | | + + + + + | Vaccine: Influenza | | | | | (#1) | 0 | | | + + + + + | Med Mgmt: Cr | | 10/02/19 | | | | 1 | 20, | | | | | 01/14/20 | | | | | 19, | | | | | 07/27/20 | | | | | 18, | | | | | Addition | | | | | al | | | | | history | | | | | exists | | + + + + + | Med Mgmt: K | | 10/02/19 | | | | 1 | 20, | | | | | 01/14/20 | | | | | 19, | | | | | 07/27/20 | | | | | 18, | | | | | Addition | | | | | al | | | | | history | | | | | exists | | + + + + + | Med Mgmt: Mg | | 10/02/19 | | | | 1 | 20, | | | | | 01/14/20 | | | | | 19, | | | | | 07/19/20 | | | | | 18, | | | | | Addition | | | | | al | | | | | history | | | | | exists | | + + + + + | Med Mgmt: Uric Acid | | 10/02/19 | | | | 1 | 20, | | | | | 01/14/20 | | | | | 19, | | | | | 07/19/20 | | | | | 18, | | | | | Addition | | | | | al | | | | | history | | | | | exists | | + + + + + | Med Mgmt: eGFR | | 10/02/19 | | | | 1 | 20, | | | | | 01/14/20 | | | | | 19, | | | | | 07/27/20 | | | | | 18, | | | | | Addition | | | | | al | | | | | history | | | | | exists | | + + + + + | Med Mgmt: ECG | | 11/22/19 | | | | 1 | 20, | | | | | 05/25/20 | | | | | 18, | | | | | 04/12/20 | | | | | 17 | | + + + + + Procedures + +--------+ + + + | [...] | | + +--------+ + + + from Last 3 Months Results Device Interrogation (04/29/2020 12:00 AM PDT) [...] encounter. Tech: | | | Stanton Wheeler [facility]. | | | | | |Device data attached to scheduled encounter. | | | | | |Tech: Stanton Wheeler [facility]. | | + + + + + | Procedure Note | + + | Jacob Wheeler, Technologist - 04/29/2020 10:00 AM PDT | | ICD Device interrogation done by Nicolas Modi MD, EP | | | | Any events or changes listed in office note. | | | | Device data attached to scheduled encounter. | | | | [facility]. | + + + +---------+ + + | Performing | Address | City/State/Zipcode | Phone Number | | Organization | | | | + +---------+ + + | [facility] | | | | + +---------+ + + from Last 3 Months Insurance + +--------+ +--------+ +---------+--------+ | Payer | Benefi | Subscriber | Effect | Phone | Address | Type | | | t Plan | ID | josephine | | | | | | / | | Dates | | | | | | Group | | | | | | + +--------+ +--------+ +---------+--------+ | MEDICARE | MEDICA | [id number] | | [phone] | | Medica | | | RE | | 002-Pr | 5 | | re | | | PART A | | esent | | | | | | AND B | | | | | | + +--------+ +--------+ +---------+--------+ | AARP | AARP | [id number] | 09/13/19 | [phone] | | Indemn | | | MDCR | | 19-Pre | 0 | | ity | | | SUPPL | | sent | | | | + +--------+ +--------+ +---------+--------+ + +--------+ +--------+ + + | Guarantor Name | Accoun | Relation to | Date | Phone | Billing Address | | | t Type | Patient | of | | | | | | | | | | + +--------+ +--------+ + + | Roberto Salcedo | Person | Self [birth year] | [address] | | | al/Fam | | 1935 | [phone] | [place] | | | filipe | | | [address] (Home) | [address] | + +--------+ +--------+ + + Advance Directives + + + + + | Type | Date Recorded | Patient | Explanation | | | | Renewals Representative | | + + + + + | Power of | | | | | Technologist Development | | | | + + + + + | Advance | | | | | Directive | | | | + + + + +
--- OUTSIDE RECORDS SUMMARY | ~2020-05-13 | XMS | Encounter Summary ---
Demographics + + + | Address | [address] | | | [place] [address] | + + + | Home Phone [...] + + + | Author | [facility] | | | and [place] | + + + | Organization | [facility] | | | [...] [place], [place] | | | | | [address] | | + + + + + | Angelita Godoy | ECON | Unknown | | + + + + + Care Team Providers + +------+ + | Care General Service Officer Name | Role | Phone | + +------+ + | Catracho Puente | PCP | | | MD | | | + +------+ + Reason for Visit + + + | Reason | Comments | + + + | Medication Refill | | + + + Encounter Details +--------+--------+ + + + | Date | Type | Department | Care Team | Description | +--------+--------+ + + + | 10/15/ | Refill | [facility] | Johnnie Jones, | Medication Refill | | 2019 | | [facility] | F[employer]ER [employer] ENGINEER [address] | | | | | [address] | | | | | [address] | [place], [place] | | | | | [place], [place] | [address] | | | | | [address] | [phone] | | | | | [phone] | | | +--------+--------+ + + + [...] [place] | | | | | | [address] | | | | | | | [...] [place] | | | | | [place] [address] | | | | | | [phone] | | | | | | | | +--------+ + + + + documented as of this encounter Visit Diagnoses Not on filedocumented in this encounter"
--- OUTSIDE RECORDS SUMMARY | ~2020-05-13 | XMS | Encounter Summary ---
Demographics + + + | Address | [address] | | | [place] [address] | + + + | Home Phone | | + + + | Preferred Language | Unknown | + + + | Marital Status | | + + + | Restorationism Affiliation | Unknown | + + + | Race | White | + + + | Ethnic Group | Not or | + + + Author + + + | Author | [facility] | | | and [place] | + + + | Organization | [facility] | | [...] [place], [place] | | | | | [address] | | + + + + + | Angelita Godoy | ECON | Unknown | | + + + + + Care Team Providers + +------+ + | Care Mechanical Product Design Engineer Name | Role | Phone | + +------+ + | Catracho Puente | PCP | | | MD | | | + +------+ + Encounter Details +--------+ + + + + | Date | Type | Department | Care Team | Description | +--------+ + + + + | 10/03/ | Orders Only | [facility] | Johnnie Jones, | | | 2015 | | NEPHROLOGY [place] | GLOBAL CLIMATE CHANGE ANALYST [address] | | | | | [address] | [address] | | | | | [address] [place], [place] | [place], [place] | | | | | [address] | [address] | | | | | [phone] | [phone] | | | | | | | [...] | | | | | [address] [place], [place] | | | | | | [address] | | | | | | | [...] | | | | | | [place] [address] | | | | | | [phone] | | | | | | | | +--------+ + + + + documented as of this encounter Procedures + +--------+ + + + | Procedure Name | Priori | Date/Time | Associated Diagnosis | Comments | | | ty | | | | + +--------+ + + + | EXTERNAL LAB: [facility] | Routin | 10/03/2015 | | Results for this | | | e | 12:00 AM | | procedure are in the | | | | PST | | results section. | + +--------+ + + + | URINALYSIS WITH | Routin | 10/03/2015 | | Results for this | | MICROSCOPIC WITH | e | 12:00 AM | | procedure are in the | | CULTURE IF INDICATED | | PST | | results section. | + +--------+ + + + | VITAMIN D, | Routin | 10/03/2015 | | Results for this | | DEFICIENCY SCREEN | e | 12:00 AM | | procedure are in the | | (25-HYDROXY) | | PST | | results section. | + +--------+ + + + | PARATHYROID HORMONE, | Routin | 10/03/2015 | | Results for this | | INTACT AND CALCIUM | e | 12:00 AM | | procedure are in the | | | | PST | | results section. | + +--------+ + + + | MAGNESIUM | Routin | 10/03/2015 | | Results for this | | | e | 12:00 AM | | procedure are in the | | | | PST | | results section. | + +--------+ + + + | RENAL FUNCTION PANEL | Routin | 10/03/2015 | | Results for this | | | e | 12:00 AM | | procedure are in the | | | | PST | | results section. | + +--------+ + + + documented in this encounter Results Urinalysis with Microscopic with Culture if Indicated (10/03/2015 12:00 AM PST) + + + + [...] + + + | Spec Grav, | 1.019 | 1.005 - 1.030 | EXTERNAL | [...] + | pH, Urine | 6 | 5 - 9 | EXTERNAL | | | | | | LAB | | + + + + + + | Blood, | Negative | | EXTERNAL | | | Urine | | | LAB | | + + + + + + | Ketones | 5 | | EXTERNAL | | [...] + + Parathyroid Hormone, Intact and Calcium (10/03/2015 12:00 AM PST) + +-------+ + + + | Component | Value | Ref Range | Performed | Pathologist | | | | | At | Signature | + +-------+ + + + | PTH Intact | 63.21 | 15 - 65 | EXTERNAL | | | | | | LAB | | + +-------+ + + + | Calcium | 9.8 [...] + + Vitamin D, Deficiency Screen (25-Hydroxy) (10/03/2015 12:00 AM PST) + +-------+ + + + | Component | Value | Ref Range | Performed | Pathologist | | | | | At | Signature | + +-------+ + + + | Vit D, | 43 | 30 - 100 | EXTERNAL | [...] + +---------+ + + External Lab: CBC (10/03/2015 12:00 AM PST) + +-------+ + + + | Component | Value | Ref Range | Performed | Pathologist | | | | | At | Signature | + +-------+ + + + | WBC | 10.9 | 4.5 - 11.0 10 | EXTERNAL | | | | | | LAB | | + +-------+ + + + | Non- | 4.99 | 4.3 - 5.7 10 | EXTERNAL | | | Red Blood | | | LAB | | | Cells | | | | | | Counted | | | | | + +-------+ + + + | Hemoglobin | 15.5 | 13.5 - 18.0 | EXTERNAL | | | | | g/dL | LAB | | + +-------+ + + + | Hematocrit, | 47.1 | 41 - 50 % | EXTERNAL | | | POC | | | LAB | | + +-------+ + + + | MCV | 94.3 | 81 - 99 fL | EXTERNAL [...] +-------+ + + + | Platelet | 347 | 140 - 440 K/ L | EXTERNAL | | | Count | | | LAB | | | Plasma | | | | | + +-------+ + + + | RDW-CV | 14.0 | 10.5 - 15.0 % | EXTERNAL [...] + + + | % Segmented | 64.8 | 39 - 80 % | EXTERNAL | | | | | | LAB | | | Neutrophils | | | | | + +-------+ + + + | % | 26.0 | 24 - 44 % | EXTERNAL | | | Lymphocytes | | | LAB | | + +-------+ + + + | % Monocytes | 7.4 | 0 - 12 % | EXTERNAL | | | | | | LAB | | + +-------+ + + + | % | 1.4 | 0 - 6 % | EXTERNAL | | | Eosinophils | | | LAB | | + +-------+ + + + | % Basophils | 0.4 | 0 - 2 % | EXTERNAL [...] | | + +---------+ + + Magnesium (10/03/2015 12:00 AM PST) + +-------+ + + [...] + +---------+ + + Renal Function Panel (10/03/2015 12:00 AM PST) + + + + + + | Component | Value | Ref Range | Performed | Pathologist | | | | | At | Signature | + + + + + + | Glucose, | 126 (A) | 70 - 100 mg/dL | EXTERNAL | | | Fasting | | | LAB | | + + + + + + | BUN | 24 (A) | 6 - 23 mg/dL | EXTERNAL | | | | | | LAB | | + + + + + + | Creatinine | 1.46 (A) | 0.70 - 1.18 | EXTERNAL | | | | | mg/dL | LAB | | + + + + + + | PHOSPHORUS | | mg/dL | EXTERNAL | | | | | | LAB | | + + + + + + | Albumin | 4.3 | 3.5 - 5.0 | EXTERNAL | | | | | | LAB | | + + + + + + | Na | 138 | 132 - 143 | EXTERNAL | | | | | mmol/L | LAB | | + + + + + + | K | 4.6 | 3.6 - 5.1 | EXTERNAL | [...] + + + | Anion Gap | 19.6 | 7 - 21 mmol/L | EXTERNAL | | | | | | LAB | | + + + + + + | eGFR, | | | EXTERNAL | | | non- | | | LAB | | | [place] | | | | | + + + + + + | Phosphorus, | 2.9 | 2.5 - 5.0 | EXTERNAL | | | Inorganic | | | LAB | | + + + + + + | BUN/Creatin | 16.4 | 6.0 - 28.6 | EXTERNAL | | | ine Ratio | | | LAB | | + + + + + + | Calcium | 9.8 | 8.4 - 10.2 | EXTERNAL | | | | | mg/dL | LAB | | + + + + + + | Estimated | 47 (A) | 60 - 140 mg/dL | [...]
--- OUTSIDE RECORDS SUMMARY | ~2020-05-13 | XMS | Encounter Summary ---
Demographics + + + | Address | [address] | | | [place] [address] | + + + | Home Phone | | + + + | Preferred Language | Unknown | + + + | Marital Status | | + + + | Denominational Affiliation | Unknown | + + + | Race | White | + + + | Ethnic Group | Not or | + + + Author + + + | Author | [facility] | | | and [place] | + + + | Organization | [facility] | | | [...] [place], [place] | | | | | [address] | | + + + + + | Angelita Godoy | ECON | Unknown | | + + + + + Care Team Providers + +------+ + | Care Hot Blast Worker Name | Role | Phone | + +------+ + | Catracho Puente | PCP | | | MD | | | + +------+ + Encounter Details +--------+ + + + + | Date | Type | Department | Care Team | Description | +--------+ + + + + | 02/02/ | Orders Only | [facility] | Johnnie Jones, | | | 2017 | | NEPHROLOGY [place] | OCCUPATIONAL ANALYST [address] | | | | [address] [place] | [address] | | | | | [address] [place], [place] | [place], [place] | | | | | [address] | [address] | | | | | [phone] | [phone] | | | | | | | [...] | | | | | [place], [place] | | | | | | [address] | | | | | | | | +--------+ + + + + | 08/05/ | Procedure | Cardiology | | | | 2019 | visit | | | | +--------+ + + + + | 11/07/ | Office | Cardiology | Nicolas Roblero, | | | 2020 | Visit | | [address] | | | | | | [place], | | | | | | [place] [address] | | | | | | [phone] | | | | | | | | +--------+ + + + + documented as of this encounter Procedures + +--------+ + + + | Procedure Name | Priori | Date/Time | Associated Diagnosis | Comments | | | ty | | | | + +--------+ + + + | EXTERNAL LAB: [facility] | Routin | 02/02/2018 | | Results for this | | | e | 1:25 PM | | procedure are in the | | | | PDT | | results section. | + +--------+ + + + | PROTEIN/CREATININE | Routin | 02/02/2018 | | Results for this | | RATIO, URINE | e | 1:25 PM | | procedure are in the | | | | PDT | | results section. | + +--------+ + + + | PARATHYROID HORMONE, | Routin | 02/02/2018 | | Results for this | | INTACT | e | 1:25 PM | | procedure are in the | | | | PDT | | results section. | + +--------+ + + + | MAGNESIUM | Routin | 02/02/2018 | | Results for this | | | e | 1:25 PM | | procedure are in the | | | | PDT | | results section. | + +--------+ + + + | RENAL FUNCTION PANEL | Routin | 02/02/2018 | | Results for this | | | e | 1:25 PM | | procedure are in the | | | | PDT | | results section. | + +--------+ + + + documented in this encounter Results Protein/Creatinine Ratio, Urine (02/02/2018 1:25 PM PDT) + +-------+ + [...] Performed At | + + + | Protein: <4 Range:0.0-50.0 Creatine: 31 | EXTERNAL LAB | + + + + +---------+ + + | Performing | Address | City/State/Zipcode | Phone Number | | Organization | | | | + +---------+ + + | EXTERNAL LAB | | | | + +---------+ + + External Lab: CBC (02/02/2018 1:25 PM PDT) + + + + + + | Component | Value | Ref Range | Performed | Pathologist | | | | | At | Signature | + + + + + + | WBC | 8.9 | 4.5 - 11.0 10 | EXTERNAL | | | | | | LAB | | + + + + + + | Non- | 4.18 (A) | 4.3 - 5.7 10 | EXTERNAL [...] + + + + | Hematocrit, | 39.5 (A) | 41 - 50 % | EXTERNAL | | | POC | | | LAB | | + + + + + + | MCV | 94.3 [...] + + + + | Platelet | 247 | 140 - 440 K/ L | EXTERNAL | | | Count | | | LAB | | | Plasma | | | | | + + + + + + | RDW-CV | 14.8 | 10.5 - 15.0 % | EXTERNAL [...] + +---------+ + + Parathyroid Hormone, Intact (02/02/2018 1:25 PM PDT) + + + + + + | Component | Value | Ref Range | Performed | Pathologist | | | | | At | Signature | + + + + + + | PTH INTACT | 123.1 (A) | 15 - 65 pg/mL | [...] | | + +---------+ + + Magnesium (02/02/2018 1:25 PM PDT) + +---------+ + + + | [...] + +---------+ + + Renal Function Panel (02/02/2018 1:25 PM PDT) + +---------+ + + + | Component | Value | Ref Range | Performed | Pathologist | | | | | At | Signature | + +---------+ + + + | Glucose, | 181 (A) | 70 - 100 mg/dL | EXTERNAL | | | Fasting | | | LAB | | + +---------+ + + + | BUN | 27 (A) | 6 - 23 mg/dL | EXTERNAL | | | | | | LAB | | + +---------+ + + + | Creatinine | 1.4 (A) | 0.7 - 1.11 | EXTERNAL | | | | | mg/dL | LAB | | + +---------+ + + + | PHOSPHORUS | | mg/dL | EXTERNAL | | | | | | LAB | | + +---------+ + + + | Albumin | 3.9 | 3.5 - 5.0 | EXTERNAL | | | | | | LAB | | + +---------+ + + + | Na | 137 | 132 - 143 | EXTERNAL | | | | | mmol/L | LAB | | + +---------+ + + + | K | 4.6 | 3.6 - 5.1 | EXTERNAL | | | | | mmol/L | LAB | | + +---------+ + + + | Cl | 104 | 95 - 112 mmol/L | EXTERNAL | | | | | | LAB | | + +---------+ + + + | CO2 | 19 | 19 - 31 mmol/L | EXTERNAL | | | | | | LAB | | + +---------+ + + + | Anion Gap | 18.6 | 7 - 21 mmol/L | EXTERNAL | | | | | | LAB | | + +---------+ + + + | eGFR, | | | EXTERNAL | | | non- | | | LAB | | | [place] | | | | | + +---------+ + + + | Phosphorus, | 3.1 | 2.5 - 5.0 | EXTERNAL | | | Inorganic | | | LAB | | + +---------+ + + + | BUN/Creatin | 19.3 | 6.0 - 28.6 | EXTERNAL | | | ine Ratio | | | LAB | | + +---------+ + + + | Calcium | 9.6 | 8.4 - 10.2 | EXTERNAL | | | | | mg/dL | LAB | | + +---------+ + + + | Estimated | 49 (A) | 60 mg/dL | EXTERNAL | [...]
--- OUTSIDE RECORDS SUMMARY | ~2020-05-13 | XMS | Encounter Summary ---
Demographics + + + | Address | [address] | | | [place] [address] | + + + | Home Phone | | + + + | Preferred Language | Unknown | + + + | Marital Status | | + + + | Christian Affiliation | Unknown | + + + | Race | White | + + + | Ethnic Group | Not or | + + + Author + + + | Author | [facility] | | | and [place] | + + + | Organization | [facility] | | [...] [place], [place] | | | | | [address] | | + + + + + | Angelita Godoy | ECON | Unknown | | + + + + + Care Team Providers + +------+ + | Care Biofuels Product Development Manager Name | Role | Phone | + +------+ + | Catracho Puente | PCP | | | MD | | | + +------+ + Encounter Details +--------+ + + + + | Date | Type | Department | Care Team | Description | +--------+ + + + + | 04/28/ | Orders Only | [facility] | Pavan Pham, | Paroxysmal atrial | | 2019 | | CARDIOLOGY [place] | MD [place] | fibrillation (HCC); | | | | [address] | [place], [place] | Presence of | | | | [address] | [address] | automatic | | | | [place] | | implantable | | | | [address] | | cardioverter-defibri | | | | [phone] | | llator; Chronic | | | | | | combined systolic | | | | | | and diastolic heart | | | | | | failure (HCC); | | | | | | Presence of | | | | | | automatic | | | | | | implantable | | | | | | cardioverter-defibri | | | | | | llator; Chronic | | | | | | kidney disease, | | | | | | stage III (moderate) | | | | | | (HCC); Essential | | | | | | (primary) | | | | | | hypertension; | | | | | | Hyperlipidemia; | | | | | | Presence of | | | | | | prosthetic heart | | | | | | valve | +--------+ + + + + Social [...] | 05/29/ | Office | Cardiology | MarcPavan adames, | | | 2019 | Visit | | MD [address] | | | | | | [place] | | | | | | [address] | | | | | | | [...] | | | | | | [place] [address] | | | | | | [phone] | | | | | | | | +--------+ + + + + + +------+--------+ + + | Name | Type | Priori | Associated Diagnoses | Order Schedule | | | | ty | | | + +------+--------+ + + | CBC with Manual | Lab | Routin | Hyperlipidemia | Expected: | | Differential | | e | Presence of | 11/23/2018, Expires: | | | | | prosthetic heart | 11/24/2019 | | | | | valve Chronic | | | | | | kidney disease, | | | | | | stage III (moderate) | | | | | | (HCC) | | + +------+--------+ + + | Comprehensive | Lab | Routin | Hyperlipidemia | Expected: | | Metabolic Panel | | e | Presence of | 11/23/2018, Expires: | | | | | prosthetic heart | 11/24/2019 | | | | | valve Chronic | | | | | | kidney disease, | | | | | | stage III (moderate) | | | | | | (HCC) | | + +------+--------+ + + | Lipid Panel | Lab | Routin | Hyperlipidemia | Expected: | | | | e | Presence of | 11/23/2018, Expires: | | | | | prosthetic heart | 11/24/2019 | | | | | valve Chronic | | | | | | kidney disease, | | | | | | stage III (moderate) | | | | | | (HCC) | | + +------+--------+ + + | Lipid Panel | Lab | Routin | Paroxysmal atrial | Expected: | | | | e | fibrillation ([facility]) | 06/02/2019, Expires: | | | | | Presence Of | 12/01/2019 | | | | | Automatic | | | | | | Implantable | | | | | | Cardioverter-Defibri | | | | | | llator Chronic | | | | | | combined systolic | | | | | | and diastolic heart | | | | | | failure (HCC) | | | | | | Presence Of | | | | | | Automatic | | | | | | Implantable | | | | | | Cardioverter-Defibri | | | | | | llator | | + +------+--------+ + + | Renal Function Panel | Lab | Routin | Chronic kidney | Expected: | | | | e | disease, stage III | 04/22/2019, Expires: | | | | | (moderate) (HCC) | 01/21/2020 | | | | | Essential (primary) | | | | | | hypertension | | + +------+--------+ + + | CBC with | Lab | Routin | Chronic kidney | Expected: | | Differential | | e | disease, stage III | 04/22/2019, Expires: | | | | | (moderate) ([facility]) | 01/21/2020 | | | | | Essential (primary) | | | | | | hypertension | | + +------+--------+ + + | Protein/Creatinine | Lab | Routin | Chronic kidney | Expected: | | Ratio, Urine | | e | disease, stage III | 04/22/2019, Expires: | | | | | (moderate) ([facility]) | 01/21/2020 | | | | | Essential (primary) | | | | | | hypertension | | + +------+--------+ + + | Uric Acid | Lab | Routin | Chronic kidney | Expected: | | | | e | disease, stage III | 04/22/2019, Expires: | | | | | (moderate) ([facility]) | 01/21/2020 | | | | | Essential (primary) | | | | | | hypertension | | + +------+--------+ + + | Magnesium | Lab | Routin | Chronic kidney | Expected: | | | | e | disease, stage III | 04/22/2019, Expires: | | | | | (moderate) (HCC) | 01/21/2020 | | | | | Essential (primary) | | | | | | hypertension | | + +------+--------+ + + documented as of this encounter Visit Diagnoses + + | Diagnosis | + + | Paroxysmal atrial fibrillation (HCC) Atrial fibrillation | + + | Presence of automatic implantable cardioverter-defibrillator | + + | 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
--- OUTSIDE RECORDS SUMMARY | ~2020-05-13 | XMS | Encounter Summary ---
Demographics + + + | Address | [address] | | | [place] [address] | + + + | Home Phone | | + + + | Preferred Language | Unknown | + + + | Marital Status | | + + + | Episcopal Affiliation | Unknown | + + + | Race | White | + + + | Ethnic Group | Not or | + + + Author + + + | Author | [facility] | | | and [place] | + + + | Organization | [facility] | | | [...] [place], [place] | | | | | [address] | | + + + + + | Angelita Godoy | ECON | Unknown | | + + + + + Care Team Providers + +------+ + | Care Lot Associate Name | Role | Phone | + +------+ + | Catracho Puente | PCP | | | MD | | | + +------+ + Reason for Visit + + + | Reason | Comments | + + + | Device Check | | | (Remote) | | + + + Encounter Details +--------+ + + + + | Date | Type | Department | Care Team | Description | +--------+ + + + + | 01/14/ | Procedure | [facility] | | Presence of | | 2020 | visit | CARDIOLOGY [place] | | automatic | | | | [address] | | implantable | | | | [place], [place] | | cardioverter-defibri | | | | [address] | | llator (Primary Dx) | | | | [phone] | | | +--------+ + + + [...] + documented as of this encounter Procedure Luz Marina Lizarraga RN - 01/15/2020 8:00 AM PDTAssociated Order(s): DEVICE INTERROGATION - REMOTEProcedure(s): DEVICE INTERROGATION- REMOTEPre-Procedure Diagnose(s): 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 VT/VF Detections: 2 NSVT events noted, EGMs are attached. Events appear to be driven by A-fib with RVR Lead function: Lead impedance and threshold value trends have been reviewed and are accepta ble based on most recent evaluation. CHF: Congestive heart failure parameters and trends have been reviewed and are stable Follow up: The next scheduled interrogation will be in 3 months in the cardiac device clini c. Additional comments: None. IMPRESSION: 1. Normal ICD function. 2. Programmed VVIR. 3. Ventricular events as noted above. Testing reviewed by: Maria De Jesus Graham RN Associated attestation - Lana Arredondo ANP - 01/24/2020 2:10 PM PDTRemote Device follow up Device data was personally reviewed by me. Device function is nominal. There is adequate remaining battery life. BiV pacing limited TS suggested that we turn on the BiV trigger, the device would sense the intrinsic event bu t would pace the beat. She said the counters would look weird as the RV would sense but the LV would pace. We will consider enabling this option in early February when COVID pandemic improving For additional details regarding device information, data and rhythm strips, please see rachel se/parts identification technician entry in the notes section and device download information in scanned document s. ORLANDO Amaral documented in this encounter Plan of Treatment +--------+ + + + + | Date | Type | Specialty | Care Team | Description | +--------+ + + + + | 05/29/ | Office | Cardiology | Pavan Pham, | | | 2019 | Visit | | MD [address] | | | | | | [place] | | | | | | [address] | | | | | | | [...] | | | | | | [place] [address] | | | | | | [phone] | | | | | | | | +--------+ + + + + documented as of this encounter Procedures + +--------+ + + + | Procedure Name | Priori | Date/Time | Associated Diagnosis | Comments | | | ty | | | | + +--------+ + + + | DEVICE | Routin | 01/15/2020 | Presence of | Results for this | | INTERROGATION- | e | 8:00 AM | automatic | procedure are in the | | REMOTE | | PDT | implantable | results section. 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 VT/VF Detections: 2 NSVT events | | | noted, EGMs are attached.Events appear to be driven by A-fib with RVR | | | Lead function: Lead impedance and threshold value trends have been | | | reviewed and are acceptable based on most recent evaluation. CHF: | | | Congestive heart failure parameters and trends have been reviewed and | | | are stable Follow up: The next scheduled interrogation will be in 3 | | | months in the cardiac device clinic. Additional comments: None. | | | IMPRESSION:1. Normal ICD function.2. Programmed VVIR.3. Ventricular | | | events as noted above. Testing reviewed by: Maria De Jesus Graham RN | | |BiV Pacin% | | | | | |INTERROGATION RESULTS: | | |Please see the full interrogation report attached | | | | | |Known history of atrial flutter or atrial fibrillation: Yes | | |Current antithrombotic therapy including: warfarin | | | | | |Since last in-office on 10/19/19: | | |Mode switches: Programed VVIR. | | | | | |VT/VF Detections: 2 NSVT events noted, EGMs are attached. | | |Events appear to be driven by A-fib with RVR | | | | | |Lead function: Lead impedance and threshold value trends have | | |been reviewed and are acceptable based on most recent evaluation. | | | | | |CHF: Congestive heart failure parameters and trends have been | | |reviewed and are stable | | | | | |Follow up: The next scheduled interrogation will be in 3 months | | |in the cardiac device clinic. | | | | | |Additional comments: None. | | | | | |IMPRESSION: | | |1. Normal ICD function. | | |2. Programmed VVIR. | | |3. Ventricular events as noted above. | | | | | |Testing reviewed by: Maria De Jesus Graham RN | | | | | | | | + + + + +---------+ + + | Performing | Address | City/State/Zipcode | Phone Number | | Organization | | | | + +---------+ + + | [facility] | | | | + +---------+ + + documented in this encounter Visit Diagnoses + + | Diagnosis | + + | Presence of automatic implantable cardioverter-defibrillator - Primary | + + documented in this encounter"
--- OUTSIDE RECORDS SUMMARY | ~2020-05-13 | XMS | Encounter Summary ---
Demographics + + + | Address | [address] | | | [place] [address] | + + + | Home Phone | | + + + | Preferred Language | Unknown | + + + | Marital Status | | + + + | Sikhism Affiliation | Unknown | + + + | Race | White | + + + | Ethnic Group | Not or | + + + Author + + + | Author | [facility] | | | and [place] | + + + | Organization | [facility] | | | [...] [place], [place] | | | | | [address] | | + + + + + | Angelita Godoy | ECON | Unknown | | + + + + + Care Team Providers + +------+ + | Care Copy Director Name | Role | Phone | + +------+ + | Catracho uPente | PCP | | | MD | | | + +------+ + Encounter Details +--------+ + + + + | Date | Type | Department | Care Team | Description | +--------+ + + + + | 07/27/ | Orders Only | [facility] | Johnnie oJnes, | | | 2017 | | NEPHROLOGY [place] | ELECTRICIAN SOUND [address] | | | | | [address] [place] | [address] | | | | | [address] [place], [place] | [place], [place] | | | | | [address] | [address] | | | | | [phone] | | | | | | | [...] | | | | | [place], [place] | | | | | | [address] | | | | | | | [...] | | | | | | [place] [address] | | | | | | [phone] | | | | | | | | +--------+ + + + + documented as of this encounter Procedures + +--------+ + + + | Procedure Name | Priori | Date/Time | Associated Diagnosis | Comments | | | ty | | | | + +--------+ + + + | BASIC METABOLIC | Routin | 07/27/2018 | | Results for this | | PANEL | e | 12:00 AM | | procedure are in the | | | | PST | | results section. | + +--------+ + + + documented in this encounter Results Basic Metabolic Panel (07/27/2018 12:00 AM PST) + + + + + + | Component | Value | Ref Range | Performed | Pathologist | | | | | At | Signature | + + + + + + | Glucose, | 245 (A) | 70 - 100 mg/dL | EXTERNAL | | | Fasting | | | LAB | | + + + + + + | BUN | 38 (A) | 6 - 23 mg/dL | EXTERNAL | | | | | | LAB | | + + + + + + | Creatinine | 1.49 (A) | 0.70 - 1.11 | EXTERNAL | | | | | mg/dL | LAB | | + + + + + + | BUN/Creatin | 25.5 | 6 - 28.6 | EXTERNAL | | | ine Ratio | | | LAB | | + + + + + + | Calcium | 10.1 | 8.5 - 10.3 | EXTERNAL | | | | | mg/dL | LAB | | + + + + + + | Na | 133 | 132 - 143 | EXTERNAL | | | | | mmol/L | LAB | | + + + + + + | K | 4.7 | 3.6 - 5.1 | EXTERNAL | [...] + + + | Anion Gap | 18.7 | 7 - 21 mmol/L | EXTERNAL | | | | | | LAB | | + + + + + + | Estimated | 45 | mg/dL | EXTERNAL | | | [...]
--- OUTSIDE RECORDS SUMMARY | ~2020-05-13 | XMS | Encounter Summary ---
Demographics + + + | Address | [address] | | | [place] [address] | + + + | Home Phone | | + + + | Preferred Language | Unknown | + + + | Marital Status | | + + + | Synagogue Affiliation | Unknown | + + + [...] [place], [place] | | | | | [address] | | + + + + + | Angelita Godoy | ECON | Unknown | | + + + + + Care Team Providers + +------+ + | Care Intel Analyst Name | Role | Phone | + +------+ + PCP | Unavailable | + +------+ + Encounter Details +--------+ + + + + | Date | Type | Department | Care Team | Description | +--------+ + + + + | 10/20/ | Hospital | C GENERIC OP | Elizabeth Spangler | Aortic valve | | 2010 | Encounter | CONVERSION [address] | [address] | disorder | | | | [address] | [address] [place] | | | | | [place], [place] | [address], | | | | | [address] | [place] [address] | | | | | [phone] | [phone] | | | | | | | [...] | | | | | [place] | | | | | | [address] | | | | | | | [...] | | | | | | [place] [address] | | | | | | [phone] | | | | | | | | +--------+ + + + + documented as of this encounter Visit Diagnoses + + | Diagnosis | + + | Aortic valve disorder Aortic valve disorders | + + documented in this encounter"
--- OUTSIDE RECORDS SUMMARY | ~2020-05-13 | XMS | Encounter Summary ---
Demographics + + + | Address | [address] | | | [place] [address] | + + + | Home Phone | | + + + | Preferred Language | Unknown | + + + | Marital Status | | + + + | Adventism Affiliation | Unknown | + + + [...] [place], [place] | | | | | [address] | | + + + + + | Angelita Godoy | ECON | Unknown | | + + + + + Care Team Providers + +------+ + | Care Factory Superintendent Name | Role | Phone | + +------+ + PCP | Unavailable | + +------+ + Encounter Details +--------+ + + + + | Date | Type | Department | Care Team | Description | +--------+ + + + + | 11/05/ | Hospital | [facility] | Mane Meza, | Aortic valve | | 2010 - | Encounter | MEDICAL [facility]ENTER | [address] | disorder | | | | INTENSIVE CARE UNIT | [address] | | | 11/10/ | | [address] | [place] [address] | | | 2010 | | [place], [place] | [phone] | | | | | [address] | | | | | | [phone] | | | +--------+ + + + [...] | | | | | [place] | | | | | | [address] | | | | | | | [...] | | | | | | [place] [address] | | | | | | [phone] | | | | | | | | +--------+ + + + + documented as of this encounter Procedures + +--------+ + + + | Procedure Name | Priori | Date/Time | Associated Diagnosis | Comments | | | ty | | | | + +--------+ + + + | XR CHEST 1 VIEW | Routin | 11/08/2010 | | Results for this | | | e | 7:21 AM | | procedure are in the | | | | PST | | results section. | + +--------+ + + + | XR CHEST 1 VIEW | Routin | 11/07/2010 | | Results for this | | | e | 4:40 AM | | procedure are in the | | | | PST | | results section. | + +--------+ + + + | XR CHEST 1 VIEW | Routin | 11/06/2010 | | Results for this | | | e | 5:54 AM | | procedure are in the | | | | PST | | results section. | + +--------+ + + + | XR CHEST 1 VIEW | Routin | 11/05/2010 | | Results for this | | | e | 12:31 PM | | procedure are in the | | | | PST | | results section. | + +--------+ + + + | ECHO | Routin | 11/05/2010 | | Results for this | | TRANSESOPHAGEAL(LINDSEY) | e | 12:00 PM | | procedure are in the | | - PERIOPERATIVE | | PST | | results section. | + +--------+ + + + | XR CHEST 2 VIEWS | Routin | 10/31/2010 | | Results for this | | | e | 9:31 AM | | procedure are in the | | | | PST | | results section. | + +--------+ + + + documented in this encounter Results XR Chest 1 Vw (11/08/2010 7:21 AM PST) + + | Specimen | + + | | + + + + + | Narrative | Performed At | + + + | [facility] [id number] Ph: | | | Patient Name: AYANNA MUNIZ Date of : | | | 1935 Medical Record: [id number] Account: [id number] | | | Exam Date/Time: 11/08/2010 05:00 Ordering | | | Physician: MANE MEZA Order Detail: [id number] Exam Description: | | | XR CHEST 1 VIEW | | | | | | History: 75-year-old male, abnormal lung johnson -- post intervention | | | Technique: AP upright view the chest. 08 November, 438. Prior study | | | -- 07 November at 428. Findings: Cardiomegaly, sternal wires and | | | prostatic valve. Stable. Patchy disease in the retrocardiac region, | | | lower left chest and medial right lung base. Slight difference is | | | here but these may be projectional. No advanced pulmonary is | | | hypertension but there is some stable mild vascular congestion. | | | Overall, fairly stable. IMPRESSION: 1. Stable postprocedural | | | changes and cardiomegaly about the mediastinum. Atelectasis in the | | | medial right base and mid left chest may be more conspicuous or new. | | | Probably preexistent. | | + + + + + | Procedure Note | + + | Cesar, Gus Conversion - 05/06/2019 3:58 PM PDT | | [facility] | | [facility] [address] | | | | | | Patient Name: AYANNA MNUIZ | | Date of : 1935 | | Medical Record: [id number] | | Account: [id number] | | | | | | Exam Date/Time: 11/08/2010 05:00 | | Ordering Physician: MANE MEZA | | Order Detail: [id number] | | Exam Description: XR CHEST 1 VIEW | | | | History: 75-year-old male, abnormal lung johnson -- post intervention | | | | Technique: AP upright view the chest. 08 November, 438. Prior study -- | | October at 428. | | | | Findings: Cardiomegaly, sternal wires and prostatic valve. Stable. Patchy | | disease in the retrocardiac region, lower left chest and medial right lung | | base. Slight difference is here but these may be projectional. No advanced | | pulmonary is hypertension but there is some stable mild vascular | | congestion. | | | | Overall, fairly stable. | | | | IMPRESSION: | | | | 1. Stable postprocedural changes and cardiomegaly about the mediastinum. | | Atelectasis in the medial right base and mid left chest may be more | | conspicuous or new. Probably preexistent. | | | | | + + XR Chest 1 Vw (11/07/2010 4:40 AM PST) + + | Specimen | + + | | + + + + + | Narrative | Performed At | + + + | [facility] [id number] Ph: | | | Patient Name: AYANNA MUNIZ Date of : | | | 1935 Medical Record: [id number] Account: [id number] | | | Exam Date/Time: 11/07/2010 05:00 Ordering | | | Physician: MANE MEZA Order Detail: [id number] Exam Description: | | | XR CHEST 1 VIEW | | | | | | AYANNA Roman CRISTY 1935 XR CHEST 1 VIEW 11/07/2010 5:00 AM | | | INDICATION: Status post cardiac surgery COMPARISON: 11/06/2010 | | | TECHNIQUE: AP view of the chest FINDINGS: Median sternotomy | | | wires remain intact. Valve is unchanged in position. There is | | | persistent mild cardiomegaly. Windsor-Dorcas catheter has been removed. | | | IJ introducer is unchanged. Mediastinal drain remains in place. | | | There is no pneumothorax or effusion present. There is persistent | | | mild vascular congestion. Lung volumes are slightly improved on | | | today's study with decreasing atelectasis. IMPRESSION: 1. | | | Improved aeration of the lung bilaterally. 2. Persistent mild | | | vascular congestion. 3. Status-post removal of Windsor-Dorcas catheter. | | | Mediastinal drain remains in place. | | + + + + + | Procedure Note | + + | Gus Guerrero Conversion - 05/06/2019 3:58 PM PDT | | [facility] | | [facility] [address] | | | | | | Patient Name: AYANNA MUNIZ | | Date of : 1935 | | Medical Record: [id number] | | Account: [id number] | | | | | | Exam Date/Time: 11/07/2010 05:00 | | Ordering Physician: MANE MEZA | | Order Detail: [id number] | | Exam Description: XR CHEST 1 VIEW | | | | AYANNA MUNIZ | | 1935 | | XR CHEST 1 VIEW | | 11/07/2010 5:00 AM | | | | INDICATION: Status post cardiac surgery | | | | COMPARISON: 11/06/2010 | | | | TECHNIQUE: AP view of the chest | | | | FINDINGS: Median sternotomy wires remain intact. Valve is unchanged in | | position. There is persistent mild cardiomegaly. Windsor-Dorcas catheter has | | been removed. IJ introducer is unchanged. Mediastinal drain remains in | | place. There is no pneumothorax or effusion present. There is persistent | | mild vascular congestion. Lung volumes are slightly improved on today's | | study with decreasing atelectasis. | | | | IMPRESSION: | | 1. Improved aeration of the lung bilaterally. | | 2. Persistent mild vascular congestion. | | 3. Status-post removal of Windsor-Dorcas catheter. Mediastinal drain | | remains in place. | | | | | + + XR Chest 1 Vw (11/06/2010 5:54 AM PST) + + | Specimen | + + | | + + + + + | Narrative | Performed At | + + + | [facility] [id number] Ph: | | | Patient Name: AYANNA MUNIZ Date of : | | | 1935 Medical Record: [id number] Account: [id number] | | | Exam Date/Time: 11/06/2010 05:00 Ordering | | | Physician: MANE MEZA Order Detail: [id number] Exam Description: | | | XR CHEST 1 VIEW | | | | | | History: Support equipment. Technique: AP upright view of the | | | chest. 06 November at 0436. Prior study -- 05 November at 1232. | | | Findings: Right IJ Windsor-Dorcas catheter and sternal wires -- | | | unchanged. Prosthetic valve is not seen well due to underpenetration. | | | Cardiomegaly. Atelectasis consolidation or infiltrate in the | | | retrocardiac region. By basilar atelectasis is superimposed | | | especially about the lower right chest -- stable. Pulmonary | | | vascular markings are unchanged. There is some interstitial edema | | | which is slightly improved however. Arthropathy the shoulders and | | | spine. IMPRESSION: Stable support equipment but subtle | | | improvement of the interstitial edema in this patient post median | | | sternotomy and valvuloplasty | | + + + + + | Procedure Note | + + | Cesar, Rad Conversion - 05/06/2019 3:58 PM PDT | | [facility] | | [facility] [address] | | | | | | Patient Name: AYANNA MUNIZ | | Date of : 1935 | | Medical Record: [id number] | | Account: [id number] | | | | | | Exam Date/Time: 11/06/2010 05:00 | | Ordering Physician: MANE MEZA | | Order Detail: [id number] | | Exam Description: XR CHEST 1 VIEW | | | | History: Support equipment. | | | | Technique: AP upright view of the chest. 06 November at 0436. Prior study | | -- 05 November at 1232. | | | | Findings: | | | | Right IJ Windsor-Dorcas catheter and sternal wires -- unchanged. Prosthetic | | valve is not seen well due to underpenetration. Cardiomegaly. Atelectasis | | consolidation or infiltrate in the retrocardiac region. By basilar | | atelectasis is superimposed especially about the lower right chest -- | | stable. | | | | Pulmonary vascular markings are unchanged. There is some interstitial edema | | which is slightly improved however. | | | | Arthropathy the shoulders and spine. | | | | IMPRESSION: | | | | Stable support equipment but subtle improvement of the interstitial edema | | in this patient post median sternotomy and valvuloplasty | | | | | + + XR Chest 1 Vw (11/05/2010 12:31 PM PST) + + | Specimen | + + | | + + + + + | Narrative | Performed At | + + + | [facility] [id number] Ph: | | | Patient Name: AYANNA MUNIZ Date of : | | | 1935 Medical Record: [id number] Account: [id number] | | | Exam Date/Time: 11/05/2010 12:22 Ordering | | | Physician: MANE MEZA Order Detail: [id number] Exam Description: | | | XR CHEST 1 VIEW | | | | | | AYANNA MUNIZ XR CHEST 1 VIEW 11/05/2010 12:22 PM HISTORY: 75 | | | years. Male. Critical care unit patient post operative, evaluate | | | tubes and lines TECHNIQUE: AP portable chest 1220 hrs | | | COMPARISON: October 31, 2010 FINDINGS: Interval postoperative | | | changes of sternotomy and aortic valve replacement. Right IJ | | | Windsor-Dorcas catheter tip is in the main pulmonary artery. Endotracheal | | | tube tip is just above the level of the jose and care should be | | | taken to avoid advancement. Nasogastric tube is present tip is below | | | the level of the diaphragm and in the region of the gastric cardia. | | | Mediastinal drain is present. No pleural drains visible. There is | | | a left lower lobe atelectasis and left pleural effusion. Upper | | | lung zone and right hemithorax are clear. IMPRESSION: 1. | | | Life-support devices as described 2. left lower lobe parenchymal | | | density atelectasis versus infiltrate and left pleural effusion. 3. | | | Critical results: These findings were discussed with the nurse | | | caring for this patient immediately upon completion of the study. | | | | | + + + + + | Procedure Note | + + | Gus Guerrero Conversion - 05/06/2019 3:58 PM PDT | | [facility] | | [facility] [address] | | | | | | Patient Name: AYANNA MUNIZ | | Date of : 1935 | | Medical Record: [id number] | | Account: [id number] | | | | | | Exam Date/Time: 11/05/2010 12:22 | | Ordering Physician: MANE MEZA | | Order Detail: [id number] | | Exam Description: XR CHEST 1 VIEW | | | | AYANNA MUNIZ | | XR CHEST 1 VIEW | | 11/05/2010 12:22 PM | | | | HISTORY: | | 75 years. Male. Critical care unit patient post operative, evaluate tubes | | and lines | | | | TECHNIQUE: | | AP portable chest 1220 hrs | | COMPARISON: | | October 31, 2010 | | | | FINDINGS: | | Interval postoperative changes of sternotomy and aortic valve replacement. | | Right IJ Windsor-Dorcas catheter tip is in the main pulmonary artery. | | Endotracheal tube tip is just above the level of the jose and care should | | be taken to avoid advancement. Nasogastric tube is present tip is below | | the level of the diaphragm and in the region of the gastric cardia. | | Mediastinal drain is present. No pleural drains visible. There is a left | | lower lobe atelectasis and left pleural effusion. Upper lung zone and | | right hemithorax are clear. | | | | IMPRESSION: | | 1. Life-support devices as described | | 2. left lower lobe parenchymal density atelectasis versus infiltrate | | and left pleural effusion. | | 3. Critical results: These findings were discussed with the nurse | | caring for this patient immediately upon completion of the study. | | | | | + + ECHO Transesophageal (LINDSEY) - Periop (11/05/2010 12:00 PM PST) + + | Specimen | + + | | + + + + + | Narrative | Performed At | + + + | See medical record for report. This is a converted record that was | | | non-reportable in [employer] system. | | + + + + + | Procedure Note | + + | Gus Guerrero - 05/06/2019 3:58 PM PDT See medical record for report. This is | | a converted record that was non-reportable in [employer] system. | + + XR Chest 2 Vws (10/31/2010 9:31 AM PST) + + | Specimen | + + | | + + + + + | Narrative | Performed At | + + + | [facility] [id number] Ph: | | | Patient Name: AYANNA MUNIZ Date of : | | | 1935 Medical Record: [id number] Account: [id number] | | | Exam Date/Time: 10/31/2010 09:13 Ordering | | | Physician: MANE MEZA Order Detail: [id number] Exam Description: | | | XR CHEST 2 VIEW | | | | | | AYANNA MUNIZ XR CHEST 2 VIEW 10/31/2010 9:13 AM HISTORY: 75 | | | years. Male. Preoperative evaluation of the chest prior to aortic | | | valve replacement. TECHNIQUE: PA and lateral views of the chest | | | are obtained. COMPARISON: None. FINDINGS: The heart is | | | normal in size. The lungs are normally expanded. The pulmonary | | | vascular pattern is normal. No acute airspace disease, parenchymal | | | nodule, mass, pleural effusion or pneumothorax is noted. No hilar | | | adenopathy is seen. Thoracic spondylosis is noted. IMPRESSION: | | | 1. No acute airspace disease. | | + + + + + | Procedure Note | + + | Gus Guerrero - 05/06/2019 3:58 PM PDT | | [facility] | | [facility] [address] | | | | | | Patient Name: AYANNA MUNIZ | | Date of : 1935 | | Medical Record: [id number] | | Account: [id number] | | | | | | Exam Date/Time: 10/31/2010 09:13 | | Ordering Physician: MANE MEZA | | Order Detail: [id number] | | Exam Description: XR CHEST 2 VIEW | | | | AYANNA MUNIZ | | XR CHEST 2 VIEW | | 10/31/2010 9:13 AM | | | | HISTORY: | | 75 years. Male. Preoperative evaluation of the chest prior to aortic | | valve replacement. | | | | TECHNIQUE: | | PA and lateral views of the chest are obtained. | | | | COMPARISON: | | None. | | | | FINDINGS: | | The heart is normal in size. The lungs are normally expanded. The | | pulmonary vascular pattern is normal. No acute airspace disease, | | parenchymal nodule, mass, pleural effusion or pneumothorax is noted. No | | hilar adenopathy is seen. Thoracic spondylosis is noted. | | | | IMPRESSION: | | 1. No acute airspace disease. | | | | | + + documented in this encounter Visit Diagnoses + + | Diagnosis | + + | Aortic valve disorder Aortic valve disorders | + + documented in this encounter"
--- OUTSIDE RECORDS SUMMARY | ~2020-05-13 | XMS | Encounter Summary ---
Demographics + + + | Address | [address] | | | [place] [address] | + + + | Home Phone | | + + + | Preferred Language | Unknown | + + + | Marital Status | | + + + | Mormon Affiliation | Unknown | + + + | Race | White | + + + | Ethnic Group | Not or | + + + Author + + + | Author | [facility] | | | and [place] | + + + | Organization | [facility] | | [...] [place], [place] | | | | | [address] | | + + + + + | Angelita Godoy | ECON | Unknown | | + + + + + Care Team Providers + +------+ + | Care Shed Hand Name | Role | Phone | + +------+ + | Catracho Puente | PCP | | | MD | | | + +------+ + Encounter Details +--------+ + + + + | Date | Type | Department | Care Team | Description | +--------+ + + + + | 11/30/ | Orders Only | [facility] | Pavan Pham, | | | 2018 | | CARDIOLOGY GET | [address] | | | | | [address] | [place], [place] | | | | | [place], [place] | [address] | | | | | [address] | | | | | | [phone] | | | +--------+ + + + [...] [place] | | | | | | [address] | | | | | | | [...] | | | | | | [place] [address] | | | | | | [phone] | | | | | | | | +--------+ + + + + documented as of this encounter Visit Diagnoses Not on filedocumented in this encounter"
--- OUTSIDE RECORDS SUMMARY | ~2020-05-13 | XMS | Encounter Summary ---
Demographics + + + | Address | [address] | | | [place] [address] | + + + | Home Phone [...] [place], [place] | | | | | [address] | | + + + + + | Angelita Godoy | ECON | Unknown | | + + + + + Care Team Providers + +------+ + | Care Pallet Repairer Name | Role | Phone | + +------+ + | Catracho Puente | PCP | | | MD | | | + +------+ + Encounter Details +--------+ + + + + | Date | Type | Department | Care Team | Description | +--------+ + + + + | 03/25/ | Orders Only | [facility] | Johnnie Jones, | | | 2015 | | NEPRHOLOGY URICH | POLITICAL THEORY PROFESSOR [address] | | | | | [address] | [place] | | | | | [address] [place], [place] | [place] | | | | | [address] | [address] | | | | | [phone] | [phone] | | | | | | | [...] | | | | | [place] | | | | | | [address] | | | | | | | [...] | | | | | | [place] [address] | | | | | | [phone] | | | | | | | | +--------+ + + + + documented as of this encounter Procedures + +--------+ + + + | Procedure Name | Priori | Date/Time | Associated Diagnosis | Comments | | | ty | | | | + +--------+ + + + | EXTERNAL LAB: [facility]IB[facility] | Routin | 03/25/2016 | | Results for this | | | e | 3:45 PM | | procedure are in the | | | | PDT | | results section. | + +--------+ + + + | VITAMIN D, | Routin | 03/25/2016 | | Results for this | | DEFICIENCY SCREEN | e | 3:45 PM | | procedure are in the | | (25-HYDROXY) | | PDT | | results section. | + +--------+ + + + | URINALYSIS, | Routin | 03/25/2016 | | Results for this | | MICROSCOPIC ONLY | e | 3:45 PM | | procedure are in the | | | | PDT | | results section. | + +--------+ + + + | PARATHYROID HORMONE, | Routin | 03/25/2016 | | Results for this | | INTACT AND CALCIUM | e | 3:45 PM | | procedure are in the | | | | PDT | | results section. | + +--------+ + + + | PROTEIN/CREATININE | Routin | 03/25/2016 | | Results for this | | RATIO, URINE | e | 3:45 PM | | procedure are in the | | | | PDT | | results section. | + +--------+ + + + | URIC ACID | Routin | 03/25/2016 | | Results for this | | | e | 3:45 PM | | procedure are in the | | | | PDT | | results section. | + +--------+ + + + | MAGNESIUM | Routin | 03/25/2016 | | Results for this | | | e | 3:45 PM | | procedure are in the | | | | PDT | | results section. | + +--------+ + + + | RENAL FUNCTION PANEL | Routin | 03/25/2016 | | Results for this | | | e | 3:45 PM | | procedure are in the | | | | PDT | | results section. | + +--------+ + + + documented in this encounter Results Parathyroid Hormone, Intact and Calcium (03/25/2016 3:45 PM PDT) + + + + + + | Component | Value | Ref Range | Performed | Pathologist | | | | | At | Signature | + + + + + + | PTH Intact | 80.30 (A) | 15 - 65 | EXTERNAL [...] + +---------+ + + Protein/Creatinine Ratio, Urine (03/25/2016 3:45 PM PDT) + +-------+ + + + | Component | Value | Ref Range | Performed | Pathologist | | | | | At | Signature | + +-------+ + + + | Protein/Cre | 78.5 | 0 - 150 | EXTERNAL | [...] + + Vitamin D, Deficiency Screen (25-Hydroxy) (03/25/2016 3:45 PM PDT) + +-------+ + + + | Component | Value | Ref Range | Performed | Pathologist | | | | | At | Signature | + +-------+ + + + | Vit D, | 42 | 30 - 100 | EXTERNAL | [...] + +---------+ + + Urinalysis, Microscopic Only (03/25/2016 3:45 PM PDT) + + + + + + | Component | Value | Ref Range | Performed | Pathologist | | | | | At | Signature | + + + + + + | Color | Jerri | | EXTERNAL | | | | | | LAB | | + + + + + + | Clarity, | Clear | | EXTERNAL | | | Urine | | | LAB | | + + + + + + | Specific | 1.016 | 1.005 - 1.030 | EXTERNAL | | | [place], | | | LAB | | | [...] + +---------+ + + External Lab: CBC (03/25/2016 3:45 PM PDT) + + + + + + | Component | Value | Ref Range | Performed | Pathologist | | | | | At | Signature | + + + + + + | WBC | 8.5 | 4.5 - 11.0 10 | EXTERNAL | | | | | | LAB | | + + + + + + | Non- | 4.30 | 4.3 - 5.7 10 | EXTERNAL | | | Red Blood | | | LAB | | | Cells | | | | | | Counted | | | | | + + + + + + | Hemoglobin | 13.4 (A) | 13.5 - 18.0 | EXTERNAL | | | | | g/dL | LAB | | + + + + + + | Hematocrit, | 40.8 (A) | 41 - 50 % | EXTERNAL | | | POC | | | LAB | | + + + + + + | MCV | 94.9 | 81 - 99 fL | EXTERNAL [...] + + + + | Platelet | 378 | 140 - 440 K/ L | EXTERNAL | | | Count | | | LAB | | | Plasma | | | | | + + + + + + | RDW-CV | | [...] | + +---------+ + + Uric Acid (03/25/2016 3:45 PM PDT) + +-------+ + + + [...] | | + +---------+ + + Magnesium (03/25/2016 3:45 PM PDT) + +---------+ + + + [...] + +---------+ + + Renal Function Panel (03/25/2016 3:45 PM PDT) + + + + + + | Component | Value | Ref Range | Performed | Pathologist | | | | | At | Signature | + + + + + + | Glucose, | 100 | 70 - 100 mg/dL | EXTERNAL | | | Fasting | | | LAB | | + + + + + + | BUN | 23 | 6 - 23 mg/dL | EXTERNAL | | | | | | LAB | | + + + + + + | Creatinine | 1.51 (A) | 0.70 - 1.18 | EXTERNAL | | | | | mg/dL | LAB | | + + + + + + | PHOSPHORUS | 3.1 | 2.5 - 5.0 mg/dL | EXTERNAL [...] + + + + | K | 4.5 | 3.6 - 5.1 | EXTERNAL | | | | | mmol/L | LAB | | + + + + + + | Cl | 102 | 95 - 112 mmol/L | EXTERNAL | | | | | | LAB | | + + + + + + | CO2 | 26 | 19 - 31 mmol/L | EXTERNAL | | | | | | LAB | | + + + + + + | Anion Gap | 15.5 | 7 - 21 mmol/L | EXTERNAL | | | | | | LAB | | + + + + + + | eGFR, | | | EXTERNAL | | | non- | | | LAB | | | Citizen Of [place] | | | | | + + [...]
--- OUTSIDE RECORDS SUMMARY | ~2020-05-13 | XMS | Encounter Summary ---
Demographics + + + | Address | [address] | | | [place] [address] | + + + | Home Phone | | + + + | Preferred Language | Unknown | + + + | Marital Status | | + + + | Zoroastrian Affiliation | Unknown | + + + | Race | White | + + + | Ethnic Group | Not or | + + + Author + + + | Author | [facility] | | | and [place] | + + + | Organization | [facility] | | [...] [place], [place] | | | | | [address] | | + + + + + | Angelita Godoy | ECON | Unknown | | + + + + + Care Team Providers + +------+ + | Care Machine Paint Mixer Name | Role | Phone | + +------+ + | Catracho Puente | PCP | | | MD | | | + +------+ + Encounter Details +--------+---------+ + + + | Date | Type | Department | Care Team | Description | +--------+---------+ + + + | 10/02/ | Office | [facility] | Ej Tatum MD | Stage 3 chronic | | 2020 | Visit | NEPHROLOGY [place] | [address] [place] | kidney disease (HCC) | | | | [address] | [address] [place], [place] | (Primary Dx); | | | | [address] | [address] | Vitamin D | | | | [place], [place] | | deficiency; Type 2 | | | | [address] | | diabetes mellitus | | | | [phone] | | with diabetic | | | | | | nephropathy, without | | | | | | long-term current | | | | | | use of insulin | | | | | | (HCC); Essential | | | | | | hypertension with | | | | | | goal blood pressure | | | | | | less than 130/80; | | | | | | Idiopathic chronic | | | | | | gout of multiple | | | | | | sites without | | | | | | tophus; High serum | | | | | | parathyroid hormone | | | | | | (PTH) | +--------+---------+ + + + Social History [...] + + + | Blood Pressure | 122/78 | 10/02/2019 2:12 PM | | | | | PST | | + + + + + | Pulse | 70 | 10/02/2019 2:12 PM | | | | | PST | | + + + + + | Temperature | - | - | | + + + + + | Respiratory Rate | - | - | | + + + + + | Oxygen Saturation | - | - | | + + + + + | Inhaled Oxygen | - | - | | | Concentration | | | | + + + + + | Weight | 91.7 kg (202 lb 1.6 | 10/02/2019 2:12 PM | | | | oz) | PST | | + + + + + | Height | 167.6 cm (5' 6") | 10/02/2019 2:12 PM | | | | | PST | | + + + + + | Body Mass Index | 32.62 | 10/02/2019 2:12 PM | | | | | PST | | + + + + + documented in this encounter Patient Instructions Patient Instructions Ej Tatum MD - 10/02/2019 2:00 PM PSTDiscussions: I discussed today with Mr. Salcedo the meaning of his CKD and the interaction of that wit h his hypertension. I stressed the importance of keeping his BP controlled and avoiding getting dehydrated i f we are to have a chance at helping preserve his renal function. He showed good understand ing. I gave him instructions on how to chart his blood pressure in the appropriate manner at home. He is to call us if they fall outside of the optimal provided range. He will bring his sphygmomanometer for validation once a year. He will strictly abide by a low salt & low purine diet. He will avoid all kinds of NSAIDs for analgesia. Also: I will not change any of his vasoactive meds today. He will bring me back his home BP charts if they fall outside of the optimal provided ra nge. At that time, I will decide whether any changes to his vasoactive regimen are warranted . He will F/U with your office regularly. He will have RFP, CBC, uric acid, iPTH, Urine total uwolyoz-ih-sopdsgwher ratio done bef ore he comes back in 12 months. documented in this encounter Progress Notes Ej Tatum MD - 10/02/2019 2:00 PM PST Patient Active Problem List Diagnosis Date Noted POA Biventricular implantable cardioverter-defibrillator in situ 05/17/2014 Unknown Priority: High Stage 3 chronic kidney disease 09/19/2012 Unknown Priority: High Bilateral carotid artery disease 06/17/2015 Unknown Priority: Medium Essential hypertension with goal blood pressure less than 130/80 09/19/2012 Unknown Priority: Medium Persistent atrial fibrillation 09/19/2012 Unknown Priority: Medium Mixed dyslipidemia 09/19/2012 Unknown Priority: Medium Chronic combined systolic and diastolic heart failure 06/13/2019 Unknown Paroxysmal atrial fibrillation 06/13/2019 Unknown Type 2 diabetes mellitus with kidney complication, without long-term current use of ins ulin 03/05/2019 Unknown Mild pulmonary hypertension 03/05/2019 Unknown Coarctation of the aorta, complex 02/28/2019 Unknown High serum parathyroid hormone (PTH) 02/09/2018 Unknown Urinary hesitancy 10/12/2016 Unknown Presence of automatic implantable cardioverter-defibrillator 01/22/2016 Unknown Stroke 06/14/2015 Unknown Vitamin D deficiency 03/27/2013 Unknown S/P aortic valve replacement 09/19/2012 Unknown Gout 09/19/2012 Unknown Impotence 09/19/[address] Puente: I saw your patient Mr. Salcedo in the office today. He is here to F/U on his CKD & its asso ciated complications with his . He was noted to have a rise in his SCr last 07/2012; the re was no obvious reason for that rise to 1.5. His previous baseline SCr was 1.1-1.3. In June 2015 he was admitted to [facility] in [place] for an urgent carotid endar terectomy after a stroke while on his vacation. CT scan showed a large acute cerebellar stro ke. He had a repeat CT head to follow up and this showed unchanged large R cerebellar infarc tion with mild mass effect on fourth ventricle with no evidence of hemorrhagic transformatio n. He is still currently on coumadin. The patient has history of hypertension since ~1960s. his BP control has been reportedly ad equate. he denies any history of prolonged exposure to NSAIDs or recent exposure to known ne phrotoxins. He denies any recurrent nephrolithiasis or pyelonephritis. He tells me that he's had no history of urinary retention, dysuria. He has no incontinence symptoms. No symptoms of UTI. He has 1-2 nightly nocturia. No history of passing kidney stones. He has no foamy urine either. his baseline Creatinine is to be established, but likely to be now 1.3-1.5. Th ere is no family history of renal genetic diseases such as PKD. He says that he feels 'good ' today, he has mild chronic leg swelling that is unchanged. He was on furosemide 20mg in 04/2017, this was stopped due to a rise in liver enzymes and de crease renal function. He has been tying to follow a low salt diet. Drinks beer at times. Reports his blood sugar has been unstable and he is on glipizide now. He was on potassium 1 0 mEq daily but this was stopped at some point. He is still on torsemide 20 mg daily. He reports he was told by his Coumadin management team that he was on too much Flomax, and has concerns about being on the higher dose. No issues with voiding. He had an episode of gross hematuria in 07/2012, but workup with cystoscopy & repeated U/A' s showed no abnormalities. He is followed by Urology in [place]. He denies any blurred vision tinnitus, headache, fever, chills, or cough. No nausea, vomit ing, abdominal pain, diarrhea, melena, or hematochezia. No chest pain, palpitation, dizzine ss, loss of consciousness, orthopnea, paroxysmal nocturnal dyspnea. The following portions of the patient's history were reviewed and updated as appropriate: a llergies, current medications, past medical history, past social history, past surgical hist ory, family history and problem list. As in History of Present Illness & in Assessment. All the pertinent systems were reviewed a nd were otherwise negative. Current Outpatient Medications: allopurinol (ZYLOPRIM) 300 mg tablet, Take 300 mg by mouth daily. , Disp: , Rfl: aspirin 81 MG EC tablet, Take 81 mg by mouth daily with breakfast., Disp: , Rfl: atorvaSTATin (LIPITOR) 80 MG tablet, Take 80 mg by mouth nightly., Disp: , Rfl: calcitriol (ROCALTROL) 0.25 mcg capsule, Take 0.25 mcg by mouth Daily., Disp: , Rfl: CARVEDILOL PO, Take 25 mg by mouth [...] hr tablet, Take 2.5 mg by mouth daily., Disp: , Rfl : lisinopril (PRINIVIL,ZESTRIL) 40 MG tablet, Take 1 tablet by mouth every evening., Dis p: , Rfl: tamsulosin (FLOMAX) 0.4 mg CAPS, Take 2 capsules by mouth After dinner., Disp: 180 ca psule, Rfl: 3 warfarin (COUMADIN) 5 mg tablet, Take 3 mg by mouth daily. 4mg Wednesday, Wednesday, ay and Wednesday. 3 mg Wednesday, Wednesday and wednesday, Disp: , Rfl: Physical Exam: BP 122/78 | Pulse 70 | Ht 1.676 m (5' 6") | Wt 91.7 kg (202 lb 1.6 oz) | BMI 32.62 kg/m General appearance: Pleasant, not in acute distress. Neck: Supple without tracheal deviation or jugular venous distension. Head and ENT: Head is atraumatic. The oropharynx is without erythema or thrush. Eyes: Anicteric. The extraocular muscle movements are normal. Lungs: Clear to auscultation bilaterally. There are no wheezes. Heart: Regular rate and rhythm without any rub, gallop. Grade 2 systolic murmur at the [facility] B. Pacer RG. Abdominal exam: Soft and nontender with normal bowel sounds. Musculoskeletal: No costovertebral angle tenderness bilaterally. Extremities: Warm to touch with no edema. There is no cyanosis. Skin: There are no rashes, petechiae, or ecchymosis. Red skin tone on face. Neurological: Awake, alert, and oriented to time, place, and person. Normal gross motor po wer. There is no asterixis. Psychiatric: The patient s behavior is normal. Judgment and thought content are normal. Lab Results Component Value Date HGB 13.2 (A) 01/13/2019 NA 137 10/02/2019 K 4.2 10/02/2019 CL 102 10/02/2019 CO2 23 10/02/2019 BUN 39 (A) 10/02/2019 CREA 1.54 (A) 10/02/2019 CALCIUM 9.9 10/02/2019 ALBUMIN 4.3 10/02/2019 EGFR 43.0 (A) 10/02/2019 PTH 76.66 (A) 07/19/2018 LABPROT 72.3 10/02/2019 [id number] 24 (A) 07/19/2018 Assessment: Mr. Salcedo is a 83 y.o. male patient with stage IIIA CKD on a background of hypertension & severe LV systolic dysfunction. The most likely pathology here is that of hypertensive nephr osclerosis/arteriolosclerosis. RENAL FUNCTION: Relatively stable BLOOD PRESSURE: Controlled at home BLOOD SUGAR: Reports it normal ELECTROLYTES: ok ANEMIA: None VITAMIN D: Corrected with treatment PARATHYROID HORMONE: Mildly up URIC ACID: Corrected with treatment PROTEINURIA: Trivial URINALYSIS: No UTI or hematuria VOLUME STATUS: Euvolumic. Discussions: I discussed today with Mr. Salcedo the meaning of his CKD and the interaction of that wit h his hypertension. I stressed the importance of keeping his BP controlled and avoiding getting dehydrated i f we are to have a chance at helping preserve his renal function. He showed good understand ing. I gave him instructions on how to chart his blood pressure in the appropriate manner at home. He is to call us if they fall outside of the optimal provided range. He will bring his sphygmomanometer for validation once a year. He will strictly abide by a low salt & low purine diet. He will avoid all kinds of NSAIDs for analgesia. Also: I will not change any of his vasoactive meds today. He will bring me back his home BP charts if they fall outside of the optimal provided ra nge. At that time, I will decide whether any changes to his vasoactive regimen are warranted . He will F/U with your office regularly. He will have RFP, CBC, uric acid, iPTH, Urine total cvvgewz-yw-evnennyuyx ratio done bef ore he comes back in 12 months. I spent 15 minutes of this 25-minute visit in education, counseling and answering all of hi s questions to his satisfaction. Thank you Dr. Puente for the opportunity to follow up with this patient and be part of the care team. Please do not hesitate to call me at any time with questions or concerns. Truly yours, Ej Tatum MD documented in this enco unter Plan of Treatment +--------+ + + + + | Date | Type | Specialty | Care Team | Description | +--------+ + + + + | 05/29/ | Office | Cardiology | Pavan Pham, | | | 2019 | Visit | | MD [address] | | | | | | [place] | | | | | | [address] | | | | | | | [...] [place] | | | | | [place] [address] | | | | | | [phone] | | | | | | | | +--------+ + + + + documented as of this encounter Visit Diagnoses + + | Diagnosis | + + | Stage 3 chronic kidney disease (HCC) - Primary | + + | Vitamin D deficiency Unspecified vitamin D deficiency | + + | Type 2 diabetes mellitus with diabetic nephropathy, without long-term current use of | | insulin (HCC) | + + | Essential hypertension with goal blood pressure less than 130/80 | + + | 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
--- OUTSIDE RECORDS SUMMARY | ~2020-05-13 | XMS | Encounter Summary ---
Demographics + + + | Address | [address] | | | [place] [address] | + + + | Home Phone | | + + + | Preferred Language | Unknown | + + + | Marital Status | | + + + | Jewish Affiliation | Unknown | + + + | Race | White | + + + | Ethnic Group | Not or | + + + Author + + + | Author | [facility] | | | and [place] | + + + | Organization | [facility] | | | and [...] [place], [place] | | | | | [address] | | + + + + + | Angelita Godoy | ECON | Unknown | | + + + + + Care Team Providers + +------+ + | Care Veterinary Science Teacher Name | Role | Phone | + +------+ + | Catracho Puente | PCP | | | MD | | | + +------+ + Encounter Details +--------+ + + + + | Date | Type | Department | Care Team | Description | +--------+ + + + + | 04/09/ | Orders Only | [facility] | Justino Hedrick, | | | 2014 | | NEPRHOLOGY [place] | BARN MANAGER [address] | | | | | [address] [place] | [address] [place], | | | | | [address] [place], [place] | [place] [address] | | | | | [address] | [phone] | | | | | [phone] | | | +--------+ + + + [...] [place] | | | | | | [address] | | | | | | | | +--------+ + + + + | 08/05/ | Procedure | Cardiology | | | | 2019 | visit | | | | +--------+ + + + + | 11/07/ | Office | Cardiology | RobleroNicolas, | | | 2020 | Visit | | [address] | | | | | | [place], | | | | | | [place] [address] | | | | | | [phone] | | | | | | | | +--------+ + + + + documented as of this encounter Procedures + +--------+ + + + | Procedure Name | Priori | Date/Time | Associated Diagnosis | Comments | | | ty | | | | + +--------+ + + + | EXTERNAL LAB: [facility] | Routin | 04/09/2015 | | Results for this | | | e | 12:00 AM | | procedure are in the | | | | PDT | | results section. | + +--------+ + + + | URINALYSIS WITH | Routin | 04/09/2015 | | Results for this | | MICROSCOPIC WITH | e | 12:00 AM | | procedure are in the | | CULTURE IF INDICATED | | PDT | | results section. | + +--------+ + + + | MICROALBUMIN/CREATIN | Routin | 04/09/2015 | | Results for this | | INE RATIO, URINE | e | 12:00 AM | | procedure are in the | | TEST | | PDT | | results section. | + +--------+ + + + | URIC ACID | Routin | 04/09/2015 | | Results for this | | | e | 12:00 AM | | procedure are in the | | | | PDT | | results section. | + +--------+ + + + | MAGNESIUM | Routin | 04/09/2015 | | Results for this | | | e | 12:00 AM | | procedure are in the | | | | PDT | | results section. | + +--------+ + + + | RENAL FUNCTION PANEL | Routin | 04/09/2015 | | Results for this | | | e | 12:00 AM | | procedure are in the | | | | PDT | | results section. | + +--------+ + + + documented in this encounter Results Urinalysis with Microscopic with Culture if Indicated (04/09/2015 12:00 AM PDT) + + + + [...] + + + | Spec Grav, | 1.017 | 1.005 - 1.030 | EXTERNAL | [...] + +---------+ + + Microalbumin/Creatinine Ratio, Urine (04/09/2015 12:00 AM PDT) + +-------+ + + + | Component | Value | Ref Range | Performed | Pathologist | | | | | At | Signature | + +-------+ + + + | ALBUMIN/CRE | 6.8 | 0 - 30 | EXTERNAL | [...] + +---------+ + + External Lab: CBC (04/09/2015 12:00 AM PDT) + +-------+ + + + | Component | Value | Ref Range | Performed | Pathologist | | | | | At | Signature | + +-------+ + + + | WBC | 9.1 | 4.5 - 11.0 10 | EXTERNAL | | | | | | LAB | | + +-------+ + + + | Non- | 4.77 | 4.3 - 5.7 10 | EXTERNAL | | | Red Blood | | | LAB | | | Cells | | | | | | Counted | | | | | + +-------+ + + + | Hemoglobin | 15.2 | 13.5 - 18.0 | EXTERNAL | | | | | g/dL | LAB | | + +-------+ + + + | Hematocrit, | 45.1 | 41 - 50 % | EXTERNAL | | | POC | | | LAB | | + +-------+ + + + | MCV | 94.4 | 81 - 99 fL | EXTERNAL [...] +-------+ + + + | Platelet | 221 | 140 - 440 K/ L | EXTERNAL | | | Count | | | LAB | | | Plasma | | | | | + +-------+ + + + | RDW-CV | 13.9 | 10.5 - 15.0 % | EXTERNAL [...] + + + | % Segmented | 65.6 | 39 - 80 % | EXTERNAL | | | | | | LAB | | | Neutrophils | | | | | + +-------+ + + + | % | 25.1 | 24 - 44 % | EXTERNAL | | | Lymphocytes | | | LAB | | + +-------+ + + + | % Monocytes | 7.2 | 0 - 12 % | EXTERNAL | | | | | | LAB | | + +-------+ + + + | % | 1.6 | 0 - 6 % | EXTERNAL [...] | + +---------+ + + Uric Acid (04/09/2015 12:00 AM PDT) + +-------+ + + + | Component | Value | Ref Range | Performed | Pathologist | | | | | At | Signature | + +-------+ + + + | Uric Acid | 4.4 | 4.4 - 7.6 | EXTERNAL | [...] | | + +---------+ + + Magnesium (04/09/2015 12:00 AM PDT) + +-------+ + + [...] + +---------+ + + Renal Function Panel (04/09/2015 12:00 AM PDT) + + + + + + | Component | Value | Ref Range | Performed | Pathologist | | | | | At | Signature | + + + + + + | Glucose, | 112 (A) | 70 - 100 mg/dL | EXTERNAL | | | Fasting | | | LAB | | + + + + + + | BUN | 17 | 6 - 23 mg/dL | EXTERNAL | | | | | | LAB | | + + + + + + | Creatinine | 1.21 (A) | 0.70 - 1.18 | EXTERNAL [...] + + + + | K | 4.0 [...] + + + | Anion Gap | 13.0 | 7 - 21 mmol/L | EXTERNAL | | | | | | LAB | | + + + + + + | eGFR, | | | EXTERNAL | | | non- | | | LAB | | | Macanese | | | | | + + + + + + | Phosphorus, | 2.2 (A) | 2.5 - 5.0 | EXTERNAL | | | Inorganic | | | LAB | | + + + + + + | BUN/Creatin | 14.0 | 6.0 - 28.6 | EXTERNAL | | | ine Ratio | | | LAB | | + + + + + + | Calcium | 9.2 | 8.4 - 10.2 | EXTERNAL | | | | | mg/dL | LAB | | + + + + + + | Estimated | 58 | mg/dL | EXTERNAL | | | [...]
--- OUTSIDE RECORDS SUMMARY | ~2020-05-13 | XMS | Encounter Summary ---
Demographics + + + | Address | [address] | | | [place] [address] | + + + | Home Phone | | + + + | Preferred Language | Unknown | + + + | Marital Status | | + + + | Sikh Affiliation | Unknown | + + + | Race | White | + + + | Ethnic Group | Not or | + + + Author + + + | Author | [facility] | | | and [place] | + + + | Organization | [facility] | | | [...] [place], [place] | | | | | [address] | | + + + + + | Angelita Godoy | ECON | Unknown | | + + + + + Care Team Providers + +------+ + | Care Industrial Controls Technician Name | Role | Phone | + +------+ + | Catracho Puente | PCP | | | MD | | | + +------+ + Reason for Visit + +--------+ + | Reason | Onset | Comments | | | Date | | + +--------+ + | Device Check | 06/05/ | | | (Remote) | 2019 | | + +--------+ + Encounter Details +--------+ + + + + | Date | Type | Department | Care Team | Description | +--------+ + + + + | 06/05/ | Telephone | [facility] | Vicky Farah | Device Check | | 2019 | | [facility] | [address] | (Remote) | | | | [address] | [address] | | | | | [place] | [place] [address] | | | | | [address] | [phone] | | | | | [phone] | | | +--------+ + + + [...] + + documented as of this encounter Miscellaneous Notes Telephone Encounter - Ysabel Juárez V - 06/05/2019 11:31 AM PDTLeft message for patient to send manual transmission by end of day. Device: Allgood ICD documented in this encoun ter Plan of Treatment +--------+ + + + + | Date | Type | Specialty | Care Team | Description | +--------+ + + + + | 05/29/ | Office | Cardiology | Pavan Pham, | | | 2019 | Visit | | MD [address] | | | | | | [facility] [place] | | | | | | [address] | | | | | | | | +--------+ + + + + | 08/05/ | Procedure | Cardiology | | | 2019 | visit | | | | +--------+ + + + + | 11/07/ | Office | Cardiology | Nioclas Roblero, | | | 2020 | Visit | | MD [address] | | | | | | [place], | | | | | | [place] [address] | | | | | | [phone] | | | | | | | | +--------+ + + + + documented as of this encounter Visit Diagnoses Not on filedocumented in this encounter"
--- OUTSIDE RECORDS SUMMARY | ~2020-05-13 | XMS | Encounter Summary ---
Demographics + + + | Address | [address] | | | [place] [address] | + + + | Home Phone | | + + + | Preferred Language | Unknown | + + + | Marital Status | | + + + | Mormon Affiliation | Unknown | + + + | Race | White | + + + | Ethnic Group | Not or | + + + Author + + + | Author | [facility] | | | and [place] | + + + | Organization | [facility] | | [...] [place], [place] | | | | | [address] | | + + + + + | Angelita Godoy | ECON | Unknown | | + + + + + Care Team Providers + +------+ + | Care Hydro Station Operator Name | Role | Phone | + +------+ + | Catracho Puente | PCP | | | MD | | | + +------+ + Encounter Details +--------+ + + + + | Date | Type | Department | Care Team | Description | +--------+ + + + + | 06/14/ | Orders Only | [facility] | Conversion | | | 2017 | | CONVERSION [address] | Transaction, | | | | | [address] | Provider Unknown | | | | | [place] | [phone] | | | | | [address] | | | | | | [phone] | | | +--------+ + + + [...] | | | | | [address] [address] [place] | | | | | | [address] | | | | | | | [...] | | | | | | [place] [address] | | | | | | [phone] | | | | | | | | +--------+ + + + + documented as of this encounter Visit Diagnoses Not on filedocumented in this encounter"
--- OUTSIDE RECORDS SUMMARY | ~2020-05-13 | XMS | Encounter Summary ---
Demographics + + + | Address | [address] | | | [place] [address] | + + + | Home Phone | | + + + | Preferred Language | Unknown | + + + | Marital Status | | + + + | Taoism Affiliation | Unknown | + + + | Race | White | + + + | Ethnic Group | Not or | + + + Author + + + | Author | [facility] | | | and [place] | + + + | Organization | [facility] | | | [...] [place], [place] | | | | | [address] | | + + + + + | Angelita Godoy | ECON | Unknown | | + + + + + Care Team Providers + +------+ + | Care Concrete Wall Grinder Operator Name | Role | Phone | + +------+ + | Catracho Puente | PCP | | | MD | | | + +------+ + Encounter Details +--------+ + + + + | Date | Type | Department | Care Team | Description | +--------+ + + + + | 07/13/ | Orders Only | [facility] | Johnnie Jones, | | | 2016 | | NEPHROLOGY [place] | ACCESS REPRESENTATIVE [address] | | | | [address] | [address] | | | | | [address] [place], [place] | [facility] [place] | | | | | [address] | [address] | | | | | [phone] | [phone] | | | | | | | [...] | | | | | [address] [place], [place] | | | | | | [address] | | | | | | | [...] | | | | | | [place] [address] | | | | | | [phone] | | | | | | | | +--------+ + + + + documented as of this encounter Procedures + +--------+ + + + | Procedure Name | Priori | Date/Time | Associated Diagnosis | Comments | | | ty | | | | + +--------+ + + + | EXTERNAL LAB: [facility] | Routin | 07/13/2017 | | Results for this | | | e | 1:45 PM | | procedure are in the | | | | PDT | | results section. | + +--------+ + + + | URINALYSIS, REFLEX | Routin | 07/13/2017 | | Results for this | | MICROSCOPIC AND/OR | e | 1:45 PM | | procedure are in the | | CULTURE | | PDT | | results section. | + +--------+ + + + | PROTEIN/CREATININE | Routin | 07/13/2017 | | Results for this | | RATIO, URINE | e | 1:45 PM | | procedure are in the | | | | PDT | | results section. | + +--------+ + + + | URIC ACID | Routin | 07/13/2017 | | Results for this | | | e | 1:45 PM | | procedure are in the | | | | PDT | | results section. | + +--------+ + + + | PARATHYROID HORMONE, | Routin | 07/13/2017 | | Results for this | | INTACT | e | 1:45 PM | | procedure are in the | | | | PDT | | results section. | + +--------+ + + + | RENAL FUNCTION PANEL | Routin | 07/13/2017 | | Results for this | | | e | 1:45 PM | | procedure are in the | | | | PDT | | results section. | + +--------+ + + + documented in this encounter Results Urinalysis, Reflex Microscopic and/or Culture (07/13/2017 1:45 PM PDT) + + + + + [...] + + + | Spec Grav, | 1.015 | 1.005 - 1.030 | EXTERNAL | [...] + +---------+ + + Protein/Creatinine Ratio, Urine (07/13/2017 1:45 PM PDT) + +-------+ + + + | Component | Value | Ref Range | Performed | Pathologist | | | | | At | Signature | + +-------+ + + + | Protein/Cre | 119.2 | 0 - 150 | EXTERNAL | [...] + +---------+ + + External Lab: CBC (07/13/2017 1:45 PM PDT) + +-------+ + + + | Component | Value | Ref Range | Performed | Pathologist | | | | | At | Signature | + +-------+ + + + | WBC | 9.1 | 4.5 - 11.0 10 | EXTERNAL | | | | | | LAB | | + +-------+ + + + | Non- | 4.75 | 4.3 - 5.7 10 | EXTERNAL | | | Red Blood | | | LAB | | | Cells | | | | | | Counted | | | | | + +-------+ + + + | Hemoglobin | 15.0 | 13.5 - 18.0 | EXTERNAL | | | | | g/dL | LAB | | + +-------+ + + + | Hematocrit, | 45.1 | 41 - 50 % | EXTERNAL | | | POC | | | LAB | | + +-------+ + + + | MCV | 95.0 | 81 - 99 fL | EXTERNAL [...] | + +---------+ + + Uric Acid (07/13/2017 1:45 PM PDT) + +---------+ + + + | Component | Value | Ref Range | Performed | Pathologist | | | | | At | Signature | + +---------+ + + + | Uric Acid | 4.1 (A) | 4.4 - 7.6 | EXTERNAL | [...] + +---------+ + + Parathyroid Hormone, Intact (07/13/2017 1:45 PM PDT) + + + + + + | Component | Value | Ref Range | Performed | Pathologist | | | | | At | Signature | + + + + + + | PTH INTACT | 92.08 (A) | 15 - 65 pg/mL | [...] + +---------+ + + Renal Function Panel (07/13/2017 1:45 PM PDT) + +-------+ + + + | Component | Value | Ref Range | Performed | Pathologist | | | | | At | Signature | + +-------+ + + + | Glucose, | 98 | 70 - 100 mg/dL | EXTERNAL | | | Fasting | | | LAB | | + +-------+ + + + | BUN | 20 | 6 - 23 mg/dL | EXTERNAL | | | | | | LAB | | + +-------+ + + + | Creatinine | 1.15 | 0.70 - 1.18 | EXTERNAL | | | | | mg/dL | LAB | | + +-------+ + + + | PHOSPHORUS | | mg/dL | EXTERNAL | | | | | | LAB | | + +-------+ + + + | Albumin | 4.3 | 3.5 - 5.0 | EXTERNAL | | | | | | LAB | | + +-------+ + + + | Na | 139 | 132 - 143 | EXTERNAL | | | | | mmol/L | LAB | | + +-------+ + + + | K | 3.9 | 3.6 - 5.1 | EXTERNAL | | | | | mmol/L | LAB | | + +-------+ + + + | Cl | 105 | 95 - 112 mmol/L | EXTERNAL | | | | | | LAB | | + +-------+ + + + | CO2 | 24 | 19 - 31 mmol/L | EXTERNAL | | | | | | LAB | | + +-------+ + + + | Anion Gap | 13.9 | 7 - 21 mmol/L | EXTERNAL | | | | | | LAB | | + +-------+ + + + | eGFR, | | | EXTERNAL | | | non- | | | LAB | | | Ethiopian | | | | | + +-------+ + + + | Phosphorus, | 3.2 | 2.5 - 5.0 | EXTERNAL | | | Inorganic | | | LAB | | + +-------+ + + + | BUN/Creatin | 17.4 | 6.0 - 28.6 | EXTERNAL | | | ine Ratio | | | LAB | | + +-------+ + + + | Calcium | 9.7 | 8.4 - 10.2 | EXTERNAL | | | | | mg/dL | LAB | | + +-------+ + + + | Estimated | 61 | mg/dL | EXTERNAL | | | [...]
--- OUTSIDE RECORDS SUMMARY | ~2020-05-13 | XMS | Encounter Summary ---
Demographics + + + | Address | [address] | | | [place] [address] | + + + | Home Phone | | + + + | Preferred Language | Unknown | + + + | Marital Status | | + + + | Mosque Affiliation | Unknown | + + + [...] [place], [place] | | | | | [address] | | + + + + + | Angelita oGdoy | ECON | Unknown | | + + + + + Care Team Providers + +------+ + | Care Inclusion Internship Name | Role | Phone | + +------+ + PCP | Unavailable | + +------+ + Encounter Details +--------+ + + + + | Date | Type | Department | Care Team | Description | +--------+ + + + + | 06/17/ | Hospital | [facility] | Wing Roxane Cr MD | | | 2015 - | Encounter [facility] | [address] | | | | | INPATIENT | [place], [place] | | | 06/18/ | | REHABILITATION [address] | [phone] | | | [address] | | [address] | [phone] | | | | | [place], [place] | | | | | | [address] | | | | | | [phone] | | | +--------+ + + + [...] documented as of this encounter Discharge Summaries Wing Roxane Cr MD - 06/18/2015 8:43 AM PDTFormatting of this note might be different from th e original. Discharge Summaries by Wing Roxane Cr MD at 06/18/15842 Author: Wing Roxane Cr MD Service: Physical Medicine and Rehab Author Type: Physician Filed: 06/18/1552 Date of Service: 06/18/15842 Status: Signed Delinquent Notice Machine Operator: Wing Roxane Cr MD (Physician) [facility] Service: Physical Medicine & Rehab Discharge Summary Date of Admission: 06/17/2015 Date of Discharge: 06/18/2015 Discharge Provider: WING Roxane CR MD Treatment Team: Admitting Provider: Wing Roxane rC MD Discharge Diagnoses: Principal Problem: Stroke (HCC) Active Problems: Essential hypertension, benign S/P aortic valve replacement Atrial fibrillation (HCC) Biventricular implantable cardioverter-defibrillator in situ Bilateral carotid artery disease (HCC) Resolved Problems: * No resolved hospital problems. * Final Diagnoses: Cerebellar CVA Procedures: * No surgery found * Significant Diagnostic Studies: BRIEF HISTORY OF PRESENTATION: The patient is a 79 y.o. male with PMH significant for recent R carotid endarterectomy, s/p AV replacement, CAD s/p CABG, CKD, sp AICD, afib on anticoagulation transferred from [facility] for stroke. Patient was just discharged from [facility] in [place] yesterday af ter the carotid endarterectomy which was done the day prior. He had initially presented to t OS for recurrent symptoms of TIA including dizziness, a fall, weakness, numbness of left upper extremity for 3 days. During the work up, he was found to have a 60% right internal c arotid stenosis with dense calcified irregular atherosclerosis with a stenosis, thought to b e a complex lesion. It was felt to be symptomatic right carotid stenosis and he underwent se mi-urgent carotid endarterectomy as mentioned above. His symptoms resolved so he was dischar [facility] home. During that hospital course, his coumadin level was reversed and his INR at [facility] was 1.5. He was discharged with lovenox bridge which he only took once but because he wa s not feeling well, he did not take the lovenox shot this morning and did not take coumadin last night. This morning he felt similar dizziness as before although not as bad and he couldn't stand, so he was taken to [facility]. Family reports that his legs were just shaking. Otherwise no fever, no n/v. Head CT was repeated and he was found to have a subacute infarct per verb al report - I do not have the formal report so the details of his stroke not certain at this time. Brain MRI could not be done due to AICD. Dr. Vidal at [facility] and patient was transferred for further evaluation and management. He currently denies any weakness, numbness, speech or swallowing problems. The patient has been evaluated by Dr. Vidal, neurologist and her impression is for cerebellar CVA. He is to have ASA X5 days, then switch over to Coumadin. Consultation was performed and he was deemed appropriate for IPR care. With stabilization a nd no acute changes, he was admitted. HOSPITAL COURSE: The patient has been afebrile, vital signs have been stable since admission. His lab results are all quite good. The patient, unfortunately, has now decided to go home for care instead. His family was agreeable to his decision. Patient was informed that if this was his wish, then I cannot start his switching over to Coumadin as we will not be able to do pr oper followup. He was recommended to continue with ASA 325 mg for now, and have his PCP at home to do the switch over. The patient and his family were all in agreement with the plan. Past Medical History Diagnosis Date Hypertension Gout CHF (congestive heart failure) (HCC) Hyperlipidemia Cardiomyopathy (HCC) Atrial fibrillation (HCC) hx. of S/P AVR (aortic valve replacement) Aortic stenosis hx. of Chronic kidney disease Diabetes mellitus, type 2 (HCC) Stroke (HCC) Past Surgical History Procedure Laterality Date Cardiac valve replacement 2010 Cardiac defibrillator placement 2010 Coronary artery bypass graft Cataract extraction bilateral Pacemaker insertion [employer] No Known Allergies Prescriptions prior to admission Medication Sig Dispense Refill Last Dose allopurinol (ZYLOPRIM) 300 MG tablet Take 300 mg by mouth daily. 06/17/2015 at Unkno wn time amiodarone (PACERONE) 200 MG tablet Take 200 mg by mouth daily. 06/17/2015 at Unknow n time CARVEDILOL PO Take 25 mg by mouth 2 (two) times daily. 06/17/2015 at Unknown time digoxin (LANOXIN) 0.125 MG tablet Take 125 mcg by mouth daily. 06/17/2015 at Unknown time tamsulosin (FLOMAX) 0.4 MG capsule Take 2 capsules by mouth After dinner. 180 capsule 3 06/16/2015 at Unknown time VITAMIN D, ERGOCALCIFEROL, PO Take 5,000 Int'l Units by mouth daily. 06/17/2015 at Unk nown time DISCHARGE EXAM Vital Signs: BP 156/79 mmHg | Pulse 57 | Temp(Src) 97.6 F (36.4 C) (Oral) | Resp 20 | Ht 1.626 m (5' 4.02") | Wt 92.6 kg (204 lb 2.3 oz) | BMI 35.02 kg/m2 | SpO2 93% Physical Exam HEENT: NC/AT: EOMI; face is symmetrical Neck; supple Lung :clear Cardiac; regular Abdo: soft : male Rectal: deferred MS: moving all extremities Neuro; alert and oriented. Speaking well. Cognitively intact. CN II-XII grossly normal. Motor strength at least 4/5 throughout. DATA PLAN the patient is wanting to be discharge home today. He will continue with ASA 325 mg daily and his PCP will make the switch back over to Coumadin. He will have outpatient therapy. Disposition: Home Condition: Fair Code Status: Full Code No discharge procedures on file. Follow up: Dontae Chance MD [address] [facility] [id number] In 1 week Medication List CONTINUE taking these medications allopurinol 300 MG tablet Refills: 0 Commonly known as: ZYLOPRIM amiodarone 200 MG tablet Refills: 0 Commonly known as: PACERONE aspirin 325 MG tablet QTY: 30 tablet Refills: 0 Doctor's comments: Stop 325 mg dose when INR is 2-3 and resume at 81 mg per Vascular surge on Take 1 tablet by mouth daily with breakfast. atorvastatin 80 MG tablet QTY: 30 tablet Refills: 0 Commonly known as: LIPITOR Take 1 tablet by mouth nightly. CARVEDILOL PO Refills: 0 digoxin 0.125 MG tablet Refills: 0 Commonly known as: LANOXIN tamsulosin 0.4 MG capsule QTY: 180 capsule Refills: 3 Commonly known as: FLOMAX Take 2 capsules by mouth After dinner. VITAMIN D (ERGOCALCIFEROL) PO Refills: 0 Where to Get Your Medications These are the prescriptions that you need to knot picker cloth. You may get the following medications from any pharmacy - aspirin 325 MG tablet - atorvastatin 80 MG tablet Discharge took 60 minutes, to include final examination, discussion of admission, and prepa ration of prescriptions, instructions for on-going care, follow-up and documentation of disc harge summary. WING Roxane CR MD 06/18/2015 documented in this encou nter Medications at Time of Discharge + + [...] Progress Notes Conversion Transaction, Provider Unknown - 06/18/2015 10:45 AM PDTFormatting of this note m ight be different from the original. Nurse Progress Note by Cachorro Joseph RN at 06/18/15 9565 Author: Cachorro Joseph RN Service: (none) Author Type: Registered Nurse Filed: 06/18/15 1158 Date of Service: 06/18/151044 Status: Signed Delinquent Notice Machine Operator: Cachorro Joseph RN (Registered Nurse) Discharge instructions given to pt, including information for PCP. Discussed need for pt to resume coumadin therapy and he will f/u with PCP on 06/19. All questions answered. Pt es corted with wheelchair out to car with and two daughters present. onver paulina Transaction, Provider Unknown - 06/18/2015 8:52 AM PDT Case Management by BETH Miramontes at 06/18/15 0852 Author: BETH Miramontes Service: (none) Author Type: Supervisor Extruding Department Filed: 06/18/15 0854 Date of Service: 06/18/1552 Status: Signed Delinquent Notice Machine Operator: BETH Miramontes (Supervisor Extruding Department) Pt admitted yesterday, pt and family want to dc home today. MD recommending Outpatient PT/ OT. Pt and family are agreeable and would like to go to [facility] OP Therapy. Referral faxed. Pt/family declined ordering a 4WW as they reported they will obtain one from a loan closet in [place]. No other needs or concerns identified. Disposition: Home with spouse/family. OP PT/OT Transportation: Family to transport All orders, signed AVS, and prescriptions have been faxed All DC paperwork completed Patient and family in agreement with discharge plan Medicare important message (Given or N/A): Given TIM BOSS onver paulina Transaction, Provider Unknown - 06/17/2015 6:08 PM PDT Nurse Progress Note by Deysi Morales RN at 06/17/15 1257 Author: Deysi Morales RN Service: (none) Author Type: Registered Nurse Filed: 06/17/151808 Date of Service: 06/17/151807 Status: Signed Delinquent Notice Machine Operator: Deysi Morales RN (Registered Nurse) Patient refusing alarm to be activated on bed, risk versus benefit discussed continues to r efuse. onver [place]ulina Transaction, Provider Unknown - 06/17/2015 5:35 PM PDT Nurse Progress Note by Deysi Morales RN at 06/17/151734 Author: Deysi Morales RN Service: (none) Author Type: Registered Nurse Filed: 06/17/151734 Date of Service: 06/17/151734 Status: Signed Delinquent Notice Machine Operator: Deysi Morales RN (Registered Nurse) Patient and family refusing to sign paperwork as they will be discharging tomorrow AMA. onver [place]ulina Transaction, Provider Unknown - 06/17/2015 5:11 PM PDT Nurse Progress Note by Deysi Morales RN at 06/17/151710 Author: Deysi Morales RN Service: (none) Author Type: Registered Nurse Filed: 06/17/15 171 Date of Service: 06/17/151710 Status: Signed Delinquent Notice Machine Operator: Deysi Morales RN (Registered Nurse) Patient reporting that he does not want to stay and rehab is a waste of his time. Risk aden christiano benefit discussed, continues to want to discharge. Dr. Cr here to talk to family and patient. Will continue to monitor. onver [place]ulina Transaction, Provider Unknown - 06/17/2015 3:25 PM PDT Therapy Progress Note by ZULMA Parker at 06/17/15 1525 Author: ZULMA Parker Service: (none) Author Type: Occupational Therapist Filed: 06/17/15 9374 Date of Service: 06/17/15 1525 Status: Signed Delinquent Notice Machine Operator: Tabby Torres OTR/Josh (Occupational Therapist) 06/17/15 1525 Precautions Other Precautions fall risk, dizziness with mobility Home Environment Additional Comments Refer to PT note for PLOF Prior Function Level of [place] Independent with functional mobility;Independent with ADLs;Independe nt with IADLs;Driving in community Lives With Spouse Receives Help From Family ADL Assistance Independent Home ADL's Independent ADL Additional Comments Pt. willing to participate in OT this PM. Pt. seated in chair upon OT a rrival. Pt. had already completed most ADLs earlier this AM, per report. Pt. would benefit f rom further skilled OT services to address walker safety during ADLs, IADLs, mobility/balanc e, AE needs. Vision-Basic Assessment Current Vision No visual deficits;Reading glasses Cognition Overall Cognitive Status WFL Orientation Level Oriented Sensation Light Touch No apparent deficits Proprioception Proprioception No apparent deficit Perception Inattention/Neglect Appears intact Initiation Appears intact Motor Planning Appears intact Perseveration Not present RUE Assessment RUE Assessment WFL LUE Assessment LUE Assessment WFL Hand Function Gross Grasp Functional Functional Gross Grasp Able to grasp objects without difficulty Coordination Functional (pt. is left handed) Assessment Assessment Decreased ADL status;Decreased Safe judgement during ADL;Decreased endurance;Dec reased self-care trans;Decreased high-level ADLs Prognosis Good Goal Formulation Patient;Family ADL Goals Pt Will Perform Grooming Standing at sink;With supervision (LTG: modified independent, standing at sink) Pt Will Perform Bathing With supervision;With adaptive equipment (LTG: modified independent) Bathing Adaptive Equipment Grab bars;Shower chair;Shower head hand held Pt Will Perform LE Dressing At edge of bed;In chair;Supervision;With adaptive equipment (LTG: modified independent) LE Dressing Adaptive Equipment Medical Assistant Supervisor (prn) Functional Transfer Goals Pt Will Perform All Functional Transfers With supervision;With assistive device (LTG: modified independent) Assistive Devices Functional Transfer Walker four wheeled Arm Goals Pt Will Perform AROM (pt. will complete simple IADL with 4WW-modified independent) Plan Treatment Interventions ADL retraining;IADL retraining;Functional transfer training;Functio nal dynamic activities;Therapeutic exercises;Endurance training;Patient/Family training;Equi pment eval/education;Compensatory technique education OT Frequency QD;BID;5x/wk Requires OT Follow Up Awaiting tx order Recommendation Recommendation Outpatient PT;Return to prior living conditions Equipment Recommended Shower chair with back;Medical Assistant Supervisor 06/17/15 4365 Transfers: Bed, Chair, Wheelchair 4 - Patient requires minimal assist DUE TO? steadying assist Bed/chair/wheelchair transfers impacted by Endurance;Safety concerns Where transfers completed Sitting at bedside;Standing at bedside;Supine/sitting up in bed;C hair Transfers: Bed, Chair, Wheelchair Final Score 4 Comprehension (in [place] language) 6 - Patient understands complex/abstract information WITH? extra time Comprehension Final Score 6 - Modified independence Expression (in [place] language) 7- Patient expresses complex/abstract informantion w/o help. Patient expresses complex/abst ract informantion w/o help. Expression Final Score 7 Social Interaction 7- Patient interacts appropriately without mood medication Patient interacts appropriately without mood medication Social Interaction Final Score 7 Problem Solving 6 - Patient solves complex problems WITH? mild difficulty Problem Solving Final Score 6 Memory 7- Patient is independent with memory DUE TO? recognizing people frequently encountered Memory Final Score 7 Education Completed: Education Topic: OT role, IPR expectations, fine motor coordination/strength Completed with: Patient Completed by: Verbal Education, Demonstration Response to Education: Stated Understanding, Returned Demonstration, Reinforcement Arlen munguia for Education Understanding Occupational Therapy Plan: Continue OT treatment per POC-initiate POC onver paulina Transaction, Provider Unknown - 06/17/2015 1:51 PM PDT Progress Notes by Cyrus Solomon RPH at 06/17/15 1351 Author: Cyrus Solomon RPH Service: (none) Author Type: Pharmacist Filed: 06/17/15 1351 Date of Service: 06/17/151350 Status: Signed Delinquent Notice Machine Operator: Cyrus Solomon RPH (Pharmacist) CrCl = 54- no renal dose changes needed onver paulina Transaction, Provider Unknown - 06/17/2015 1:50 PM PDT Therapy Progress Note by Zuly Goldsmith PT at 06/17/15 3707 Author: Zuly Bodde, PT Service: (none) Author Type: Physical Therapist Filed: 06/17/15 5186 Date of Service: 06/17/151349 Status: Signed Delinquent Notice Machine Operator: Zuly Goldsmith, PT (Physical Therapist) 06/17/15 1350 PT Last Visit PT Received On 06/17/15 Reason for Treatment Stroke Requires PT Follow Up Awaiting tx order Follow up PT Only? No PT Eval/Reassessment Date 06/17/15 Assistance Required 1 person Service Planner Needed No Home Environment Home Exterior Layout (1 6'' step/landing, walker will fit on step ) Bathroom Accessibility Accessible via walker Additional Comments R carotid endarterectomy @ [facility] in [facility] on ~06/11 or per pt. Prior Function Level of [place] Independent with functional mobility;Independent with ADLs;Independe nt with IADLs;Community distance (has not driven since carotid endarterectomy) Lives With Spouse Receives Help From Family Employment Retired for age ([employer] ) Leisure Hobbies-yes (Comment) (reading, watching TV, working in garden) RUE Assessment RUE Assessment WFL LUE Assessment LUE Assessment WFL (Lhanded ) RLE Assessment RLE Assessment WFL LLE Assessment LLE Assessment WFL Cognition Overall Cognitive Status WFL Orientation Level Oriented (oriented to person & situatio/vc for place/needed calendar ) Sensation Light Touch No apparent deficits Perception Inattention/Neglect Appears intact Proprioception Proprioception No apparent deficit Vision-Basic Assessment Current Vision No visual deficits;Reading glasses Visual History Corrective eye surgery;Cataracts Assessment of Patient Status Assessment of Patient Status Decreased functional mobility;Precautions (medium fall risk ) Prognosis Should progress with skilled therapy intervention Precautions Other Precautions medium fall risk, moderate dizziness w/mobility Activity Tolerance Endurance Good Plan Treatment/Interventions Balance training;Family training;Gait training;Provide HEP;Review H EP;Review precautions;Stair training;Therapeutic exercise;Transfer training PT Frequency 5-7x/wk;Once per day;Twice a day Care Duration (# of days) 7 # of days Recommendation Recommendations (continue IPR therapy) Equipment Recommended Walker 4 wheeled (pending progress, may not need AD prior to dc ) 06/17/15 1350 PT Last Visit PT Received On 06/17/15 Reason for Treatment Stroke Requires PT Follow Up Awaiting tx order Follow up PT Only? No PT Eval/Reassessment Date 06/17/15 Assistance Required 1 person Service Planner Needed No Precautions Other Precautions medium fall risk, moderate dizziness w/mobility Other Comments Comments Pt. s/p Rcerebellar CVA. Pt. was travelling recently in [place] area where he was h ospitilized 2ndary to fall, workup revewal issues w/carotid artery blockage. Pt. s/p Rcarot id endarterectomy @ [facility] in [place]. [facility] Pt . lives w/ who can assist as needed. Pt has 1STE. Pt. supervised w/bed mob & Peace w/ST S Transfers 2ndary to Rlean. Pt. required inital modA during the first 10ft of amb 2ndary t o amb very quickly w/FWW & leaning to the R. Pt. requires cues to slow down. Pt. amb. bett er w/4WW as it was more fluid/continuous. 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 Pt. scored 23/28 on the Tinetti Balance Assessment w/o AD indicating medium fall risk. Pt. verb. moderate dizziness, describing that it affects his 5-6/10 in regards to his mob parti cipation. Pt. verb. more dizziness w/horizontal head turns vs. vertical head turns. Pt. neg otiated 12 steps w/SBA w/railing support. Pt. supine in bed @ end of PT w/call light within reach to verb needs. Cognition Overall Cognitive Status WFL Orientation Level Oriented (oriented to person & situatio/vc for place/needed calendar ) Bed Mobility Supine to Sit Supervision Sit to Supine (pt. supine in bed @ end of PT ) Transfers Sit to/from Stand Minimal assist (steadying/contact guard) (LOB to the R upon immediate standing/walking ) Mobility Weight Bearing Status WBAT RLE;WBAT LLE (pt. verb dizziness w/amb ) Ambulation Assistance Minimal assist;Moderate assist;Verbal instruction;Visual instruction (initial modA w/FWW upon initial amb 2ndary to too quick/Rln) Maximal Ambulation Distance (feet) [id number] Total Ambulation Distance (feet) 450ft Distance limited by? Therapist/staff discretion Pattern (occasional mild Rdecreased toe clr, pot. LOB Rtrn, RUE splay) Assistive Device Walker front wheeled;Walker 4 wheeled;None (pt. safest w/4WW at this time, FWW Too slow, pend prog noAD) Stairs Assistance Standby assist Number of Stairs 12 Number of stairs limited by? Therapist/staff discretion Stair Management Technique [id number];Rails bilateral Balance Balance Yes ( Tinetti Balance Assessment w/o AD, medium fall risk ) Dynamic Standing Balance Dynamic Standing-Balance Activities (pt. demos deficits w/intial WBOS, mild path dev, RUE s play) Activity Tolerance Activity Tolerance Patient limited by fatigue Plan Treatment/Interventions Balance training;Family training;Gait training;Provide HEP;Review H EP;Review precautions;Stair training;Therapeutic exercise;Transfer training PT Frequency 5-7x/wk;Once per day;Twice a day Care Duration (# of days) 7 # of days Recommendation Recommendations (continue IPR therapy) Equipment Recommended Walker 4 wheeled (pending progress, may not need AD prior to dc ) onver paulina Transaction, Provider Unknown - 06/17/2015 1:14 PM PDT Therapy Progress Note by BARBY Evans at 06/17/151313 Author: BARBY Evans Service: (none) Author Type: Massage Therapist Filed: 06/17/151313 Date of Service: 06/17/151313 Status: Signed Delinquent Notice Machine Operator: BARBY Evans (Massage Therapist) 06/17/15 1300 MT Last Visit MT Received On 06/17/15 MT Therapy Visit Refused (asked to be removed from list) docume nted in this encounter H&P Notes Wing Roxane Cr MD - 06/17/2015 12:11 PM PDTFormatting of this note might be different from hugo quirzo original. H&P by Wing Roxane Cr MD at 06/17/15 121 Author: Wing Roxane Cr MD Service: Physical Medicine and Rehab Author Type: Physician Filed: 06/17/15 1216 Date of Service: 06/17/151 Status: Signed Delinquent Notice Machine Operator: Wing Roxane Cr MD (Physician) [facility] Service: Physical Medicine & Rehab Admission History & Physical This document also serves as the patient's Post Admission Physician Evaluation (DONYA). The patient's current level of impairment is consistent with the pre-admission screening as sessment. No significant medical or functional changes have occurred, therefore admission to [facility] is reasonable, necessary, and appropriate with the goals of a community-based discharge . Date of Admission: 06/17/2015 Requesting Physician: Hospitalist Reason for Admission: Cerebellar CVA History Obtained From: patient, spouse, chart review CHIEF COMPLAINT: Cerebellar CVA HISTORY OF PRESENT ILLNESS The patient is a 79 y.o. male with PMH significant for recent R carotid endarterectomy, s/p AV replacement, CAD s/p CABG, CKD, sp AICD, afib on anticoagulation transferred from [facility] for stroke. Patient was just discharged from [facility] in [place] yesterday after the carotid endarterectomy which was done the day prior. He had initially presented to the [facility] for recurrent symptoms of TIA including dizziness, [...] couldn't stand, so he was taken to [facility]. Family reports that his legs were just shaking. Otherwise no fever, no n/v. Head CT was repeated and he was found to have a subacute infarct per verb al report - I do not have the formal report so the details of his stroke not certain at this time. Brain MRI could not be done due to AICD. Dr. Vidal at [facility] and patient was transferred for further evaluation and management. He currently denies any weakness, numbness, speech or swallowing problems. The patient has been evaluated by Dr. Vidal, neurologist and her impression is for cerebellar CVA. He is to have ASA X5 days, then switch over to Coumadin. Consultation was performed and he was deemed appropriate for IPR care. With stabilization and no acute changes, he will be admitted today. REVIEW OF SYSTEMS Review of Systems He [...] bypass graft Cataract extraction bilateral Pacemaker insertion [employer] Immunizations: Influenza: Up-to-date Pneumoccocal: Not indicated No Known Allergies Prescriptions prior to admission Medication Sig Dispense Refill Last Dose allopurinol (ZYLOPRIM) 300 MG tablet Take 300 mg by mouth daily. Taking amiodarone (PACERONE) 200 MG tablet Take 200 mg by mouth daily. Taking aspirin 325 MG tablet Take 1 tablet by mouth daily with breakfast. 30 tablet 0 atorvastatin (LIPITOR) 80 MG tablet Take 1 tablet by mouth nightly. CARVEDILOL PO Take 25 mg by mouth 2 (two) times daily. Taking digoxin (LANOXIN) 0.125 MG tablet Take 125 mcg by mouth daily. Taking tamsulosin (FLOMAX) 0.4 MG capsule Take 2 capsules by mouth After dinner. 180 capsule 3 Taking VITAMIN D, ERGOCALCIFEROL, PO Take 5,000 Int'l Units by mouth daily. Taking Family History Problem Relation Age of Onset Cancer Mother Heart disease Father SOCIAL HISTORY He lives at home with spouse, and has 2 steps in. PHYSICAL EXAM Vital Signs: BP 169/76 mmHg | Pulse 60 | Temp(Src) 96.1 F (35.6 C) (Oral) | Resp 18 | Ht 1.626 m (5' 4.02") | Wt 92.6 kg (204 lb 2.3 oz) | BMI 35.02 kg/m2 | SpO2 96% Physical Exam HEENT: NC/AT; EOMI: face is symmetrical Neck: right CEA incision healing, he is with some ecchymosis Lung: clear Cardiac; irregular irregular Abdo: soft : male Rectal: deferred MS; Moving all extremities Neuro: alert and oriented. Speaking well. CN II-XII grossly intact. Strength is at least 4/ 5 throughout. He was without dysmetria. DATA PROBLEM LIST Principal Problem: Stroke (HCC) Active Problems: Essential hypertension, benign S/P aortic valve replacement Atrial fibrillation (HCC) Biventricular implantable cardioverter-defibrillator in situ Bilateral carotid artery disease (HCC) ASSESSMENT & PLAN the patient is a 79 year-old right-handed white male s/p cerebellar CVA. He is with gait d isturbance. Patient is with bilateral carotid artery disease. 1. Cerebellar CVA; Continue with ASA before switching to Coumadin. Monitor for bleed or seizures. Aggressive PT and OT. 2. Carotid artery disease: Patient is s/p right CEA, monitor for healing. 3. A-fib: Patient to be switch to Coumadin on . 4. Disposition: Patient to have to help with discharge planning. Disposition: home with spouse Code Status: Full Code Primary Care Physician: DONTAE CR MD 06/17/2015 documented in this encou nter Plan of Treatment +--------+ + + + + | Date | Type | Specialty | Care Team | Description | +--------+ + + + + | 05/29/ | Office | Cardiology | Pavan Pham, | | | 2019 | Visit | | [address] | | | | | | [place], [place] | | | | | | [address] | | | | | | | [...] | | | | | | [place] [address] | | | | | | [phone] | | | | | | | | +--------+ + + + + documented as of this encounter Procedures + +--------+ + + + | Procedure Name | Priori | Date/Time | Associated Diagnosis | Comments | | | ty | | | | + +--------+ + + + | EXTERNAL LAB: [facility] | Routin | 06/18/2015 | | Results for this | | | e | 6:06 AM | | procedure are in the | | | | PDT | | results section. | + +--------+ + + + | BASIC METABOLIC | Routin | 06/18/2015 | | Results for this | | PANEL | e | 6:06 AM | | procedure are in the | | | | PDT | | results section. | + +--------+ + + + documented in this encounter Results External Lab: [facility] (06/18/2015 6:06 AM PDT) + + + + + + | Component | Value | Ref Range | Performed | Pathologist | | | | | At | Signature | + + + + + + | WBC | 8.84Comment: Testing | 3.80 - 11.00 | EXTERNAL | | | | performed at [facility], [address] | K/uL | LAB | | | | [address], | | | | | | [place] [address] | | | | + + + + + + | Non- | 4.24Comment: Testing | 4.20 - 5.70 | EXTERNAL | | | Red Blood | performed at [facility], [address] | M/uL | LAB | | | Cells | [address], | | | | | Counted | [place] [address] | | | | + + + + + + | Hemoglobin | 13.6Comment: Testing | 13.2 - 17.0 | EXTERNAL | | | | performed at [facility], [address] | g/dL | LAB | | | | [address], | | | | | | [place] [address] | | | | + + + + + + | Hematocrit, | 41.0Comment: Testing | 39.0 - 50.0 % | EXTERNAL | | | POC | performed at [facility], [address] | | LAB | | | | [address], | | | | | | [place] [address] | | | | + + + + + + | MCV | 96.7Comment: Testing | 80.0 - 100.0 fl | EXTERNAL | | | | performed at [facility], [address] | | LAB | | | | [address], | | | | | | [place] [address] | | | | + + + + + + | MCH | 32.1Comment: Testing | 27.0 - 34.0 pg | EXTERNAL | | | | performed at [facility], [address] | | LAB | | | | [address], | | | | | | [place] [address] | | | | + + + + + + | MCHC | 33.2Comment: Testing | 32.0 - 35.5 | EXTERNAL | | | | performed at [facility], [address] | g/dL | LAB | | | | [address], | | | | | | [place] [address] | | | | + + + + + + | RDW-CV | 45.5Comment: Testing | 37 - 53 fl | EXTERNAL | | | | performed at [facility], [address] | | LAB | | | | [address], | | | | | | [place] [address] | | | | + + + + + + | Platelet | 300Comment: Testing | 150 - 400 K/uL | EXTERNAL | | | Count | performed at [facility], [address] | | LAB | | | Plasma | [address], | | | | | | [place] [address] | | | | + + + + + + | MPV | 9.1Comment: Testing | fl | EXTERNAL | | | | performed at [facility], [address] | | LAB | | | | [address], | | | | | | [place] [address] | | | | + + + + + + | Differentia | AUTOMATEDComment: | | EXTERNAL | | | l Type | Testing performed at | | LAB | | | | [facility], [address] | | | | | | [place] | | | | | | [address] | | | | + + + + + + | % Segmented | 62.58Comment: Testing | % | EXTERNAL | | | | performed at [facility], [address] | | LAB | | | Neutrophils | [place], | | | | | | [place] [address] | | | | + + + + + + | % | 24.60Comment: Testing | % | EXTERNAL | | | Lymphocytes | performed at [facility], [address] | | LAB | | | | [address] [place], | | | | | | [place] [address] | | | | + + + + + + | % Monocytes | 10.46Comment: Testing | % | EXTERNAL | | | | performed at [facility], [address] | | LAB | | | | [address], | | | | | | [place] [address] | | | | + + + + + + | % | 1.77Comment: Testing | % | EXTERNAL | | | Eosinophils | performed at [facility], [address] | | LAB | | | | [address], | | | | | | [place] [address] | | | | + + + + + + | % Basophils | 0.59Comment: Testing | % | EXTERNAL | | | | performed at [facility], [address] | | LAB | | | | [address], | | | | | | [place] [address] | | | | + + + + + + | Absolute | 5.53Comment: Testing | 1.90 - 7.40 | EXTERNAL | | | Segmented | performed at [facility], [address] | K/uL | LAB | | | Neutrophils | [address], | | | | | | [place] [address] | | | | + + + + + + | Absolute | 2.18Comment: Testing | 1.00 - 3.90 | EXTERNAL | | | Lymphocytes | performed at [facility], [address] | K/uL | LAB | | | | [address], | | | | | | [place] [address] | | | | + + + + + + | Absolute | 0.93 (H)Comment: Testing | 0.00 - 0.80 | EXTERNAL | | | Monocytes | performed at [facility], [address] | [address] | LAB | | | | [address], | | | | | | [place] [address] | | | | + + + + + + | Absolute | 0.16Comment: Testing | 0.00 - 0.50 | EXTERNAL | | | Eosinophils | performed at [facility], [address] | K/uL | LAB | | | | [address], | | | | | | [place] [address] | | | | + + + + + + | Absolute | 0.05Comment: Testing | 0.00 - 0.10 | EXTERNAL | | | Basophils | performed at [facility], [address] | K/uL | LAB | | | | [place], | | | | | | [place] [address] | | | | + + + + + + + + | Specimen | + + | Blood specimen | | (specimen) | + + + +---------+ + + | Performing | Address | City/State/Zipcode | Phone Number | | Organization | | | | + +---------+ + + | EXTERNAL LAB | | | | + +---------+ + + Basic Metabolic Panel (06/18/2015 6:06 AM PDT) + + + + + + | Component | Value | Ref Range | Performed | Pathologist | | | | | At | Signature | + + + + + + | Na | 138Comment: Testing | 135 - 143 | EXTERNAL | | | | performed at [facility], [address] | mmol/L | LAB | | | | [place] [place], | | | | | | [place] [address] | | | | + + + + + + | K | 3.9Comment: Testing | 3.5 - 4.9 | EXTERNAL | | | | performed at [facility], [address] | mmol/L | LAB | | | | [place], | | | | | | [place] [address] | | | | + + + + + + | Cl | 104Comment: Testing | 99 - 109 mmol/L | EXTERNAL | | | | performed at [facility], [address] | | LAB | | | | [address], | | | | | | [place] [address] | | | | + + + + + + | CO2 | 29Comment: Testing | 23 - 32 mmol/L | EXTERNAL | | | | performed at [facility], [address] | | LAB | | | | [address], | | | | | | [place] [address] | | | | + + + + + + | Anion Gap | 9Comment: Testing | 5 - 20 mmol/L | EXTERNAL | | | | performed at [facility], [address] | | LAB | | | | [address], | | | | | | [place] [address] | | | | + + + + + + | Glucose, | 116 (H)Comment: Testing | 65 - 99 mg/dL | EXTERNAL | | | Fasting | performed at [facility], [address] | | LAB | | | | [address], | | | | | | [place] [address] | | | | + + + + + + | BUN | 16Comment: Testing | 8 - 25 mg/dL | EXTERNAL | | | | performed at [facility], [address] | | LAB | | | | [address], | | | | | | [place] [address] | | | | + + + + + + | Creatinine | 1.07Comment: Testing | 0.70 - 1.30 | EXTERNAL | | | | performed at [facility], [address] | mg/dL | LAB | | | | [address], | | | | | | [place] [address] | | | | + + + + + + | BUN/Creatin | 15Comment: Testing | | EXTERNAL | | | ine Ratio | performed at [facility], [address] | | LAB | | | | [address], | | | | | | [place] [address] | | | | + + + + + + | Calcium | 9.5Comment: Testing | 8.5 - 10.5 | EXTERNAL | | | | performed at [facility], [address] | mg/dL | LAB | | | | [place] [place], | | | | | | [place] [address] | | | | + + + [...] | | | | | | at [facility], [address] | | | | | | [address], | | | | | | [place] [address] | | | | + + + [...]
--- OUTSIDE RECORDS SUMMARY | ~2020-05-13 | XMS | Encounter Summary ---
Demographics + + + | Address | [address] | | | [place] [address] | + + + | Home Phone [...] + + + | Author | [facility] | | | and [place] | + + + | Organization | [facility] | | | [...] [place], [place] | | | | | [address] | | + + + + + | Angelita Godoy | ECON | Unknown | | + + + + + Care Team Providers + +------+ + | Care Pricing Coordinator Name | Role | Phone | + +------+ + PCP | Unavailable | + +------+ + Encounter Details +--------+ + + + + | Date | Type | Department | Care Team | Description | +--------+ + + + + | 09/17/ | Hospital | [facility] | Lopez Moore MD | Atrial fibrillation | | 2010 | Encounter | [facility] | [address] | ([facility]) | | | | CLINICAL DECISION | [place] [address] | | | | | [address] [facility] | [phone] | | | | | [place], [place] | | | | | | [address] | | | | | | [phone] | | | +--------+ + + + [...] [place] | | | | | | [address] | | | | | | | [...] [place], | | | | | | [place] [address] | | | | | | [phone] | | | | | | | | +--------+ + + + + documented as of this encounter Procedures + +--------+ + + + | Procedure Name | Priori | Date/Time | Associated Diagnosis | Comments | | | ty | | | | + +--------+ + + + | CV CARDIAC PROCEDURE | Routin | 09/17/2010 | | Results for this | | | e | 2:49 PM | | procedure are in the | | | | PST | | results section. | + +--------+ + + + documented in this encounter Results CV CARDIAC PROCEDURE (09/17/2010 2:49 PM PST) + + | Specimen | + + | | + + + + + | Narrative | Performed At | + + + | [facility] [address] Ph: | | | Patient Name: AYANNA MUNIZ Date of : | | | 1935 Medical Record: [id number] Account: [id number] | | | Exam Date/Time: 09/17/2010 13:30 Ordering | | | Physician: LOPEZ MOORE Order Detail: [id number] Exam Description: | | | CCL CORONARY ANGIO W/O VGRAM | | | | | | PROCEDURES 1. Left heart catheterization with left ventriculogram. | | | 2. Attempt to cross the aortic valve a Ganado wire and Kimball wire, | | | failed. INDICATIONS This is a 75 year old with aortic stenosis | | | who was referred for coronary angiography. DESCRIPTION OF | | | PROCEDURE The patient was brought to the catheterization lab in the | | | fasting state. He was prepped and draped in the usual sterile | | | fashion. Arterial access was obtained via the right femoral artery. A | | | 6-Mauritanian arterial sheath was placed. A 6-Mauritanian JL4 catheter was | | | advanced and engaged with the ostium of the left main coronary | | | artery, and projections of the left coronary system were done with | | | the use of contrast injections. The catheter was then exchanged for a | | | 6-Mauritanian JR4 catheter which was engaged with the ostium of the right | | | coronary artery, and a projection of the right coronary system was | | | done with the use of contrast injections. Multiple attempts to cross | | | the aortic valve with a Ganado wire as well as a Kimball wire failed | | | after spending almost 15 minutes in various trials. The aortic valve | | | appears to be calcified. Therefore, the attempt was abandoned. | | | FINDINGS CORONARY ANGIOGRAPHY The coronary system was left | | | dominant. 1. The left main bifurcated into LAD and left circumflex. | | | Left main was free of disease. 2. The left anterior descending | | | artery has minimal atherosclerosis. 3. The left circumflex coronary | | | artery was a dominant arterial and free of significant disease. | | | 4. The right coronary artery was a nondominant vessel and free of | | | disease. ESTIMATED BLOOD LOSS Less than 50 mL. IMPRESSION | | | AND PLAN 1. No significant coronary artery disease. 2. Failed | | | attempt to cross the aortic valve with known history of severe | | | aortic stenosis. A | | | 12:13 P [id number]/ Read by LOPEZ MOORE MD 09/20/2010 | | | 04:24 A | | | PM | | + + + + + | Procedure Note | + + | Gus Guerrero - 05/06/2019 3:58 PM PDT | | [facility] | | [facility] [place] [address] | | | | | | Patient Name: AYANNA MUNIZ | | Date of : 1935 | | Medical Record: [id number] | | Account: [id number] | | | | | | Exam Date/Time: 09/17/2010 13:30 | | Ordering Physician: LOPEZ MOORE | | Order Detail: [id number] | | Exam Description: CCL CORONARY ANGIO W/O VGRAM | | | | PROCEDURES | | 1. Left heart catheterization with left ventriculogram. | | 2. Attempt to cross the aortic valve a Ganado wire and Kimball wire, | | failed. | | | | INDICATIONS | | This is a 75 year old with aortic stenosis who was referred for coronary | | angiography. | | | | DESCRIPTION OF PROCEDURE | | The patient was brought to the catheterization lab in the fasting state. | | He was prepped and draped in the usual sterile fashion. Arterial access | | was obtained via the right femoral artery. A 6-Mauritanian arterial sheath | | was placed. A 6-Mauritanian JL4 catheter was advanced and engaged with the | | ostium of the left main coronary artery, and projections of the left | | coronary system were done with the use of contrast injections. The | | catheter was then exchanged for a 6-Mauritanian JR4 catheter which was | | engaged with the ostium of the right coronary artery, and a projection | | of the right coronary system was done with the use of contrast | | injections. Multiple attempts to cross the aortic valve with a Ganado | | wire as well as a Kimball wire failed after spending almost 15 minutes in | | various trials. The aortic valve appears to be calcified. Therefore, the | | attempt was abandoned. | | | | FINDINGS | | | | CORONARY ANGIOGRAPHY | | The coronary system was left dominant. | | 1. The left main bifurcated into LAD and left circumflex. Left main was | | free of disease. | | 2. The left anterior descending artery has minimal atherosclerosis. | | 3. The left circumflex coronary artery was a dominant arterial and free | | of significant disease. | | 4. The right coronary artery was a nondominant vessel and free of | | disease. | | | | ESTIMATED BLOOD LOSS | | Less than 50 mL. | | | | IMPRESSION AND PLAN | | 1. No significant coronary artery disease. | | 2. Failed attempt to cross the aortic valve with known history of severe | | aortic stenosis. | | | | | | | | A | | P | | [id number] | | | | Read by | | LOPEZ MOORE MD 09/20/2010 04:24 A | | | | | + + documented in this encounter Visit Diagnoses + + | Diagnosis | + + | Atrial fibrillation (HCC) Atrial fibrillation | + + documented in this encounter"
[~2020-05-13 12:36] MED LIST: ACETAMINOPHEN-1 EAC1 PO; ALLOPURINOL300 MG PO; AMIODARONE HCL200 MG PO; AMLODIPINE BESY10 MG PO; AMLODIPINE BESYL5 MG PO; ASPIRIN EC81 MG PO; ATORVASTATIN CA40 MG PO; ATORVASTATIN CA80 MG PO; CALCITRIOL0.25 MCG PO; CARDURA2 MG; CARDURA2 MG PO; CARVEDILOL25 MG PO; CLINDAMYCIN HC300 MG PO; COUMADIN3 MG PO; DIABETA2.5 MG PO; DIGOXIN125 MCG PO; DOXAZOSIN MESYLA1 MG PO; ENOXAPARIN100 MG/1 M SUB-Q; FENOFIBRATE145 MG PO; FINASTERIDE5 MG PO; FLOMAX0.4 MG PO; FUROSEMIDE40 MG PO; GLIPIZIDE ER2.5 MG PO; GLIPIZIDE ER5 MG PO; HYDROCHLOROTHIA25 MG PO; ISOSORBIDE MONO30 MG PO; LISINOPRIL40 MG PO; POTASSIUM CHLO10 ME2 PO; POTASSIUM CHLO20 ME1 PO; PRAVASTATIN SOD40 MG PO; TORSEMIDE20 MG PO; VITAMIN D-32000 UNIT PO; VITAMIN D5000 UNIT PO; WARFARIN SODIUM2 MG PO; WARFARIN SODIUM3 MG PO
[2020-05-13] MEDS ORDERED: NORCO 5-325 TA1 EACH PO (14:05)
--- NOTE | 2020-05-13 20:07 | EKG ---
[facility] [address] [facility] [place] [address] Signed Atrial fibrillation with frequent ventricular-paced complexes and with premature ventricular or aberrantly conducted complexes Left bundle branch block Abnormal ECG No previous ECGs available Confirmed by GIANFRANCO CHAVEZ DO ([id number]) on 05/13/2020 8:07:35 PM Electronically Signed By: GIANFRANCO CHAVEZ DO 05/13/202006 PATIENT NAME: AYANNA MUNIZ Electrocardiogram DATE OF : 39 PHYSICIAN: GIANFRANCO CHAVEZ DO REPORT #: [id number] REPORT IS CONFIDENTIAL AND NOT TO BE RELEASED WITHOUT AUTHORIZATION
== END 2020-05-13 14:37 | disposition home or self-care (01) ==
LOC: ED 12:36
DX: S22.32XA Fracture of one rib, left side, initial encounter for closed fracture (principal); M10.9 Gout, unspecified; I10 Essential (primary) hypertension; Z79.899 Other long term (current) drug therapy; X58.XXXA Exposure to other specified factors, initial encounter
CPT/HCPCS: 71101; 93005; 93010; 99283-25

== ENCOUNTER 2020-10-25 22:13 | Emergency (ER) | payer MEDICARE ==
[~2020-10-25] VITALS: Ht 167.6 cm; Wt 90.7 kg
[~2020-10-25 22:13] MED LIST changes: +NORCO 5-325 TA1 EACH PO
[2020-10-26] MEDS ORDERED: HYDROCODON-ACE1 EA10 PO (01:29)
== END 2020-10-26 01:55 | disposition home or self-care (01) ==
LOC: ED 22:13
DX: S32.110A Nondisplaced Zone I fracture of sacrum, initial encounter for closed fracture (principal); S32.82XA Multiple fractures of pelvis without disruption of pelvic ring, initial encounter for closed fracture; S32.059A Unspecified fracture of fifth lumbar vertebra, initial encounter for closed fracture; I10 Essential (primary) hypertension; E11.9 Type 2 diabetes mellitus without complications; Z79.899 Other long term (current) drug therapy; Z79.01 Long term (current) use of anticoagulants; Z79.82 Long term (current) use of aspirin; W00.0XXA Fall on same level due to ice and snow, initial encounter
CPT/HCPCS: 72192; 73030; 73502; 80053; 85025; 85610; 85730; 96374; 96375; 96376; 99285-25; J1170; J2405

== ENCOUNTER 2024-06-25 08:41 | Emergency (ER) | payer MEDICARE ==
[~2024-06-25] VITALS: Ht 167.6 cm; Wt 88.4 kg
[~2024-06-25 08:41] MED LIST changes: +CHLORTHALIDONE25 MG PO; +DOXAZOSIN MESYLA4 MG PO; +ENTRESTO 49 MG1 EACH PO; +FARXIGA10 MG PO; +HYDROCODON-ACE1 EA10 PO; +ISOSORBIDE MON120 MG PO; +SPIRONOLACTONE25 MG PO
[2024-06-25] MEDS ORDERED: HYDROmorphone HCL 1 MG/ML SYR IV ONE (09:30)
[2024-06-25] MEDS ORDERED: ondansetron HCL 4 MG/2 ML VIAL IV ONE (09:30)
[2024-06-25] MEDS ORDERED: diazePAM 10 MG/2 ML SYR IV ONE (09:30)
[2024-06-25] MEDS ORDERED: SODIUM CHLORIDE 0.9% 1,000 ML IV PRN (10:30)
[2024-06-25] MEDS ORDERED: MAGNESIUM CITRATE 300 ML BTL PO ONE (10:45)
[2024-06-25 11:49] VITALS: BP 121/77
== END 2024-06-25 11:51 | disposition home or self-care (01) ==
LOC: ED 08:41
DX: K59.00 Constipation, unspecified (principal); M54.50 Low back pain, unspecified; I10 Essential (primary) hypertension; E11.9 Type 2 diabetes mellitus without complications; Z95.2 Presence of prosthetic heart valve; Z95.0 Presence of cardiac pacemaker; Z79.01 Long term (current) use of anticoagulants; Z79.899 Other long term (current) drug therapy; Z79.82 Long term (current) use of aspirin; X50.0XXA Overexertion from strenuous movement or load, initial encounter
CPT/HCPCS: 74022; 96374; 96375; 99283-25; J2405; J3360; J7030

== ENCOUNTER 2025-04-03 10:16 | Emergency (ER) | payer MEDICARE ==
[~2025-04-03] VITALS: Ht 167.6 cm; Wt 89.0 kg
[~2025-04-03 10:16] MED LIST changes: +ALENDRONATE SOD70 MG PO; +ALLOPURINOL100 MG PO; +DOXAZOSIN MESYLA2 MG PO; +VITAMIN D21250 MCG PO
[2025-04-03 14:20] VITALS: BP 123/87
== END 2025-04-03 14:21 | disposition home or self-care (01) ==
LOC: ED 10:16
DX: T23.231A Burn of second degree of multiple right fingers (nail), not including thumb, initial encounter (principal); I10 Essential (primary) hypertension; X10.2XXA Contact with fats and cooking oils, initial encounter; Z79.01 Long term (current) use of anticoagulants; Z79.82 Long term (current) use of aspirin; Z79.899 Other long term (current) drug therapy
CPT/HCPCS: 16000; 99283-25